=== PATIENT | female | born 1990 | race African-American/Black ===

== ENCOUNTER 2023-06-22 13:40 | Emergency (ER) | payer OTHER, SELFPAY ==
[2023-06-22 13:48] VITALS: BP 158/110; PULSE 110; RESP 16; TEMP 37.1; O2SAT 98; BMI 34.9
--- NOTE | 2023-06-22 14:04 | ED_ITS ---
HPI - General Adult General Chief complaint: Neuro Symptoms/Deficit Stated complaint: NUMBNESS L ARM Time Seen by Provider: 06/22/23 13:46 Source: patient and family Mode of arrival: walk-in Limitations: no limitations History of Present Illness HPI narrative: Patient is a 33-year female who presents to the emergency department with her father for the evaluation of numbness to the left arm for several weeks, wors ening 2 days ago as well as numbness to the left hip that began yesterday. She denies any mechanism of injury or trauma. 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 She has not had any headaches, visual changes, neck pain, back pain. She states she has stopped taking her insulin and metformin in the last month as she was feeling depressed, she believes her symptoms may be due to this. She denies any other focal medical complaints, she is not concerned for . Related Data Allergies Allergy/AdvReac Type Severity Reaction Status Date / Time amoxicillin AdvReac Severe Hives Verified 06/22/23 13:55 cephalexin AdvReac Severe Hives Verified 06/22/23 13:55 doxycycline AdvReac Severe Hives Verified 06/22/23 13:55 Review of Systems ROS Constitutional Denies: fever or chills Eyes Denies: change in vision Ears, nose, mouth, and throat Denies: throat pain Cardiovascular Denies: chest pain Respiratory Denies: shortness of breath Gastrointestinal Denies: nausea, vomiting or diarrhea Genitourinary Denies: painful urination Musculoskeletal Denies: back pain or neck pain Neurological Reports: numbness in extremities; Denies: headache Hematologic/Lymphatic Denies: easy bruising PFSH [facility] Social History Smoking status: Never smoker Exam Narrative Exam Narrative: Gen.: Awake, alert, in no distress Head: Normocephalic, atraumatic ENT: Moist mucous membranes; C-spine nontender Respiratory: No respiratory distress Extremities: Moves extremities equally, no injuries noted; normal dorsiflexion and plantarflexion of the lower extremities with no decrease in sensation to the medial thighs, normal hip flexion bilaterally. 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 Normal sensation to touch in the fingertips Psych: Normal mood and affect Neuro: No focal neuro deficit Skin: Warm, dry, intact Constitutional Vital Signs, click to edit/add: Last Vital Signs Temp 98.7 F 06/22/23 13:48 Pulse 110 H 06/22/23 13:48 Resp 16 06/22/23 13:48 BP 158/110 H 06/22/23 13:48 Pulse Ox 98 06/22/23 13:48 O2 Del Method Room Air 06/22/23 13:48 Course Vital Signs Vital signs: Vital Signs Temperature 98.7 F 06/22/23 13:48 Pulse Rate 110 H 06/22/23 13:48 Respiratory Rate 16 06/22/23 13:48 Blood Pressure 158/110 H 06/22/23 13:48 Pulse Oximetry 98 06/22/23 13:48 Oxygen Delivery Method Room Air 06/22/23 13:48 Temperature 98.7 F 06/22/23 13:48 Pulse Rate 110 H 06/22/23 13:48 Respiratory Rate 16 06/22/23 13:48 Blood Pressure 158/110 H 06/22/23 13:48 Pulse Oximetry 98 06/22/23 13:48 Oxygen Delivery Method Room Air 06/22/23 13:48 Medical Decision Making MDM Narrative Medical decision making narrative: CT of the head, CT of the C-spine with mild disc bulging, no other acute abnormalities. Lab studies show the patient has hyperglycemia, no evidence of DKA. She does have a urinary tract infection and was positive for trichomonas on her urine specimen so she is treated with 2 g of Flagyl orally in the ER with Bactrim for home as she has multiple antibiotic allergies. She is given Robaxin and anti-inflammatories, she was strongly encouraged to get back on her insulin and metformin which she has at home already. Follow closely with PCP and return to the ER if symptoms change or worsen. Discussed with the patient that her symptoms may represent diabetic peripheral neuropathy, but may also be musculoskeletal. Medical Records Medical records reviewed: Yes I reviewed the patient's medical records Lab Data Lab results reviewed: Yes I reviewed the patient's lab results Labs: Lab Results 06/22/23 06/22/23 Range/Units 14:12 14:31 WBC 10.1 (4.0-11.0) 10^3/uL RBC 4.04 L (4.20-5.40) 10^6/uL Hgb 11.0 L (12.0-16.0) g/dL Hct 33.5 L (36.0-48.0) % MCV 82.9 (81.0-99.0) fL MCH 27.2 (26.7-34.0) pg MCHC 32.8 (29.9-35.2) g/dL RDW 13.8 (11.0-15.0) % Plt Count 515 H (150-450) 10^3/uL MPV 9.7 (9.5-13.5) fL Neut % (Auto) 64.4 (43.0-75.0) % Lymph % (Auto) 28.3 (20.5-60.0) % [place] % (Auto) 5.5 (1.7-12.0) % Eos % (Auto) 1.1 (0.9-7.0) % Baso % (Auto) 0.3 (0.2-2.0) % Neut # (Auto) 6.5 (1.4-6.5) 10^3/uL Lymph # (Auto) 2.9 (1.2-3.8) 10^3/uL [place] # (Auto) 0.6 (0.3-0.8) 10^3/uL Eos # (Auto) 0.1 (0.0-0.7) 10^3/uL Baso # (Auto) 0.0 (0.0-0.1) 10^3/uL Abs Immat Gran (auto) 0.04 H (0.00-0.03) 10^3/uL Imm/Tot Granulo (auto) 0.4 (0.0-0.5) % Sodium 133 L (136-145) mmol/L Potassium 4.2 (3.5-5.1) mmol/L Chloride 98 (98-107) mmol/L Carbon Dioxide 27.5 (21.0-32.0) mmol/L Anion Gap 11.7 BUN 18.0 (7.0-18.0) mg/dL Creatinine 0.99 (0.55-1.02) mg/dL Est GFR ( Amer) >60 (>=60) Est GFR (Non-Af Amer) >60 (>=60) BUN/Creatinine Ratio 18.2 Glucose 324 H (74-106) mg/dL Lactate 1.3 (0.4-2.0) mmol/L Calcium 9.5 (8.5-10.1) mg/dL Total Bilirubin 0.4 (0.2-1.0) mg/dL AST 11 L (15-37) U/L ALT 18 (14-59) U/L Alkaline Phosphatase 85 (46-116) U/L Total Protein 7.7 (6.4-8.2) g/dL Albumin 3.1 L (3.4-5.0) g/dL Globulin 4.6 g/dL Albumin/Globulin Ratio 0.7 Serum HCG, Qual Negative (NEGATIVE) Urine Color Yellow (YELLOW) Urine Clarity Clear (CLEAR) Urine pH 6.0 (5.0-9.0) Ur Specific [place] >=1.030 A (1.005-1.025) Urine Protein >=300 A (NEG/TRACE) mg/dL Urine Glucose (UA) >=1000 A (NEGATIVE) mg/dL Urine Ketones 15 A (NEGATIVE) mg/dL Urine Occult Blood Moderate A (NEGATIVE) Urine Nitrite Negative (NEGATIVE) Urine Bilirubin Small A (NEGATIVE) Urine Urobilinogen 1.0 (0.2-1.0) EU/dL Ur Leukocyte Esterase Small A (NEGATIVE) Urine RBC 10-20 A (0-2) #/HPF Urine WBC 20-50 A (NONE SEEN) #/HPF Ur Squamous Epith Cells Few A (NONE/RARE) #/LPF Urine Crystals None seen (None Seen) #/HPF Urine Bacteria Small A (NONE SEEN) #/HPF Urine Casts None seen (NONE SEEN) #/LPF Urine Mucus None seen (NONE SEEN) Urine Trichomonas Seen A (NONE SEEN) Ur Culture Indicated? Yes Acetone, Qual Negative (NEGATIVE) Imaging Data CT scan - head: Attestation: I have reviewed the pertinent imaging results. Radiologist's impression: Procedure: CT head/brain wo con CT head/brain wo con, 06/22/2023 2:17 PM EST INDICATION: Paresthesia Left arm/leg COMPARISON: No prior CT scan of the head available for comparison at the time of this dictation. TECHNIQUE: Axial CT images of the brain from skull base to vertex, including portions of the face and sinuses, were obtained without contrast. Multiplanar reformatted images were generated and reviewed as needed. FINDINGS: No intracranial mass, hydrocephalus, midline shift or acute hemorrhage. No extra-axial collection. Lee-white matter differentiation is preserved. Chronic mucosal thickening within the right frontal sinus and ethmoid air cells. The remaining paranasal sinuses and mastoid air cells are clear. Right orbit within normal limits. Findings likely representing prior silicone oil injection into the left globe. IMPRESSION: 1. No acute intracranial abnormality. 2. Chronic right frontal and ethmoid sinusitis. Electronically authenticated by: CHARLIE VILLATORO Date: 06/22/2023 14:50 Procedure: CT cervical spine wo con EXAM: CT cervical spine wo con HISTORY: Paresthesia left arm/leg COMPARISON: None TECHNIQUE: CT cervical spine study was performed without the use of intravenous contrast. Multiple axial images were obtained. Reformatted coronal and sagittal images were obtained and reviewed. FINDINGS: Vertebral body heights are grossly well-maintained. No significant disc space narrowing. Slight convexity of the thoracolumbar junction to the left. No definite acute fracture or dislocation. At C2-C3 mild disc bulging. At C3-C4 mild disc bulging. At C4-C5 mild disc bulging. At C5-C6 mild disc bulging. At C6-C7 no obvious focal abnormality. At C7-T1 no obvious focal abnormality. Partially visualized T1-T2 no obvious focal abnormality. No obvious spinal stenosis or significant neural foraminal narrowing. No obvious focal soft tissue abnormality within the bony spinal canal. Muscle and fascial planes are grossly intact. Likely a few small lymph nodes within the subcutaneous tissue at the lower occipital level on the left, mild fibrosis and/or edema within the subcutaneous tissue at the lower occipital level centrally and to the right. Other possibility would be less likely. IMPRESSION: CT cervical spine study demonstrates areas of mild disc bulging. No other significant abnormalities are identified. Electronically authenticated by: ANDRE GALVEZ Date: 06/22/2023 15:02 Discharge Plan Discharge Chief Complaint: Neuro Symptoms/Deficit Clinical Impression: UTI (urinary tract infection), Trichomonal infection, Paresthesia, Acute hyperglycemia Patient Disposition: Home, Self-Care Time of Disposition Decision: 15:51 Condition: Good Stand Alone Forms: Portal Instructions Referrals: ALICIA HAWLEY APRN [Primary Care Provider] - 1 week
[2023-06-22 14:22] LABS: Basophils Percent Auto 0.3 % (0.2-2.0); Eosinophils Absolute Auto 0.1 10^3/uL (0.0-0.7); Eosinophils Percent Auto 1.1 % (0.9-7.0); Hematocrit 33.5 % (36.0-48.0); Immature Granulocytes Abs Auto 0.04 10^3/uL (0.00-0.03); Immature Granulocytes Pct Auto 0.4 % (0.0-0.5); Lymphocytes Absolute Auto 2.9 10^3/uL (1.2-3.8); Lymphocytes Percent Auto 28.3 % (20.5-60.0); Mean Corpuscular HGB Conc 32.8 g/dL (29.9-35.2); Mean Corpuscular Hemoglobin 27.2 pg (26.7-34.0); Mean Corpuscular Volume 82.9 fL (81.0-99.0); Mean Platelet Volume 9.7 fL (9.5-13.5); Monocytes Absolute Auto 0.6 10^3/uL (0.3-0.8); Monocytes Percent Auto 5.5 % (1.7-12.0); Neutrophils Absolute Auto 6.5 10^3/uL (1.4-6.5); Neutrophils Percent Auto 64.4 % (43.0-75.0); Platelet Count 515 10^3/uL (150-450); Red Blood Count 4.04 10^6/uL (4.20-5.40); Red Cell Distribution Width 13.8 % (11.0-15.0); White Blood Count 10.1 10^3/uL (4.0-11.0)
--- NOTE | 2023-06-22 14:26 | CT_ITS ---
The [address] [address] Patient Name: RUBÉN STANLEY MRN: [id number] date: 1990 Sex: F Assigned Patient Location: ER Current Patient Location: ER Accession/Order Number: [id number] Exam Date: 06/22/2023 14:17 Report Date: 06/22/2023 15:02 At the request of: SAM SELLERS Procedure: CT cervical spine wo con EXAM: CT cervical spine wo con HISTORY: Paresthesia left arm/leg COMPARISON: None TECHNIQUE: CT cervical spine study was performed without the use of intravenous contrast. Multiple axial images were obtained. Reformatted coronal and sagittal images were obtained and reviewed. FINDINGS: Vertebral body heights are grossly well-maintained. No significant disc space narrowing. Slight convexity of the thoracolumbar junction to the left. No definite acute fracture or dislocation. At C2-C3 mild disc bulging. At C3-C4 mild disc bulging. At C4-C5 mild disc bulging. At C5-C6 mild disc bulging. At C6-C7 no obvious focal abnormality. At C7-T1 no obvious focal abnormality. Partially visualized T1-T2 no obvious focal abnormality. No obvious spinal stenosis or significant neural foraminal narrowing. No obvious focal soft tissue abnormality within the bony spinal canal. Muscle and fascial planes are grossly intact. Likely a few small lymph nodes within the subcutaneous tissue at the lower occipital level on the left, mild fibrosis and/or edema within the subcutaneous tissue at the lower occipital level centrally and to the right. Other possibility would be less likely. CT/CT cervical spine wo con IMPRESSION: CT cervical spine study demonstrates areas of mild disc bulging. No other significant abnormalities are identified. Electronically authenticated by: ANDRE GALVEZ Date: 06/22/2023 15:02
--- NOTE | 2023-06-22 14:26 | CT_ITS ---
The [address] [address] Patient Name: RUBÉN STANLEY MRN: [id number] date: 1990 Sex: F Assigned Patient Location: ER Current Patient Location: ER Accession/Order Number: [id number] Exam Date: 06/22/2023 14:17 Report Date: 06/22/2023 14:50 At the request of: SAM SELLERS Procedure: CT head/brain wo con CT head/brain wo con, 06/22/2023 2:17 PM EST INDICATION: Paresthesia Left arm/leg COMPARISON: No prior CT scan of the head available for comparison at the time of this dictation. TECHNIQUE: Axial CT images of the brain from skull base to vertex, including portions of the face and sinuses, were obtained without contrast. Multiplanar reformatted images were generated and reviewed as needed. FINDINGS: No intracranial mass, hydrocephalus, midline shift or acute hemorrhage. No extra-axial collection. Lee-white matter differentiation is preserved. Chronic mucosal thickening within the right frontal sinus and ethmoid air cells. The remaining paranasal sinuses and mastoid air cells are clear. Right orbit within normal limits. Findings likely representing prior silicone oil injection into the left globe. CT/CT head/brain wo con IMPRESSION: 1. No acute intracranial abnormality. 2. Chronic right frontal and ethmoid sinusitis. Electronically authenticated by: CHARLIE VILLATORO Date: 06/22/2023 14:50
[2023-06-22 14:36] LABS: Alanine Aminotransferase 18 U/L (14-59); Albumin Globulin Ratio 0.7; Albumin Level 3.1 g/dL (3.4-5.0); Alkaline Phosphatase 85 U/L (46-116); Anion Gap 11.7; Aspartate Amino Transferase 11 U/L (15-37); BUN Creatinine Ratio 18.2; Bilirubin Total 0.4 mg/dL (0.2-1.0); Calcium 9.5 mg/dL (8.5-10.1); Carbon Dioxide 27.5 mmol/L (21.0-32.0); Chloride 98 mmol/L (98-107); Estimated GFR (African America >60 (>=60); Estimated GFR (Non-African Ame >60 (>=60); Globulin 4.6 g/dL; Glucose 324 mg/dL (74-106); Potassium 4.2 mmol/L (3.5-5.1); Sodium 133 mmol/L (136-145); Total Protein 7.7 g/dL (6.4-8.2)
[2023-06-22] MEDS: 0.9 % SODIUM CHLORIDE 1,000 ML 999 ML IV (14:36)
[2023-06-22 14:39] LABS: Acetone NEGATIVE (NEGATIVE)
[2023-06-22 14:41] LABS: HCG Qualitative NEGATIVE (NEGATIVE)
[2023-06-22 14:44] LABS: Lactate/Lactic Acid 1.3 mmol/L (0.4-2.0)
[2023-06-22 14:44] LABS: Bilirubin Urine SMALL (NEGATIVE); Blood Urine MODERATE (NEGATIVE); Clarity Urine CLEAR (CLEAR); Color Urine YELLOW (YELLOW); Glucose Urine UA >=1000 mg/dL (NEGATIVE); Ketones Urine 15 mg/dL (NEGATIVE); Leukocyte Esterase Urine SMALL (NEGATIVE); Nitrite Urine NEGATIVE (NEGATIVE); Protein Urine >=300 mg/dL (NEG/TRACE); Specific Gravity Urine >=1.030 (1.005-1.025)
[2023-06-22 14:45] LABS: Urine Microscopic Indicated YES
[2023-06-22 14:57] LABS: Bacteria Urine SMALL #/HPF (NONE SEEN); Mucus Urine NONE SEEN (NONE SEEN)
[2023-06-22 14:58] LABS: Trichomonas Urine SEEN (NONE SEEN)
[2023-06-22 14:59] LABS: WBC Urine 20-50 #/HPF (NONE SEEN)
[2023-06-22 15:00] LABS: Cast Seen? NONE SEEN #/LPF (NONE SEEN); Crystals Seen? None Seen #/HPF (None Seen); Squamous Epithelial Cell Urine FEW #/LPF (NONE/RARE); Urine Culture Indicated YES
[2023-06-22] MEDS: METRONIDAZOLE 250 MG TABLET 2000 MG PO (16:05)
== END 2023-06-22 16:20 | disposition home or self-care (01) ==
PROVIDERS: Physician Assistant; Emergency Provider Emergency Medicine; PCP Nurse Practitioner Primary Care
DX: N39.0 Urinary tract infection, site not specified (principal); M50.30 Other cervical disc degeneration, unspecified cervical region; R73.9 Hyperglycemia, unspecified; A59.9 Trichomoniasis, unspecified; R20.0 Anesthesia of skin; T38.3X6A Underdosing of insulin and oral hypoglycemic [antidiabetic] drugs, initial encounter; Z91.128 Patient's intentional underdosing of medication regimen for other reason
CPT/HCPCS: 36415; 70450; 72125; 80053; 81001; 82009; 83605; 84703; 85025; 87086; 87150; 87186; 99284

== ENCOUNTER 2023-07-16 19:19 | Outpatient (REF) | payer OTHER, SELFPAY ==
--- OUTSIDE RECORDS SUMMARY | 2023-07-16 19:23 | XMS_ITS | CCD ---
Author Name Unknown Address [address] [place] [address] [address] [place] [address] Organization [facility] Care Team Providers [facility] Name Role Phone ROGELIO ORNELAS Attending Unavailable ALICIA HAWLEY Primary Care Unavailable ROGELIO ORNELAS Admitting Unavailable ROGELIO ORNELAS Attending Unavailable ALICIA HAWLEY Primary Care Unavailable ROGELIO ORNELAS Admitting Unavailable Problems Problem Classification Problem Date Documented Date Episodic/Chronic Diabetes mellitus with complications (2 sources) Diabetes mellitus due to underlying condition with proliferative diabetic 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, left eye; Translations: [Diabetes mellitus due to underlying condition with proliferative diabetic 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, left eye] Onset: 01-13-2023 Chronic Other eye disorders (2 sources) Vitreous hemorrhage, left eye; Translations: [Vitreous hemorrhage, left eye] Onset: 01-13-2023 Chronic Retinal detachments; defects; vascular occlusion; and retinopathy (2 sources) Traction detachment of retina, left eye; Translations: [Traction detachment of retina, left eye] Onset: 03-05-2023 Episodic Results Test Name Value Interpretation Reference [facility] OPERATIVE REPORTon OPERATIVE REPORT [address] [address] OPERATIVE REPORT PATIENT NAME: RUBÉN STANLEY : 1990 MED REC NO: [id number] ROOM: ACCOUNT NO: [id number] ADMIT DATE: 03/05/2023 PROVIDER: Rogelio Ornelas DATE OF PROCEDURE: 03/05/2023 PREOPERATIVE DIAGNOSIS: 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 OPERATIONS PERFORMED: Pars plana vitrectomy with membrane peeling, PFO, panretinal endolaser and silicone, left eye. SURGEON: Rogelio Ornelas MD ANESTHESIA: Monitored. REASON FOR OPERATION: The patient is a 32-year-old woman with severe proliferative diabetic retinopathy in both eyes. She has had previous surgery on the left eye that has developed recurrent nasal detachment due to contraction of fibrotic tissue near the equator. She has elected to undergo surgery in hopes of improving vision. She understands the risks include but are not limited to bleeding, infection, and recurrent retinal detachment. She understands it is very likely that she will develop significant cataract within two years. OPERATIVE PROCEDURE: The patient was brought to the operating room in good condition. She was administered local anesthetic and prepped in the usual fashion. 23-gauge vitrectomy trocars were placed superonasally and superotemporally. Light pipe and ocutome were placed in the eye. There was contracted atrophic fibrovascular tissue near the equator and possibly slightly anterior. There were two areas of subretinal membranes in the inferonasal and superonasal quadrants. The detachment affected all of the nasal half of the eye and that was highly elevated. I made a retinotomy over the subretinal strands and removed them. I removed fluid replacing it with silicone. This did not fully reattach the retina. I elected to make a large nasal retinotomy from approximately 7 o'clock to 11. This was done using diathermy and the ocutome. Mild bleeding was encountered and controlled with elevating intraocular pressure with silicone injection or endolaser. The retina wanted to remain elevated nasally. I removed some of the silicone and replaced it with PFO, which flattened the nasal retina. I placed three rows of contiguous endolaser behind the retinotomy and treated the small retinotomy with laser. The macula stayed attached at all times although it has been detached in the past. The PFO was removed and replaced with silicone. The retina remained attached. I removed the trocars and sutured the sites with 6-0 chromic suture. Intraocular pressure remained in normal range. I injected 400 mcg of methotrexate through the superotemporal pars plana and held the needle opening with a cotton swab to be sure there was no reflux. Intraocular pressure was still within normal range. The eye was patched in the usual fashion. The patient was taken to the recovery room in good condition. ROGELIO ORNELAS GUSTAVO/[email or web address] Doc#: [id number] CC: Normal [facility] OPERATIVE REPORTon OPERATIVE REPORT [address] [address] OPERATIVE REPORT PATIENT NAME: RUBÉN STANLEY : 1990 MED REC NO: [id number] ROOM: ACCOUNT NO: [id number] ADMIT DATE: 01/13/2023 PROVIDER: Rogelio Ornelas DATE OF PROCEDURE: 01/13/2023 PREOPERATIVE DIAGNOSES: 1. 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 2. Vitreous hemorrhage, left eye. 3. Type 1 diabetes. POSTOPERATIVE DIAGNOSES: 1. 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 2. Vitreous hemorrhage, left eye. 3. Type 1 diabetes. PROCEDURE: Pars plana vitrectomy with extensive membrane peeling, air-fluid exchange, silicone and panretinal endolaser, all left eye. SURGEON: Rogelio Ornelas MD ANESTHESIA: General endotracheal. ESTIMATED BLOOD LOSS: Minimal. COMPLICATIONS: None. SPECIMENS: None. REASON FOR OPERATION: The patient is a 32-year-old young woman with type 1 diabetes who has severe traction retinal detachments in both eyes. Vision in the right eye has been 20/50, but the left eye has decreased to hand motions due to her traction detachment, which involves the macula and almost all of the nasal periphery. She has large sheets of epiretinal membrane. She has mild vitreous hemorrhage. She has elected to undergo surgery in hopes of recovering partial vision. She understands the risks include bleeding, infection, and recurrent retinal detachment. She understands she may develop a significant cataract within a year. She understands that the visual recovery will take 6-12 months at least and the vision is not likely to return to near normal, but she is likely to lose all vision without surgery. PROCEDURE: The patient was brought to the operating room in good condition. She was administered local anesthetic and prepped and draped in the usual fashion. The 23-gauge vitrectomy trocars were placed through the pars plana in the usual quadrants. The infusion attached to the inferotemporal site. Light pipe and ocutome were placed through the superior sites. There was mild amount of blood near the center. We removed vitreous from anterior to posterior. Most of the temporal vitreous was detached, but there was a very high nasal detachment with a large sheet of contracted fibrovascular tissue over most of the nasal periphery. The macula was difficult to identify because of epiretinal membranes. We removed temporal vitreous and then began to dissect vitreous and epiretinal membrane off the nasal retina. This took an extensive length of time, but eventually we were able to remove membrane out well anterior to the equator. There were scattered areas of bleeding, which sometimes required waiting for to stop. We treated the bleeding with diathermy or the endolaser. The macular area had been detached and by the time we were done, much of the temporal retina was also detached. We left islands of fibrovascular tissue, which were in places where they were strongly adherent. When bleeding was controlled, I made a retinotomy above the posterior pole with intraocular diathermy. An air-fluid exchange attached the retina. Panretinal endolaser was then done in areas that had not previous been treated. There was a relatively small amount of area that had been treated previously. Laser was placed around the retinotomy. Residual fluid was aspirated from over the optic nerve head. The vitreous was filled with 1000 [place] silicone. The trocars were removed and the sites closed with 7-0 chromic suture. The eye was patched in the usual fashion. The patient was awakened and taken to recovery room in good condition. ROGELIO ORNELAS GUSTAVO/Jose [email or web address] Doc#: [id number] [facility] Encounters Encounter Date Encounter Type Care Provider Facility Start: 03-05-2023 End: 03-05-2023 ambulatory ROGELIO Amada [facility] Start: 01-13-2023 End: 01-13-2023 ambulatory ROGELIO Amada [facility] Payers Date Payer Category Payer Private Health Insurance [id number] 1990 Unknown [id number] 1990 Unknown [id number] Summary Purpose Family History No Family History Records Found Advance Directives No Advanced Directives Records Found Additional Source Comments INFORMATION SOURCE (unrecogn ized section and content) DATE CREATED AUTHOR 03/11/2023 [facility] FOR RECORDS PERTAINING TO PATIENTS WHO ARE OR HAVE BEEN ENROLLED IN A CHEMICAL DEPENDENCY/SUBSTANCEABUSE PROGRAM, SOME INFORMATION MAY BE OMITTED. This clinical summary was aggregated from multiple sources. Caution should be exercised in using it in the provision of clinical care. This summary normalizes information from multiple sources, and as a consequence, information in this document may materially change the coding, format and clinical context of patient data. In addition, data may be omitted in some cases. CLINICAL DECISIONS SHOULD BE BASED ON THE PRIMARY CLINICAL RECORDS. [facility] [employer] [facility]. provides no warranty or guarantee of the accuracy or completeness of information in this document.
[2023-07-16 20:41] LABS: Creatinine Urine Random 64.62 mg/dL (20.00-300.00); Microalbum Creatinine Ratio Ur 433.3 mg/g (0.0-29.9)
== END 2023-07-16 19:20 | disposition home or self-care (01) ==
LOC: LAB 19:19
PROVIDERS: PCP Nurse Practitioner Primary Care; Visit Provider Nurse Practitioner Primary Care
DX: R80.9 Proteinuria, unspecified (principal)
CPT/HCPCS: 82043; 82570

== ENCOUNTER 2023-09-05 11:25 | Emergency (ER) | payer OTHER, SELFPAY ==
[2023-09-05 11:30] VITALS: BP 180/110; PULSE 116; RESP 20; TEMP 37.1; O2SAT 100; BMI 34.9
--- OUTSIDE RECORDS SUMMARY | 2023-09-05 11:32 | XMS_ITS | CCD ---
Author Name Unknown Address [address] [place] [address] Organization [facility] Care Team Providers Care Dental Prosthetist Name Role Phone BALTAZAR ORNELAS Attending Unavailable SHAMMOALICIA Primary Care Unavailable BALTAZAR ORNELAS Admitting Unavailable BALTAZAR ORNELAS Attending Unavailable SHAMALICIA SPAIN Primary Care Unavailable BALTAZAR ORNELAS Admitting Unavailable KELLY STACK Attending Unavailable SHAMMOALICIA Referring Unavailable SERVICES, [facility] Primary Care Unava ilable Services, [facility] Primary Care Provider Allergies Allergy Classification Reported Allergen(s) Allergy Type Date of Onset Reaction(s) Facility (3 sources) Cefaclor; Translations: [CEFACLOR] Drug Allergy 9 Hives [facility] (3 sources) Cephalexin; Translations: [CEPHALEXIN] Drug Allergy 1 Rash [facility] (3 sources) Doxycycline; Translations: [DOXYCYCLINE] Drug Allergy 8 [facility] (3 sources) Sulfamethoxazole / Trimethoprim; Translations: [SULFAMETHOXAZOLE-TR IMETHOPRIM] Drug Allergy 9 Rash [facility] Medications Current Medications Medication Drug Class(es) Dates Sig (Normalized) Sig (Original) atorvastatin 40 mg oral tablet (2 sources) HMG-CoA Reductase Inhibitor Start: 07-16-2023 atorvastatin (LIPITOR) 40 mg tablet busPIRone hydrochloride 10 mg oral tablet (2 sources) take 1 tablet by mouth at bedtime busPIRone (BUSPAR) 10 mg tablet Take 1 tablet (10 mg total) by mouth in the morning and at bedtime. 0 Active gabapentin 100 mg oral capsule (2 sources) Anti-epileptic Agent Start: 07-23-2023 take 1 capsule by mouth three times daily gabapentin (NEURONTIN) 100 mg capsule Indications: Cervical spondylosis without myelopathy Take 1 capsule (100 mg total) by mouth 3 (three) times a day. 90 capsule 0 07/23/2023 Active sensor 3 ml insulin glargine 100 unt/ml pen injector (2 sources) Insulin Analog inject 20 [IU] by subcutaneous injection once daily insulin glargine (LANTUS, BASAGLAR) 100 unit/mL (3 mL) insulin pen Inject 20 Units under the skin nightly. 0 Active lisinopril 20 mg oral tablet (2 sources) Angiotensin Converting Enzyme Inhibitor take 1 tablet by mouth in the morning lisinopriL (PRINIVIL,ZESTRIL) 20 mg tablet Take 1 tablet (20 mg total) by mouth in the morning. 0 Active metFORMIN hydrochloride 500 mg oral tablet (2 sources) Biguanide take 2 tablets by mouth in the morning, then take 2 tablets by mouth at bedtime metFORMIN (GLUCOPHAGE) 500 mg tablet Take 2 tablets (1,000 mg total) by mouth in the morning and 2 tablets (1,000 mg total) before bedtime. 0 Active metoprolol tartrate 25 mg oral tablet (2 sources) beta-Adrenergic Jeanie Start: 07-17-2023 metoprolol tartrate (LOPRESSOR) 25 mg tablet prochlorperazine 10 mg oral tablet (2 sources) Phenothiazine Start: 10-29-2022 take 1 tablet by mouth twice daily as needed for nausea prochlorperazine (COMPAZINE) 10 mg tablet Take 1 tablet (10 mg total) by mouth 2 (two) times a day as needed for nausea or vomiting. 10 tablet 0 10/29/2022 Active sertraline 25 mg oral tablet (2 sources) Serotonin Reuptake Inhibitor take 1 tablet by mouth in the morning sertraline (ZOLOFT) 25 mg tablet Take 1 tablet (25 mg total) by mouth in the morning. 0 Active Problems Problem Classification Problem Date Documented Date Episodic/Chronic Diabetes mellitus with complications (4 sources) Diabetes mellitus due to underlying condition with proliferative diabetic 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, left eye; Translations: [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, left eye] Onset: 01-13-2023 Chronic Diabetes mellitus without complication (2 sources) Type 1 diabetes mellitus; Translations: [Type 1 diabetes mellitus without complications] Onset: 01-13-2023 07-28-2023 Chronic Other eye disorders (2 sources) Vitreous hemorrhage, left eye; Translations: [Vitreous hemorrhage, left eye] Onset: 01-13-2023 Chronic Retinal detachments; defects; vascular occlusion; and retinopathy (2 sources) Traction detachment of retina, left eye; Translations: [Traction detachment of retina, left eye] Onset: 03-05-2023 Episodic Spondylosis; intervertebral disc disorders; other back problems (4 sources) Spondylosis without myelopathy or radiculopathy, cervical region; Translations: [Other cervical disc displacement, unspecified cervical region] Onset: 07-23-2023 07-23-2023 Chronic Spondylosis; intervertebral disc disorders; other back problems (1 source) Neck pain Onset: 07-23-2023 Episodic Results Test Name Value Interpretation Reference Range [facility] OPERATIVE REPORTon OPERATIVE REPORT [address] [id number] OPERATIVE REPORT PATIENT NAME: JOLIE STANLEY : 1990 MED REC NO: [id number] ROOM: ACCOUNT NO: [id number] ADMIT DATE: 03/05/2023 PROVIDER: Baltazar Ornelas DATE OF PROCEDURE: 03/05/2023 PREOPERATIVE DIAGNOSIS: 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 OPERATIONS PERFORMED: Pars plana vitrectomy with membrane peeling, PFO, panretinal endolaser and silicone, left eye. SURGEON: Baltazar Ornelas MD ANESTHESIA: Monitored. REASON FOR OPERATION: [...] to the recovery room in good condition. BALTAZAR ORNELAS GUSTAVO/Jose Armando_BERNARD_01 Doc#: [id number] CC: Normal [facility] OPERATIVE REPORTon OPERATIVE REPORT [address] [address] OPERATIVE REPORT PATIENT NAME: JOLIE STANLEY : 1990 MED REC NO: [id number] ROOM: ACCOUNT NO: [id number] ADMIT DATE: 01/13/2023 PROVIDER: Baltazar Ornelas DATE OF PROCEDURE: 01/13/2023 PREOPERATIVE DIAGNOSES: [...] and panretinal endolaser, all left eye. SURGEON: Baltazar Ornelas MD ANESTHESIA: General endotracheal. ESTIMATED BLOOD [...] taken to recovery room in good condition. BALTAZAR ORNELAS GUSTAVO/Jose Armando_ELKE_01 Doc#: [id number] [facility] Vital Signs Date Time Vital Sign Value Performing Clinician Amyi glynny 07-23-2023 14:13-0500 Body height 165.1 cm Kelly WAGNER Work Phone: [facility] 07-23-2023 14:13-0500 Body mass index (BMI) [Ratio] 37.28 kg/m2 Kelly WAGNER Work Phone: [facility] 07-23-2023 14:13-0500 Body weight 101.61 kg Kelly WAGNER Work Phone: [facility] 07-23-2023 14:13-0500 Diastolic blood pressure 105 mm[Hg] Kelly WAGNER Work Phone: [facility] 07-23-2023 14:13-0500 Heart rate 100 /min Kelly WAGNER Work Phone: [facility] 07-23-2023 14:13-0500 Respiratory rate 18 /min Kelly WAGNER Work Phone: [facility] 07-23-2023 14:13-0500 SaO2% (BldA) [Mass fraction] 100 % Kelly WAGNER Work Phone: [facility] 07-23-2023 14:130500 Systolic blood pressure 159 mm[Hg] Kelly WAGNER Work Phone: [facility] Encounters Encounter Date Encounter Type Care Provider Facility Start: 07-28-2023 Telephone encounter Manju Shultz [facility] Start: 07-23-2023 End: 07-23-2023 ambulatory [facility] Start: 07-23-2023 End: 07-23-2023 Office outpatient new 45 minutes Kelly WAGNER Work Phone: [facility] Comment on above: Cervical spondylosis without myelopathy (Primary Dx); Cervical disc displacement Start: 03-05-2023 End: 03-05-2023 ambulatory [facility] Start: 01-13-2023 End: 01-13-2023 ambulatory [facility] Plan of Treatment Date Care Activity Detail Author Start: 04-06-2028 DTaP,Tdap and Td Vaccines (2 - Td or Tdap) DTaP,Tdap and Td Vaccines (2 - Td or Tdap) [facility] Start: 07-23-2024 Adult BMI Screening Adult BMI Screening [facility] Start: 07-23-2024 Tobacco Screening Tobacco Screening [facility] Start: 09-22-2023 End: 09-22-2023 Patient encounter procedure 09/22/2023 12:00 PM EST Office Visit [facility] [address] [place] [id number] Sabine Stack, CARPET OR RUG LAYER HELPER-MECHANICAL REPAIR WORKER [address] [place] [address] [facility] Start: 03-20-2023 Influenza vaccination Influenza Vaccine [facility] Start: 2013 Screening for malignant neoplasm of cervix Pap Smear [facility] Start: 2010 Adult BMI Follow Up Plan Adult BMI Follow Up Plan [facility] Start: 2010 Diabetic foot examination Diabetic Foot Exam [facility] Start: 2004 Depression Screening Depression Screening [facility] Start: 1990 Glaucoma screening Diabetic Ophthalmology Exam [facility] Immunizations Immunization Date Immunization Notes Care Provider Román williamson 04-06-2018 tetanus toxoid, redu reyna diphtheria toxoid, and acellular pertussis vaccine, adsorbed Kelly WAGNER Work Phone: [facility] Payers Date Payer Category Payer Private Health Insurance [id number] 2022 Private Health Insurance [facility] [id number] 2022-Present [phone] [address] [place] [address] [id number] 1990 Unknown [id number] 1990 Unknown [id number] 1990 Unknown 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 Pt called left message stating she wants an appt for pain in her back and legs, this office is currently treating neck and shoulder. Called patient back. Informed pt that her referral was for neck pain and currently being treated for neck pain and will treat one thing at a time; once neck is treated, they can move on to her back pain. This was also discussed with patient on the day of her initial evaluation, she was given the option of what she wanted treated first, she opted for neck and shoulders. Pt was upset and states so my leg is going to be paralyzed for 6-7 weeks until I'm done with PT? She was really concerned about it. I asked pt who she is. States the physical therapist said patient needed to be seen for her back. Advised pt to reach out to her PCP for low back treatment as this is new and acute, so she can be assessed by PCP first. Pt hung up the phone. documented in this encounter [facility] Telephone encounter Note 07-28-2023 Telephone Encounter - Manju Sifuentes RN - 07/28/2023 3:31 PM EST Note Date & Type Note Facility 07-28-2023 Telephone encount er Note Pt called left message stating she wants an appt for pain in her back and legs, this office is currently treating neck and shoulder. Called patient back. Informed pt that her referral was for neck pain and currently being treated for neck pain and will treat one thing at a time; once neck is treated, they can move on to her back pain. This was also discussed with patient on the day of her initial evaluation, she was given the option of what she wanted treated first, she opted for neck and shoulders. Pt was upset and states so my leg is going to be paralyzed for 6-7 weeks until I'm done with PT? She was really concerned about it. I asked pt who she is. States the physical therapist said patient needed to be seen for her back. Advised pt to reach out to her PCP for low back treatment as this is new and acute, so she can be assessed by PCP first. Pt hung up the phone. [facility] History of Present illness Narrative 07-23-2023 Kelly Stack, KRISTY - 07/23/2023 2:00 PM EST Note Date & Type Note Facility 07-23-2023 History of Present illness Narrative [facility] [address] [place] [address] Patient: Jolie Stanley Sex: female : 1990 Age: 33 y.o. PCP: GLORIA Zaman 07/23/2023 Jolie Stanley is here for a(n) initial consultation neck pain. Chief Complaint Patient presents with Neck Pain HPI: Neck Pain This is a new problem. The current episode started more than 1 month ago (05/2023). The problem occurs constantly. The problem has been gradually worsening. The pain is associated with nothing. The pain is present in the midline and right side (LUE (entire) with numbness and pain). The quality of the pain is described as aching. The pain is at a severity of 6/10. The pain is moderate. Exacerbated by: activity. The pain is Worse during the day. Stiffness is present: NA. Associated symptoms include numbness and weakness (LUE, and LLE). Pertinent negatives include no chest pain, fever, headaches or photophobia. Associated symptoms comments: LUE (entire) with numbness and pain. Treatments tried: No PT/HEP, rest, meds: tylenol, and motrin with little relief. ER 06/22/23 toradol, robaxin with moderated relief. The treatment provided mild relief. The effect of pain on patient's ADLS: Mild Impairment. Past Medical History: Diagnosis Date Anxiety Chronic pain disorder Depression Diabetes mellitus ([facility]) DM type 2 (diabetes mellitus, type 2) ([facility]) Neck pain Obesity Tachycardia Past Surgical History: Procedure Laterality Date BREAST SURGERY EYE SURGERY Allergies Allergen Reactions Cefaclor Hives Doxycycline Bactrim [Sulfamethoxazole-Trimethoprim] Rash Keflex [Cephalexin] Rash Family History Problem Relation Age of Onset Diabetes Mother Heart failure Mother Hypertension Mother Hypertension Father Social History Socioeconomic History Marital status: Single Spouse name: Not on file Number of children: Not on file Years of education: Not on file Highest education level: Not on file Occupational History Not on file Tobacco Use Smoking status: Never Smokeless tobacco: Never Substance and Sexual Activity Alcohol use: No Drug use: No Sexual activity: Not on file Other Topics Concern Not on file Social History Narrative Not on file Social Determinants of Health Financial Resource Strain: Not on file Food Insecurity: No Food Insecurity (07/23/2023) Hunger Screening Food Insecurity - Worry: Never True Food Insecurity - Inability: Never True Transportation Needs: Not on file Physical Activity: Not on file Stress: Not on file Social Connections: Not on file Interpersonal Safety: Not on file Review of Systems Constitutional: Negative. Negative for chills, fatigue and fever. HENT: Negative. Eyes: Negative for photophobia. Respiratory: Negative. Negative for cough and shortness of breath. Cardiovascular: Negative. Negative for chest pain. Gastrointestinal: Negative. Genitourinary: Negative. UTI s/s resolving d/t current atb tx Musculoskeletal: Positive for back pain, neck pain and neck stiffness. Skin: Negative. Neurological: Positive for weakness (LUE, and LLE) and numbness. Negative for headaches. Hematological: Negative. Psychiatric/Behavioral: Negative. Vital Signs: BP (!) 159/105 Pulse 100 Resp 18 Ht 165.1 cm (5' 5 ) Wt 101.6 kg (224 lb) SpO2 100% BMI 37.28 kg/m Physical Exam: GENERAL - Healthy patient that appears stated age. HEENT - Normocephalic / Atraumatic, Extraoccular movements intact, trachea midline, thyroid within normal limits. CV - pulse regular, Warm extremities with appropriate color of nailbeds. RESP - No obvious wheezing, No Shortness of Breath, No overexertion response to exam maneuvers. COORDINATION - remains intact. PSYCH - Alert and Oriented x4, Attentive and appropriate, constitutionally normal, displays normal mood and affect per situation, answered questions appropriately during examination, demonstrated appropriate attention during discussion, demonstrated appropriate cognitive reasoning and understanding of the medical condition by asking appropriate questions regarding the diagnosis and risks/benefits/alternatives of treatment modalities. No obvious deficits in memory, reasoning, or intellect. Cervical: SKIN - No rashes or bruising in the area of the patient s pain. LYMPH NODES - demonstrate no obvious enlargement. EXTREMITIES - Upper extremities are warm, with minimal edema and palpable pulses. Tenderness to palpation noted in the cervical spine and paraspinal musculature. Pain is elicited with flexion, extension, and lateral rotation of the cervical spine. Range of motion is diminished with these motions due to pain. Facet palpation is noted to be painful and concordant with the patient s normal pain complaints. STRENGTH - noted to be 5 out of 5 all muscle groups bilateral upper extremities including muscles involving shoulder flexion and abduction, elbow flexion and extension, as well as wrist flexion and extension and intrinsic muscles of the hand. No notable atrophy, fasciculations or spasm. SENSORY - No notable sensory deficits in the bilateral upper extremities to touch or pinprick in all dermatomal distributions with exception to a deficit in the Left C6 dermatomal distributions.. Spurlings sign is negative. Assessment/Treatment Plan: Jolie was seen today for neck pain. Diagnoses and all orders for this visit: Cervical spondylosis without myelopathy - Ambulatory referral to Physical Therapy; Future - gabapentin (NEURONTIN) 100 mg capsule; Take 1 capsule (100 mg total) by mouth 3 (three) times a day. Cervical disc displacement - Ambulatory referral to Physical Therapy; Future Physical/Aquatic Therapy - It is felt that the patient will benefit from a course of physical therapy focusing on the above mentioned diagnosis. We will recommend that the physical therapist fully evaluate and treat at their discretion considering the modalities that are most useful for the condition being treated. This may include modalities of comfort including moist heat, ultrasound, and TENS therapy. It may also utilize manual therapy and myofascial release for the myofascial component of the patient s pain. It will likely advance to modalities aimed at stabilizing and strengthing the target area while improving range of motion as well. We are also requesting that the physical therapist send notes that will keep our clinic updated to the patient s progress. Gabapentin 100 mg TID With Regard to medication management, it is felt that the patient would benefit from the changes mentioned above. This should provide symptomatic pain relief as part of the comprehensive pain management strategy outlined. Risks, Benefits, Side effects, and possible interactions of these medications were reviewed and the medication agreement has been discussed, agreed upon, and signed. The patient understands compliance concerns and the requirement of pill counts and drug screens while taking medications prescribed by this clinic. Follow up 2 months The medications I have prescribed have been reviewed for medication interactions/contraindications and/or for upcoming procedures: continue current medication regimen without any changes. DISCUSSION: Treatment options discussed with patient and all questions answered to patient's satisfaction. Discussed the rules and regulations surrounding prescription of opioids and compliance at length. Failure to follow the rules and regulation will result in tapering and discontinuation of medications if applicable. Prescribed medication that requires intensive monitoring for toxicity Gabapentin. OARRS was reviewed, discussed and appropriate for medications prescribed. Treatment plans discussed but not opted for at this time: Cervical MRI. Patient would like to proceed with the current outlined treatment plan before moving forward with any other options. The spine model was demonstrated, reviewed and used to explain the condition. Chronic conditions not treated during this visit that affected my overall medical decision making: Diabetes, Depression, Anxiety and Obesity OARRS: Reviewed. Scribe Statement: Scribed for and in the presence of KRISTY JOHNSON by Casandra Siddiqi CNA. Provider Statement: I, KRISTY JOHNSON, personally performed the services described in the documentation, as scribed by Casandra Siddiqi CNA in my presence, and it is both accurate and complete. Casandra Siddiqi CNA 07/23/23 1521 KRISTY Johnson 07/28/23 0904 documented in this encounter [facility] Evaluation note Note Date & Type Note Facility Evaluation note Diagnosis Cervical spondylosis without myelopathy- Primary Cervical disc displacement Displacement of cervical intervertebral disc without myelopathy documented in this encounter [facility] Instructions Note Date & Type Note Facility Instructions Not on filedocumented in this en counter [facility] Instructions Note Date & Type Note Facility Instructions Not on filedocumented in this en counter [facility] Summary Purpose Family History No Family History Records FoundNo Family History Records Found Advance Directives No Advanced Directives Records FoundNo Advanced Directives Records Found Reason for Referral Specialty Diagnoses / Procedures Referred By Contac t Referred To Contact Rehabilitation Diagnoses Cervical spondylosis without myelopathy Cervical disc displacement Kelly Stack PA [address] [place] [id number] Referral ID Status Reason Start Date Expiration Date Visits Requested Visits Authorized [id number] Pending Review Specialty Services Required 07/23/2023 07/22/2024 1 1 Additional Source Comments INFORMATION SOURCE (unrecogn ized section and content) DATE CREATED AUTHOR 03/11/2023 [facility] DATE CREATED AUTHOR AUTHOR'S ORGANIZ ATION 07/26/2023 [facility] Reason for Visit (unrecogniz ed section and content) Reason Comments Neck Pain Care Teams (unrecognized sec tion and content) Dental Prosthetist Relationship Specialty Start Date End Date Services, [place] [address] [place] PCP - General Family Medicine 03/30/19 Dental Prosthetist Relationship Specialty Start Date End Date Services, [place] [address] [place] PCP - General Family Medicine 03/30/19 FOR RECORDS PERTAINING TO PATIENTS WHO ARE [...] BE BASED ON THE PRIMARY CLINICAL RECORDS. [facility] [employer] [facility]. provides no warranty or guarantee of the accuracy or completeness of information in this document.
--- NOTE | 2023-09-05 11:41 | XR_ITS ---
[address] [address] Patient Name: RUBÉN STANLEY MRN: [id number] date: 1990 Sex: F Assigned Patient Location: ER Current Patient Location: ED.MAIN Accession/Order Number: [id number] Exam Date: 09/05/2023 11:50 Report Date: 09/05/2023 12:56 At the request of: KY ESCALERA Procedure: XR chest 1V EXAM: XR chest 1V HISTORY: Cough. COMPARISON: None. TECHNIQUE: AP erect portable chest radiograph performed. FINDINGS: The trachea is midline. The cardiomediastinal silhouette and hilar shadows are normal. The lung guzman are clear. There is no pneumothorax or osseous abnormality. XR/XR chest 1V IMPRESSION: Unremarkable AP erect portable chest radiograph. Electronically authenticated by: NILESH VELAZQUEZ Date: 09/05/2023 12:56
--- NOTE | 2023-09-05 11:42 | ED.GENADUL1 ---
HPI - General Adult General Chief complaint: Back Pain/Injury Stated complaint: BACK/NECK PAIN Time Seen by Provider: 09/05/23 11:28 Source: patient Mode of arrival: Wheelchair History of Present Illness HPI narrative: 33-year-old female presents for 2 issues. First she is complaining of neck and back pain. This is an ongoing issue and she was diagnosed with bulging disks and she sees pain management and takes gabapentin. Secondly for 2 weeks she has had a cough and has been coughing up some yellow to white-colored phlegm. No hemoptysis or fever. The pain in her back and neck is moderate. No injury. Related Data Home Medications Medication Instructions Recorded Confirmed atorvastatin 40 mg tablet 40 mg PO DAILY 09/05/23 09/05/23 gabapentin 100 mg capsule 300 mg PO BID 09/05/23 09/05/23 lisinopril 5 mg tablet 5 mg PO DAILY 09/05/23 09/05/23 metformin 1,000 mg tablet 1,000 mg PO BID 09/05/23 09/05/23 metoprolol tartrate 25 mg tablet 25 mg PO DAILY 09/05/23 09/05/23 Previous Rx's Medication Instructions Recorded ketorolac 10 mg tablet 10 mg PO TID PRN pain #10 tabs 06/22/23 methocarbamol 750 mg tablet 750 mg PO TID PRN pain #20 tabs 06/22/23 benzonatate 100 mg capsule 100 mg PO TID PRN cough #20 caps 09/05/23 cyclobenzaprine 10 mg tablet 10 mg PO TID PRN muscle spasm #20 09/05/23 tabs ibuprofen 800 mg tablet 800 mg PO Q8H PRN pain #20 tabs 09/05/23 loratadine 5 mg-pseudoephedrine ER 1 tab PO Q12H PRN nasal congestion 09/05/23 120 mg tablet,extended #20 tabs release,12hr (Claritin-D 12 Hour) Allergies Allergy/AdvReac Type Severity Reaction Status Date / Time amoxicillin Allergy Severe Hives Verified 09/05/23 12:16 cephalexin Allergy Severe Hives Verified 09/05/23 12:16 doxycycline Allergy Severe Hives Verified 09/05/23 12:16 sulfamethoxazole AdvReac Severe Blister Verified 09/05/23 12:12 [From Bactrim] trimethoprim [From Bactrim] AdvReac Severe Blister Verified 09/05/23 12:12 Review of Systems ROS Narrative A ten point review of systems is negative except as noted above. PFSH PFSH Social History Smoking status: Never smoker Exam Narrative Exam Narrative: Nurses note and vital signs reviewed and patient is not hypoxic. General: The patient appears well and in no apparent distress. Patient is resting comfortably on cart. Skin: Warm, dry, no pallor noted. There is no rash noted. Head: Normocephalic, atraumatic Eye: Normal conjunctiva, no drainage Ears, Nose, Mouth, and Throat: oral mucosa is moist. Nares patent. Cardiovascular: Regular Rate and Rhythm Respiratory: Patient is in no distress, no accessory muscle use, lungs are cl, no CVA tenderness bilaterally to percussion. GI: Soft and nontender Musculoskeletal: The patient has no evidence of calf tenderness, no pitting edema, symmetrical pulses noted bilaterally Neurological: A&O, normal speech Psychiatric: Cooperative Constitutional Vital Signs, click to edit/add: Last Vital Signs Temp 98.7 F 09/05/23 11:30 Pulse 116 H 09/05/23 11:30 Resp 20 09/05/23 11:30 BP 160/98 H 09/05/23 12:36 Pulse Ox 100 09/05/23 11:30 Course Vital Signs Vital signs: Vital Signs Temperature 98.7 F 09/05/23 11:30 Pulse Rate 116 H 09/05/23 11:30 Respiratory Rate 20 09/05/23 11:30 Blood Pressure 180/110 H 09/05/23 11:30 Pulse Oximetry 100 09/05/23 11:30 Temperature 98.7 F 09/05/23 11:30 Pulse Rate 116 H 09/05/23 11:30 Respiratory Rate 20 09/05/23 11:30 Blood Pressure 160/98 H 09/05/23 12:36 Pulse Oximetry 100 09/05/23 11:30 Medical Decision Making MDM Narrative Medical decision making narrative: Chest x-ray and swabs are negative. Should be treated symptomatically. No indication for an antibiotic. Treatment diagnosis and follow-up were discussed with the patient. Differential Diagnosis Differential Diagnosis: COVID, influenza, pneumonia, muscle pain Lab Data Lab results reviewed: Yes I reviewed the patient's lab results Labs: Lab Results 09/05/23 Range/Units 11:48 Influenza Type A Ag Negative Influenza Type B Ag Negative SARS-CoV-2 Ag (CV2AG) Negative (NEGATIVE) Imaging Data Chest x-ray: Radiologist's impression: ITS Impressions Chest X-Ray 09/05/23 11:41 IMPRESSION: Unremarkable AP erect portable chest radiograph. Electronically authenticated by: NILESH VELAZQUEZ Date: 09/05/2023 12:56 Discharge Plan Discharge Chief Complaint: Back Pain/Injury Clinical Impression: Back pain, Viral URI Patient Disposition: Home, Self-Care Time of Disposition Decision: 13:16 Condition: Good Mode of Transportation: Private Vehicle Prescriptions / Home Meds: New cyclobenzaprine 10 mg tablet 10 mg PO TID PRN (Reason: muscle spasm) Qty: 20 0RF ibuprofen 800 mg tablet 800 mg PO Q8H PRN (Reason: pain) Qty: 20 0RF benzonatate 100 mg capsule 100 mg PO TID PRN (Reason: cough) Qty: 20 0RF Claritin-D 12 Hour 5-120 mg tablet extended release 12 hr 1 tab PO Q12H PRN (Reason: nasal congestion) Qty: 20 0RF No Action ketorolac 10 mg tablet 10 mg PO TID PRN (Reason: pain) Qty: 10 0RF methocarbamol 750 mg tablet 750 mg PO TID PRN (Reason: pain) Qty: 20 0RF atorvastatin 40 mg tablet 40 mg PO DAILY gabapentin 100 mg capsule 300 mg PO BID lisinopril 5 mg tablet 5 mg PO DAILY metformin 1,000 mg tablet 1,000 mg PO BID metoprolol tartrate 25 mg tablet 25 mg PO DAILY Instructions: Upper Respiratory Infection (ED), Viral Syndrome (ED), Back Pain (ED) Additional Instructions: Do not take methocarbamol while taking cyclobenzaprine Stand Alone Forms: Portal Instructions Referrals: ALICIA HAWLEY APRN [Primary Care Provider] - 1 week
[2023-09-05] MEDS: KETOROLAC TROMETHAMINE 60 MG/2 ML VIAL IM (11:49)
[2023-09-05 12:15] LABS: Influenza Virus A Antigen Negative; Influenza Virus B Antigen Negative; Internal Control Within Normal Limits; SARS-CoV-2 Ag NEGATIVE (NEGATIVE)
[2023-09-05 12:36] VITALS: BP 160/98
[2023-09-05 13:24] VITALS: PULSE 100; RESP 16
== END 2023-09-05 13:27 | disposition home or self-care (01) ==
PROVIDERS: Emergency Provider Emergency Medicine; PCP Nurse Practitioner Primary Care
DX: J06.9 Acute upper respiratory infection, unspecified (principal); M54.9 Dorsalgia, unspecified; R05.9 Cough, unspecified; Z79.899 Other long term (current) drug therapy; Z79.84 Long term (current) use of oral hypoglycemic drugs; M54.2 Cervicalgia
CPT/HCPCS: 71045; 87804; 87811; 96372; 99284; J1885

== ENCOUNTER 2024-02-20 18:25 | Emergency (ER) | payer OTHER, SELFPAY ==
[2024-02-20] VITALS (8 sets, daily range): BP systolic 132–160; BP diastolic 78–100; PULSE 94–103; TEMP 36.8; O2SAT 99–100; BMI 36.7
--- OUTSIDE RECORDS SUMMARY | 2024-02-20 18:33 | XMS_ITS | CCD ---
Author Organization [facility] Care Team Providers Care Supervisor Cook Room Name Role Phone ROGELIO ORNELAS Attending Unavailable SHAMMOALICIA Primary Care Unavailable JAYROGELIO DONALDSON Admitting Unavailable ROGELIO ORNELAS Attending Unavailable SHAMMO, ALICIA GUERRA Primary Care Unavailable ROGELIO ORNELAS Admitting Unavailable Services, [facility] Care Provider SERVICES, [facility] Care Unava ilable TAVIA GRAF Referring Unavailable SERVICES, [facility] Care Unava ilable TAVIA GRAF Referring Unavailable SERVICES, [facility] Care Unava ilable SERVICES, [facility] Care Unava ilable JONATHAN LYNCH Attending Unavailable VON GUNDERSON Admitting Unavailable ASHLEY BECERRA Consulting UnavailSIMI Fofana Consulting Unavailable NORTH HOLM Referring Unavai lable SERVICES, [facility] Care Unava ilable PRESKELLY MARQUEZ Referring Unavailable SERVICES, [facility] Unava ilable PRESZLER KELLY Referring Unavailable SERVICES, [facility] Care Unava ilable PRESZLER KELLY Referring Unavailable SERVICES, [facility] Unava ilable PRESZLER, KELLY Referring Unavailable SERVICES, [facility] Unava ilable DO Ladarius Ekaterina Primary Care Provider MD Brandon Cee Admit Provider MD Brandon Cee Attending Provider MELLISSA Haji Other Provider Unavailable MELLISSA Sawyer Other Provider Unavailable MELLISSA Silva Other Provider Unavailable MELLISSA Boucher Other Provider Unavailable MELLISSA Nieves Other Provider Unavailable MD Neetu Navarro Other Provider DO Neo Mosesobir Other Provider MD Levar Ortiz Other Provider DO Mynor Rodriguez Other Provider MD Jasson Can Other Provider MD Lima Ponce Other Provider MD Edin Hughes Other Provider Unavailable NGOC Garcia Other Provider MD Carmina Burdick Other Provider MD Esteban Montgomery Other Provider MD Alexandra Varner Other Provider MD Rachid De La Rosa Other Provider DO Elian Emerson Other Provider [phone] MD Sarah Romeo Other Provider MD Chico Browne Other Provider Lisseth, [employer] Shea Whipple Other Provider NGOC Lombardi Other Provider Unavailable MD Pan Sparrow Other Provider MD Sung Delgado Other Provider MD Ryne Conner Other Provider MD Deidre Huston Other Provider Unavailable MD Johnathan Brown Other Provider DO Maryanne Zuniga Other Provider DO Magno Beaver Other Provider NGOC Dumont Other Provider DO Dylan Velez Other Provider MD Roland Hernandez Other Provider NGOC Galloway Other Provider NGOC Dillard Other Provider MD Lester Benoit Other Provider MD Ubaldo Esquivel Other Provider DO Dominguez Santana Other Provider [phone] ElanDO Rosaanthony Other Provider MD Chaparro Conner Other Provider MELLISSA Phipps Other Provider Unavailable Deirdre Swartz Other Provider Unavailable DO Layne Ramsey Other Provider MD Kwan Roblero Other Provider DO Ashley Watson Other Provider MILE Barton- Manda Other Provider DO Maged Roman Other Provider NGOC Shepherd Other Provider ROXANNE Colby-Nga Butts Other Provider NGOC Ornelas-[employer]PARER-C Syeda Marie Other Provider [phone] Brandon Cee Attending Unavaila Ekaterina Box Primary Care Unavailable Yuko Haji Consulting Unavailable Brandon Cee Admitting Unavaila barbie Gearkaur, Khloe Consulting Unavailable Densluz, Pippa Consulting Unavailable Rachel Boucher Consulting Unavailable Ashley Nieves Consulting Unavailable Neetu Navarro Consulting Unavailable Pierre Moses Consulting Unavailable Angel, Levar Consulting Unavailable Mili Rodriguezer Consulting Unavailabl frank Juan José, Jasson Consulting Unavailable Semaskiene, Lima Consulting Unavailable Saul, Edin Consulting Unavailable Angelika Garcia Consulting UnavailCarmina Crook Consulting Unavailable Esteban Montgomery Consulting Unavailable Alexandra Varner Consulting Unavailable Rachid De La Rosa Consulting Unavailable Elian Emerson Consulting Unavailable Sarah Romeo Consulting Unavailable Chico Browne Consulting Unavailable Shea Montanez Consulting Unavailable Les Lombardi Consulting Unavailable Pan Sparrow Consulting Unavailab Sung Holden Consulting Unavailable Ryne Conner Consulting Unavailable AlmoselDeidre martines Consulting Unavailable Johnathan Brown Consulting Unavailable Maryanne Zuniga Consulting Unavailable Magno Beaver Consulting Unavailable Maryse Dumont Consulting Unavailable Dylan Velez Consulting Unavailable Roland Hernandez Consulting Unavailable Tere Galloway Consulting Unavailable Adrienne Dillard Consulting Unavailable Lester Benoit Consulting Unavailable Ubaldo Esquivel Consulting Unavailable Dominguez Santana Consulting Unavailable ElanCarla garcia Consulting Unavailable Chaparro Conner Consulting Unavailable Caro Phipps Consulting Unavailable Deirdre Swartz Consulting Unavailable Layne Ramsey Consulting Unavailable Kwan Roblero Consulting Unavailable Ashley Watson Consulting Unavailab Manda Ovalles Consulting Unavailable Maged Roman Consulting Unavailable Radha Shepherd Consulting Unavailable Shruthi Colby Consulting Unavailable Syeda Ornelas Consulting Unavailable JUAN MANUEL KNIGHT Attending Unavailable [facility] [place], Ekaterina Primary Care Provider [facility], Ekaterina Unavailable [phone] DO Ashley Watson Other Provider NGOC Shepherd Other Provider CRISTIAN PRIETO Attending Unavailable [facility] [place] [facility] [place] EKATERINA Primary Care Unavailable CRISTIAN PRIETO Referring [facility]available [facility] Primary Care Unavailable SERVICES, [facility] Primary Care Unava ilable WES MONTANEZ Attending Unavailable LUZMA ADAM Admitting Unavailable SERVICES, [facility] Primary Care Unava ilable BENJY MARTINEZ Attending Unavailable BENJY MARTINEZ Attending Unavailable BENJY MARTINEZ Referring Unavailable SERVICES, [facility] Primary Care Unava ilable JUAN MANUEL NOVAK Attending Unavailable TAVIA GRAF Referring Unavailable SERVICES, [facility] Primary Care Unava ilable JUAN MANUEL NOVAK Referring Unavailable SERVICES, [facility] Primary Care Unava ilable JUAN MANUEL NOVAK Referring Unavailable SERVICES, [facility] Primary Care Unava ilable BRADNON CEE Referring Unavailabl e SERVICES, [facility] Primary Care Unava ilable KELLY STACK Attending Unavailable ALICIA HAWLEY Referring Unavailable SERVICES, [facility] Unava ilable SERVICES, [facility] Unava ilable JACOB MÉNDEZ Attending Unavailable JACOB MÉNDEZ Attending Unavailable JACOB MÉNDEZ Referring Unavailable SERVICES, [facility] Unava ilable BRANDON CEE Referring Unavailabl e SERVICES, [facility] Unava ilable Allergies Allergy Classification Reported Allergen(s) Allergy Type Date of Onset Reaction(s) Facility (16 sources) Cefaclor; Translations: [CEFACLOR] Drug Allergy 9 [facility] (16 sources) Cephalexin; Translations: [CEPHALEXIN] Drug Allergy 1 [facility] (16 sources) Doxycycline; Translations: [DOXYCYCLINE] Drug Allergy 8 [facility] (14 sources) Sulfamethoxazole / Trimethoprim; Translations: [SULFAMETHOXAZOLE-TR IMETHOPRIM] Drug Allergy 9 [facility] (9 sources) Amoxicillin; Translations: [AMOXICILLIN] Drug Allergy 3 [facility] (3 sources) Sulfamethoxazole; Translations: [SULFAMETHOXAZOLE] Drug Allergy 4 [facility] (3 sources) Trimethoprim; Translations: [TRIMETHOPRIM] Drug Allergy 4 [facility] (2 sources) cephafine Allergy to substance 4 [facility] Medications Current Medications Medication Drug Class(es) Dates Sig (Normalized) Sig (Original) acetaminophen 500 mg oral tablet (6 sources) Start: 12-21-2023 take 1000 mg by mouth every six hours Acetaminophen Active 1000 MG PO Q6H 0 December 21, 2023 12:00am take 2 tablets by mo uth every eight hours as needed acetaminophen (TYLENOL) 500 mg tablet Ta ke 1,000 mg by mouth every 8 hours as needed for fever (specify temp.) or pain. 0 Active aspirin 81 mg delayed release oral tablet (6 sources) Platelet Aggregation Inhibitor, Nonsteroidal Anti-inflammatory Drug Start: 12-21-2023 take 1 tablet by mouth once daily aspirin, enteric coated (ASPIRIN, ENTERIC COATED) 81 mg EC tablet Take 81 mg by mouth once daily. 0 12/21/2023 Active atorvastatin 80 mg oral tablet (12 sources) HMG-CoA Reductase Inhibitor Start: 02-01-2024 End: 01-31-2025 take 1 tablet by mouth once daily atorvastatin (LIPITOR) 80 mg tablet Take 1 tablet by mouth once daily. 90 tablet 3 02/01/2024 01/31/2025 Active Start: 07-16-2023 End: 02-01-2024 take 40 mg by mouth once daily in the evening Atorvastatin Active 40 MG PO Every evening December 21, 2023 12:00am busPIRone hydrochloride 10 mg oral tablet (5 sources) take 1 tablet by mouth at bedtime busPIRone (BUSPAR) 10 mg tablet Take 1 tablet (10 mg total) by mouth in the morning and at bedtime. 0 Active carvedilol 25 mg oral tablet (8 sources) alpha-Adrenergic Jeanie, beta-Adrenergic Jeanie Start: 12-21-2023 take 25 mg by mouth twice daily Carvedilol Active 25 MG PO Twice daily December 21, 2023 12:00am Start: 12-09-2023 End: 12-21-2023 take 25 mg by mouth every twelve hours at mealtime Carvedilol Discontinued 25 MG PO Every 12 hours December 09, 2023 12:00am December 21, 2023 4:09pm must administer with a meal/food cholecalciferol 1.25 mg oral capsule (3 sources) Vitamin D Start: 02-10-2024 take 1250 ug by mouth every month Cholecalciferol (Vitamin D3) Active 1250 MCG PO every month February 10, 2024 12:00am Start: 12-09-2023 End: 12-21-2023 take 15644 [IU] by mouth every week Cholecalciferol (Vitamin D3) Discontinued 63685 UNIT PO every week December 09, 2023 12:00am December 21, 2023 4:09pm clopidogrel 75 mg oral tablet (5 sources) [id number] Platelet Inhibitor Start: 02-01-2024 End: 05-01-2024 take 1 tablet by mouth once daily clopidogrel (PLAVIX) 75 mg tablet Take 1 tablet by mouth once daily. 90 tablet 0 02/01/2024 05/01/2024 Active cyclobenzaprine hydrochloride 10 mg oral tablet (5 sources) Muscle Relaxant Start: 02-10-2024 End: 02-10-2024 take 10 mg by mouth three times daily Cyclobenzaprine Active 10 MG PO Three times daily February 10, 2024 10:15am Start: 12-09-2023 End: 12-21-2023 take 10 mg by mouth three times daily Cyclobenzaprine Discontinued 10 MG PO Three times daily December 09, 2023 12:00am December 21, 2023 4:09pm Start: 10-23-2023 take 1 tablet by renee three times daily as needed for muscle spasms cyclobenzaprine (FLEXERIL) 10 mg tablet Indications: Muscle spasm Take 1 tablet (10 mg total) by mouth 3 (three) times a day as needed for muscle spasms. 90 tablet 1 10/23/2023 Active diclofenac sodium 0.01 mg/mg topical gel (6 sources) Nonsteroidal Anti-inflammatory Drug Start: 12-21-2023 apply 2 g topically three times daily Diclofenac Sodium Active 2 GM TOPICAL Three times daily 100 December 21, 2023 12:00am diclofenac sodiu m 1 % kit Apply 1 Application to affected area as needed (3 times daily). 0 Active ergocalciferol 1.25 mg oral capsule (6 sources) Provitamin D2 Compound Start: 12-21-2023 Ergocalciferol (Ying min D2) Active 1250 MCG PO Tu@0900 5 December 21, 2023 12:00am take 1 capsule by mouth every we ek ergocalciferol 50,000 unit capsule (VITAMIN D2, DRISDOL) Take 50,000 Units by mouth one time a week. 0 Active gabapentin 300 mg oral capsule (13 sources) Anti-epileptic Agent Start: 12-21-2023 End: 02-10-2024 take 300 mg by mouth twice daily Gabapentin Active 300 MG PO Twice daily 60 February 10, 2024 10:13am Start: 07-23-2023 take 1 capsule by mo [facility] three times daily gabapentin (NEURONTIN) 100 mg capsule Indications: Neuropathic pain Take 1 capsule (100 mg total) by mouth 3 (three) times a day. 30 capsule 0 10/16/2023 Active ibuprofen 800 mg oral tablet (1 source) Nonsteroidal Anti-inflammatory Drug Start: 09-05-2023 take 1 tablet by mouth every eight hours as needed ibuprofen (MOTRIN) 800 mg tablet Take 1 tablet (800 mg total) by mouth every 8 (eight) hours as needed. 0 09/05/2023 Active 3 ml insulin glargine 100 unt/ml pen injector (12 sources) Insulin Analog Start: 12-21-2023 Insulin Glargi ne (Lantus Solostar U-100 Insulin) 100 unit/mL (3 mL) Insulin Pen Active 40 UNIT SUBCUT Every morning 07 18December 21, 2023 12:00am inject 40 [IU] by nguyen bcutaneous injection once daily insulin glargine (LANTUS) 100 unit/mL so ln Inject 40 Units subcutaneously once daily. 0 Active insulin glargine (LANTUS) 100 unit/mL injection Indications: type 1 diabetes mellitus Inject 0.41 mL (41 Units total) under the skin nightly Indications: type 1 diabetes mellitus. 0 Active inject 20 [IU] by nguyen bcutaneous injection once daily insulin glargine (LANTUS, BASAGLAR) 100 unit/mL (3 mL) insulin pen Inject 20 Units under the skin nightly. 0 Active inject 20 [IU] by nguyen bcutaneous injection once daily insulin glargine (LANTUS, BASAGLAR) 100 unit/mL (3 mL) insulin pen Inject 20 Units under the skin nightly. 0 Active Insulin Glargine (Lantus U-100 Insulin) 100 unit/mL solution (3 sources) Start: 02-10-2024 inject 40 [IU] by subcutaneous injection once daily in the evening Insulin Glargine (Lantus U-100 Insulin) 100 unit/mL solution Active 40 UNIT SUBCUT Every evening February 10, 2024 12:00am Start: 12-09-2023 End: 12-21-2023 inject 40 [IU] by subcutaneous injection once daily in the morning Insulin Glargine (Lantus U-100 Insulin) 100 unit/mL solution Discontinued 40 UNIT SUBCUT Every morning December 09, 2023 12:00am December 21, 2023 4:09pm iv contrast (will be provided with radiology test) (1 source) Start: 02-01-2024 End: 02-02-2024 inject 1 dose intravenously once iv contrast (will be provided with radiology test) CTA Head/Neck W No IV access, insert saline lock prior to the sedation, infusion, injection for imaging exam. Discontinue saline lock post exam. If Pt. has a central line or IVAD, may access for administration according to line specific nursing protocol. Once exam is complete flush line and de-access according to line specific nursing protocol in the CT contrast administration guidelines link. 1 Each 0 02/01/2024 02/02/2024 Active lisinopril 20 mg oral tablet (14 sources) Angiotensin Converting Enzyme Inhibitor Start: 12-09-2023 End: 12-21-2023 take 20 mg by mouth once daily in the morning Lisinopril Active 20 MG PO Every morning December 21, 2023 12:00am take 1 tablet by renee th in the morning lisinopriL (PRINIVIL,ZESTRIL) 5 mg table t Take 1 tablet (5 mg total) by mouth in the morning. 0 Active metFORMIN hydrochloride 500 mg oral tablet (6 sources) Biguanide take 2 tablets by mouth in the morning, then take 2 tablets by mouth at bedtime metFORMIN (GLUCOPHAGE) 500 mg tablet Take 2 tablets (1,000 mg total) by mouth in the morning and 2 tablets (1,000 mg total) before bedtime. 0 Active metoprolol tartrate 25 mg oral tablet (5 sources) beta-Adrenergic Jeanie Start: 2022 metoprolol tartrate (LOPRESSOR) 25 mg tablet prochlorperazine 10 mg oral tablet (5 sources) Phenothiazine Start: 2022 take 1 tablet by mouth twice daily as needed for nausea prochlorperazine (COMPAZINE) 10 mg tablet Take 1 tablet (10 mg total) by mouth 2 (two) times a day as needed for nausea or vomiting. 10 tablet 0 10/29/2022 Active pyridoxine (4 sources) Start: 2023 take 50 mg by mouth once daily in the morning Pyridoxine (Vitamin B6) Active 50 MG PO Every morning December 21, 2023 12:00am Start: 12-09-2023 End: 12-21-2023 take 50 mg by mouth once daily in the morning Pyridoxine (Vitamin B6) Discontinued 50 MG PO Every morning December 09, 2023 12:00am December 21, 2023 4:09pm rOPINIRole 0.5 mg oral tablet (6 sources) Nonergot Dopamine Agonist Start: 12-21-2023 take 0.5 mg by mouth once daily at bedtime Ropinirole Active 0.5 MG PO Daily at bedtime 30 30 December 21, 2023 12:00am take 1 tablet by mouth three carl es daily rOPINIRole (REQUIP) 0.5 mg tablet Take 0.5 mg by mouth three times a day. 0 Active sertraline 25 mg oral tablet (5 sources) Serotonin Reuptake Inhibitor take 1 tablet by mouth in the morning sertraline (ZOLOFT) 25 mg tablet Take 1 tablet (25 mg total) by mouth in the morning. 0 Active vitamin b12 1 mg oral capsule (2 sources) Vitamin B12 Start: take 1000 ug by mouth once daily in the morning Cyanocobalamin (Vitamin B-12) Active 1000 MCG PO Every morning December 09, 2023 12:00am vitamin b6 50 mg oral capsule (4 sources) take 1 capsule by mouth once daily pyridoxine, vitamin B6, 50 mg cap Take 50 mg by mouth once daily. 0 Active Completed/Discontinued Medications Medication Drug Class(es) Dates Sig (Normalized) Sig (Original) lidocaine 0.04 mg/mg medicated patch (6 sources) Antiarrhythmic, Amide Local Anesthetic Start: 12-21-2023 End: 02-10-2024 apply 1 dose topically once daily Lidocaine (Lidocaine Pain Relief) 4 % Adhesive Patch,Medicated Discontinued 1 PATCH TOPICAL Daily 0 December 21, 2023 12:00am February 10, 2024 9:40am lidocaine HCL 4 % ptmd Apply 1 Application to affected area once daily. 0 Active methocarbamol 500 mg oral tablet (6 sources) Muscle Relaxant Start: 12-21-2023 End: 02-10-2024 take 750 mg by mouth three times daily Methocarbamol Discontinued 750 MG PO Three times daily 42 14 December 21, 2023 12:00am February 10, 2024 10:14am methocarbamol (R OBAXIN) 500 mg tablet Take 750 mg by mouth three times a day. 0 Active metroNIDAZOLE 500 mg oral tablet (2 sources) Nitroimidazole Antimicrobial Start: 12-09-2023 End: 12-21-2023 take 500 mg by mouth every twelve hours Metronidazole Discontinued 500 MG PO Every 12 hours December 09, 2023 12:00am December 21, 2023 4:09pm topiramate 25 mg oral tablet (6 sources) Start: 12-21-2023 End: 02-10-2024 take 25 mg by mouth twice daily Topiramate Discontinued 25 MG PO Twice daily 60 December 21, 2023 12:00am February 10, 2024 9:37am Problems Active Problems Problem Classification Problem Date Documented Date Episodic/Chronic Acute cerebrovascular disease (11 sources) 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; Translations: [Cerebral infarction due to unspecified occlusion or stenosis of right carotid arteries] Onset: 12-09-2023 12-16-2023 Chronic Administrative/social admission (4 sources) Other reduced mobility; Translations: [Impaired mobility and activities of daily living] Onset: 12-09-2023 12-10-2023 Episodic Bacterial infection; unspecified site (1 source) Other specified bacterial agents as the cause of diseases classified elsewhere; Translations: [Other specified bacterial agents as the cause of diseases classified elsewhere] Onset: 12-09-2023 Episodic Coronary atherosclerosis and other heart disease (1 source) Ischemic heart disease; Translations: [Chronic ischemic heart disease, unspecified] 02-09-2024 Chronic Deficiency and other anemia (3 sources) Vitamin B12 deficiency anemia due to intrinsic factor deficiency; Translations: [Pernicious anemia] Onset: 12-03-2023 12-22-2023 Episodic Deficiency and other anemia (2 sources) Anemia; Translations: [Anemia, unspecified] 12-10-2023 Episodic Deficiency and other anemia (2 sources) Pernicious anemia; Translations: [Vitamin B12 deficiency anemia due to intrinsic factor deficiency] 12-10-2023 Episodic Deficiency and other anemia (3 sources) Anemia, unspecified; Translations: [Anemia, unspecified] Onset: 12-09-2023 12-22-2023 Episodic Diabetes mellitus with complications (11 sources) Diabetes mellitus due to underlying condition with proliferative diabetic 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, left eye; Translations: [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, left eye] Onset: 01-13-2023 Chronic Diabetes mellitus without complication (11 sources) Type 1 diabetes mellitus; Translations: [Type 1 diabetes mellitus without complications] Onset: 01-13-2023 07-28-2023 Chronic Diseases of white blood cells (5 sources) Leukocytosis; Translations: [Elevated white blood cell count, unspecified] Onset: 12-09-2023 12-10-2023 Chronic Disorders of lipid metabolism (2 sources) Hypercholesterolemia; Translations: [Pure hypercholesterolemia, unspecified] Onset: 02-01-2024 02-01-2024 Chronic Essential hypertension (5 sources) Hypertensive disorder; Translations: [Essential (primary) hypertension] Onset: 12-09-2023 12-10-2023 Chronic Fluid and electrolyte disorders (5 sources) Hyponatremia; Translations: [Hypo-osmolality and hyponatremia] Onset: 12-09-2023 12-10-2023 Episodic Headache; including migraine (1 source) Refractory migraine without aura; Translations: [Chronic migraine without aura, intractable, with status migrainosus] 02-11-2024 Chronic Headache; including migraine (1 source) Headache; Translations: [Nonintractable headache, unspecified chronicity pattern, unspecified headache type] 10-23-2023 Episodic Inflammatory diseases of female pelvic organs (5 sources) Bacterial vaginosis; Translations: [Acute vaginitis] Onset: 12-09-2023 12-10-2023 Episodic Late effects of cerebrovascular disease (1 source) Spasticity as sequela of stroke; Translations: [Other sequelae of cerebral infarction] 02-01-2024 Chronic Malaise and fatigue (7 sources) Left hemiparesis; Translations: [Weakness] Onset: 11-25-2023 10-23-2023 Episodic Multiple sclerosis (5 sources) Multiple sclerosis; Translations: [Multiple sclerosis] Onset: 12-09-2023 12-10-2023 Chronic Nonspecific chest pain (2 sources) Chest pain, unspecified; Translations: [Chest pain] Onset: 01-04-2024 Episodic Nutritional deficiencies (5 sources) Vitamin D deficiency, unspecified; Translations: [Vitamin D deficiency] Onset: 11-28-2023 12-10-2023 Chronic Nutritional deficiencies (5 sources) Pyridoxine deficiency; Translations: [Cobalamin deficiency] Onset: 11-28-2023 12-10-2023 Episodic Occlusion or stenosis of precerebral arteries (2 sources) Carotid artery occlusion; Translations: [Occlusion and stenosis of unspecified carotid artery] Onset: 02-01-2024 02-01-2024 Chronic Other and ill-defined cerebrovascular disease (1 source) Cerebral atherosclerosis; Translations: [Cerebral atherosclerosis] 02-01-2024 Chronic Other and ill-defined cerebrovascular disease (1 source) Cerebellar stroke syndrome; 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] Onset: 01-20-2024 Chronic Other and ill-defined heart disease (1 source) Left ventricular wall hypokinetic; Translations: [Other ill-defined heart diseases] 02-01-2024 Chronic Other connective tissue disease (1 source) Spasm; Translations: [Other muscle spasm] 10-23-2023 Episodic Other connective tissue disease (1 source) Other symptoms and signs involving the musculoskeletal system; Translations: [Other symptoms and signs involving the musculoskeletal system] Onset: 12-03-2023 Episodic Other connective tissue disease (1 source) Muscle weakness; Translations: [Muscle weakness (generalized)] 02-01-2024 Episodic Other connective tissue disease (1 source) Muscle weakness (generalized); Translations: [Muscle weakness (generalized)] Onset: 01-20-2024 Episodic Other eye disorders (2 sources) Vitreous hemorrhage, left eye; Translations: [Vitreous hemorrhage, left eye] Onset: 01-13-2023 Chronic Other nervous system disorders (5 sources) Demyelinating disease of central nervous system, unspecified; Translations: [Demyelinating disease of central nervous system, unspecified] Onset: 12-03-2023 12-22-2023 Chronic Other nervous system disorders (2 sources) Clinically isolated syndrome; Translations: [Demyelinating disease of central nervous system, unspecified] 12-10-2023 Chronic Other nervous system disorders (1 source) Paresthesia; Translations: [Paresthesia of skin] 10-23-2023 Episodic Other nervous system disorders (1 source) Numbness; Translations: [Anesthesia of skin] 02-01-2024 Episodic Other nervous system disorders (1 source) Paresthesia of skin; Translations: [Paresthesia of skin] Onset: 11-25-2023 Episodic Other nervous system disorders (1 source) Unsteadiness on feet; Translations: [Unsteadiness on feet] Onset: 11-25-2023 Episodic Other nutritional; endocrine; and metabolic disorders (2 sources) Obesity; Translations: [Obesity, unspecified] 12-10-2023 Chronic Other nutritional; endocrine; and metabolic disorders (3 sources) Obesity, unspecified; Translations: [Obesity, unspecified] Onset: 12-09-2023 12-22-2023 Chronic Residual codes; unclassified (1 source) Pain, unspecified; Translations: [Pain, unspecified] Onset: 10-15-2023 Episodic Residual codes; unclassified (1 source) Other specified health status; Translations: [Other specified health status] Onset: 12-09-2023 Episodic Retinal detachments; defects; vascular occlusion; and retinopathy (2 sources) Traction detachment of retina, left eye; Translations: [Traction detachment of retina, left eye] Onset: 03-05-2023 Episodic Spondylosis; intervertebral disc disorders; other back problems (4 sources) Cervical spondylosis without myelopathy; Translations: [Spondylosis without myelopathy or radiculopathy, cervical region] Onset: 07-23-2023 07-23-2023 Chronic Unclassified (1 source) Medical Screening Onset: 11-28-2023 Unclassified (1 source) Dx with MS yesterday, PCP sent to ED for medication Onset: 11-28-2023 Unclassified (2 sources) Low back pain, unspecified; Translations: [Low back pain, unspecified] Onset: 10-16-2023 Unclassified (1 source) New Patient Onset: 11-25-2023 Past or Other Problems Problem Classification Problem Date Documented Da te Episodic/Chronic E Codes: Fall (1 source) Unspecified fall, initial encounter; Translations: [Unspecified fall, initial encounter] Onset: 10-27-2023 Episodic Other connective tissue disease (2 sources) Pain in lower limb Onset: 10-15-2023 Episodic Other connective tissue disease (1 source) Neuralgia and neuritis, unspecified; Translations: [Neuralgia and neuritis, unspecified] Onset: 10-15-2023 Episodic Other non-traumatic joint disorders (1 source) Pain in left knee; Translations: [Pain in left knee] Onset: 10-27-2023 Episodic Spondylosis; intervertebral disc disorders; other back problems (6 sources) Neck pain; Translations: [Cervicalgia] Onset: 07-23-2023 10-15-2023 Episodic Unclassified (1 source) Onset: 10-25-2023 10-25-2023 Results Test Name Value Interpretation Reference Range Facility [facility] 02-16-2024 [facility] Telephone (NECVS8) JOLIE STANLEY ([id number]) 1990 F [place] Date Time Provider Department 02/16/24 CRISTIAN PRIETO NECVS8 During your visit today, we recorded the following information about you: Eric Morrisonssica 02/16/2024 10:11 AM Signed Received 13 page faxed Medical Record from [facility] for review. Scanned into patient's chart. Sent to [facility] and fwd to provider. Allergies As of Date: 02/16/2024 Noted Allergy Reaction AMOXICILLIN 01/12/2023 2 - Rash CEFACLOR 07/07/2019 4 - Hives CEPHALEXIN 02/28/2021 2 - Rash DOXYCYCLINE 06/03/2018 2 - Rash SULFAMETHOXAZOLE-TRIM ETHOPRIM 07/07/2019 2 - Rash Date Reviewed: Never Reviewed Reason for Visit: Received Outside Medical Records [[id number]] Prescriptions as of 02/16/2024 - acetaminophen (TYLENOL) 500 mg tablet Take 1,000 mg by mouth every 8 hours as needed for fever (specify temp.) or pain. - carvedilol (COREG) 25 mg tablet Take 25 mg by mouth two times a day with meals. - diclofenac sodium 1 % kit Apply 1 Application to affected area as needed (3 times daily). - ergocalciferol 50,000 unit capsule (VITAMIN D2, DRISDOL) Take 50,000 Units by mouth one time a week. - gabapentin (NEURONTIN) 300 mg capsule Take 300 mg by mouth two times a day. - insulin glargine (LANTUS) 100 unit/mL soln Inject 40 Units subcutaneously once daily. - lidocaine HCL 4 % ptmd Apply 1 Application to affected area once daily. - lisinopril (ZESTRIL) 20 mg tablet Take 20 mg by mouth once daily. - methocarbamol (ROBAXIN) 500 mg tablet Take 750 mg by mouth three times a day. - pyridoxine, vitamin B6, 50 mg cap Take 50 mg by mouth once daily. - rOPINIRole (REQUIP) 0.5 mg tablet Take 0.5 mg by mouth three times a day. - topiramate (TOPAMAX) 25 mg tablet Take 25 mg by mouth two times a day. - clopidogrel (PLAVIX) 75 mg tablet Take 1 tablet by mouth once daily. - atorvastatin (LIPITOR) 80 mg tablet Take 1 tablet by mouth once daily. - aspirin, enteric coated (ASPIRIN, ENTERIC COATED) 81 mg EC tablet Take 81 mg by mouth once daily. Problem List As Of Date: 02/16/2024 (None) Encounter Status:Closed by TANIKA MORRISON on 02/16/24 Normal [facility] ANGIOTENSIN IIon 02-01-2024 ANGIOTENSIN II <12 Normal < OR = 52 [facility] Comment on above: Order Comment: Claire aguilera Type: BLOOD SPECIMEN Ordering Facility: [facility] Address: [address] [place] [address] Result Comment: This test was developed and its analytical performance characteristics have been determined by [facility]. It has not been cleared or approved by FDA. This assay has been validated pursuant to the CLIA regulations and is used for clinical purposes. Performed by: [facility] [address] [address] Bing Shaver MD, PhD, YANDEL, Performed By: #### M ICRO, 86428-5 #### [facility] CLIA [id number] [address] [place] [address] [place] ANTI NEUTRO CYTO ABon 2023 INTERPRETATION (ANCA) Normal [facility] Comment on above: Order Comment: Claire aguilera Type: BLOOD SPECIMEN Ordering Facility: [facility] Address: [address] [place] [address] Result Comment: Nega tive for C-ANCA and P-ANCA by indirect immunofluorescence. A negative result cannot reliably rule out ANCA-associated vaculitides especially when in remission. Clinical correlation is required. Performed By: #### 5 8410-2, [id number], 4537-7 #### [facility] CLIA [id number] [address] [place] [address] [place] Neutrophil cytoplasmic Ab.classic IF Ql (S) Negative Normal Negative [facility] Comment on above: Order Comment: Speci men Type: BLOOD SPECIMEN Ordering Facility: [facility] Address: [address] [place] [address] Performed By: #### 5 8410-2, [id number], 4537-01 #### [facility] CLIA [id number] [address] [place] [address] [place] Neutrophil cytoplasmic Ab.perinuclear IF Ql (S) Negative Normal Negative [facility] Comment on above: Order Comment: Speci men Type: BLOOD SPECIMEN Ordering Facility: [facility] Address: [address] [place] [address] Performed By: #### 5 8410-2, [id number], 4537-01 #### [facility] CLIA [id number] [address] [place] [address] [place] STAFF REVIEW (ANCA) No review performed. Normal [facility] Comment on above: Order Comment: Speci men Type: BLOOD SPECIMEN Ordering Facility: [facility] Address: [address] [place] [address] Performed By: #### 5 8410-2, [id number], 4537-01 #### [facility] CLIA [id number] [address] [place] [address] [place] BETA 2 GLYCOPROTEIN, IGGon 0 02-01-2024 Beta 2 glycoprotein 1 IgG IA Qn <9 Normal <20 [facility] Comment on above: Order Comment: Speci men Type: BLOOD SPECIMEN Ordering Facility: [facility] Address: [address] [place] [address] Result Comment: <20 SGU Negative 20-80 SGU Low Positive >80 SGU High Positive These results were obtained with the [employer] QUANTA Lite B2 GPI IgG ALICIA. B2 GPI IgG values obtained with different manufacturers' assay methods may not be used interchangeably. The magnitude of the reported IgG levels cannot be correlated to an endpoint titer. Performed By: #### 5 8410-2, [id number], 4537-01 #### [facility] CLIA [id number] [address] [place] [address] [place] BETA 2 GLYCOPROTEIN, IGMon 0 02-01-2024 Beta 2 glycoprotein 1 IgM IA Qn <9 Normal <20 [facility] Comment on above: Order Comment: Claire aguilera Type: BLOOD SPECIMEN Ordering Facility: [facility] Address: [address] [place] [address] Result Comment: <20 SMU Negative 20-80 SMU Low Positive >80 SMU High positive These results were obtained with the [employer] QUANTA Lite B2 GPI IgM ALICIA. B2 GPI IgM values obtained with different manufacturers' assay methods may not be used interchangeably. The magnitude of the reported IgM levels cannot be correlated to an endpoint titer. Performed By: #### 5 8410-2, [id number], 7 #### [facility] CLIA [id number] [address] [place] [address] [place] C-REACTIVE PROTEINon 024 CRP [Mass/Vol] 0.9 mg/dL High NINF - 0.9 mg/dL [facility] CARDIOLIPIN IGG ABSon 2023 Cardiolipin IgG IA Qn (S) <9.0 Normal <15.0 [facility] Comment on above: Order Comment: Claire aguilera Type: BLOOD SPECIMEN Ordering Facility: [facility] Address: [address] [place] [address] Result Comment: <15 GPL Negative 15-20 GPL Indeterminate >20 GPL Positive The following results were obtained with the [employer] QUANTA Lite DIAMOND IgG III ALICIA. Cardiolipin IgG values obtained with the different manufacturers' assay methods may not be used interchangeably. The magnitude of the reported IgG levels cannot be correlated to an endpoint titer. Performed By: #### 5 8410-2, [id number], 7 #### [facility] CLIA [id number] [address] [place] [address] [place] CARDIOLIPIN IGM ABSon 2023 Cardiolipin IgM IA Qn (S) <9.0 Normal <12.5 [facility] Comment on above: Order Comment: Speci men Type: BLOOD SPECIMEN Ordering Facility: [facility] Address: [address] [place] [address] Result Comment: <12. 5 MPL Negative 12.5-20 MPL Indeterminate >20 MPL Positive The following results were obtained with the Xochitl (So-Shee) Gold minesA Lite DIAMOND IgM III ALICIA. Cardiolipin IgM values obtained with the different manufacturers' assay methods may not be used interchangeably. The magnitude of the reported IgM levels cannot be correlated to an endpoint titer. ??? Performed By: #### 5 8410-2, [id number], 7 #### [facility] CLIA [id number] [address] [place] [address] [place] CBC Pnl Bld Autoon 4 Erythrocyte distribution width (RBC) [Ratio] 13.0 % Normal 11.5-15.0 [facility] Comment on above: Order Comment: Yomairai willy Type: BLOOD SPECIMEN Ordering Facility: [facility] Address: [address] [place] [address] Performed By: #### 5 8410-2, [id number], 7 #### [facility] CLIA [id number] [address] [place] [address] [place] Hematocrit (Bld) [Volume fraction] 35.4 % Low 36.0-46.0 [facility] Comment on above: Order Comment: Yomairai willy Type: BLOOD SPECIMEN Ordering Facility: [facility] Address: [address] [place] [address] Performed By: #### 5 8410-2, [id number], 7 #### [facility] CLIA [id number] [address] [place] [address] [place] Hemoglobin (Bld) [Mass/Vol] 11.6 g/dL Normal 11.5-15. 5 [facility] Comment on above: Order Comment: Speci men Type: BLOOD SPECIMEN Ordering Facility: [facility] Address: [address] [place] [address] Performed By: #### 5 8410-2, [id number], 4537-01 #### [facility] CLIA [id number] [address] [place] [address] [place] MCH (RBC) [Entitic mass] 27.2 pg Normal 26.0-34.0 [facility] Comment on above: Order Comment: Speci men Type: BLOOD SPECIMEN Ordering Facility: [facility] Address: [address] [place] [address] Performed By: #### 5 8410-2, [id number], 4537-01 #### [facility] CLIA [id number] [address] [place] [address] [place] MCHC (RBC) [Mass/Vol] 32.8 g/dL Normal 30.5-36.0 [facility] Comment on above: Order Comment: Speci men Type: BLOOD SPECIMEN Ordering Facility: [facility] Address: [address] [place] [address] Performed By: #### 5 8410-2, [id number], 4537-01 #### [facility] CLIA [id number] [address] [place] [address] [place] MCV (RBC) [Entitic vol] 82.9 fL Normal 80.0-100.0 C [facility] Comment on above: Order Comment: Speci men Type: BLOOD SPECIMEN Ordering Facility: [facility] Address: [address] [place] [address] Performed By: #### 5 8410-2, [id number], 4537-01 #### [facility] CLIA [id number] [address] [place] [address] [place] RBC (Bld) [#/Vol] 4.27 10*6/uL Normal 3.90-5.20 [facility] Comment on above: Order Comment: Speci men Type: BLOOD SPECIMEN Ordering Facility: [facility] Address: [address] [place] [address] Performed By: #### 5 8410-2, [id number], 4536-7 #### [facility] CLIA [id number] [address] [place] [address] [place] CBC panel Auto (Bld)on 01-31 Erythrocyte distribution width (RBC) [Ratio] 13.0 % 11.5 - 15.0 % [facility] Hematocrit (Bld) [Volume fraction] 35.4 % Low 36.0 - 46.0 % [facility] Hemoglobin (Bld) [Mass/Vol] 11.6 g/dL 11.5 - 15.5 g/dL [facility] Interpretation and review of laboratory results Abnormal [facility] MCH (RBC) [Entitic mass] 27.2 pg 26. 0 - 34.[address] [facility] MCHC (RBC) [Mass/Vol] 32.8 g/dL 30.5 - 36.0 g/dL [facility] MCV (RBC) [Entitic vol] 82.9 fL 80.0 - 100.[address] [facility] Nucleated RBC (Bld) [#/Vol] NINF [facility] Platelet mean volume (Bld) [Entitic vol] 10.5 fL 9.0 - 12.[address] [facility] Platelets (Bld) [#/Vol] 440 10*3/uL High [facility] RBC (Bld) [#/Vol] 4.27 10*6/uL 3.90 - 5.2 0 m/uL [facility] WBC (Bld) [#/Vol] 7.98 10*3/uL [facility] Nucleated RBC (Bld) [#/Vol] 10*3/uL Normal <0.01 [facility] Comment on above: Order Comment: Speci men Type: BLOOD SPECIMEN Ordering Facility: [facility] Address: [address] [place] [address] Performed By: #### 5 8410-2, [id number], 1187 #### [facility] CLIA [id number] [address] [place] [address] [place] Platelet mean volume (Bld) [Entitic vol] 10.5 fL Normal 9.0-12.7 [facility] Comment on above: Order Comment: Speci men Type: BLOOD SPECIMEN Ordering Facility: [facility] Address: [address] [place] [address] Performed By: #### 5 8410-2, [id number], 4537-7 #### [facility] CLIA [id number] [address] [place] [address] [place] Platelets (Bld) [#/Vol] 440 10*3/uL High 150-400 [facility] Comment on above: Order Comment: Speci men Type: BLOOD SPECIMEN Ordering Facility: [facility] Address: [address] [place] [address] Performed By: #### 5 8410-2, [id number], 4537 #### [facility] CLIA [id number] [address] [place] [address] [place] WBC (Bld) [#/Vol] 7.98 10*3/uL Normal 3.70-11.00 [facility] Comment on above: Order Comment: Speci men Type: BLOOD SPECIMEN Ordering Facility: [facility] Address: [address] [place] [address] Performed By: #### 5 8410-2, [id number], 7 #### [facility] CLIA [id number] [address] [place] [address] [place] CNOVon 02-01-2024 CNOV Office Visit (NECVS8 ) JOLIE STANLEY ([id number]) 1990 F [place] Date Time Provider Department 02/01/24 10:00 AM CRISTIAN PRIETO NECVS8 During your visit today, we recorded the following information about you: Pulse Blood pressure 95/minute 147/87 Cristian Prieto MD 02/01/2024 1:02 PM Signed [facility] Initial Visit Consultation is requested by: No referring provider defined for this encounter. PCP: Ekaterina Durand DO [address] [place] [address] [facility] Reason for Visit: - stroke Date of Last Event: 07/03/2023 (estimated date) History of Event: Jolie Stanley is a 33-year-old woman, with type I DM (+ LENA antibodies) and obesity, who presents for evaluation of R hemispheric stroke. History goes back to Jun when she started having intermittent episodes of L-sided numbness and weakness. She was initially told this was from her neck, then told this is clinically isolated syndrome until she got a brain MRI in November showing remote and subacute R hemispheric infarcts, especially in watershed areas. 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 No neck vessel imaging available. She was started on aspirin 81mg and lipitor 40mg and referred to us. She suffers from L-sided weakness and spasticity in the L leg. Is commuting on a wheelchair and uses a cane to ambulate. No family history of early-onset stroke. Non-smoker, no alcohol use, no illicit drug use. Event History as charted by MELLISSA Buchanan: Hunter was seen at [facility] and [facility], was told by [facility] in [place] 11/28/2023 clinically isolated syndrome, until MRI end of November and was told she had a mini-stroke at [facility] in [place]. 11/25/2023: MRI brain with without contrast Interval: Here today with father Manav for evaluation and to discuss diagnosis and prognosis. New stroke S/S or events: denies Medications: compliant Diet: regular Activity: PT/OT exercises Sleep: trouble staying asleep, spasms to L UE/LE Psychological: denies Work: unemployed Antiplatelets/Anticoa gulants: Aspirin Statins: Atorvastatin - 40 mg Residual Deficits: Motor weakness - L-sided weakness and numbness Current PT/OT/ST: Oupatient with physical therapy Current Living Situation: Home with other (see comment) - father Current use of a mobility aid for walking/getting around: Wheelchair/Scooter Do you have any planned upcoming surgeries or dental procedures? 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, associated with type 1 diabetes mellitus (HCC) Pernicious anemia Tachycardia chronic PAST SURGICAL HISTORY Procedure Laterality Date BREAST LUMPECTOMY HX Bilateral 2010 REPAIR DETACH RETINA,W VITRECTOMY Left 2022 Agent Viscoelastic 8.5ml Clr Polydimethylsiloxane Retin FAMILY HISTORY Problem Relation Age of Onset Hypertension Father Diabetes Mother Hypertension Mother Heart Failure Mother Colon Cancer Maternal Grandfather Cancer Maternal Grandmother stomach Stroke Other aunt Social History Tobacco Use Smoking status: Never Smokeless tobacco: Never Substance Use Topics Alcohol use: Not Currently Drug use: Never MEDICATIONS Current Outpatient Medications Medication Sig acetaminophen (TYLENOL) 500 mg tablet Take 1,000 mg by mouth every 8 hours as needed for fever (specify temp.) or pain. carvedilol (COREG) 25 mg tablet Take 25 mg by mouth two times a day with meals. diclofenac sodium 1 % kit Apply 1 Application to affected area as needed (3 times daily). ergocalciferol 50,000 unit capsule (VITAMIN D2, DRISDOL) Take 50,000 Units by mouth one time a week. gabapentin (NEURONTIN) 300 mg capsule Take 300 mg by mouth two times a day. insulin glargine (LANTUS) 100 unit/mL soln Inject 40 Units subcutaneously once daily. lidocaine HCL 4 % ptmd Apply 1 Application to affected area once daily. lisinopril (ZESTRIL) 20 mg tablet Take 20 mg by mouth once daily. methocarbamol (ROBAXIN) 500 mg tablet Take 750 mg by mouth three times a day. pyridoxine, vitamin B6, 50 mg cap Take 50 mg by mouth once daily. rOPINIRole (REQUIP) 0.5 mg tablet Take 0.5 mg by mouth three times a day. topiramate (TOPAMAX) 25 mg tablet Take 25 mg by mouth two times a day. aspirin, enteric coated (ASPIRIN, ENTERIC COATED) 81 mg EC tablet Take 81 mg by mouth once daily. atorvastatin (LIPITOR) 40 mg tablet Take 40 mg by mouth once daily. iv contrast (will be provided with radiology test) CTA Head/Neck W No IV access, insert saline lock prior to the sedation, infusion, injection for (more content not included)... Normal [facility] CREATININE BLDon 02-01-2024 Creatinine [Mass/Vol] 0.94 mg/dL 0.58 - 0.96 mg/dL [facility] GFR/1.73 sq M.predicted among non-blacks MDRD (S/P/Bld) [Vol rate/Area] 83 mL/min/{1.73_m2} - PINF [facility] Comment on above: Estimated Glomerular Filtration Rate (eGFR) is calculated using the 2020 CKD-EPI creatinine equation. This equation utilizes serum creatinine, sex, and age as parameters. The creatinine assay has traceable calibration to isotope dilution-mass spectrometry. Refer to KDIGO guidelines for clinical interpretation. In patients with unstable renal function, e.g. those with acute kidney injury, the eGFR may not accurately reflect actual GFR. Creatinine [Mass/Vol] 0.94 mg/dL Normal 0.58-0.96 [facility] Comment on above: Order Comment: Claire aguilera Type: BLOOD SPECIMEN Ordering Facility: [facility] Address: [address] [place] [address] Performed By: #### 5 8410-2, [id number], 4537-01 #### [facility] CLIA [id number] [address] [place] [address] [place] Creatinine and Glomerular filtration rate.predicted panel (S/P/Bld) 83 mL/min/1.73m??? Normal >=60 [facility] Comment on above: Order Comment: Claire aguilera Type: BLOOD SPECIMEN Ordering Facility: [facility] Address: [address] [place] [address] Result Comment: Ruthy mated Glomerular Filtration Rate (eGFR) is calculated using the 2020 CKD-EPI creatinine equation. This equation utilizes serum creatinine, sex, and age as parameters. The creatinine assay has traceable calibration to isotope dilution-mass spectrometry. Refer to KDIGO guidelines for clinical interpretation. In patients with unstable renal function, e.g. those with acute kidney injury, the eGFR may not accurately reflect actual GFR. Performed By: #### 5 8410-2, [id number], 7 #### [facility] CLIA [id number] [address] [place] [address] [place] CRP SerPl-mCncon 02-01-2024 CRP [Mass/Vol] 0.9 mg/dL High <0.9 [facility] Comment on above: Order Comment: Claire aguilera Type: BLOOD SPECIMEN Ordering Facility: [facility] Address: [address] [place] [address] Performed By: #### 1 988-5, LIPNF, 3024-7, 3016-3 #### [facility] CLIA [id number] [address] [place] [address] [place] Cardiolipin IgA Ser IA-aCnco n 02-01-2024 Cardiolipin IgA IA Qn (S) <9.0 Normal <12.0 [facility] Comment on above: Order Comment: Claire aguilera Type: BLOOD SPECIMEN Ordering Facility: [facility] Address: [address] [place] [address] Result Comment: <12 APL Negative 12-20 APL Indeterminate >20 APL Positive The following results were obtained with the [employer] QUANTA Lite DIAMOND IgA III ALICIA. Cardiolipin IgA values obtained with the different manufacturers' assay methods may not be used interchangeably. The magnitude of the reported IgA levels cannot be correlated to an endpoint titer. Performed By: #### 5 8410-2, [id number], 4537-7 #### [facility] CLIA [id number] [address] [place] [address] [place] Centromere Ab IF Ql (S)on Centromere Ab Qn (S) <0.2 Normal <1.[address] [facility] Comment on above: Order Comment: Claire aguilera Type: BLOOD SPECIMEN Ordering Facility: [facility] Address: [address] [place] [address] Result Comment: Anti -centromere antibody is used as in aid in diagnosis of systemic sclerosis. Clinical correlation is required. Test Methodology: Multiplex flow immunoassay. Performed By: #### M ICRO, 28178-8 #### [facility] CLIA [id number] [address] [place] [address] [place] CENTROMERE AB QUAL Negative Normal Negative [facility] Comment on above: Order Comment: Speci men Type: BLOOD SPECIMEN Ordering Facility: [facility] Address: [address] [place] [address] Performed By: #### M ICRO, 58790-9 #### [facility] CLIA [id number] [address] [place] [address] [place] Chromatin Ab Qnon 02-01-2024 CHROMATIN AB QUAL Negative Normal Negative [facility] Comment on above: Order Comment: Speci men Type: BLOOD SPECIMEN Ordering Facility: [facility] Address: [address] [place] [address] Performed By: #### 5 8410-2, [id number], 4537-7 #### [facility] CLIA [id number] [address] [place] [address] [place] Chromatin Ab SerPl-aCncon Chromatin Ab Qn <0.2 Normal <1.0 [facility] Comment on above: Order Comment: Speci men Type: BLOOD SPECIMEN Ordering Facility: [facility] Address: [address] [place] [address] Result Comment: Test Methodology: Multiplex flow immunoassay. Performed By: #### 5 8410-2, [id number], 4537-7 #### [facility] CLIA [id number] [address] [place] [address] [place] DNA double strand Ab IA Qn ( S)on 02-01-2024 DNA ANTIBODY 11 IU/mL Normal <=200 [facility] Comment on above: Order Comment: Speci men Type: BLOOD SPECIMEN Ordering Facility: [facility] Address: [address] [place] [address] Result Comment: Nega tive: <200 IU/mL Equivocal: 201-300 IU/mL Moderate Positive: 301-800 IU/mL Strong Positive: >801 IU/mL Performed By: #### 5 8410-2, [id number], 7 #### [facility] CLIA [id number] [address] [place] [address] [place] DNA ANTIBODY QUALITATIVE INTERPRETATION Negative Normal Negative [facility] Comment on above: Order Comment: Speci men Type: BLOOD SPECIMEN Ordering Facility: [facility] Address: [address] [place] [address] Performed By: #### 5 8410-2, [id number], 7 #### [facility] CLIA [id number] [address] [place] [address] [place] ISAIAS Jo1 Ab Ser-aCncon 2023 Abiola-1 extractable nuclear Ab Qn (S) <0.2 Normal <1.0 [facility] Comment on above: Order Comment: Speci men Type: BLOOD SPECIMEN Ordering Facility: [facility] Address: [address] [place] [address] Performed By: #### M ICR, 88349-3 #### [facility] CLIA [id number] [address] [place] [address] [place] ISAIAS EVENT DECORATOR Ab Ser-aCncon 2023 Ribonucleoprotein extractable nuclear Ab Qn (S) <0.2 Normal <1.0 [facility] Comment on above: Order Comment: Speci men Type: BLOOD SPECIMEN Ordering Facility: [facility] Address: [address] [place] [address] Performed By: #### 5 8410-2, [id number], 7 #### [facility] CLIA [id number] [address] [place] [address] [place] ISAI[place] SM IgG Ser-aCncon 2023 [place] extractable nuclear IgG Qn (S) <0.2 Normal <1.0 [facility] Comment on above: Order Comment: Speci men Type: BLOOD SPECIMEN Ordering Facility: [facility] Address: [address] [place] [address] Performed By: #### M AMOSO, 66457-0 #### [facility] CLIA [id number] [address] [place] [address] [place] SS-A Ab Ser-aCncon 01-31 Sjogrens syndrome-A extractable nuclear Ab Qn (S) <0.2 Normal <1.0 [facility] Comment on above: Order Comment: Speci men Type: BLOOD SPECIMEN Ordering Facility: [facility] Address: [address] [place] [address] Result Comment: Test Methodology: Multiplex flow immunoassay. Performed By: #### 5 8410-2, [id number], 4537-7 #### [facility] CLIA [id number] [address] [place] [address] [place] SS-B Ab Ser-aCncon 01-31 Sjogrens syndrome-B extractable nuclear Ab Qn (S) <0.2 Normal <1.0 [facility] Comment on above: Order Comment: Speci men Type: BLOOD SPECIMEN Ordering Facility: [facility] Address: [address] [place] [address] Result Comment: Anti -SSB (anti-La) antibody is used as an aid in diagnosis of a variety of systemic autoimmune diseases, especially for Sjogren's syndrome and systemic lupus erythematosus. Clinical correlation is required. Test Methodology: Multiplex flow immunoassay. Performed By: #### M AMOSO, 38418-6 #### [facility] CLIA [id number] [address] [place] [address] [place] ESR Westergren method (Bld) [Velocity]on 02-01-2024 ESR (Bld) [Velocity] 49 mm/h High [facility] Interpretation and review of laboratory results Abnormal [facility] ESR (Bld) [Velocity] 49 mm/h High 0-20 [facility] Comment on above: Order Comment: Speci men Type: BLOOD SPECIMEN Ordering Facility: [facility] Address: [address] [place], [place] [address] Performed By: #### 5 8410-2, [id number], 4537-7 #### [facility] CLIA [id number] [address] [place] [address] [place] HGB ELECTROPHORESIS FOR EVAL (LAB ORDER)on 02-01-2024 Hemoglobin A (Bld) [Mass fraction] 97.8 % Normal 96.2-98.0 [facility] Comment on above: Order Comment: Speci men Type: BLOOD SPECIMEN Ordering Facility: [facility] Address: [address] [place] [address] Performed By: #### M AMOSO, 91723-8 #### [facility] CLIA [id number] [address] [place] [address] [place] Hemoglobin A2 (Bld) [Mass fraction] 2.2 % Normal 2.0-3.1 [facility] Comment on above: Order Comment: Speci men Type: BLOOD SPECIMEN Ordering Facility: [facility] Address: [address] [place] [address] Performed By: #### M AMOSO, 70315-8 #### [facility] CLIA [id number] [address] [place] [address] [place] Hemoglobin Unsp Elph (Bld) [Mass fraction] No abnormal hemoglobin identified. Normal No abnormal hemoglobin identified. [facility] Comment on above: Order Comment: Speci men Type: BLOOD SPECIMEN Ordering Facility: [facility] Address: [address] [place] [address] Performed By: #### M ICRO, 87469-0 #### [facility] CLIA [id number] [address] [place] [address] [place] HIV 1+2 Ab IA Qlon 4 HIV 1 and 2 Ab IA.rapid Nom (S/P/Bld) [facility] Comment on above: Test not indicated. HIV 1+2 Ab+HIV1 p24 Ag IA Ql Non-Reactive Nonreactive [facility] HIV immunoassay testing algorithm interpretation (S/P/Bld) [Interp] [facility] Comment on above: No evidence of HIV-1 or HIV-2 infection. Should recent infection be suspected, repeat testing may be considered 2-3 weeks after this draw. [place] Rev. Code 3701.243(E): This information has been disclosed to you from confidential records protected from disclosure by state law. You shall make no further disclosure of this information without the specific, written, and informed release of the individual to whom it pertains or as otherwise permitted by state law. A general authorization for the release of medical or other information is not sufficient for the purpose of the release of HIV test results or diagnoses. [facility] HIV 1 and 2 Ab IA.rapid Nom (S/P/Bld) Normal [facility] Comment on above: Order Comment: Speci men Type: BLOOD SPECIMEN Ordering Facility: [facility] Address: [address] [place] [address] Result Comment: Test not indicated. Performed By: #### M AMOSO, 62811-9 #### [facility] CLIA [id number] [address] [place] [address] [place] [facility] HIV 1+2 Ab+HIV1 p24 Ag IA Ql Non-Reactive Normal Nonreactive [facility] Comment on above: Order Comment: Speci men Type: BLOOD SPECIMEN Ordering Facility: [facility] Address: [address] [place] [address] Performed By: #### M AMOSO, 20066-3 #### [facility] CLIA [id number] [address] [place] [address] [place] HIV immunoassay testing algorithm interpretation (S/P/Bld) [Interp] Normal [facility] Comment on above: Order Comment: Speci men Type: BLOOD SPECIMEN Ordering Facility: [facility] Address: [address] [place] [address] Result Comment: No e vidence of HIV-1 or HIV-2 infection. Should recent infection be suspected, repeat testing may be considered 2-3 weeks after this draw. [place] Rev. Code 3701.243(E): This information has been disclosed to you from confidential records protected from disclosure by state law. ???You shall make no further disclosure of this information without the specific, written, and informed release of the individual to whom it pertains or as otherwise permitted by state law. A general authorization for the release of medical or other information is not sufficient for the purpose of the release of HIV test results or diagnoses. Performed By: #### M ICRO, 36478-0 #### [facility] CLIA [id number] [address] [place] [address] [place] HbA1c (Bld)on 02-01-2024 Average glucose Estimated from glycated hemoglobin (Bld) [Mass/Vol] 180 mg/dL [facility] Comment on above: eAG: (Estimated aver age glucose) is a calculated value from HgbA1c and is customer development representative of the average blood glucose level in the last 2-3 month period. HbA1c (Bld) [Mass fraction] 7.9 % High 4.3 - 5. 6 % [facility] Comment on above: [place] Diabetes As sociation guidelines indicate that patients with HgbA1c in the range 5.7-6.4% are at increased risk for development of diabetes, and intervention by lifestyle modification may be beneficial. HgbA1c greater or equal to 6.5% is considered diagnostic of diabetes. Interpretation and review of laboratory results Abnormal [facility] Average glucose Estimated from glycated hemoglobin (Bld) [Mass/Vol] 180 mg/dL Normal [facility] Comment on above: Order Comment: Speci men Type: BLOOD SPECIMEN Ordering Facility: [facility] Address: [address] [place] [address] Result Comment: eAG: (Estimated average glucose) is a calculated value from HgbA1c and is customer development representative of the average blood glucose level in the last 2-3 month period. Performed By: #### 5 5454-3 #### [facility] CLIA [id number] [address] [place] [address] [place] HbA1c (Bld) [Mass fraction] 7.9 % High 4.3-5.6 [facility] Comment on above: Order Comment: Speci men Type: BLOOD SPECIMEN Ordering Facility: [facility] Address: [address] [place] [address] Result Comment: Amer [place] Diabetes Association guidelines indicate that patients with HgbA1c in the range 5.7-6.4% are at increased risk for development of diabetes, and intervention by lifestyle modification may be beneficial. HgbA1c greater or equal to 6.5% is considered diagnostic of diabetes. Performed By: #### 5 5454-3 #### [facility] CLIA [id number] [address] [place] [address] [place] JAK2 V617F MUTATION BLOODon 02-01-2024 JAK2 V617F MUTATION RESULT/INTERPRETATION Normal [facility] Comment on above: Order Comment: Speci men Type: BLOOD SPECIMEN Ordering Facility: [facility] Address: [address] [place] [address] Result Comment: JAK2 V617F Mutation Analysis Laboratory Accession Number: [id number] Sample Type: Peripheral Blood Result: No variant detected. Interpretation: The JAK2 V617F (c.1849G>T, p.Vfd346Sog) variant is not detected. V617F has been reported in a high percentage of cases of polycythemia vera, approximately half of the cases of essential thrombocythemia and chronic idiopathic myelofibrosis, and in a smaller proportion of other myeloid disorders. If clinical suspicion for a myeloproliferative neoplasm remains high, consider ordering the myeloproliferative neoplasm panel (MPNP for peripheral blood, MPNM for bone marrow), which detects variants in JAK2 exons 12-16, CALR exon 9, and MPL exon 10. Methodology: DNA extracted from blood or bone marrow is interrogated for the presence or absence of the V617F (c.1849G>T, p.Ecl432Fcr; [id number]; [id number]) variant (mutation) in JAK2 ([id number]) using droplet digital polymerase chain reaction (PCR). Droplet digital PCR includes partitioning of DNA into droplets, droplet independent PCR, interrogation using allele specific hydrolysis probes, and analysis of droplets using Poisson distribution to calculate the copy number of JAK2 V617F and wild-type JAK2. The reference genome used is GRCh38/hg38. Limitations: This test is designed to detect the V617F variant in the JAK2 gene. Uncommon variants or single nucleotide polymorphisms may affect binding of probes or primers and may rarely result in false negative, false positive, or indeterminate results. Other variants in JAK2 will not be identified by this test. The lower limit of detection of this assay is approximately 0.1% variant allele fraction (vaf) for the JAK2 V617F variant. Although vaf is provided for reference, this value should be interpreted with caution as this test is intended for qualitative purposes and is not validated as a quantitative test. The JAK2 V617F result cannot be used on a standalone basis for diagnosis of myeloid neoplasm. Very low level JAK2 results (eg. less than 1%) in particular may be of unclear significance and should be considered in the context of clinical and morphologic presentation. Disclaimer: This test was developed and its performance characteristics determined by [facility] [place] ([facility]). It has not been cleared or approved by the FDA. [facility] is regulated under CLIA as certified to perform high- complexity testing. This test is used for clinical purposes. It should not be regarded as investigational or for research. Testing and interpretation performed at [facility], [address] [place] [address]. CLIA Number: [id number] References: 1) Jaclyner DA, Danyi A, Suasn R, et al. The 2016 revision to the World Health Organization (WHO) classification of myeloid neoplasms and acute leukemia. Blood 2016. 127(20): 2391-405. 2) Jenn Jeronimo, Nancy R, Gay JW. Myeloproliferative neoplasms: contemporary diagnosis using histology and genetics. [place] Rev Clin Oncol 2009. 6:627-37. As reviewed by Celestina Maddox, PhD, HCLD Performed By: #### M [facility], 55592-0 #### [facility] CLIA [id number] [address] [place] [address] [place] [address] [place] Abiola-1 extractable nuclear Ab Qn (S)on 02-01-2024 ABIOLA 1 ANTIBODY QUAL Negative Normal Negative [facility] Comment on above: Order Comment: Speci men Type: BLOOD SPECIMEN Ordering Facility: [facility] Address: [address] [place] [address] Result Comment: Anti -ABIOLA-1 antibody is used as an aid in diagnosis of polymyositis and dermatomyositis especially with pulmonary involvement. A negative result cannot rule out polymyositis or dermatomyositis. Clinical correlation is required. Test Methodology: Multiplex flow immunoassay. Performed By: #### M ICRO, 54045-2 #### [facility] CLIA [id number] [address] [place] [address] [place] LIPID PANEL, NONFASTINGon Cholesterol [Mass/Vol] 152 mg/dL NINF - 200 mg/dL [facility] Comment on above: <200 mg/dL, Desirabl e 200-239 mg/dL, Borderline high >239 mg/dL, High HDL Cholesterol, Nonfasting 30 mg/dL Low 39 - PINF mg/dL [facility] Comment on above: 40-59 mg/dL, Accepta ble >59 mg/dL, High: Negative risk factor for coronary heart disease <40 mg/dL, Low: Positive risk factor for coronary heart disease LDL Cholesterol, Nonfasting 102 mg/dL High NINF - 100 mg/dL [facility] Comment on above: <100 mg/dL, Optimal 100-129 mg/dL, Near optimal/above optimal 130-159 mg/dL, Borderline high 160-189 mg/dL, High >189 mg/dL, Very high Secondary prevention optimal LDL Cholesterol levels are recommended to be < 70 mg/dL LDL/HDL Ratio, Nonfasting 3.40 mg/dL High NI NF - 2.54 mg/dL [facility] Comment on above: Reference: 1. National Cholesterol Education Program ATP III Guideline At-A-Glance Quick Desk Reference: National Heart, Lung, and Blood [place]. National Institutes of Health. 2001: NIH Publication No. 01-3305. 2. An International Atherosclerosis Society position paper: global recommendations for the management of dyslipidemia: executive summary, Atherosclerosis. 2014: 232(2):410-413. Non HDL Cholesterol, Nonfasting 122 mg/dL NINF - 130 mg/dL [facility] Comment on above: <130 mg/dL, Optimal 130-159 mg/dL, Near optimal/above optimal 160-189 mg/dL, Borderline high 190-219 mg/dL, High >219 mg/dL, Very high Secondary prevention optimal non HDL Cholesterol levels are recommended to be <100 mg/dL Total Chol/HDL Ratio, Nonfasting 5.07 mg/dL NINF - 5.10 mg/dL [facility] Triglycerides, Nonfasting 98 mg/dL NI NF - 150 mg/dL [facility] Comment on above: <150 mg/dL, Normal 150-199 mg/dL, Borderline high 200-499 mg/dL, High >499 mg/dL, Very high VLDL Cholesterol, Nonfasting 20 mg/dL NINF - 30 mg/dL [facility] Cholesterol [Mass/Vol] 152 mg/dL Normal <200 [facility] Comment on above: Order Comment: Claire men Type: BLOOD SPECIMEN Ordering Facility: [facility] Address: [address] [place] [address] Result Comment: <200 mg/dL, Desirable 200-239 mg/dL, Borderline high >239 mg/dL, High Performed By: #### 1 988-5, LIPNF, 3024-7, 3016-3 #### [facility] CLIA [id number] [address] [place] [address] [place] HDL CHOLESTEROL, NF 30 mg/dL Low >39 [facility] Comment on above: Order Comment: Claire aguilera Type: BLOOD SPECIMEN Ordering Facility: [facility] Address: [address] [place] [address] Result Comment: 40-5 9 mg/dL, Acceptable >59 mg/dL, High: Negative risk factor for coronary heart disease <40 mg/dL, Low: Positive risk factor for coronary heart disease Performed By: #### 1 988-5, LIPNF, 3024-7, 3016-3 #### [facility] CLIA [id number] [address] [place] [address] [place] LDL CHOLESTEROL, NF 102 mg/dL High <100 [facility] Comment on above: Order Comment: Claire men Type: BLOOD SPECIMEN Ordering Facility: [facility] Address: [address] [place] [address] Result Comment: <100 mg/dL, Optimal 100-129 mg/dL, Near optimal/above optimal 130-159 mg/dL, Borderline high 160-189 mg/dL, High >189 mg/dL, Very high Secondary prevention optimal LDL Cholesterol levels are recommended to be < 70 mg/dL Performed By: #### 1 988-5, LIPNF, 3023-7, 6-3 #### [facility] CLIA [id number] [address] [facility] [place] [address] [place] LDL/HDL RATIO, NF 3.40 mg/dL High <2.54 [facility] Comment on above: Order Comment: Claire aguilera Type: BLOOD SPECIMEN Ordering Facility: [facility] Address: [address] [place] [address] Result Comment: Refe rence: 1. National Cholesterol Education Program ATP III Guideline At-A-Glance Quick Desk Reference: National Heart, Lung, and Blood [place]. National Institutes of Health. 2001: NIH Publication No. 01-3305. 2. An International Atherosclerosis Society position paper: global recommendations for the management of dyslipidemia: executive summary, Atherosclerosis. 2014: 232(2):410-413. Performed By: #### 1 988-5, LIPHUGH, 3024-01, 3015-3 #### [facility] CLIA [id number] [address] [place] [address] [place] NON HDL CHOL, NF 122 mg/dL Normal <130 [facility] Comment on above: Order Comment: Claire aguilera Type: BLOOD SPECIMEN Ordering Facility: [facility] Address: [address] [place] [address] Result Comment: <130 mg/dL, Optimal 130-159 mg/dL, Near optimal/above optimal 160-189 mg/dL, Borderline high 190-219 mg/dL, High >219 mg/dL, Very high Secondary prevention optimal non HDL Cholesterol levels are recommended to be <100 mg/dL Performed By: #### 1 988-5, LIPNF, 3023-7, 6-3 #### [facility] CLIA [id number] [address] [facility] [facility] [address] [place] T CHOL/HDL RATIO NF 5.07 mg/dL Normal <5.10 [facility] Comment on above: Order Comment: Speci men Type: BLOOD SPECIMEN Ordering Facility: [facility] Address: [address] [place] [address] Performed By: #### 1 988-5, LIPNF, 3024-7, 3016-3 #### [facility] CLIA [id number] [address] [place] [address] [place] TRIGLYCERIDES, NF 98 mg/dL Normal <150 [facility] Comment on above: Order Comment: Speci men Type: BLOOD SPECIMEN Ordering Facility: [facility] Address: [address] [place] [address] Result Comment: <150 mg/dL, Normal 150-199 mg/dL, Borderline high 200-499 mg/dL, High >499 mg/dL, Very high Performed By: #### 1 988-5, LIPNF, 3024-7, 3016-3 #### [facility] CLIA [id number] [address] [place] [address] [place] VLDL CHOLESTEROL, NF 20 mg/dL Normal <[address] [facility] Comment on above: Order Comment: Speci men Type: BLOOD SPECIMEN Ordering Facility: [facility] Address: [address] [place] [address] Performed By: #### 1 988-5, LIPNF, 3024-7, 3016-3 #### [facility] CLIA [id number] [address] [place] [address] [place] LIPOPROTEIN (A)on 02-01-2024 Lipoprotein a [Mass/Vol] 219 mg/dL High DANILO F - 30 mg/dL [facility] LPa SerPl-mCncon 02-01-2024 Lipoprotein a [Mass/Vol] 219 mg/dL High <30 [facility] Comment on above: Order Comment: Speci men Type: BLOOD SPECIMEN Ordering Facility: [facility] Address: [address] [place] [address] Performed By: #### 5 8410-2, [id number], 4537-7 #### [facility] CLIA [id number] [address] [place] [address] [place] LUPUS PANELon 02-01-2024 aPTT Coag (Bld) [Time] 46.9 s High 30.2-43.0 [facility] Comment on above: Order Comment: Speci men Type: BLOOD SPECIMEN Ordering Facility: [facility] Address: [address] [place] [address] Performed By: #### 5 8410-2, [id number], 4537-01 #### [facility] CLIA [id number] [address] [place] [address] [place] aPTT Coag (Bld) [Time] 39.7 s High 31.5-38.3 [facility] Comment on above: Order Comment: Speci men Type: BLOOD SPECIMEN Ordering Facility: [facility] Address: [address] [place] [address] Performed By: #### 5 8410-2, [id number], 4537-01 #### [facility] CLIA [id number] [address] [place] [address] [place] aPTT Coag (Bld) [Time] 39.5 s High 24.0-35.1 [facility] Comment on above: Order Comment: Speci men Type: BLOOD SPECIMEN Ordering Facility: [facility] Address: [address] [place] [address] Performed By: #### 5 8410-2, [id number], 4537-01 #### [facility] CLIA [id number] [address] [place] [address] [place] aPTT W excess hexagonal phase phospholipid Coag (PPP) [Time] 55.5 seconds High 34.0-51.8 [facility] Comment on above: Order Comment: Speci men Type: BLOOD SPECIMEN Ordering Facility: [facility] Address: [address] [place] [address] Performed By: #### 5 8410-2, [id number], 4537-01 #### [facility] CLIA [id number] [address] [place] [address] [place] Coagulation factor X activated act Coag Qn (PPP) <0.10 Normal <0.[address] [facility] Comment on above: Order Comment: Speci men Type: BLOOD SPECIMEN Ordering Facility: [facility] Address: [address] [place] [address] Result Comment: This test was developed and its performance characteristics determined by [facility]'s [facility] Pathology and Laboratory Medicine [place] ([facility] It has not been cleared or approved by the FDA. [facility] is regulated under CLIA as qualified to perform high-complexity testing. This test is used for clinical purposes. It should not be regarded as investigational or for research. Performed By: #### 5 8410-2, [id number], 4537-01 #### [facility] CLIA [id number] [address] [place] [address] [place] Delta dRVVT Coag (PPP) [Time diff] 4.8 delta seconds Normal <7.1 [facility] Comment on above: Order Comment: Speci men Type: BLOOD SPECIMEN Ordering Facility: [facility] Address: [address] [place] [address] Performed By: #### 5 8410-2, [id number], 4537-01 #### [facility] CLIA [id number] [address] [place] [address] [place] dRVVT Coag (PPP) [Time] 36.6 s Normal 32.0-45.7 C [facility] Comment on above: Order Comment: Speci men Type: BLOOD SPECIMEN Ordering Facility: [facility] Address: [address] [place] [address] Performed By: #### 5 8410-2, [id number], 4537-01 #### [facility] CLIA [id number] [address] [place] [address] [place] dRVVT factor substitution immediately after 1:2 addition of normal plasma Coag (PPP) [Time] 34.7 seconds Normal 32.0-45.7 [facility] Comment on above: Order Comment: Speci men Type: BLOOD SPECIMEN Ordering Facility: [facility] Address: [address] [place] [address] Performed By: #### 5 8410-2, [id number], 4537-01 #### [facility] CLIA [id number] [address] [place] [address] [place] dRVVT W excess hexagonal phase phospholipid actual/normal Coag (PPP) [Relative time] 50.7 seconds High 34.2-47.9 [facility] Comment on above: Order Comment: Speci men Type: BLOOD SPECIMEN Ordering Facility: [facility] Address: [address] [place] [address] Performed By: #### 5 8410-2, [id number], 4537-01 #### [facility] CLIA [id number] [address] [place] [address] [place] dRVVT/dRVVT.excess phospholipid Coag (PPP) [Ratio] 0.99 Normal <1.32 [facility] Comment on above: Order Comment: Speci men Type: BLOOD SPECIMEN Ordering Facility: [facility] Address: [address] [place] [address] Performed By: #### 5 8410-2, [id number], 4537-01 #### [facility] CLIA [id number] [address] [place] [address] [place] PLATELET NEUT 0.0 Seconds Normal <1.9 [facility] Comment on above: Order Comment: Speci men Type: BLOOD SPECIMEN Ordering Facility: [facility] Address: [address] [place] [address] Performed By: #### 5 8410-2, [id number], 4537-01 #### [facility] CLIA [id number] [address] [place] [address] [place] Thrombin time Coag (PPP) [Time] 17.2 seconds Normal <18.6 [facility] Comment on above: Order Comment: Claire aguilera Type: BLOOD SPECIMEN Ordering Facility: [facility] Address: [address] [place] [address] Performed By: #### 5 8410-2, [id number], 4537-7 #### [facility] CLIA [id number] [address] [place] [address] [place] Lipoprotein a [Mass/Vol]on 0 02-01-2024 Interpretation and review of laboratory results Abnormal [facility] No Panel Informationon 01-31 Interpretation and review of laboratory results Normal [facility] Interpretation and review of laboratory results Normal [facility] Interpretation and review of laboratory results Abnormal [facility] Nuclear Ab IA Ql (S)on 01-31 EDY SCR QUAL Negative Normal Negative [facility] Comment on above: Order Comment: Claire aguilera Type: BLOOD SPECIMEN Ordering Facility: [facility] Address: [address] [place] [address] Result Comment: The qualitative antinuclear antibody screen test performed using the following antigens: dsDNA, Chromatin, Ribosomal P, SS-A 60, SS-A 52, SS-B, Sm, SmRNP, EVENT DECORATOR A, EVENT DECORATOR 68, Scl-70, Abiola-1, and Centromere B. Methodology: Multiplex flow immunoassay. Performed By: #### M ICRO, 34000-2 #### [facility] CLIA [id number] [address] [place] [address] [place] PT panel Coag (PPP)on 2023 INR Coag (PPP) [Relative time] 1.1 {INR} Normal 0.9-1.3 [facility] Comment on above: Order Comment: Claire aguilera Type: BLOOD SPECIMEN Ordering Facility: [facility] Address: [address] [place] [address] Result Comment: Ying min K Antagonist (VKA) Therapeutic Range: INR 2 to 3 (Target INR of 2.5) Note: For patients treated with VKA drugs, such as warfarin, the [employer] 2012 Guideline recommends a therapeutic INR range of 2 to 3 (target INR of 2.5). This recommendation includes high-risk patients with antiphospholipid syndrome with previous arterial or venous thromboembolism, current-generation mechanical or bioprosthetic aortic heart valve replacement. Note: Patients with mechanical aortic valve replacement and additional risk factors for thromboembolic events (atrial fibrillation, previous thromboembolism, LV dysfunction, hypercoagulable conditions) or an older generation mechanical AVR (i.e., ball in-Cage) or any mechanical MVR should have a INR therapeutic range of 2.5 to 3.5 (target INR of 3). Hillary GH, et al. Chest 2012, 141:7S-47S Misha RA, et al. [facility] 2017, 70: 252-289 Performed By: #### 5 8410-2, [id number], 4537-01 #### [facility] CLIA [id number] [address] [place] [address] [place] PT Coag (PPP) [Time] 11.7 s Normal 9.7-13.[address] [facility] Comment on above: Order Comment: Speci men Type: BLOOD SPECIMEN Ordering Facility: [facility] Address: [address] [place] [address] Performed By: #### 5 8410-2, [id number], 4537-01 #### [facility] CLIA [id number] [address] [place] [address] [place] RHEUMATOID FACTORon 02-01-20 24 Rheumatoid factor Qn NINF [facility] Rheumatoid fact SerPl-aCncon 02-01-2024 Rheumatoid factor Qn [IU]/mL Normal <[address] [facility] Comment on above: Order Comment: Claire aguilera Type: BLOOD SPECIMEN Ordering Facility: [facility] Address: [address] [place] [address] Performed By: #### 5 8410-2, [id number], 4537-01 #### [facility] CLIA [id number] [address] [place] [address] [place] Ribonucleoprotein extractabl e nuclear Ab Qn (S)on 02-01-2024 ANTI-EVENT DECORATOR QUAL Negative Normal Negative [facility] Comment on above: Order Comment: Claire aguilera Type: BLOOD SPECIMEN Ordering Facility: [facility] Address: [address] [place] [address] Performed By: #### 5 8410-2, [id number], 4537-7 #### [facility] CLIA [id number] [address] [place] [address] [place] 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 Cross-reactivity with Anti-galloway antibody is not uncommon. Clinical correlation is required. Test Methodology: Multiplex flow immunoassay. Performed By: #### 5 8410-2, [id number], 77 #### [facility] CLIA [id number] [address] [place] [address] [place] SCL-70 extractable nuclear I gG IA Qn (S)on 02-01-2024 SCLERODERMA AB QUAL Negative Normal Negative [facility] Comment on above: Order Comment: Claire aguilera Type: BLOOD SPECIMEN Ordering Facility: [facility] Address: [address] [place] [address] Performed By: #### M ICRO, 20680-0 #### [facility] CLIA [id number] [address] [place] [address] [place] SCLERODERMA IGG AB <0.2 Normal <1.0 [facility] Comment on above: Order Comment: Claire aguilera Type: BLOOD SPECIMEN Ordering Facility: [facility] Address: [address] [place] [address] Result Comment: Scl- 70/Scleroderma antibody test is used as an aid in diagnosis of systemic sclerosis especially the diffuse cutaneous form. A negative result cannot rule out systemic sclerosis. The final interpretation should consider clinical picture and other test results such as anti-centromere antibody. Test Methodology: Multiplex flow immunoassay. Performed By: #### Malia HOBBS, 78064-7 #### [facility] CLIA [id number] [address] [place] [address] [place] Sjogrens syndrome-A extracta ble nuclear Ab Qn (S)on 02-01-2024 SSA ANTIBODY QUAL Negative Normal Negative [facility] Comment on above: Order Comment: Speci men Type: BLOOD SPECIMEN Ordering Facility: [facility] Address: [address] [place] [address] Performed By: #### 5 8410-2, [id number], 4537-7 #### [facility] CLIA [id number] [address] [place] [address] [place] Sjogrens syndrome-B extracta ble nuclear Ab Qn (S)on 02-01-2024 SSB ANTIBODY QUAL Negative Normal Negative [facility] Comment on above: Order Comment: Speci men Type: BLOOD SPECIMEN Ordering Facility: [facility] Address: [address] [place] [address] Performed By: #### Malia HOBBS, 56479-5 #### [facility] CLIA [id number] [address] [place] [address] [place] Galloway extractable nuclear Ig G Qn (S)on 02-01-2024 SM ANTIBODY QUAL Negative Normal Negative [facility] Comment on above: Order Comment: Speci men Type: BLOOD SPECIMEN Ordering Facility: [facility] Address: [address] [place] [address] Result Comment: Anti -Sm (Galloway) antibody is used as an aid in diagnosis of systemic lupus erythematosus and its presence is associated with renal disease. A negative result cannot rule out systemic lupus erythematosus. Clinical correlation is required. Test Methodology: Multiplex flow immunoassay. Performed By: #### Malia HOBBS, 74935-7 #### [facility] CLIA [id number] [address] [place] [address] [place] T4 FREE/FREE THYROXINEon Free T4 [Mass/Vol] 1.3 ng/dL 0.9 - 1.7 ng/dL [facility] T4 Free SerPl-mCncon 024 Free T4 [Mass/Vol] 1.3 ng/dL Normal 0.9-1.7 [facility] Comment on above: Order Comment: Claire aguilera Type: BLOOD SPECIMEN Ordering Facility: [facility] Address: [address] [place] [address] Performed By: #### 1 988-5, LIPNF, 3024-7, 3016-3 #### [facility] CLIA [id number] [address] [place] [address] [place] THYROID PEROXIDASE ANTIBODYo n 02-01-2024 Interpretation and review of laboratory results Normal [facility] TPO Ab Qn NINF [facility] Comment on above: Thyroid Peroxidase A ntibody test is used as an aid in diagnosis of autoimmune thyroid disease. Clinical correlation is required. [facility] TPO Ab Qn [IU]/mL Normal <5.6 [facility] Comment on above: Order Comment: Claire aguilera Type: BLOOD SPECIMEN Ordering Facility: [facility] Address: [address] [place] [address] Result Comment: Thyr oid Peroxidase Antibody test is used as an aid in diagnosis of autoimmune thyroid disease. Clinical correlation is required. Performed By: #### M [facility], 25541-4 #### [facility] CLIA [id number] [address] [place] [address] [place] THYROID STIMULATING HORMONEo n 02-01-2024 TSH Qn 1.390 m[IU]/L [facility] Comment on above: If the patient is pr egnant, TSH reference range varies by gestational period: First Trimester (weeks 9-12): 0.180-2.990 mIU/L Second Trimester: 0.110-3.980 mIU/L Third Trimester: 0.480-4.710 mIU/L Momo Lawrence et al. A Practical Approach for the Verifications and Determination of Site- and Trimester-Specific Reference Intervals for Thyroid Function tests in . Thyroid, 2019:29:3:412-420. Amarjit Marie, et al. 2017 Guidelines of the [place] [employer] for the Diagnosis and Management of Thyroid Disease during and the . Thyroid, 2017:27:3:315-389. THYROID STIMULATING IMMUNOGL OBULIN BLOODon 02-01-2024 Thyroid stimulating immunoglobulins actual/normal (S) [Relative mass conc] % Normal <0.55 [facility] Comment on above: Order Comment: Claire aguilera Type: BLOOD SPECIMEN Ordering Facility: [facility] Address: [address] [place] [address] Result Comment: Thyr oid Stimulating Immunoglobulin test is used as an aid in diagnosis of autoimmune hyperthyroidism especially in patients with Grave's orbitopathy and dermopathy. Low positive TSH receptor stimulating antibody levels may occasionally be found in patients with autoimmune hypothyroidism. Clinical correlation is required. Performed By: #### T SIGIM #### [facility] CLIA [id number] [address] [place] [address] [place] TSI QUALITATIVE Negative Normal Negative [facility] Comment on above: Order Comment: Claire aguilera Type: BLOOD SPECIMEN Ordering Facility: [facility] Address: [address] [place] [address] Performed By: #### T SIGIM #### [facility] CLIA [id number] [address] [place] [address] [place] TSH SerPl-aCncon 02-01-2024 TSH Qn 1.390 m[IU]/L Normal 0.270-4.200 [facility] Comment on above: Order Comment: Claire aguilera Type: BLOOD SPECIMEN Ordering Facility: [facility] Address: [address] [place] [address] Result Comment: If t he patient is , TSH reference range varies by gestational period: First Trimester (weeks 9-12): 0.180-2.990 mIU/L Second Trimester: 0.110-3.980 mIU/L Third Trimester: 0.480-4.710 mIU/L Momo Lawrence et al. A Practical Approach for the Verifications and Determination of Site- and Trimester-Specific Reference Intervals for Thyroid Function tests in . Thyroid, 2019:29:3:412-420. Amarjit Marie, et al. 2017 Guidelines of the [place] Thyroid [employer] for the Diagnosis and Management of Thyroid Disease during and the . Thyroid, 2017:27:3:315-389. Performed By: #### M ICRO, 08743-0 #### [facility] CLIA [id number] [address] [place] [address] [place] aPTT PPPon 02-01-2024 aPTT Coag (PPP) [Time] 30.1 s Normal 23.0-32.4 [facility] Comment on above: Order Comment: Speci men Type: BLOOD SPECIMEN Ordering Facility: [facility] Address: [address] [place] [address] Performed By: #### 5 8410-2, [id number], 4537-7 #### [facility] CLIA [id number] [address] [place] [address] [place] CBC AND AUTO DIFFon 01-05-20 24 ABSOLUTE BASOPHIL 0.0 X10E9/L Normal 0.0-0.2 [facility] Comment on above: Performed By: #### N UM #### [facility] ([id number]) [address] [place] [address]056 ABSOLUTE NEUTROPHIL 5.4 X10E9/L Normal 1.5-6.6 [facility] Comment on above: Performed By: #### N UM #### [facility] ([id number]) [address] [place] [address] 00738 Basophils/100 WBC (Bld) 0.2 % Normal P [facility] Comment on above: Performed By: #### N UM #### [facility] ([id number]) [address] [place] [address] 26473 Eosinophils (Bld) [#/Vol] 0.1 10*3/uL Normal 0.0-0.4 [facility] Comment on above: Performed By: #### N UM #### [facility] ([id number]) [address] [place] [address] 56549 Eosinophils/100 WBC (Bld) 1.3 % Normal [facility] Comment on above: Performed By: #### N UM #### [facility] ([id number]) [address] [place] [address] 76023 Erythrocyte distribution width (RBC) [Ratio] 14.7 % Normal 11.5-15.0 [facility] Comment on above: Performed By: #### N UM #### [facility] ([id number]) [address] [place] [address] 43170 Hematocrit (Bld) [Volume fraction] 30.7 % Low 35-47 [facility] Comment on above: Performed By: #### N UM #### [facility] ([id number]) [address] [place] [address] 48695 Hemoglobin (Bld) [Mass/Vol] 10.4 g/dL Low 11.7-15. 5 [facility] Comment on above: Performed By: #### N UM #### [facility] ([id number]) [address] [place] [address] 00794 Lymphocytes (Bld) [#/Vol] 2.9 10*3/uL Normal 1.0-3.5 [facility] Comment on above: Performed By: #### N UM #### [facility] ([id number]) [address] [place] [address] 92243 Lymphocytes/100 WBC (Bld) 32.5 % Normal [facility] Comment on above: Performed By: #### N UM #### [facility] ([id number]) [address] [place] [address] 73877 MCH (RBC) [Entitic mass] 28.3 pg Normal 27-34 [facility] Comment on above: Performed By: #### N UM #### [facility] ([id number]) [address] [place] [address] 24747 MCHC (RBC) [Mass/Vol] 33.7 g/dL Normal 32-36 [facility] Comment on above: Performed By: #### N UM #### [facility] ([id number]) [address] [place] [address] 80454 MCV (RBC) [Entitic vol] 84 fL Normal 80-100 P [facility] Comment on above: Performed By: #### N UM #### [facility] ([id number]) [address] [place] [address] 35360 Monocytes (Bld) [#/Vol] 0.5 10*3/uL Normal 0-0.9 [facility] Comment on above: Performed By: #### N UM #### [facility] ([id number]) [address] [place] [address] 35832 Monocytes/100 WBC (Bld) 5.3 % Normal [facility] Comment on above: Performed By: #### N UM #### [facility] ([id number]) [address] [place] [address] 03092 Neutrophils/100 WBC (Bld) 60.7 % Normal [facility] Comment on above: Performed By: #### N UM #### [facility] ([id number]) [address] [place] [address] 27587 Platelet mean volume (Bld) [Entitic vol] 7.6 fL Normal 7-12 [facility] Comment on above: Performed By: #### N UM #### [facility] ([id number]) [address] [place] [address] 15940 Platelets (Bld) [#/Vol] 525 10*3/uL High 150-450 [facility] Comment on above: Performed By: #### N UM #### [facility] ([id number]) [address] [place] [address] 40221 RBC COUNT 3.66 X10E12/L Low 3.80-5.20 [facility] Comment on above: Performed By: #### N UM #### [facility] ([id number]) [address] [place] [address] 83745 WBC (Bld) [#/Vol] 8.9 10*3/uL Normal 4.0-11.0 [facility] Comment on above: Performed By: #### N UM #### [facility] ([id number]) [address] [place] [address] 45649 COMPREHENSIVE METABOLIC PANE Zackery 01-05-2024 Albumin [Mass/Vol] 3.3 g/dL Normal 3.2-5.3 [facility] Comment on above: Performed By: #### N UM #### [facility] ([id number]) [address] [place] [address] 04883 ALP [Catalytic activity/Vol] 57 U/L Normal 39-130 [facility] Comment on above: Performed By: #### N UM #### [facility] ([id number]) [address] [place] [address] 86399 ALT [Catalytic activity/Vol] 15 U/L Normal 0-31 [facility] Comment on above: Performed By: #### N UM #### [facility] ([id number]) [address] [place] [address] 57443 Anion gap [Moles/Vol] 8 mmol/L Normal 5-15 [facility] Comment on above: Performed By: #### N UM #### [facility] ([id number]) [address] [place] [address] 42461 AST [Catalytic activity/Vol] 14 U/L Normal 0-41 [facility] Comment on above: Performed By: #### N UM #### [facility] ([id number]) [address] [place] [address] 87630 Bilirubin [Mass/Vol] 0.6 mg/dL Normal 0.3-1.2 [facility] Comment on above: Performed By: #### N UM #### [facility] ([id number]) [address] [place] [address] 14049 Calcium [Mass/Vol] 8.8 mg/dL Normal 8.5-10.5 [facility] Comment on above: Performed By: #### N UM #### [facility] ([id number]) [address] [place] [address] 68642 Chloride [Moles/Vol] 109 mmol/L Normal 98-109 [facility] Comment on above: Performed By: #### N UM #### [facility] ([id number]) [address] [place] [address] 03146 CO2 [Moles/Vol] 19 mmol/L Low 22-32 [facility] Comment on above: Performed By: #### N UM #### [facility] ([id number]) [address] [place] [address] 49560 Creatinine [Mass/Vol] 0.92 mg/dL Normal 0.40-1.00 [facility] Comment on above: Result Comment: METH OD TRACEABLE TO IDMS STANDARD Performed By: #### N UM #### [facility] ([id number]) [address] [place] [address] 13477 GFR/1.73 sq M.predicted among non-blacks MDRD (S/P/Bld) [Vol rate/Area] 85 mL/min/{1.73_m2} Normal >59 Pr [facility] Comment on above: Result Comment: Reported eGFR is based on the CKD-EPI 2021 equation that does not use a race coefficient. Performed By: #### N UM #### [facility] ([id number]) [address] [place] [address] 81026 Glucose [Mass/Vol] 154 mg/dL High 65-99 [facility] Comment on above: Performed By: #### N UM #### [facility] ([id number]) [address] [place] [address] 43282 Potassium [Moles/Vol] 3.5 mmol/L Normal 3.5-5.0 [facility] Comment on above: Performed By: #### N UM #### [facility] ([id number]) [address] [place] [address] 06483 Protein [Mass/Vol] 7.0 g/dL Normal 6.0-8.0 [facility] Comment on above: Performed By: #### N UM #### [facility] ([id number]) [address] [place] [address] 66933 Sodium [Moles/Vol] 136 mmol/L Normal 134-146 [facility] Comment on above: Performed By: #### N UM #### [facility] ([id number]) [address] [place] [address] 79862 Urea nitrogen [Mass/Vol] 18 mg/dL Normal 5-23 [facility] Comment on above: Performed By: #### N UM #### [facility] ([id number]) [address] [place] [address] 74417 Glucose Glucometer (BldC) [M ass/Vol]on 01-05-2024 Glucose [Mass/Vol] 134 mg/dL High 65-99 [facility] Glucose [Mass/Vol] 105 mg/dL High 65-99 [facility] MAGNESIUMon 01-05-2024 Magnesium [Mass/Vol] 1.8 mg/dL Normal 1.8-2.6 [facility] Comment on above: Performed By: #### N UM #### [facility] ([id number]) [address] [place] [address] 80415 CBC AND AUTO DIFFon 01-04-20 24 ABSOLUTE BASOPHIL 0.0 X10E9/L Normal 0.0-0.2 [facility] Comment on above: Performed By: #### C BCA, CMP #### [facility] ([id number]) [address] [place] [address] 65791 ABSOLUTE NEUTROPHIL 4.8 X10E9/L Normal 1.5-6.6 [facility] Comment on above: Performed By: #### C DELFINO, CMP #### [facility] ([id number]) [address] [place] [address] 56320 Basophils/100 WBC (Bld) 0.4 % Normal [facility] Comment on above: Performed By: #### C BCA, CMP #### [facility] ([id number]) [address] [place] [address] 82828 Eosinophils (Bld) [#/Vol] 0.1 10*3/uL Normal 0.0-0.4 [facility] Comment on above: Performed By: #### C BCA, CMP #### [facility] ([id number]) [address] [place] [address] 55929 Eosinophils/100 WBC (Bld) 1.3 % Normal [facility] Comment on above: Performed By: #### C BCA, CMP #### [facility] ([id number]) [address] [place] [address] 69708 Erythrocyte distribution width (RBC) [Ratio] 14.7 % Normal 11.5-15.0 [facility] Comment on above: Performed By: #### C BCA, CMP #### [facility] ([id number]) [address] [place] [address] 08679 Hematocrit (Bld) [Volume fraction] 30.0 % Low 35-47 [facility] Comment on above: Performed By: #### C BCA, CMP #### [facility] ([id number]) [address] [place] [address] 25876 Hemoglobin (Bld) [Mass/Vol] 10.4 g/dL Low 11.7-15. 5 [facility] Comment on above: Performed By: #### C BCA, CMP #### [facility] ([id number]) [address] [place] [address] 68851 Lymphocytes (Bld) [#/Vol] 3.0 10*3/uL Normal 1.0-3.5 [facility] Comment on above: Performed By: #### C DELFINO, CMP #### [facility] ([id number]) [address] [place] [address] 68533 Lymphocytes/100 WBC (Bld) 34.6 % Normal [facility] Comment on above: Performed By: #### C DELFINO, CMP #### [facility] ([id number]) [address] [place] [address] 96918 MCH (RBC) [Entitic mass] 28.3 pg Normal 27-34 [facility] Comment on above: Performed By: #### C BCA, CMP #### [facility] ([id number]) [address] [place] [address] 85217 MCHC (RBC) [Mass/Vol] 34.8 g/dL Normal 32-36 [facility] Comment on above: Performed By: #### C BCA, CMP #### [facility] ([id number]) [address] [place] [address] 05568 MCV (RBC) [Entitic vol] 82 fL Normal 80-100 P [facility] Comment on above: Performed By: #### C BCA, CMP #### [facility] ([id number]) [address] [place] [address] 58743 Monocytes (Bld) [#/Vol] 0.7 10*3/uL Normal 0-0.9 [facility] Comment on above: Performed By: #### C BCA, CMP #### [facility] ([id number]) [address] [place] [address] 79011 Monocytes/100 WBC (Bld) 7.6 % Normal [facility] Comment on above: Performed By: #### C BCA, CMP #### [facility] ([id number]) [address] [place] [address] 20872 Neutrophils/100 WBC (Bld) 56.1 % Normal [facility] Comment on above: Performed By: #### C BCA, CMP #### [facility] ([id number]) [address] [place] [address] 80561 Platelet mean volume (Bld) [Entitic vol] 7.7 fL Normal 7-12 [facility] Comment on above: Performed By: #### C DELFINO, CMP #### [facility] ([id number]) [address] [place] [address] 68975 Platelets (Bld) [#/Vol] 489 10*3/uL High 150-450 [facility] Comment on above: Performed By: #### C BCA, CMP #### [facility] ([id number]) [address] [place] [address] [place] [address] RBC COUNT 3.68 X10E12/L Low 3.80-5.20 [facility] Comment on above: Performed By: #### C BCA, CMP #### [facility] ([id number]) [address] [place] [address] 83130 WBC (Bld) [#/Vol] 8.5 10*3/uL Normal 4.0-11.0 [facility] Comment on above: Performed By: #### C BCA, CMP #### [facility] ([id number]) [address] [place] [address] 87258 COMPREHENSIVE METABOLIC PANE Zackery 01-04-2024 Albumin [Mass/Vol] 3.4 g/dL Normal 3.2-5.3 [facility] Comment on above: Performed By: #### C BCA, CMP #### [facility] ([id number]) [address] [place] [address] [place] [address] ALP [Catalytic activity/Vol] 57 U/L Normal 39-130 [facility] Comment on above: Performed By: #### C BCA, CMP #### [facility] ([id number]) [address] [place] [address] 70970 ALT [Catalytic activity/Vol] 16 U/L Normal 0-31 [facility] Comment on above: Performed By: #### C BCA, CMP #### [facility] ([id number]) [address] [place] [address] 22347 Anion gap [Moles/Vol] 5 mmol/L Normal 5-15 [facility] Comment on above: Performed By: #### C BCA, CMP #### [facility] ([id number]) [address] [place] [address] 52497 AST [Catalytic activity/Vol] 17 U/L Normal 0-41 [facility] Comment on above: Performed By: #### C BCA, CMP #### [facility] ([id number]) [address] [place] [address] 50772 Bilirubin [Mass/Vol] 0.7 mg/dL Normal 0.3-1.2 [facility] Comment on above: Performed By: #### C BCA, CMP #### [facility] ([id number]) [address] [place] [address] 46848 Calcium [Mass/Vol] 8.7 mg/dL Normal 8.5-10.5 [facility] Comment on above: Performed By: #### C BCA, CMP #### [facility] ([id number]) [address] [place] [address] 64388 Chloride [Moles/Vol] 114 mmol/L High 98-109 [facility] Comment on above: Performed By: #### C BCA, CMP #### [facility] ([id number]) [address] [place] [address] 87625 CO2 [Moles/Vol] 16 mmol/L Low 22-32 [facility] Comment on above: Performed By: #### C BCA, CMP #### [facility] ([id number]) [address] [place] [address] 60470 Creatinine [Mass/Vol] 1.00 mg/dL Normal 0.40-1.00 [facility] Comment on above: Result Comment: METH OD TRACEABLE TO IDMS STANDARD Performed By: #### C BCA, CMP #### [facility] ([id number]) [address] [place] [address] 77285 GFR/1.73 sq M.predicted among non-blacks MDRD (S/P/Bld) [Vol rate/Area] 77 mL/min/{1.73_m2} Normal >59 [facility] Comment on above: Result Comment: Reported eGFR is based on the CKD-EPI 2020 equation that does not use a race coefficient. Performed By: #### C BCA, CMP #### [facility] ([id number]) [address] [place] [address] 05509 Glucose [Mass/Vol] 101 mg/dL High 65-99 [facility] Comment on above: Performed By: #### C BCA, CMP #### [facility] ([id number]) [address] [place] [address] 04035 Potassium [Moles/Vol] 3.5 mmol/L Normal 3.5-5.0 [facility] Comment on above: Performed By: #### C BCA, CMP #### [facility] ([id number]) [address] [place] [address] 79667 Protein [Mass/Vol] 6.7 g/dL Normal 6.0-8.0 [facility] Comment on above: Performed By: #### C BCA, CMP #### [facility] ([id number]) [address] [place] [address] 10439 Sodium [Moles/Vol] 135 mmol/L Normal 134-146 [facility] Comment on above: Performed By: #### C BCA, CMP #### [facility] ([id number]) [address] [place] [address] 16832 Urea nitrogen [Mass/Vol] 19 mg/dL Normal 5-23 [facility] Comment on above: Performed By: #### C BCA, CMP #### [facility] ([id number]) [address] [place] [address] 19866 Fibrin D-dimer DDU (PPP) [Ma ss/Vol]on 01-04-2024 D DIMER 196 ng/mL DDU Normal <255 [facility] Comment on above: Result Comment: Results <255 ng/mL DDU: The presence of a VTE can safely be excluded with a negative D-Dimer result and Wells score. A negative result doesn't exclude the possibility of DIC. The test be repeated along with other diagnostic tests if the patient's symptoms persist or worsen. [email or web address] Performed By: #### C BCA, CMP #### [facility] ([id number]) [address] [place] [address] 63457 Troponin I.cardiac High sens itivity method [Mass/Vol]on 01-04-2024 1 HOUR TROP I, HIGH SENSITIVITY <2 Normal <16 [facility] Comment on above: Performed By: #### C DELFINO, CMP #### [facility] ([id number]) [address] [facility], [place] [address] TROPONIN I, HIGH SENSITIVITY <2 Normal <16 [facility] Comment on above: Performed By: #### C DELFINO, CMP #### [facility] ([id number]) [address] [facility], [place] [address] XR CHEST 1 VWon 01-04-2024 XR CHEST 1 VW XR CHEST 1 VW History: chest pain Exam/Technique: Single AP view of the chest was obtained Comparison: None is available Findings: Cardiomediastinal silhouette is within normal range. Lungs are clear. There is no focal areas of airspace disease, pleural effusion or pneumothorax. IMPRESSION: Unremarkable chest x-ray Finalized by Summer Orantes MD on 01/04/2024 8:43 PM Normal [facility] Capillary blood glucose edis urement by glucometer (mass/volume)Ordered By: Brandon Cee on 12-22-2023 Glucose [Mass/Vol] 155 mg/dL [facility] Comment on above: Random Glucose Refer ence Range is dependent on time and content of last meal. Glucose of more than 200 mg/dL in a nonstressed, ambulatory subject supports the diagnosis of Diabetes Mellitus. Result Comment: [place] om Glucose Reference Range is dependent on time and content of last meal. Glucose of more than 200 mg/dL in a nonstressed, ambulatory subject supports the diagnosis of Diabetes Mellitus. PERFORMED BY: [facility] [address] [place] [address] PATHOLOGIST ORTHOPEDICALLY IMPAIRED TEACHER STELLA SCHMIDT M.D. Performed By: #### G LULS #### Point of Care testing , Glucose Poct Glucometerson 0 12-21-2023 Commemt1 Normal [facility] Comment on above: Result Comment: Glu2 : WILL NOTIFY DR/RN Performed By: #### G LULS #### Point of Care testing , Commemt2 Cleaned Meter Normal [facility] Comment on above: Result Comment: PERF ORMED BY: [address] [place] [address] PATHOLOGIST ORTHOPEDICALLY IMPAIRED TEACHER STELLA SCHMIDT M.D. Performed By: #### G LULS #### Point of Care testing , Glucose [Mass/Vol] 249 mg/dL Normal [facility] Comment on above: Result Comment: [place] om Glucose Reference Range is dependent on time and content of last meal. Glucose of more than 200 mg/dL in a nonstressed, ambulatory subject supports the diagnosis of Diabetes Mellitus. Performed By: #### G LULS #### Point of Care testing , Commemt1 Glu2: Cleaned Meter Normal [facility] Comment on above: Result Comment: PERF ORMED BY: [address] [place] [address] PATHOLOGIST ORTHOPEDICALLY IMPAIRED TEACHER STELLA SCHMIDT M.D. Performed By: #### G LULS #### Point of Care testing , Glucose [Mass/Vol] 140 mg/dL Normal [facility] Comment on above: Result Comment: [place] om Glucose Reference Range is dependent on time and content of last meal. Glucose of more than 200 mg/dL in a nonstressed, ambulatory subject supports the diagnosis of Diabetes Mellitus. Performed By: #### G LULS #### Point of Care testing , Commemt1 Glu2: Cleaned Meter Normal [facility] Comment on above: Result Comment: PERF ORMED BY: [address] [place] [phone] PATHOLOGIST ORTHOPEDICALLY IMPAIRED TEACHER STELLA SCHMIDT M.D. Performed By: #### G LULS #### Point of Care testing , Glucose [Mass/Vol] 167 mg/dL Normal [facility] Comment on above: Result Comment: [place] om Glucose Reference Range is dependent on time and content of last meal. Glucose of more than 200 mg/dL in a nonstressed, ambulatory subject supports the diagnosis of Diabetes Mellitus. Performed By: #### G LULS #### Point of Care testing , Commemt1 Glu2: Cleaned Meter Normal [facility] Comment on above: Result Comment: PERF ORMED BY: [address] [place] [phone] PATHOLOGIST ORTHOPEDICALLY IMPAIRED TEACHER STELLA SCHMIDT M.D. Performed By: #### G LULS #### Point of Care testing , Glucose [Mass/Vol] 119 mg/dL Normal [facility] Comment on above: Result Comment: [place] Glucose Reference Range is dependent on time and content of last meal. Glucose of more than 200 mg/dL in a nonstressed, ambulatory subject supports the diagnosis of Diabetes Mellitus. Performed By: #### G LULS #### Point of Care testing , No Panel InformationOrdered By: Brandon Cee on 12-21-2023 Bedside Glucose #2 Comment Cleaned meter [facility] Bedside Glucose Comment See comment [facility] Comment on above: Glu2: WILL NOTIFY /MELLISSA EDY Antinuclear Antibodieson 12-20-2023 Antinuclear Abs, IFA Positive Critically abnormal . [facility] Comment on above: Result Comment: Nega tive <1:80 Borderline 1:80 Positive >1:80 Performed By: #### G LULS #### Point of Care testing , Homogeneous Pattern 1:160 High . [facility] Comment on above: Result Comment: ICAP nomenclature: [id number] Performed By: #### G LULS #### Point of Care testing , Note 1 Normal . [facility] Comment on above: Result Comment: [place] latham Potential Disease Association Homogeneous Systemic Lupus Erythematosus, Drug Induced Systemic Lupus Erythematosus, Chronic Autoimmune hepatitis, Juvenile Idiopathic Arthritis Speckled Sjogren Syndrome, Systemic Lupus Erythematosus, Subacute Cutaneous Lupus, Lupus, Congenital Heart Block, Mixed Connective Tissue Disease, Scleroderma-diffuse, Scleroderma-Autoimmune Myositis Overlap Syndrome, Systemic Lupus Ijnfbzozdvtno-Pcnzvalgrjg-Xpchygjumu Myositis Overlap Syndrome, Systemic Autoimmune Rheumatic Disease, Undifferentiated Connective Tissue Disease Nucleolar Systemic Sclerosis, Scleroderma-Autoimmune Myositis Overlap Syndrome, Sjogren Syndrome, Raynaud phenomenon, Pulmonary Arterial Hypertension, Systemic Autoimmune Rheumatic Disease, Cancer Centromere Scleroderma-CREST, Limited Cutaneous SSc, Raynaud's Phenomenon, Primary Biliary Cholangitis Nuclear Dot Primary Biliary Cholangitis Nuclear Primary Biliary Cholangitis, Autoimmune Membrane Hepatitis/Liver disease, Systemic Autoimmune Rheumatic Disease, Autoimmune Cytopenias, Linear Scleroderma, Antiphospholipid Syndrome Performed at: [facility] [id number] Chain Testing Machine Operator: Rafa Mendoza PhD, Phone: [phone] Performed By: #### G LULS #### Point of Care testing , ANCA Profile (ANCA+MPO+PR3)o n 12-20-2023 Antimyeloperoxidase (MPO) Abs <0.2 Normal 0.0-0.9 [facility] Comment on above: Performed By: #### G LULS #### Point of Care testing , Atypical pANCA <1:20 Normal Neg:<1:20 [facility] Comment on above: Result Comment: The atypical pANCA pattern has been observed in a significant percentage of patients with ulcerative colitis, primary sclerosing cholangitis and autoimmune hepatitis. Performed at: - [facility] [address] [id number] Chain Testing Machine Operator: Luis M Horvath MD, Phone: [phone] Performed at: - [facility] [id number] Chain Testing Machine Operator: Rafa Mendoza PhD, Phone: [phone] Performed By: #### G LULS #### Point of Care testing , Cytoplasmic (C-ANCA) <1:20 Normal Neg:<1:20 [facility] Comment on above: Performed By: #### G LULS #### Point of Care testing , Perinuclear (P-ANCA) <1:20 Normal Neg:<1:20 [facility] Comment on above: Result Comment: The presence of positive fluorescence exhibiting P-ANCA or C-ANCA patterns alone is not specific for the diagnosis of Alaina's Granulomatosis (WG) or microscopic polyangiitis. Decisions about treatment should not be based solely on ANCA IFA results. The International ANCA Group Consensus recommends follow up testing of positive sera with both NE- 3 and MPO-ANCA enzyme immunoassays. As many as 5% serum samples are positive only by EIA. Ref. AM J Clin Pathol 1999;111:507-513. Performed By: #### G LULS #### Point of Care testing , Proteinase 3 (PR3) Antibodies <0.2 Normal 0.0-0.9 [facility] Comment on above: Result Comment: PERF ORMED BY: [facility] [address] [place] [address] PATHOLOGIST ORTHOPEDICALLY IMPAIRED TEACHER STELLA SCHMIDT M.D. Performed By: #### G LULS #### Point of Care testing , Angiotensin Converting Enzym eOrdered By: Maged Roman on 12-20-2023 Angiotensin converting enzyme [Catalytic activity/Vol] 18 U/L [facility] Comment on above: Result Comment: Perf ormed at: CB - [facility] [place] [address] [place], [place] [id number] Chain Testing Machine Operator: Rafa Mendoza PhD, Phone: [phone] Performed By: #### G LULS #### Point of Care testing , Performed at: CB - [facility] [address] [place], [place] [id number] Director: Rafa Mendoza PhD, Phone: [phone] C reactive protein [Mass/vol ume] in Serum or PlasmaOrdered By: Maged Roman on 12-20-2023 CRP [Mass/Vol] 3.3 mg/dL High 0.0-0.5 [facility] C-Reactive Proteinon 024 C-Reactive Protein 3.3 mg/dL High 0.0-0.5 [facility] Comment on above: Result Comment: PERF ORMED BY: [address] [place] [address] PATHOLOGIST ORTHOPEDICALLY IMPAIRED TEACHER STELLA SCHMIDT M.D. Performed By: #### G LULS #### Point of Care testing , Erythrocyte Sedimentation Ra dae 12-20-2023 ESR (Bld) [Velocity] 51 mm/h High 0-19 [facility] Comment on above: Order Comment: UNABL E TO ADD ON, SPECIMEN TOO OLD Result Comment: PERF ORMED BY: [address] [place] [address] PATHOLOGIST ORTHOPEDICALLY IMPAIRED TEACHER STELLA SCHMIDT M.D. Performed By: #### G LULS #### Point of Care testing , Erythrocyte sedimentation ra te by Photometric methodOrdered By: Maged Roman on 12-20-2023 ESR Photometric method (Bld) [Velocity] 51 mm/hr High 0-19 [facility] Glucose Poct Glucometerson 0 12-20-2023 Commemt1 Glu2: Cleaned Meter Normal [facility] Comment on above: Result Comment: PERF ORMED BY: [address] [place] [id number] PATHOLOGIST ORTHOPEDICALLY IMPAIRED TEACHER STELLA SCHMIDT M.D. Performed By: #### G LULS #### Point of Care testing , Glucose [Mass/Vol] 192 mg/dL Normal [facility] Comment on above: Result Comment: [place] om Glucose Reference Range is dependent on time and content of last meal. Glucose of more than 200 mg/dL in a nonstressed, ambulatory subject supports the diagnosis of Diabetes Mellitus. Performed By: #### G LULS #### Point of Care testing , Glucose [Mass/Vol] 192 mg/dL Normal [facility] Comment on above: Result Comment: [place] om Glucose Reference Range is dependent on time and content of last meal. Glucose of more than 200 mg/dL in a nonstressed, ambulatory subject supports the diagnosis of Diabetes Mellitus. PERFORMED BY: [address] [address] PATHOLOGIST ORTHOPEDICALLY IMPAIRED TEACHER STELLA SCHMIDT M.D. Performed By: #### G LULS #### Point of Care testing , Glucose [Mass/Vol] 205 mg/dL Normal [facility] Comment on above: Result Comment: [place] Glucose Reference Range is dependent on time and content of last meal. Glucose of more than 200 mg/dL in a nonstressed, ambulatory subject supports the diagnosis of Diabetes Mellitus. PERFORMED BY: [address] [address] PATHOLOGIST ORTHOPEDICALLY IMPAIRED TEACHER STELLA SCHMIDT M.D. Performed By: #### G LULS #### Point of Care testing , Glucose [Mass/Vol] 203 mg/dL Normal [facility] Comment on above: Result Comment: [place] Glucose Reference Range is dependent on time and content of last meal. Glucose of more than 200 mg/dL in a nonstressed, ambulatory subject supports the diagnosis of Diabetes Mellitus. PERFORMED BY: [address] [address] PATHOLOGIST ORTHOPEDICALLY IMPAIRED TEACHER STELLA SCHMIDT M.D. Performed By: #### G LULS #### Point of Care testing , Myeloperoxidase Ab [Units/vo lume] in Serum by ImmunoassayOrdered By: Maged Roman on 12-20-2023 Myeloperoxidase Ab IA Qn (S) <0.2 units 0.0-0.9 [facility] No Panel InformationOrdered By: Maged Roman on 12-20-2023 Anti-Nuclear Antibody Comment 2 See comment . [facility] Comment on above: Pattern Potential Di sease Association Homogeneous Systemic Lupus Erythematosus, Drug Induced Systemic Lupus Erythematosus, Chronic Autoimmune hepatitis, Juvenile Idiopathic Arthritis Speckled Sjogren Syndrome, Systemic Lupus Erythematosus, Subacute Cutaneous Lupus, Lupus, Congenital Heart Block, Mixed Connective Tissue Disease, Scleroderma-diffuse, Scleroderma-Autoimmune Myositis Overlap Syndrome, Systemic Lupus Yalpktviqaobh-Cotjduttigy-Zibkkfcnzv Myositis Overlap Syndrome, Systemic Autoimmune Rheumatic Disease, Undifferentiated Connective Tissue Disease Nucleolar Systemic Sclerosis, Scleroderma-Autoimmune Myositis Overlap Syndrome, Sjogren Syndrome, Raynaud phenomenon, Pulmonary Arterial Hypertension, Systemic Autoimmune Rheumatic Disease, Cancer Centromere Scleroderma-CREST, Limited Cutaneous SSc, Raynaud's Phenomenon, Primary Biliary Cholangitis Nuclear Dot Primary Biliary Cholangitis Nuclear Primary Biliary Cholangitis, AutoimmuneMembrane Hepatitis/Liver disease, Systemic Autoimmune Rheumatic Disease, Autoimmune Cytopenias, Linear Scleroderma, Antiphospholipid Syndrome Performed at: [facility] [id number] Director: Rafa Mendoza PhD, Phone: [phone] Atypical p-ANCA <1:20 titer Neg:<1:20 [facility] Comment on above: The atypical pANCA p attern has been observed in asignificant percentage of patients with ulcerative colitis,primary sclerosing cholangitis and autoimmune hepatitis.Performed at: [facility] [address] [id number] Director: Luis M Horvath MD, Phone: [phone] at: [facility] [id number] Director: Rafa Mendoza PhD, Phone: [phone] Perinuclear ANCA (p-ANCA) Antibody <1:20 titer Neg:<1:20 [facility] Comment on above: The presence of posi tive fluorescence exhibiting P-ANCA orC-ANCA patterns alone is not specific for the diagnosis ofWegener's Granulomatosis (WG) or microscopic polyangiitis.Decisions about treatment should not be based solely onANCA IFA results. The International ANCA Group Consensusrecommends follow up testing of positive sera with both NE-3 and MPO-ANCA enzyme immunoassays. As many as 5% serumsamples are positive only by EIA. Ref. AM J Clin [id number];111:[id number]. Proteinase 3 Ab [Units/volum e] in Serum by ImmunoassayOrdered By: Maged Roman on 12-20-2023 Proteinase 3 Ab IA Qn (S) <0.2 units 0.0-0.9 [facility] Serum classic neutrophil cyt oplasmic antibody titer by immunofluorescenceOrdered By: Maged Roman on 12-20-2023 Neutrophil cytoplasmic Ab.classic IF (S) [Titer] <1:20 titer Neg:<1:20 [facility] Serum homogeneous pattern an tinuclear antibody (EDY) titerOrdered By: Maged Roman on 12-20-2023 Homogenous nuclear Ab pattern (S) [Titer] 1:160 High . [facility] Comment on above: ICAP nomenclature: A C-1 Serum nuclear antibody titer Ordered By: Maged Roman on 12-20-2023 Nuclear Ab (S) [Titer] Positive Abnormal . [facility] Comment on above: Negative <1:80 Borde rline 1:80 Positive >1:80 Glucose Poct Glucometerson 0 12-19-2023 Glucose [Mass/Vol] 175 mg/dL Normal [facility] Comment on above: Result Comment: [facility] Glucose Reference Range is dependent on time and content of last meal. Glucose of more than 200 mg/dL in a nonstressed, ambulatory subject supports the diagnosis of Diabetes Mellitus. PERFORMED BY: [place] [address] PATHOLOGIST ORTHOPEDICALLY IMPAIRED TEACHER STELLA SCHMIDT M.D. Performed By: #### G LULS #### Point of Care testing , Commemt1 Glu2: Cleaned Meter Normal [facility] Comment on above: Result Comment: PERF ORMED BY: [place] [address] PATHOLOGIST ORTHOPEDICALLY IMPAIRED TEACHER STELLA SCHMIDT M.D. Performed By: #### G LULS #### Point of Care testing , Glucose [Mass/Vol] 165 mg/dL Normal [facility] Comment on above: Result Comment: [facility] Glucose Reference Range is dependent on time and content of last meal. Glucose of more than 200 mg/dL in a nonstressed, ambulatory subject supports the diagnosis of Diabetes Mellitus. Performed By: #### G LULS #### Point of Care testing , Commemt1 Glu2: Cleaned Meter Normal [facility] Comment on above: Result Comment: PERF ORMED BY: [address] [place] [address] PATHOLOGIST ORTHOPEDICALLY IMPAIRED TEACHER STELLA SCHMIDT M.D. Performed By: #### G LULS #### Point of Care testing , Glucose [Mass/Vol] 183 mg/dL Normal [facility] Comment on above: Result Comment: [place] [facility] Glucose Reference Range is dependent on time and content of last meal. Glucose of more than 200 mg/dL in a nonstressed, ambulatory subject supports the diagnosis of Diabetes Mellitus. Performed By: #### G LULS #### Point of Care testing , Glucose [Mass/Vol] 138 mg/dL Normal [facility] Comment on above: Result Comment: [place] [facility] Glucose Reference Range is dependent on time and content of last meal. Glucose of more than 200 mg/dL in a nonstressed, ambulatory subject supports the diagnosis of Diabetes Mellitus. PERFORMED BY: [address] [place] [place] [address] PATHOLOGIST ORTHOPEDICALLY IMPAIRED TEACHER STELLA SCHMIDT M.D. Performed By: #### G LULS #### Point of Care testing , Glucose Poct Glucometerson 0 12-18-2023 Commemt1 Glu2: Cleaned Meter Normal [facility] Comment on above: Result Comment: PERF ORMED BY: [address] [place] [address] PATHOLOGIST ORTHOPEDICALLY IMPAIRED TEACHER STELLA SCHMIDT M.D. Performed By: #### G LULS #### Point of Care testing , Glucose [Mass/Vol] 219 mg/dL Normal [facility] Comment on above: Result Comment: [place] [facility] Glucose Reference Range is dependent on time and content of last meal. Glucose of more than 200 mg/dL in a nonstressed, ambulatory subject supports the diagnosis of Diabetes Mellitus. Performed By: #### G LULS #### Point of Care testing , Glucose [Mass/Vol] 217 mg/dL Normal [facility] Comment on above: Result Comment: [place] [facility] Glucose Reference Range is dependent on time and content of last meal. Glucose of more than 200 mg/dL in a nonstressed, ambulatory subject supports the diagnosis of Diabetes Mellitus. PERFORMED BY: [place] [address] PATHOLOGIST ORTHOPEDICALLY IMPAIRED TEACHER STELLA SCHMIDT M.D. Performed By: #### G LULS #### Point of Care testing , Glucose [Mass/Vol] 166 mg/dL Normal [facility] Comment on above: Result Comment: [place] [facility] Glucose Reference Range is dependent on time and content of last meal. Glucose of more than 200 mg/dL in a nonstressed, ambulatory subject supports the diagnosis of Diabetes Mellitus. PERFORMED BY: [place] [address] PATHOLOGIST ORTHOPEDICALLY IMPAIRED TEACHER STELLA SCHMIDT M.D. Performed By: #### G LULS #### Point of Care testing , Commemt1 Glu2: Cleaned Meter Normal [facility] Comment on above: Result Comment: PERF ORMED BY: [place] [address] PATHOLOGIST ORTHOPEDICALLY IMPAIRED TEACHER STELLA SCHMIDT M.D. Performed By: #### G LULS #### Point of Care testing , Glucose [Mass/Vol] 226 mg/dL Normal [facility] Comment on above: Result Comment: [place] [facility] Glucose Reference Range is dependent on time and content of last meal. Glucose of more than 200 mg/dL in a nonstressed, ambulatory subject supports the diagnosis of Diabetes Mellitus. Performed By: #### G LULS #### Point of Care testing , Glucose Poct Glucometerson 0 12-17-2023 Commemt1 Glu2: Cleaned Meter Normal [facility] Comment on above: Result Comment: PERF ORMED BY: [place] [id number] PATHOLOGIST ORTHOPEDICALLY IMPAIRED TEACHER STELLA SCHMIDT M.D. Performed By: #### G LULS #### Point of Care testing , Glucose [Mass/Vol] 199 mg/dL Normal [facility] Comment on above: Result Comment: [place] [facility] Glucose Reference Range is dependent on time and content of last meal. Glucose of more than 200 mg/dL in a nonstressed, ambulatory subject supports the diagnosis of Diabetes Mellitus. Performed By: #### G LULS #### Point of Care testing , Glucose [Mass/Vol] 192 mg/dL Normal [facility] Comment on above: Result Comment: [place] [facility] Glucose Reference Range is dependent on time and content of last meal. Glucose of more than 200 mg/dL in a nonstressed, ambulatory subject supports the diagnosis of Diabetes Mellitus. PERFORMED BY: [place] [address] PATHOLOGIST ORTHOPEDICALLY IMPAIRED TEACHER STELLA SCHMIDT M.D. Performed By: #### G LULS #### Point of Care testing , Commemt1 Normal [facility] Comment on above: Result Comment: Glu2 : WILL NOTIFY DR/RN Performed By: #### G LULS #### Point of Care testing , Commemt2 Cleaned Meter Normal [facility] Comment on above: Result Comment: PERF ORMED BY: [place] [address] PATHOLOGIST ORTHOPEDICALLY IMPAIRED TEACHER STELLA SCHMIDT M.D. Performed By: #### G LULS #### Point of Care testing , Glucose [Mass/Vol] 189 mg/dL Normal [facility] Comment on above: Result Comment: [place] [facility] Glucose Reference Range is dependent on time and content of last meal. Glucose of more than 200 mg/dL in a nonstressed, ambulatory subject supports the diagnosis of Diabetes Mellitus. Performed By: #### G LULS #### Point of Care testing , Commemt1 Glu2: Cleaned Meter Normal [facility] Comment on above: Result Comment: PERF ORMED BY: [place] [address] PATHOLOGIST ORTHOPEDICALLY IMPAIRED TEACHER STELLA SCHMIDT M.D. Performed By: #### G LULS #### Point of Care testing , Glucose [Mass/Vol] 137 mg/dL Normal [facility] Comment on above: Result Comment: [place] [facility] Glucose Reference Range is dependent on time and content of last meal. Glucose of more than 200 mg/dL in a nonstressed, ambulatory subject supports the diagnosis of Diabetes Mellitus. Performed By: #### G LULS #### Point of Care testing , Cholesterol [Mass/volume] in Serum or PlasmaOrdered By: Maged Roman on 12-16-2023 Cholesterol [Mass/Vol] 275 mg/dL High 140-200 [facility] Comment on above: Chol less than 200 m g/dl low riskChol 201-239 mg/dl borderline riskChol 240 mg/dl and greater high risk Order Comment: FASTI NG N Result Comment: Chol less than 200 mg/dl low risk Chol 201-239 mg/dl borderline risk Chol 240 mg/dl and greater high risk Performed By: #### G LULS #### Point of Care testing , Cholesterol in LDL Calc [Mas s/Vol]Ordered By: Maged Roman on 12-16-2023 Cholesterol in LDL [Mass/Vol] 171 mg/dL High 0-100 [facility] Comment on above: LDL ATP III CLASSIFI CATIONLDL less than 100 mg/dL OptimalLDL 100-129 mg/dL Near or above optimalLDL 130-159 mg/dL Borderline highLDL 160-189 mg/dL HighLDL greater than 189 mg/dL Very high Cholesterol in VLDL Calc [Ma ss/Vol]Ordered By: Maged Roman on 12-16-2023 Cholesterol in VLDL [Mass/Vol] 54 mg/dL [facility] Glucose Poct Glucometerson 0 12-16-2023 Commemt1 Glu2: Cleaned Meter Normal [facility] Comment on above: Result Comment: PERF ORMED BY: [facility] [address] [place] [address] PATHOLOGIST ORTHOPEDICALLY IMPAIRED TEACHER STELLA SCHMIDT M.D. Performed By: #### G LULS #### Point of Care testing , Glucose [Mass/Vol] 211 mg/dL Normal [facility] Comment on above: Result Comment: [place] [facility] Glucose Reference Range is dependent on time and content of last meal. Glucose of more than 200 mg/dL in a nonstressed, ambulatory subject supports the diagnosis of Diabetes Mellitus. Performed By: #### G LULS #### Point of Care testing , Glucose [Mass/Vol] 214 mg/dL Normal [facility] Comment on above: Result Comment: [place] [facility] Glucose Reference Range is dependent on time and content of last meal. Glucose of more than 200 mg/dL in a nonstressed, ambulatory subject supports the diagnosis of Diabetes Mellitus. PERFORMED BY: [address] [place] [address] PATHOLOGIST ORTHOPEDICALLY IMPAIRED TEACHER STELLA SCHMIDT M.D. Performed By: #### G LULS #### Point of Care testing , Glucose [Mass/Vol] 135 mg/dL Normal [facility] Comment on above: Result Comment: [place] Glucose Reference Range is dependent on time and content of last meal. Glucose of more than 200 mg/dL in a nonstressed, ambulatory subject supports the diagnosis of Diabetes Mellitus. PERFORMED BY: [address] [place] [address] PATHOLOGIST ORTHOPEDICALLY IMPAIRED TEACHER STELLA SCHMIDT M.D. Performed By: #### G LULS #### Point of Care testing , Glucose [Mass/Vol] 112 mg/dL Normal [facility] Comment on above: Result Comment: [place] Glucose Reference Range is dependent on time and content of last meal. Glucose of more than 200 mg/dL in a nonstressed, ambulatory subject supports the diagnosis of Diabetes Mellitus. PERFORMED BY: [facility] [address] [facility] [place] [address] PATHOLOGIST ORTHOPEDICALLY IMPAIRED TEACHER STELLA SCHMIDT M.D. Performed By: #### G LULS #### Point of Care testing , Lipid Panelon 12-16-2023 LDL Cholesterol,Calculated 171 mg/dL High 0-100 [facility] Comment on above: Order Comment: FASTI NG N Result Comment: LDL ATP III CLASSIFICATION LDL less than 100 mg/dL Optimal LDL 100-129 mg/dL Near or above optimal LDL 130-159 mg/dL Borderline high LDL 160-189 mg/dL High LDL greater than 189 mg/dL Very high Performed By: #### G LULS #### Point of Care testing , Triglyceride w/Reflex 270 mg/dL High 0-149 [facility] Comment on above: Order Comment: FASTI NG N Result Comment: TRIG ATP III CLASSIFICATION TRIG less than 150 mg/dL Normal TRIG 150-199 mg/dL Borderline high TRIG 200-500 mg/dL High TRIG greater than 500 mg/dL Very high Standard traceable to the Center for Disease Conrtrol and Prevention (CDC) test method. Performed By: #### G LULS #### Point of Care testing , VLDL CHOLESTEROL 54 mg/dL Normal [facility] Comment on above: Order Comment: MARJORIE Dhillon Performed By: #### G LULS #### Point of Care testing , Serum or plasma high density lipoprotein (HDL) cholesterol measurementOrdered By: Maged Roman on 12-16-2023 Cholesterol in HDL [Mass/Vol] 50 mg/dL 23- [facility] Comment on above: HDL CHOL ATP-III CLA SSIFICATION Cardiovascular RiskHDL > or equal to 60 mg/dL LOWHDL < 40 mg/dL HIGH Order Comment: FASTI NG N Result Comment: HDL CHOL ATP-III CLASSIFICATION Cardiovascular Risk HDL > or equal to 60 mg/dL LOW HDL < 40 mg/dL HIGH Performed By: #### G LULS #### Point of Care testing , Serum or plasma total choles terol/high density lipoprotein (HDL) cholesterol mass ratOrdered By: Maged Roman on 12-16-2023 Cholesterol.total/Cholester ol in HDL [Mass ratio] 5.5 {ratio} <5.0 [facility] Comment on above: Order Comment: MARJORIE CANTOR N Result Comment: PERF ORMED BY: [facility] [address] [place] [address] PATHOLOGIST ORTHOPEDICALLY IMPAIRED TEACHER STELLA SCHMIDT M.D. Performed By: #### G LULS #### Point of Care testing , Triglyceride [Mass/volume] i n Serum or PlasmaOrdered By: Maged Roman on 12-16-2023 Triglyceride [Mass/Vol] 270 mg/dL High 0-149 [facility] Comment on above: TRIG ATP III CLASSIF ICATIONTRIG less than 150 mg/dL NormalTRIG 150-199 mg/dL Borderline highTRIG 200-500 mg/dL High TRIG greater than 500 mg/dL Very highStandard traceable to the Center for Disease Conrtrol and Prevention (CDC) test method. Automated basophil %Ordered By: Sana Lakhani on 12-15-2023 Basophils/100 WBC (Bld) 0.4 % . [facility] Comment on above: Performed By: #### G LULS #### Point of Care testing , Automated basophil countOrde red By: Sana Lakhani on 12-15-2023 Basophils (Bld) [#/Vol] 0.1 10*3/uL 0.0-0.2 [facility] Comment on above: Result Comment: PERF ORMED BY: [facility] [address] [place] [address] PATHOLOGIST ORTHOPEDICALLY IMPAIRED TEACHER STELLA SCHMIDT M.D. Performed By: #### G LULS #### Point of Care testing , Automated blood monocyte cou ntOrdered By: Sana Lakhani on 12-15-2023 Monocytes (Bld) [#/Vol] 0.6 10*3/uL 0.0-0.8 [facility] Comment on above: Performed By: #### G LULS #### Point of Care testing , Automated eosinophil %Ordere d By: Sana Lakhani on 12-15-2023 Eosinophils/100 WBC (Bld) 0.6 % . [facility] Comment on above: Performed By: #### G LULS #### Point of Care testing , Automated eosinophil countOr dered By: Sana Lakhani on 12-15-2023 Eosinophils (Bld) [#/Vol] 0.1 10*3/uL 0.0-0.45 [facility] Comment on above: Performed By: #### G LULS #### Point of Care testing , Automated monocyte %Ordered By: Sana Lakhani on 12-15-2023 Monocytes/100 WBC (Bld) 3.4 % . [facility] Comment on above: Performed By: #### G LULS #### Point of Care testing , Automated neutrophil %Ordere d By: Sana Lakhani on 12-15-2023 Neutrophils/100 WBC (Bld) 62.5 % . [facility] Comment on above: Performed By: #### G LULS #### Point of Care testing , Basic Metabolic Panelon 11-18 Creatinine Clr Calc Pharmacy 119.63 Normal [facility] Comment on above: Result Comment: PERF ORMED BY: [facility] [address] [place] [address] PATHOLOGIST ORTHOPEDICALLY IMPAIRED TEACHER STELLA SCHMIDT M.D. Performed By: #### G LULS #### Point of Care testing , GFR/1.73 sq M.predicted MDRD (S/P/Bld) [Vol rate/Area] mL/min/{1.73_m2} Normal [facility] Comment on above: Performed By: #### G LULS #### Point of Care testing , Calcium [Mass/volume] in Ser um or PlasmaOrdered By: Sana Lakhani on 12-15-2023 Calcium [Mass/Vol] 8.9 mg/dL 8.6-10.3 [facility] Comment on above: Performed By: #### G LULS #### Point of Care testing , Carbon dioxide, total [Moles /volume] in Serum or PlasmaOrdered By: Sana Lakhani on 12-15-2023 CO2 [Moles/Vol] 25.5 mmol/L 21.0-31.0 [facility] Comment on above: Performed By: #### G LULS #### Point of Care testing , Chloride [Moles/volume] in S lashaun or PlasmaOrdered By: Sana Lakhani on 12-15-2023 Chloride [Moles/Vol] 105 mmol/L 98-107 [facility] Comment on above: Performed By: #### G LULS #### Point of Care testing , Complete Blood Count Auto Di ffon 12-15-2023 Mean Corpuscular HGB Conc 33.1 g/dL Normal 32.0-35.0 [facility] Comment on above: Performed By: #### G LULS #### Point of Care testing , NRBC% 0.1 /100{WBC} Normal 0-0.5 [facility] Comment on above: Performed By: #### G LULS #### Point of Care testing , Creatinine [Mass/volume] in Serum or PlasmaOrdered By: Sana Lakhani on 12-15-2023 Creatinine [Mass/Vol] 0.83 mg/dL 0.60-1.20 [facility] Comment on above: Performed By: #### G LULS #### Point of Care testing , Erythrocyte distribution wid th [Ratio] by Automated countOrdered By: Sana Lakhani on 12-15-2023 Erythrocyte distribution width (RBC) [Ratio] 15.6 % High 11.9-15.3 [facility] Comment on above: Performed By: #### G LULS #### Point of Care testing , Erythrocytes [#/volume] in B lood by Automated countOrdered By: Sana Lakhani on 12-15-2023 RBC (Bld) [#/Vol] 3.24 10*6/uL Low 3.60-5.00 [facility] Comment on above: Performed By: #### G LULS #### Point of Care testing , Glucose Poct Glucometerson 0 12-15-2023 Glucose [Mass/Vol] 232 mg/dL Normal [facility] Comment on above: Result Comment: [facility] Glucose Reference Range is dependent on time and content of last meal. Glucose of more than 200 mg/dL in a nonstressed, ambulatory subject supports the diagnosis of Diabetes Mellitus. PERFORMED BY: [address] [address] PATHOLOGIST ORTHOPEDICALLY IMPAIRED TEACHER STELLA SCHMIDT M.D. Performed By: #### G LULS #### Point of Care testing , Glucose [Mass/Vol] 182 mg/dL Normal [facility] Comment on above: Result Comment: [facility] Glucose Reference Range is dependent on time and content of last meal. Glucose of more than 200 mg/dL in a nonstressed, ambulatory subject supports the diagnosis of Diabetes Mellitus. PERFORMED BY: [facility] [address] [place] [address] PATHOLOGIST ORTHOPEDICALLY IMPAIRED TEACHER STELLA SCHMIDT M.D. Performed By: #### G LULS #### Point of Care testing , Glucose [Mass/Vol] 251 mg/dL Normal [facility] Comment on above: Result Comment: [facility] Glucose Reference Range is dependent on time and content of last meal. Glucose of more than 200 mg/dL in a nonstressed, ambulatory subject supports the diagnosis of Diabetes Mellitus. PERFORMED BY: [facility] [address] [place] [address] PATHOLOGIST ORTHOPEDICALLY IMPAIRED TEACHER STELLA SCHMIDT M.D. Performed By: #### G LULS #### Point of Care testing , Glucose [Mass/Vol] 153 mg/dL Normal [facility] Comment on above: Result Comment: [place] Glucose Reference Range is dependent on time and content of last meal. Glucose of more than 200 mg/dL in a nonstressed, ambulatory subject supports the diagnosis of Diabetes Mellitus. PERFORMED BY: [facility] [place] [address] PATHOLOGIST ORTHOPEDICALLY IMPAIRED TEACHER STELLA SCHMIDT M.D. Performed By: #### G LULS #### Point of Care testing , Glucose [Mass/volume] in Ser um or PlasmaOrdered By: Sana Lakhani on 12-15-2023 Glucose [Mass/Vol] 110 mg/dL High 70-100 [facility] Comment on above: ADA recommended refe rence rangeRandom Glucose Reference Range is dependent on time and content of last meal. Glucose of more than 200 mg/dL in a nonstressed, ambulatory subject supports the diagnosis of Diabetes Mellitus. Result Comment: [place] [facility] Glucose Reference Range is dependent on time and content of last meal. Glucose of more than 200 mg/dL in a nonstressed, ambulatory subject supports the diagnosis of Diabetes Mellitus. ADA recommended reference range Performed By: #### G LULS #### Point of Care testing , Hematocrit [Volume Fraction] of Blood by Automated countOrdered By: Sana Lakhani on 12-15-2023 Hematocrit (Bld) [Volume fraction] 28.0 % Low 34.0-46.4 [facility] Comment on above: Performed By: #### G LULS #### Point of Care testing , Hemoglobin [Mass/volume] in BloodOrdered By: Sana Lakhani on 12-15-2023 Hemoglobin (Bld) [Mass/Vol] 9.3 g/dL Low 11.8-15. 4 [facility] Comment on above: Performed By: #### G LULS #### Point of Care testing , Leukocytes [#/volume] correc leighton for nucleated erythrocytes in Blood by Automated counOrdered By: Sana Lakhani on 12-15-2023 WBC corrected for nucl RBC Auto (Bld) [#/Vol] 17.9 10*3/uL High 3.8-11.6 [facility] Leukocytes [#/volume] in Blo od by Automated countOrdered By: Sana Lakhani on 12-15-2023 WBC (Bld) [#/Vol] 17.9 10*3/uL High 3.8-11.6 [facility] Comment on above: Performed By: #### G LULS #### Point of Care testing , Lymphocytes [#/volume] in Bl ood by Automated countOrdered By: Sana Lakhani on 12-15-2023 Lymphocytes (Bld) [#/Vol] 5.9 10*3/uL High 1.00-4.8 [facility] Comment on above: Performed By: #### G LULS #### Point of Care testing , Lymphocytes/100 leukocytes i n Blood by Automated countOrdered By: Sana Lakhani on 12-15-2023 Lymphocytes/100 WBC (Bld) 33.1 % . [facility] Comment on above: Performed By: #### G LULS #### Point of Care testing , MCH [Entitic mass] by Automa leighton countOrdered By: Sana Lakhani on 12-15-2023 MCH (RBC) [Entitic mass] 28.6 pg 24.7-34.3 [facility] Comment on above: Performed By: #### G LULS #### Point of Care testing , MCHC Auto (RBC) [Mass/Vol]Or dered By: Sana Lakhani on 12-15-2023 MCHC (RBC) [Mass/Vol] 33.1 g/dL 32.0-35.0 [facility] MCV [Entitic volume] by Auto mated countOrdered By: Sana Lakhani on 12-15-2023 MCV (RBC) [Entitic vol] 86.5 fL 80-100 F [facility] Comment on above: Performed By: #### G LULS #### Point of Care testing , MR head/brain wo conon 12-14 MR head/brain wo con [facility] [place] [address] [place] [address] MRI Report Signed Patient: Jolie Stanley MR#: [id number] 5 : 1990 Acct:[id number] Age/Sex: 33 / F ADM Date: 12/09/23 Loc: 5T Room: [address] [place] [address] Type: ADM IN Attending Dr: Brandon Cee MD Copies to: Brandon Cee MD Ordering Provider: Brandon Cee MD Date of Service: 12/15/23 MR/MR head/brain wo con: Abnormal CT findings MR head/brain wo con 12/15/2023 8:13 AM SIGN AND SYMPTOMS: Left-sided weakness for 4 days with headache, dizziness, and vision loss PROTOCOL: Multiplanar multisequence MR images of the brain were obtained without IV contrast. COMPARISON: 11/25/2023 an 12/03/2023 FINDINGS: Extra axial spaces: Age appropriate. Hemorrhage: None. Ventricular system: Within normal limits. Basal cisterns: Within normal limits and not effaced. Cerebral parenchyma: Gliosis and encephalomalacia is noted in the right frontal and parietal lobes consistent with continued interval evolution of previously identified right MCA territory infarct. There is residual or new diffusion restriction in the right frontal cortex near the midline of the nasopharynx. This may represent a more acute to subacute area of ischemia. T2 and FLAIR hyperintense foci are noted in the right DIAMOND/MCA watershed territory suspicious for predominantly watershed distribution of ischemia. This is similar to the prior exam. Midline shift: None.. Cerebellum: Within normal limits. Brainstem: Within normal limits. OTHER: Calvarium: Normal marrow signal. Vascular system: There is a relatively diminutive flow void within the intracranial segment of the right internal carotid artery consistent with stenosis seen on the previous study. Visualized Paranasal sinuses: Within normal limits. Visualized Orbits: Within normal limits. Visualized upper cervical spine: Within normal limits. Sella and skull base: Within normal limits. MR/MR head/brain wo con IMPRESSION: Gliosis and encephalomalacia is noted in the right frontal and parietal lobes consistent with continued interval evolution of previously identified right MCA territory infarct. There is residual or new diffusion restriction in the right frontal cortex near the midline of the nasopharynx. This may represent a more acute to subacute area of ischemia. There is a relatively diminutive flow void within the intracranial segment of the right internal carotid artery consistent with stenosis seen on the previous study. Impression dictated by: Lázaro Smallwood M.D.12/15/2023 2:00 PM Dictation Location: [place] [address] Transcribed By: [facility] 12/15/23 1400 Dictated By: Lázaro Smallwood II, MD 12/15/23 1349 Signed By: 12/15/23 1400 Normal [facility] Neutrophils [#/volume] in Bl ood by Automated countOrdered By: Sana Lakhani on 12-15-2023 Neutrophils (Bld) [#/Vol] 11.2 10*3/uL High 1.8-7.7 [facility] Comment on above: Performed By: #### G LULS #### Point of Care testing , No Panel InformationOrdered By: Sana Lakhani on 12-15-2023 Estimated GFR (CKD-EPI) > 60.0 mL/Min [facility] Creatinine Clearance (Chem 119.63 [facility] Nucleated erythrocytes [Pres ence] in Blood by Automated countOrdered By: Sana Lakhani on 12-15-2023 Nucleated RBC Auto Ql (Bld) 0.1 /100{WBC} 0-0.5 [facility] Platelet mean volume [Entiti c volume] in Blood by Automated countOrdered By: Sana Lakhani on 12-15-2023 Platelet mean volume (Bld) [Entitic vol] 7.9 fL 6.3-10.7 [facility] Comment on above: Performed By: #### G LULS #### Point of Care testing , Platelets [#/volume] in Bloo d by Automated countOrdered By: Sana Lakhani on 12-15-2023 Platelets (Bld) [#/Vol] 469 10*3/uL High 150-450 [facility] Comment on above: Performed By: #### G LULS #### Point of Care testing , Potassium [Moles/volume] in Serum or PlasmaOrdered By: Sana Lakhani on 12-15-2023 Potassium [Moles/Vol] 4.2 mmol/L 3.5-5.1 [facility] Comment on above: Performed By: #### G LULS #### Point of Care testing , Serum or plasma anion gap de terminationOrdered By: Sana Lakhani on 12-15-2023 Anion gap [Moles/Vol] 10.7 mmol/L 6.0-15.0 [facility] Comment on above: Performed By: #### G LULS #### Point of Care testing , Sodium [Moles/volume] in Ser um or PlasmaOrdered By: Sana Lakhani on 12-15-2023 Sodium [Moles/Vol] 137 mmol/L 136-145 [facility] Comment on above: Performed By: #### G LULS #### Point of Care testing , Urea nitrogen [Mass/volume] in Serum or PlasmaOrdered By: Sana Lakhani on 12-15-2023 Urea nitrogen [Mass/Vol] 23 mg/dL 7- [facility] Comment on above: Performed By: #### G LULS #### Point of Care testing , Glucose Poct Glucometerson 0 12-14-2023 Glucose [Mass/Vol] 316 mg/dL Normal [facility] Comment on above: Result Comment: [place] [facility] Glucose Reference Range is dependent on time and content of last meal. Glucose of more than 200 mg/dL in a nonstressed, ambulatory subject supports the diagnosis of Diabetes Mellitus. PERFORMED BY: [address] [place] [address] PATHOLOGIST ORTHOPEDICALLY IMPAIRED TEACHER STELLA SCHMIDT M.D. Performed By: #### G LULS #### Point of Care testing , Commemt1 Glu2: Cleaned Meter Normal [facility] Comment on above: Result Comment: PERF ORMED BY: [facility] [address] [place] [address] PATHOLOGIST ORTHOPEDICALLY IMPAIRED TEACHER STELLA SCHMIDT M.D. Performed By: #### G LULS #### Point of Care testing , Glucose [Mass/Vol] 340 mg/dL Normal [facility] Comment on above: Result Comment: [place] [facility] Glucose Reference Range is dependent on time and content of last meal. Glucose of more than 200 mg/dL in a nonstressed, ambulatory subject supports the diagnosis of Diabetes Mellitus. Performed By: #### G LULS #### Point of Care testing , Commemt1 Glu2: Cleaned Meter Normal [facility] Comment on above: Result Comment: PERF ORMED BY: [place] [address] PATHOLOGIST ORTHOPEDICALLY IMPAIRED TEACHER STELLA SCHMIDT M.D. Performed By: #### G LULS #### Point of Care testing , Glucose [Mass/Vol] 181 mg/dL Normal [facility] Comment on above: Result Comment: [place] [facility] Glucose Reference Range is dependent on time and content of last meal. Glucose of more than 200 mg/dL in a nonstressed, ambulatory subject supports the diagnosis of Diabetes Mellitus. Performed By: #### G LULS #### Point of Care testing , Commemt1 Glu2: Cleaned Meter Normal [facility] Comment on above: Result Comment: PERF ORMED BY: [address] [place] [address] PATHOLOGIST ORTHOPEDICALLY IMPAIRED TEACHER STELLA SCHMIDT M.D. Performed By: #### G LULS #### Point of Care testing , Glucose [Mass/Vol] 119 mg/dL Normal [facility] Comment on above: Result Comment: [place] [facility] Glucose Reference Range is dependent on time and content of last meal. Glucose of more than 200 mg/dL in a nonstressed, ambulatory subject supports the diagnosis of Diabetes Mellitus. Performed By: #### G LULS #### Point of Care testing , Anisocytosis [Presence] in B lood by Light microscopyOrdered By: Sana Lakhani on 12-13-2023 Anisocytosis Ql (Bld) Slight [facility] Comment on above: Performed By: #### G LULS #### Point of Care testing , Basic Metabolic Panelon 11-18 Anion gap [Moles/Vol] 8.8 mmol/L Normal 6.0-15.0 [facility] Comment on above: Performed By: #### G LULS #### Point of Care testing , Calcium [Mass/Vol] 8.8 mg/dL Normal 8.6-10.3 [facility] Comment on above: Performed By: #### G LULS #### Point of Care testing , Chloride [Moles/Vol] 103 mmol/L Normal 98-107 [facility] Comment on above: Performed By: #### G LULS #### Point of Care testing , CO2 [Moles/Vol] 27.1 mmol/L Normal 21.0-31.0 [facility] Comment on above: Performed By: #### G LULS #### Point of Care testing , Creatinine [Mass/Vol] 0.91 mg/dL Normal 0.60-1.20 [facility] Comment on above: Performed By: #### G LULS #### Point of Care testing , Creatinine Clr Calc Pharmacy 109.11 Normal [facility] Comment on above: Result Comment: PERF ORMED BY: [facility] [address] [place] [address] PATHOLOGIST ORTHOP[employer] IMPAIRED TEACHER STELLA SCHMIDT M.D. Performed By: #### G LULS #### Point of Care testing , GFR/1.73 sq M.predicted MDRD (S/P/Bld) [Vol rate/Area] mL/min/{1.73_m2} Normal [facility] Comment on above: Performed By: #### G LULS #### Point of Care testing , Glucose [Mass/Vol] 130 mg/dL High 70-100 [facility] Comment on above: Result Comment: [facility] Glucose Reference Range is dependent on time and content of last meal. Glucose of more than 200 mg/dL in a nonstressed, ambulatory subject supports the diagnosis of Diabetes Mellitus. ADA recommended reference range Performed By: #### G LULS #### Point of Care testing , Potassium [Moles/Vol] 3.9 mmol/L Normal 3.5-5.1 [facility] Comment on above: Performed By: #### G LULS #### Point of Care testing , Sodium [Moles/Vol] 135 mmol/L Low 136-145 [facility] Comment on above: Performed By: #### G LULS #### Point of Care testing , Urea nitrogen [Mass/Vol] 20 mg/dL Normal 7-25 [facility] Comment on above: Performed By: #### G LULS #### Point of Care testing , CT head/brain wo conon 12-12 CT head/brain wo con [facility] [place] [address] [place] [address] CT Scan Report Signed Patient: Jolie Stanley MR#: [id number] 5 : 1990 Acct:[id number] Age/Sex: 33 / F ADM Date: 12/09/23 Loc: Room: [address] [place] [address] Type: ADM IN Attending Dr: Brandon Cee MD Copies to: MD Sana Parish APRN Ordering Provider: Sana Lakhani APRN Date of Service: 12/13/23 CT/CT head/brain wo con: pool, vision changes CT BRAIN WITHOUT CONTRAST: CLINICAL HISTORY: Left-sided weakness, headaches, dizziness and visual disturbance. Diabetes. COMPARISON: None TECHNIQUE: Contiguous axial unenhanced images were obtained through the brain. This CT exam was performed using one or more following dose reduction techniques: Automated exposure control, adjustment of the mA and/or kV according to patient size, or use of iterative reconstruction technique. FINDINGS: The ventricles are normal in size and position. There is minor white matter hypodensity that may be chronic microvascular disease. There is also hypodensity in the right parasagittal parietal lobe that could be from a small infarct though more likely subacute to chronic. There are no additional areas of abnormal attenuation. There is no hemorrhage, mass effect or extra-axial collections. The imaged paranasal sinuses and mastoid air cells are clear. There is carotid siphon plaque. The left orbital globe contents are hyperdense and there is no obvious lens. Clinical correlation is recommended since no history is provided to explain these findings. CT/CT head/brain wo con IMPRESSION: PROBABLE CHRONIC ISCHEMIC CHANGES. FOLLOW-UP NONEMERGENT MRI COULD BE PERFORMED FOR FURTHER DATING, WARRANTED. LEFT ORBITAL GLOBE FINDINGS FOR WHICH CLINICAL CORRELATION IS SUGGESTED. NO OTHER ACUTE INTRACRANIAL ABNORMALITY. Impression dictated by: Saskia Haynes M.D.12/13/2023 11:21 AM Dictation Location: [place] [address] Transcribed By: [facility] 12/13/23 1121 Dictated By: Saskia Haynes MD 12/13/23 1114 Signed By: 12/13/23 1121 Normal [facility] Diff and CBCon 12-13-2023 Erythrocyte distribution width (RBC) [Ratio] 15.5 % High 11.9-15.3 [facility] Comment on above: Performed By: #### G LULS #### Point of Care testing , Hematocrit (Bld) [Volume fraction] 27.9 % Low 34.0-46.4 [facility] Comment on above: Performed By: #### G LULS #### Point of Care testing , Hemoglobin (Bld) [Mass/Vol] 9.3 g/dL Low 11.8-15. 4 [facility] Comment on above: Performed By: #### G LULS #### Point of Care testing , MCH (RBC) [Entitic mass] 28.1 pg Normal 24.7-34.3 [facility] Comment on above: Performed By: #### G LULS #### Point of Care testing , MCV (RBC) [Entitic vol] 84.9 fL Normal 80-100 [facility] Comment on above: Performed By: #### G LULS #### Point of Care testing , Mean Corpuscular HGB Conc 33.1 g/dL Normal 32.0-35.0 [facility] Comment on above: Performed By: #### G LULS #### Point of Care testing , Ovalocytes Slight Normal [facility] Comment on above: Performed By: #### G LULS #### Point of Care testing , Platelet Estimate Increased Normal Normal [facility] Comment on above: Performed By: #### G LULS #### Point of Care testing , Platelet mean volume (Bld) [Entitic vol] 7.8 fL Normal 6.3-10.7 [facility] Comment on above: Performed By: #### G LULS #### Point of Care testing , Platelet Morphology Normal Normal Normal [facility] Comment on above: Result Comment: PERF ORMED BY: [facility] [place] [address] PATHOLOGIST ORTHOPEDICALLY IMPAIRED TEACHER STELLA SCHMIDT M.D. Performed By: #### G LULS #### Point of Care testing , Platelets (Bld) [#/Vol] 486 10*3/uL High 150-450 [facility] Comment on above: Performed By: #### G LULS #### Point of Care testing , Poikilocytosis Slight Normal [facility] Comment on above: Performed By: #### G LULS #### Point of Care testing , Polychromasia Slight Normal [facility] Comment on above: Performed By: #### G LULS #### Point of Care testing , RBC (Bld) [#/Vol] 3.29 10*6/uL Low 3.60-5.00 [facility] Comment on above: Performed By: #### G LULS #### Point of Care testing , WBC (Bld) [#/Vol] 23.1 10*3/uL High 3.8-11.6 [facility] Comment on above: Performed By: #### G LULS #### Point of Care testing , Glucose Poct Glucometerson 0 12-13-2023 Glucose [Mass/Vol] 293 mg/dL Normal [facility] Comment on above: Result Comment: [facility] Glucose Reference Range is dependent on time and content of last meal. Glucose of more than 200 mg/dL in a nonstressed, ambulatory subject supports the diagnosis of Diabetes Mellitus. PERFORMED BY: [facility] [address] [place] [address] PATHOLOGIST ORTHOPEDICALLY IMPAIRED TEACHER STELLA SCHMIDT M.D. Performed By: #### G LULS #### Point of Care testing , Glucose [Mass/Vol] 302 mg/dL Normal [facility] Comment on above: Result Comment: [facility] Glucose Reference Range is dependent on time and content of last meal. Glucose of more than 200 mg/dL in a nonstressed, ambulatory subject supports the diagnosis of Diabetes Mellitus. PERFORMED BY: [facility] [address] [facility] [place] [address] PATHOLOGIST ORTHOPEDICALLY IMPAIRED TEACHER STELLA SCHMIDT M.D. Performed By: #### G LULS #### Point of Care testing , Glucose [Mass/Vol] 267 mg/dL Normal [facility] Comment on above: Result Comment: [place] Glucose Reference Range is dependent on time and content of last meal. Glucose of more than 200 mg/dL in a nonstressed, ambulatory subject supports the diagnosis of Diabetes Mellitus. PERFORMED BY: [address] [place] [address] PATHOLOGIST ORTHOPEDICALLY IMPAIRED TEACHER STELLA SCHMIDT M.D. Performed By: #### G LULS #### Point of Care testing , Glucose [Mass/Vol] 192 mg/dL Normal [facility] Comment on above: Result Comment: [facility] Glucose Reference Range is dependent on time and content of last meal. Glucose of more than 200 mg/dL in a nonstressed, ambulatory subject supports the diagnosis of Diabetes Mellitus. PERFORMED BY: [facility] [address] [place] [address] PATHOLOGIST ORTHOPEDICALLY IMPAIRED TEACHER STELLA SCHMIDT M.D. Performed By: #### G LULS #### Point of Care testing , Lymphocytes/100 leukocytes i n Blood by Manual countOrdered By: Sana Lakhani on 12-13-2023 Lymphocytes/100 WBC (Bld) 40 % 18-42 [facility] Comment on above: Performed By: #### G LULS #### Point of Care testing , Manual blood segmented neutr ophils/100 leukocytesOrdered By: Sana Lakhani on 12-13-2023 Segmented neutrophils/100 WBC (Bld) 57 % 50-70 [facility] Comment on above: Performed By: #### G LULS #### Point of Care testing , Monocytes/100 leukocytes in Blood by Manual countOrdered By: Sana Lakhani on 12-13-2023 Monocytes/100 WBC (Bld) 2 % 2-11 [facility] Comment on above: Performed By: #### G LULS #### Point of Care testing , Ovalocyte detectionOrdered B y: Sana Lesvia on 12-13-2023 Ovalocytes LM Ql (Bld) Slight [facility] Peripheral white blood cell differential % bands, microscopic examOrdered By: Sana Lakhani on 12-13-2023 Band form neutrophils/100 WBC (Bld) 1 % 0-5 [facility] Comment on above: Performed By: #### G LULS #### Point of Care testing , Platelet adequacy [Presence] in Blood by Light microscopyOrdered By: Sana Lakhani on 12-13-2023 Platelets LM Ql (Bld) Increased Normal [facility] Platelet morphology finding [Identifier] in BloodOrdered By: Sana Lakhani on 12-13-2023 Platelet morphology finding Nom (Bld) Normal Normal [facility] Poikilocytosis [Presence] in Blood by Light microscopyOrdered By: Sana Lakhani on 12-13-2023 Poikilocytosis LM Ql (Bld) Slight [facility] Polychromasia [Presence] in Blood by Light microscopyOrdered By: Sana Lakhani on 12-13-2023 Polychromasia LM Ql (Bld) Slight [facility] RBC morphologyOrdered By: Laron Lakhani on 12-13-2023 RBC morphology finding Nom (Bld) N/A [facility] Glucose Poct Glucometerson 0 12-12-2023 Commemt1 Glu2: Cleaned Meter Normal [facility] Comment on above: Result Comment: PERF ORMED BY: [facility] [address] [place] [address] PATHOLOGIST ORTHOPEDICALLY IMPAIRED TEACHER STELLA SCHMIDT M.D. Performed By: #### G LULS #### Point of Care testing , Glucose [Mass/Vol] 299 mg/dL Normal [facility] Comment on above: Result Comment: [facility] Glucose Reference Range is dependent on time and content of last meal. Glucose of more than 200 mg/dL in a nonstressed, ambulatory subject supports the diagnosis of Diabetes Mellitus. Performed By: #### G LULS #### Point of Care testing , Glucose [Mass/Vol] 325 mg/dL Normal [facility] Comment on above: Result Comment: [place] [facility] Glucose Reference Range is dependent on time and content of last meal. Glucose of more than 200 mg/dL in a nonstressed, ambulatory subject supports the diagnosis of Diabetes Mellitus. PERFORMED BY: [address] [place] [address] PATHOLOGIST ORTHOPEDICALLY IMPAIRED TEACHER STELLA SCHMIDT M.D. Performed By: #### G LULS #### Point of Care testing , Glucose [Mass/Vol] 280 mg/dL Normal [facility] Comment on above: Result Comment: [place] [facility] Glucose Reference Range is dependent on time and content of last meal. Glucose of more than 200 mg/dL in a nonstressed, ambulatory subject supports the diagnosis of Diabetes Mellitus. PERFORMED BY: [place] [address] PATHOLOGIST ORTHOPEDICALLY IMPAIRED TEACHER STELLA SCHMIDT M.D. Performed By: #### G LULS #### Point of Care testing , Commemt1 Glu2: Cleaned Meter Normal [facility] Comment on above: Result Comment: PERF ORMED BY: [place] [id number] PATHOLOGIST ORTHOPEDICALLY IMPAIRED TEACHER STELLA SCHMIDT M.D. Performed By: #### G LULS #### Point of Care testing , Glucose [Mass/Vol] 182 mg/dL Normal [facility] Comment on above: Result Comment: [place] [facility] Glucose Reference Range is dependent on time and content of last meal. Glucose of more than 200 mg/dL in a nonstressed, ambulatory subject supports the diagnosis of Diabetes Mellitus. Performed By: #### G LULS #### Point of Care testing , Glucose Poct Glucometerson 0 12-11-2023 Glucose [Mass/Vol] 280 mg/dL Normal [facility] Comment on above: Result Comment: [place] [facility] Glucose Reference Range is dependent on time and content of last meal. Glucose of more than 200 mg/dL in a nonstressed, ambulatory subject supports the diagnosis of Diabetes Mellitus. PERFORMED BY: [place] [id number] PATHOLOGIST ORTHOPEDICALLY IMPAIRED TEACHER STELLA SCHMIDT M.D. Performed By: #### G LULS #### Point of Care testing , Glucose [Mass/Vol] 336 mg/dL Normal [facility] Comment on above: Result Comment: [place] [facility] Glucose Reference Range is dependent on time and content of last meal. Glucose of more than 200 mg/dL in a nonstressed, ambulatory subject supports the diagnosis of Diabetes Mellitus. PERFORMED BY: [place] [id number] PATHOLOGIST ORTHOPEDICALLY IMPAIRED TEACHER STELLA SCHMIDT M.D. Performed By: #### G LULS #### Point of Care testing , Glucose [Mass/Vol] 246 mg/dL Normal [facility] Comment on above: Result Comment: [place] [facility] Glucose Reference Range is dependent on time and content of last meal. Glucose of more than 200 mg/dL in a nonstressed, ambulatory subject supports the diagnosis of Diabetes Mellitus. PERFORMED BY: [place] [id number] PATHOLOGIST ORTHOPEDICALLY IMPAIRED TEACHER STELLA SCHMIDT M.D. Performed By: #### G LULS #### Point of Care testing , Glucose [Mass/Vol] 208 mg/dL Normal [facility] Comment on above: Result Comment: [place] [facility] Glucose Reference Range is dependent on time and content of last meal. Glucose of more than 200 mg/dL in a nonstressed, ambulatory subject supports the diagnosis of Diabetes Mellitus. PERFORMED BY: [place] [id number] PATHOLOGIST ORTHOPEDICALLY IMPAIRED TEACHER STELLA SCHMIDT M.D. Performed By: #### G LULS #### Point of Care testing , Glucose [Mass/Vol] 232 mg/dL Normal [facility] Comment on above: Result Comment: [place] [facility] Glucose Reference Range is dependent on time and content of last meal. Glucose of more than 200 mg/dL in a nonstressed, ambulatory subject supports the diagnosis of Diabetes Mellitus. PERFORMED BY: [place] [id number] PATHOLOGIST ORTHOPEDICALLY IMPAIRED TEACHER STELLA SCHMIDT M.D. Performed By: #### G LULS #### Point of Care testing , Alanine aminotransferase [En zymatic activity/volume] in Serum or PlasmaOrdered By: Brandon Cee on 12-10-2023 ALT [Catalytic activity/Vol] 44 U/L 7-52 [facility] Comment on above: Performed By: #### G LULS #### Point of Care testing , Albumin [Mass/volume] in Ser um or Plasma by Bromocresol green (BCG) dye binding methoOrdered By: Brandon Cee on 12-10-2023 Albumin BCG dye [Mass/Vol] 3.2 g/dL Low 3.5-5.7 [facility] Alkaline phosphatase [Enzyma tic activity/volume] in Serum or PlasmaOrdered By: Brandon Cee on 12-10-2023 ALP [Catalytic activity/Vol] 60 U/L 34-104 [facility] Comment on above: Performed By: #### G LULS #### Point of Care testing , Aspartate aminotransferase [ Enzymatic activity/volume] in Serum or PlasmaOrdered By: Brandon Cee on 12-10-2023 AST [Catalytic activity/Vol] 20 U/L 13-39 [facility] Comment on above: Performed By: #### G LULS #### Point of Care testing , Bilirubin.total [Mass/volume ] in Serum or PlasmaOrdered By: Brandon Cee on 12-10-2023 Bilirubin [Mass/Vol] 0.3 mg/dL 0.3-1.0 [facility] Comment on above: Performed By: #### G LULS #### Point of Care testing , Comprehensive Metabolic Pane zackeyr 12-10-2023 Albumin [Mass/Vol] 3.2 g/dL Low 3.5-5.7 [facility] Comment on above: Performed By: #### G LULS #### Point of Care testing , Anion gap [Moles/Vol] 14.6 mmol/L Normal 6.0-15.0 [facility] Comment on above: Performed By: #### G LULS #### Point of Care testing , Calcium [Mass/Vol] 8.9 mg/dL Normal 8.6-10.3 [facility] Comment on above: Performed By: #### G LULS #### Point of Care testing , Chloride [Moles/Vol] 100 mmol/L Normal 98-107 [facility] Comment on above: Performed By: #### G LULS #### Point of Care testing , CO2 [Moles/Vol] 20.9 mmol/L Low 21.0-31.0 [facility] Comment on above: Performed By: #### G LULS #### Point of Care testing , Creatinine [Mass/Vol] 0.78 mg/dL Normal 0.60-1.20 [facility] Comment on above: Performed By: #### G LULS #### Point of Care testing , Creatinine Clr Calc Pharmacy 126.70 Normal [facility] Comment on above: Performed By: #### G LULS #### Point of Care testing , GFR/1.73 sq M.predicted MDRD (S/P/Bld) [Vol rate/Area] mL/min/{1.73_m2} Normal [facility] Comment on above: Performed By: #### G LULS #### Point of Care testing , Glucose [Mass/Vol] 218 mg/dL High 70-100 [facility] Comment on above: Result Comment: [facility] Glucose Reference Range is dependent on time and content of last meal. Glucose of more than 200 mg/dL in a nonstressed, ambulatory subject supports the diagnosis of Diabetes Mellitus. ADA recommended reference range Performed By: #### G LULS #### Point of Care testing , Potassium [Moles/Vol] 3.5 mmol/L Normal 3.5-5.1 [facility] Comment on above: Performed By: #### G LULS #### Point of Care testing , Sodium [Moles/Vol] 132 mmol/L Low 136-145 [facility] Comment on above: Performed By: #### G LULS #### Point of Care testing , Urea nitrogen [Mass/Vol] 19 mg/dL Normal 7-25 [facility] Comment on above: Performed By: #### G LULS #### Point of Care testing , Glucose Poct Glucometerson 0 12-10-2023 Glucose [Mass/Vol] 381 mg/dL Normal [facility] Comment on above: Result Comment: [place] [facility] Glucose Reference Range is dependent on time and content of last meal. Glucose of more than 200 mg/dL in a nonstressed, ambulatory subject supports the diagnosis of Diabetes Mellitus. PERFORMED BY: [address] [place] [address] PATHOLOGIST ORTHOPEDICALLY IMPAIRED TEACHER STELLA SCHMIDT M.D. Performed By: #### G LULS #### Point of Care testing , Glucose [Mass/Vol] 301 mg/dL Normal [facility] Comment on above: Result Comment: [place] [facility] Glucose Reference Range is dependent on time and content of last meal. Glucose of more than 200 mg/dL in a nonstressed, ambulatory subject supports the diagnosis of Diabetes Mellitus. PERFORMED BY: [address] [place] [address] PATHOLOGIST ORTHOPEDICALLY IMPAIRED TEACHER STELLA SCHMIDT M.D. Performed By: #### G LULS #### Point of Care testing , Commemt1 Glu2: Cleaned Meter Normal [facility] Comment on above: Result Comment: PERF ORMED BY: [address] [place] [address] PATHOLOGIST ORTHOPEDICALLY IMPAIRED TEACHER STELLA SCHMIDT M.D. Performed By: #### G LULS #### Point of Care testing , Glucose [Mass/Vol] 141 mg/dL Normal [facility] Comment on above: Result Comment: [place] [facility] Glucose Reference Range is dependent on time and content of last meal. Glucose of more than 200 mg/dL in a nonstressed, ambulatory subject supports the diagnosis of Diabetes Mellitus. Performed By: #### G LULS #### Point of Care testing , Glucose [Mass/Vol] 201 mg/dL Normal [facility] Comment on above: Result Comment: [place] [facility] Glucose Reference Range is dependent on time and content of last meal. Glucose of more than 200 mg/dL in a nonstressed, ambulatory subject supports the diagnosis of Diabetes Mellitus. PERFORMED BY: [address] [place] [address] PATHOLOGIST ORTHOPEDICALLY IMPAIRED TEACHER STELLA SCHMIDT M.D. Performed By: #### G LULS #### Point of Care testing , Iron [Mass/volume] in Serum or PlasmaOrdered By: Brandon Cee on 12-10-2023 Iron [Mass/Vol] 80 ug/dL 50-212 [facility] Comment on above: Order Comment: Comme nt ok to use previously drawn labs Comment ok to use previously drawn labs Performed By: #### G LULS #### Point of Care testing , Iron and TIBC Profileon 11-18 % Iron Saturation 27.9 % Normal 20-50 [facility] Comment on above: Order Comment: Comme nt ok to use previously drawn labs Comment ok to use previously drawn labs Performed By: #### G LULS #### Point of Care testing , Total Iron Binding Capacity 287 ug/dL Normal 255-450 [facility] Comment on above: Order Comment: Comme nt ok to use previously drawn labs Comment ok to use previously drawn labs Performed By: #### G LULS #### Point of Care testing , Iron binding capacity [Mass/ volume] in Serum or PlasmaOrdered By: Brandon Cee on 12-10-2023 Iron binding capacity [Mass/Vol] 287 ug/dL 255-450 [facility] Iron saturation [Mass Fracti on] in Serum or PlasmaOrdered By: Brandon Cee on 12-10-2023 Iron saturation [Mass fraction] 27.9 % 20-50 [facility] Zackery 12-10-2023 L Specimen: Received: 12/10/23 Status: SOUJudith Marin Num: [id number] Spec Type: Impression Subm Dr: Brandon Cee MD Tissues: PATHPER Procedures: PATHREVIEW Age/ Patient Sex Location Account Attending Physician Jolie Stanley 33/F 5T [id number] Brandon Cee MD SPEC NUM: [id number] RECD: 12/10/23 STATUS: SOUT REQ NUM: [id number] YOLANDA: 12/10/[address]: Brandon Cee MD ENTERED: 12/10/[address]: Ekaterina Durand DO SPEC TYPE: Impression DEPT: NE ENTERED BY: [id number] RECV BY: [id number] ORDERED: PATHREVIEW ORDERED: PATHREVIEW Pathologist Review Abnormal CBC for peripheral blood smear review: -Mild leukocytosis with mild neutrophilia, mild monocytosis, and mild lymphocytosis, including at least rare precursor granulocytes -Mild anemia of normocytic type, including occasional microcytes, and at least rare ovalocytes, and at least 2 polychromatophils -Mild thrombocytosis with at least 1 giant platelet Comment: -The cause of neutrophilia is usually due to tissue injury, systemic inflammation, or infection, requiring clinical correlations. The cause of mild anemia in the reproductive age female patient is usually due to iron deficiency type anemia from menorrhagia or childbearing demand, also requiring clinical and laboratory correlations such as serum iron profile study. Mild reactive thrombocytosis also can occur with iron deficiency type anemia. Continuous clinical correlations are suggested CPT: 72263 CBC Date Time Test Result Flag (u) Normal Range 12/10/23 0517 WBC 26.3 H 3.8-11.6 X10E3/uL RBC 3.56 L 3.60-5.00 X10E6/uL HGB 9.9 L 11.8-15.4 g/dL HCT 30.2 L 34.0-46.4 % -------- Specimen: [id number] Received: 12/10/23 Status: RICHARD [place] Num: [id number] Spec Type: Impression Subm Dr: Brandon Cee MD Tissues: PATHPER Procedures: PATHREVIEW -------- Patient: Jolie Stanley [id number] (Continued) -------- Specimen: [id number] Received: 12/10/23 (Continued) VY (Continued) Signed (signature on file) Senia Mccoy MD 12/10/23 0931 -------- Specimen: [id number] Received: 12/10/23 Status: REECEJudith Marin Num: [id number] Spec Type: Impression Subm Dr: Brandon Cee MD Tissues: PATHPER Procedures: PATHREVIEW -------- Patient: Jolie Stanley [id number] (Continued) -------- Specimen: [id number] Received: 12/10/23 (Continued) CBC (Continued) MCV 84.7 80-100 fl MCH 27.7 24.7-34.3 pg MCHC 32.7 32.0-35.0 g/dL RDW 15.3 11.9-15.3 % Plt 537 H 150-450 x10E3/uL MPV 7.4 6.3-10.7 fl Neut % (Auto) 66.3 . % Lymp % (Auto) 27.3 . % Brantley % (Auto) 5.8 . % Eos % (Auto) 0.1 . % Baso % (Auto) 0.5 . % NRBC% 0.1 0-0.5 /100 WBC Neut # (Auto) 17.4 H 1.8-7.7 x10E3/uL Lymph # (Auto) 7.2 H 1.00-4.8 x10E3/uL Brantley # (Auto) 1.5 H 0.0-0.8 x10E3/uL Eos # (Auto) 0.0 0.0-0.45 x10E3/uL Baso# (Auto) 0.1 0.0-0.2 x10E3/uL [place] Slight Micro Slight Oval Slight Plt Est Increased Normal Plt Morphology Normal Normal -------- -------- Specimen: Received: 12/10/23 Status: RICHARD [place] Num: [id number] Spec Type: Impression Subm Dr: Brandon Cee MD Tissues: PATHPER Procedures: PATHREVIEW -------- Patient: StanleyJolie butts Jr [id number] (Continued) -------- Signed (signature on file) Senia Mccoy MD 12/10/2331 Normal [facility] Magnesium [Mass/volume] in S lashaun or PlasmaOrdered By: Brandon Cee on 12-10-2023 Magnesium [Mass/Vol] 2.0 mg/dL 1.9-2.7 [facility] Comment on above: Order Comment: Comme nt ok to use previously drawn labs Comment ok to use previously drawn labs Performed By: #### G LULS #### Point of Care testing , Microcytes LM Ql (Bld)Ordere d By: Brandon Cee on 12-10-2023 Microcytes Ql (Bld) Slight [facility] Prealbumin [Mass/volume] in Serum or PlasmaOrdered By: Brandon Cee on 12-10-2023 Prealbumin [Mass/Vol] 26.0 mg/dL 17.0-34.0 [facility] Comment on above: Result Comment: PERF ORMED BY: [facility] [place] [address] PATHOLOGIST ORTHOPEDICALLY IMPAIRED TEACHER STLELA SCHMIDT M.D. Performed By: #### G LULS #### Point of Care testing , Protein [Mass/volume] in Ser um or PlasmaOrdered By: Brandon Cee on 12-10-2023 Protein [Mass/Vol] 6.1 g/dL Low 6.4-8.9 [facility] Comment on above: Performed By: #### G LULS #### Point of Care testing , Scan and CBCon 12-10-2023 Anisocytosis Ql (Bld) Slight Normal [facility] Comment on above: Performed By: #### G LULS #### Point of Care testing , Basophils (Bld) [#/Vol] 0.1 10*3/uL Normal 0.0-0.2 [facility] Comment on above: Performed By: #### G LULS #### Point of Care testing , Basophils/100 WBC (Bld) 0.5 % Normal . T [facility] Comment on above: Performed By: #### G LULS #### Point of Care testing , Eosinophils (Bld) [#/Vol] 0.0 10*3/uL Normal 0.0-0.45 [facility] Comment on above: Performed By: #### G LULS #### Point of Care testing , Eosinophils/100 WBC (Bld) 0.1 % Normal . [facility] Comment on above: Performed By: #### G LULS #### Point of Care testing , Erythrocyte distribution width (RBC) [Ratio] 15.3 % Normal 11.9-15.3 [facility] Comment on above: Performed By: #### G LULS #### Point of Care testing , Hematocrit (Bld) [Volume fraction] 30.2 % Low 34.0-46.4 [facility] Comment on above: Performed By: #### G LULS #### Point of Care testing , Hemoglobin (Bld) [Mass/Vol] 9.9 g/dL Low 11.8-15. 4 [facility] Comment on above: Performed By: #### G LULS #### Point of Care testing , Lymphocytes (Bld) [#/Vol] 7.2 10*3/uL High 1.00-4.8 [facility] Comment on above: Performed By: #### G LULS #### Point of Care testing , Lymphocytes/100 WBC (Bld) 27.3 % Normal . [facility] Comment on above: Performed By: #### G LULS #### Point of Care testing , MCH (RBC) [Entitic mass] 27.7 pg Normal 24.7-34.3 [facility] Comment on above: Performed By: #### G LULS #### Point of Care testing , MCV (RBC) [Entitic vol] 84.7 fL Normal 80-100 [facility] Comment on above: Performed By: #### G LULS #### Point of Care testing , Mean Corpuscular HGB Conc 32.7 g/dL Normal 32.0-35.0 [facility] Comment on above: Performed By: #### G LULS #### Point of Care testing , Microcytosis Slight Normal [facility] Comment on above: Performed By: #### G LULS #### Point of Care testing , Monocytes (Bld) [#/Vol] 1.5 10*3/uL High 0.0-0.8 [facility] Comment on above: Performed By: #### G LULS #### Point of Care testing , Monocytes/100 WBC (Bld) 5.8 % Normal . [facility] Comment on above: Performed By: #### G LULS #### Point of Care testing , Neutrophils (Bld) [#/Vol] 17.4 10*3/uL High 1.8-7.7 [facility] Comment on above: Performed By: #### G LULS #### Point of Care testing , Neutrophils/100 WBC (Bld) 66.3 % Normal . [facility] Comment on above: Performed By: #### G LULS #### Point of Care testing , NRBC% 0.1 /100{WBC} Normal 0-0.5 [facility] Comment on above: Performed By: #### G LULS #### Point of Care testing , Ovalocytes Slight Normal [facility] Comment on above: Performed By: #### G LULS #### Point of Care testing , Platelet Estimate Increased Normal Normal [facility] Comment on above: Performed By: #### G LULS #### Point of Care testing , Platelet mean volume (Bld) [Entitic vol] 7.4 fL Normal 6.3-10.7 [facility] Comment on above: Performed By: #### G LULS #### Point of Care testing , Platelet Morphology Normal Normal Normal [facility] Comment on above: Result Comment: PERF ORMED BY: [facility] [place] [address] PATHOLOGIST ORTHOPEDICALLY IMPAIRED TEACHER STELLA SCHMIDT M.D. Performed By: #### G LULS #### Point of Care testing , Platelets (Bld) [#/Vol] 537 10*3/uL High 150-450 [facility] Comment on above: Performed By: #### G LULS #### Point of Care testing , RBC (Bld) [#/Vol] 3.56 10*6/uL Low 3.60-5.00 [facility] Comment on above: Performed By: #### G LULS #### Point of Care testing , WBC (Bld) [#/Vol] 26.3 10*3/uL High 3.8-11.6 [facility] Comment on above: Performed By: #### G LULS #### Point of Care testing , Serum globulin measurement b y calculation (mass/volume)Ordered By: Brandon Cee on 12-10-2023 Globulin (S) [Mass/Vol] 2.9 g/dL [facility] Comment on above: Performed By: #### G LULS #### Point of Care testing , Serum or plasma albumin/glob ulin mass ratioOrdered By: Brandon Cee on 12-10-2023 Albumin/Globulin [Mass ratio] 1.1 {ratio} [facility] Comment on above: Performed By: #### G LULS #### Point of Care testing , Transferrin [Mass/volume] in Serum or PlasmaOrdered By: Brandon Cee on 12-10-2023 Transferrin [Mass/Vol] 205 mg/dL 203-362 [facility] Comment on above: Order Comment: Comme nt ok to use previously drawn labs Comment ok to use previously drawn labs Result Comment: PERF ORMED BY: [facility] [address] [place] [address] PATHOLOGIST ORTHOPEDICALLY IMPAIRED TEACHER STELLA SCHMIDT M.D. Performed By: #### G LULS #### Point of Care testing , Glucose Glucometer (BldC) [M ass/Vol]on 12-09-2023 Glucose [Mass/Vol] 297 mg/dL High 65-99 [facility] Glucose [Mass/Vol] 209 mg/dL High 65-99 [facility] Glucose [Mass/Vol] 115 mg/dL High 65-99 [facility] Glucose [Mass/Vol] 319 mg/dL High 65-99 [facility] Glucose Poct Glucometerson 0 12-09-2023 Glucose [Mass/Vol] 277 mg/dL Normal [facility] Comment on above: Result Comment: [facility] Glucose Reference Range is dependent on time and content of last meal. Glucose of more than 200 mg/dL in a nonstressed, ambulatory subject supports the diagnosis of Diabetes Mellitus. PERFORMED BY: [facility] [address] [place] [address] PATHOLOGIST ORTHOPEDICALLY IMPAIRED TEACHER STELLA SCHMIDT M.D. Performed By: #### G LULS #### Point of Care testing , CBC AND AUTO DIFFon 12-08-19 24 ANJALI 1+ Abnormal NONE [facility] Comment on above: Performed By: #### C BCA, CMP, TSHR, 3024-7 ####[facility] ([id number])[address] [facility], [place] [address] Erythrocyte distribution width (RBC) [Ratio] 14.7 % Normal 11.5-15.0 [facility] Comment on above: Performed By: #### C BCA, CMP, TSHR, 4-7 ####[facility] ([id number])[address] [place] [address] Hematocrit (Bld) [Volume fraction] 31.7 % Low 35-47 [facility] Comment on above: Performed By: #### C BCA, CMP, TSHR, 7 ####[facility] ([id number])[address] [address], [place] [address] Hemoglobin (Bld) [Mass/Vol] 10.5 g/dL Low 11.7-15. 5 [facility] Comment on above: Performed By: #### C BCA, CMP, TSHR, 7 ####[facility] ([id number])[address] [address], [place] [address] Lymphocytes (Bld) [#/Vol] 1.8 10*3/uL Normal 1.0-3.5 [facility] Comment on above: Performed By: #### C BCA, CMP, TSHR, 7 ####[facility] ([id number])[address] [address], [place] [address] Lymphocytes/100 WBC (Bld) 7.6 % Normal [facility] Comment on above: Performed By: #### C BCA, CMP, TSHR, 3023-7 ####[facility] ([id number])[address] [address], [place] [address] MCH (RBC) [Entitic mass] 28.2 pg Normal 27-34 [facility] Comment on above: Performed By: #### C BCA, CMP, TSHR, 7 ####[facility] ([id number])[address] [place] [address] MCHC (RBC) [Mass/Vol] 33.2 g/dL Normal 32-36 [facility] Comment on above: Performed By: #### C BCA, CMP, TSHR, 3024-7 ####[facility] ([id number])[address], [place] [address] MCV (RBC) [Entitic vol] 85 fL Normal 80-100 [facility] Comment on above: Performed By: #### C BCA, CMP, TSHR, 3023-7 ####[facility] ([id number])[address], [place] [address] Neutrophils (Bld) [#/Vol] 22.1 10*3/uL High 1.5-6.6 [facility] Comment on above: Performed By: #### C BCA, CMP, TSHR, 3023-7 ####[facility] ([id number])[address], [place] [address] Platelet mean volume (Bld) [Entitic vol] 8.2 fL Normal 7-12 [facility] Comment on above: Performed By: #### C BCA, CMP, TSHR, 3024-7 ####[facility] ([id number])[address], [place] [address] Platelets (Bld) [#/Vol] 510 10*3/uL High 150-450 [facility] Comment on above: Performed By: #### C BCA, CMP, TSHR, 302-7 ####[facility] ([id number])[address], [place] [address] RBC COUNT 3.74 X10E12/L Low 3.80-5.20 [facility] Comment on above: Performed By: #### C BCA, CMP, TSHR, 3023-7 ####[facility] ([id number])[address], [place] [address] SEG NEUTROPHIL 92.4 % Normal [facility] Comment on above: Performed By: #### C BCA, CMP, TSHR, 3024-7 ####[facility] ([id number])[address], [place] [address] WBC (Bld) [#/Vol] 23.9 10*3/uL High 4.0-11.0 [facility] Comment on above: Performed By: #### C BCA, CMP, TSHR, 3024-7 ####[facility] ([id number])[address], [place] [address] COMPREHENSIVE METABOLIC PANE Zackery 12-08-2023 Albumin [Mass/Vol] 3.4 g/dL Normal 3.2-5.3 [facility] Comment on above: Performed By: #### C BCA, CMP, TSHR, 3024-7 ####[facility] ([id number])[address] [address], [place] [address] ALP [Catalytic activity/Vol] 81 U/L Normal 39-130 [facility] Comment on above: Performed By: #### C BCA, CMP, TSHR, 3024-7 ####[facility] ([id number])[address] [address], [place] [address] ALT [Catalytic activity/Vol] 63 U/L High 0-31 [facility] Comment on above: Performed By: #### C BCA, CMP, TSHR, 3024-7 ####[facility] ([id number])[address], [place] [address] Anion gap [Moles/Vol] 10 mmol/L Normal 5-15 [facility] Comment on above: Performed By: #### C BCA, CMP, TSHR, 3024-7 ####[facility] ([id number])[address], [place] [address] AST [Catalytic activity/Vol] 48 U/L High 0-41 [facility] Comment on above: Performed By: #### C BCA, CMP, TSHR, 4-7 ####[facility] ([id number])[address] [address] [place] [address] Bilirubin [Mass/Vol] 0.4 mg/dL Normal 0.3-1.2 [facility] Comment on above: Performed By: #### C BCA, CMP, TSHR, 3023-7 ####[facility] ([id number])[address] [address] [place] [address] Calcium [Mass/Vol] 8.8 mg/dL Normal 8.5-10.5 [facility] Comment on above: Performed By: #### C BCA, CMP, TSHR, 3023-7 ####[facility] ([id number])[address] [address], [place] [address] Chloride [Moles/Vol] 101 mmol/L Normal 98-109 [facility] Comment on above: Performed By: #### C BCA, CMP, TSHR, 4-7 ####[facility] ([id number])[address] [address] [place] [address] CO2 [Moles/Vol] 21 mmol/L Low 22-32 [facility] Comment on above: Performed By: #### C BCA, CMP, TSHR, 3023-7 ####[facility] ([id number])[address] [address] [place] [address] Creatinine [Mass/Vol] 0.94 mg/dL Normal 0.40-1.00 [facility] Comment on above: Result Comment: METH OD TRACEABLE TO IDMS STANDARD Performed By: #### C BCA, CMP, TSHR, 3023-7 ####[facility] ([id number])[address] [address] [place] [address] GFR/1.73 sq M.predicted among non-blacks MDRD (S/P/Bld) [Vol rate/Area] 83 mL/min/{1.73_m2} Normal >59 Pr [facility] Comment on above: Result Comment: Reported eGFR is based on the CKD-EPI 2020 equation that does not use a race coefficient. Performed By: #### C BCA, CMP, TSHR, 3024-7 ####[facility] ([id number])[address] [place] [address] Glucose [Mass/Vol] 423 mg/dL Critically high 65-99 P [facility] Comment on above: Performed By: #### C BCA, CMP, TSHR, 3024-7 ####[facility] ([id number])[address], [address] [place] [address] Potassium [Moles/Vol] 4.8 mmol/L Normal 3.5-5.0 [facility] Comment on above: Performed By: #### C BCA, CMP, TSHR, 3024-7 ####[facility] ([id number])[address], [address] [place] [address] Protein [Mass/Vol] 6.6 g/dL Normal 6.0-8.0 [facility] Comment on above: Performed By: #### C BCA, CMP, TSHR, 3024-7 ####[facility] ([id number])[address], [address] [place] [address] Sodium [Moles/Vol] 132 mmol/L Low 134-146 [facility] Comment on above: Performed By: #### C BCA, CMP, TSHR, 3024-7 ####[facility] ([id number])[address], [address] [place] [address] Urea nitrogen [Mass/Vol] 23 mg/dL Normal 5-23 [facility] Comment on above: Performed By: #### C BCA, CMP, TSHR, 3024-7 ####[facility] ([id number])[address], [address] [place] [address] FREE T4on 12-08-2023 Free T4 [Mass/Vol] 1.11 ng/dL Normal 0.61-1.60 [facility] Comment on above: Performed By: #### C DELFINO, LINN, TSHR, 3024-7 ####[facility] ([id number])[address], [address] [place] [address] Glucose Glucometer (BldC) [M ass/Vol]on 12-08-2023 Glucose [Mass/Vol] 354 mg/dL High 65-99 [facility] Glucose [Mass/Vol] 407 mg/dL Critically high 65-99 [facility] Glucose [Mass/Vol] 205 mg/dL High 65-99 [facility] Glucose [Mass/Vol] 232 mg/dL High 65-99 [facility] Glucose [Mass/Vol] 363 mg/dL High 65-99 [facility] TSH WITH REFLEXon 12-08-2023 TSH 0.38 uIU/mL Low 0.49-4.67 [facility] Comment on above: Performed By: #### C DELFINO, CMP, TSHR, 3024-7 ####[facility] ([id number])[address], [address] [place] [address] Glucose Glucometer (BldC) [M ass/Vol]on 12-07-2023 Glucose [Mass/Vol] 377 mg/dL High 65-99 [facility] Glucose [Mass/Vol] 227 mg/dL High 65-99 [facility] Glucose [Mass/Vol] 234 mg/dL High 65-99 [facility] Glucose [Mass/Vol] 124 mg/dL High 65-99 [facility] CBC AND AUTO DIFFon 12-06-19 24 ABSOLUTE BASOPHIL 0.1 X10E9/L Normal 0.0-0.2 [facility] Comment on above: Performed By: #### P INR, 23634-8, CBCA, 1987-11, 2283-8, 2132-03, HA1C, 35497-0 #### [facility] ([id number]) [address], [address] [place] [address] ABSOLUTE NEUTROPHIL 9.2 X10E9/L High 1.5-6.6 [facility] Comment on above: Performed By: #### P INR, 91248-8, CBCA, 1987-11, 2284-02, 2132-03, HA1C, 32353-1 #### [facility] ([id number]) [address], [address] [place] [address] Basophils/100 WBC (Bld) 0.8 % Normal [facility] Comment on above: Performed By: #### P INR, 02073-3, CBCA, 1987-11, 2284-02, 2132-03, HA1C, 74555-6 #### [facility] ([id number]) [address], [address] [place] [address] Eosinophils (Bld) [#/Vol] 0.0 10*3/uL Normal 0.0-0.4 [facility] Comment on above: Performed By: #### P INR, 70306-9, CBCA, 1987-11, 2284-02, 2132-03, HA1C, 59130-1 #### [facility] ([id number]) [address], [address] [place] [address] Eosinophils/100 WBC (Bld) 0.1 % Normal [facility] Comment on above: Performed By: #### P INR, 51343-6, CBCA, 1987-11, 2284-02, 2132-03, HA1C, 95511-9 #### [facility] ([id number]) [address], [address] [place] [address] Erythrocyte distribution width (RBC) [Ratio] 14.9 % Normal 11.5-15.0 [facility] Comment on above: Performed By: #### P INR, 85117-7, CBCA, 1987-11, 2284-02, 2132-03, HA1C, 82216-7 #### [facility] ([id number]) [address], [address] [place] [address] Hematocrit (Bld) [Volume fraction] 30.7 % Low 35-47 [facility] Comment on above: Performed By: #### P INR, 28527-5, CBCA, 1987-11, 2284-02, 2132-03, HA1C, 40240-6 #### [facility] ([id number]) [address], [address] [place] [address] Hemoglobin (Bld) [Mass/Vol] 10.4 g/dL Low 11.7-15. 5 [facility] Comment on above: Performed By: #### P INR, 13748-8, CBCA, 1987-11, 2284-02, 2132-03, HA1C, 38996-8 #### [facility] ([id number]) [address], [address] [place] [address] Lymphocytes (Bld) [#/Vol] 6.4 10*3/uL High 1.0-3.5 [facility] Comment on above: Performed By: #### P INR, 66868-2, CBCA, 1987-11, 2284-02, 2132-03, HA1C, 55029-2 #### [facility] ([id number]) [address], [address] [place] [address] Lymphocytes/100 WBC (Bld) 38.6 % Normal [facility] Comment on above: Performed By: #### P INR, 59706-6, CBCA, 1987-11, 2284-02, 2132-03, HA1C, 29469-0 #### [facility] ([id number]) [address], [address] [place] [address] MCH (RBC) [Entitic mass] 28.4 pg Normal 27-34 [facility] Comment on above: Performed By: #### P INR, 05462-0, CBCA, 1987-11, 2284-02, 2132-03, HA1C, 23738-4 #### [facility] ([id number]) [address], [address] [place] [address] MCHC (RBC) [Mass/Vol] 34.0 g/dL Normal 32-36 [facility] Comment on above: Performed By: #### P INR, 16472-6, CBCA, 1987-11, 2284-02, 2132-03, HA1C, 30436-3 #### [facility] ([id number]) [address], [address] [place] [address] MCV (RBC) [Entitic vol] 83 fL Normal 80-100 [facility] Comment on above: Performed By: #### P INR, 49209-6, CBCA, 1987-11, 2284-02, 2132-03, HA1C, 71587-3 #### [facility] ([id number]) [address], [address] [place] [address] Monocytes (Bld) [#/Vol] 0.8 10*3/uL Normal 0-0.9 [facility] Comment on above: Performed By: #### P INR, 00324-8, CBCA, 1987-11, 2284-02, 2132-03, HA1C, 93149-0 #### [facility] ([id number]) [address], [address] [place] [address] Monocytes/100 WBC (Bld) 4.8 % Normal P [facility] Comment on above: Performed By: #### P INR, 81605-9, CBCA, 1987-11, 2284-02, 2132-03, HA1C, 98271-0 #### [facility] ([id number]) [address], [address] [place] [address] Neutrophils/100 WBC (Bld) 55.7 % Normal [facility] Comment on above: Performed By: #### P INR, 13949-1, CBCA, 1987-11, 2284-02, 2132-03, HA1C, 90019-0 #### [facility] ([id number]) [address], [address] [place] [address] Platelet mean volume (Bld) [Entitic vol] 7.9 fL Normal 7-12 [facility] Comment on above: Performed By: #### P INR, 99702-4, CBCA, 1987-11, 2284-02, 2132-03, HA1C, 51196-5 #### [facility] ([id number]) [address], [address] [place] [address] Platelets (Bld) [#/Vol] 508 10*3/uL High 150-450 [facility] Comment on above: Performed By: #### P INR, 11124-5, CBCA, 1987-11, 2284-02, 2132-03, HA1C, 45104-6 #### [facility] ([id number]) [address], [address] [place] [address] RBC COUNT 3.68 X10E12/L Low 3.80-5.20 [facility] Comment on above: Performed By: #### P INR, 50916-5, CBCA, 1987-11, 2284-02, 2132-03, HA1C, 90801-8 #### [facility] ([id number]) [address], [address] [place] [address] WBC (Bld) [#/Vol] 16.5 10*3/uL High 4.0-11.0 [facility] Comment on above: Performed By: #### P INR, 80472-9, CBCA, 1987-11, 2284-02, 2132-03, HA1C, 73336-0 #### [facility] ([id number]) [address] [place] [address] COMPREHENSIVE METABOLIC PANE [facility] 12-06-2023 Albumin [Mass/Vol] 3.2 g/dL Normal 3.2-5.3 [facility] Comment on above: Performed By: #### P INR, 13405-6, CBCA, 1987-11, 2284-02, 2132-03, HA1C, 01505-1 #### [facility] ([id number]) [address] [place] [address] ALP [Catalytic activity/Vol] 68 U/L Normal 39-130 [facility] Comment on above: Performed By: #### P INR, 49162-2, CBCA, 1987-11, 2284-02, 2132-03, HA1C, 09215-5 #### [facility] ([id number]) [address] [place] [address] ALT [Catalytic activity/Vol] 10 U/L Normal 0-31 [facility] Comment on above: Performed By: #### P INR, 48963-9, CBCA, 1987-11, 2284-02, 2132-03, HA1C, 38155-6 #### [facility] ([id number]) [address], [address] [place] [address] Anion gap [Moles/Vol] 9 mmol/L Normal 5-15 [facility] Comment on above: Performed By: #### P INR, 14496-0, CBCA, 1987-11, 2284-02, 2132-03, HA1C, 14784-9 #### [facility] ([id number]) [address], [address] [place] [address] AST [Catalytic activity/Vol] 16 U/L Normal 0-41 [facility] Comment on above: Performed By: #### P INR, 73454-7, CBCA, 1987-11, 2284-02, 2132-03, HA1C, 54807-7 #### [facility] ([id number]) [address] [place] [address] Bilirubin [Mass/Vol] 0.4 mg/dL Normal 0.3-1.2 [facility] Comment on above: Performed By: #### P INR, 35098-3, CBCA, 1987-11, 2284-02, 2132-03, HA1C, 70752-8 #### [facility] ([id number]) [address], [address] [place] [address] Calcium [Mass/Vol] 8.7 mg/dL Normal 8.5-10.5 [facility] Comment on above: Performed By: #### P INR, 59157-3, CBCA, 1987-11, 2284-02, 2132-03, HA1C, 09459-5 #### [facility] ([id number]) [address], [address] [place] [address] Chloride [Moles/Vol] 106 mmol/L Normal 98-109 [facility] Comment on above: Performed By: #### P INR, 99102-1, CBCA, 1987-11, 2284-02, 2132-03, HA1C, 77506-0 #### [facility] ([id number]) [address], [address] [place] [address] CO2 [Moles/Vol] 24 mmol/L Normal 22-32 [facility] Comment on above: Performed By: #### P INR, 15679-5, CBCA, 1987-11, 2284-02, 2132-03, HA1C, 97679-7 #### [facility] ([id number]) [address], [address] [place] [address] Creatinine [Mass/Vol] 0.92 mg/dL Normal 0.40-1.00 [facility] Comment on above: Result Comment: METH OD TRACEABLE TO IDMS STANDARD Performed By: #### P INR, 52230-4, CBCA, 1987-11, 2284-02, 2132-03, HA1C, 08308-4 #### [facility] ([id number]) [address], [facility] [address] [place] [address] GFR/1.73 sq M.predicted among non-blacks MDRD (S/P/Bld) [Vol rate/Area] 85 mL/min/{1.73_m2} Normal >59 Pr [facility] Comment on above: Result Comment: Reported eGFR is based on the CKD-EPI 2020 equation that does not use a race coefficient. Performed By: #### P INR, 89404-2, CBCA, 1987-11, 2284-02, 2132-03, HA1C, 95674-7 #### [facility] ([id number]) [address], [facility] [address] [place] [address] Glucose [Mass/Vol] 214 mg/dL High 65-99 [facility] Comment on above: Performed By: #### P INR, 63046-5, CBCA, 1987-11, 2284-02, 2132-03, HA1C, 83681-4 #### [facility] ([id number]) [address] [address] [place] [address] Potassium [Moles/Vol] 3.7 mmol/L Normal 3.5-5.0 [facility] Comment on above: Performed By: #### P INR, 88721-6, CBCA, 1987-11, 2284-02, 2132-03, HA1C, 29264-3 #### [facility] ([id number]) [address] [address] [place] [address] Protein [Mass/Vol] 6.3 g/dL Normal 6.0-8.0 [facility] Comment on above: Performed By: #### P INR, 67319-3, CBCA, 1987-11, 2284-02, 2132-03, HA1C, 70868-5 #### [facility] ([id number]) [address] [place] [address] Sodium [Moles/Vol] 139 mmol/L Normal 134-146 [facility] Comment on above: Performed By: #### P INR, 13592-3, CBCA, 1987-11, 2284-02, 2132-03, HA1C, 79394-3 #### [facility] ([id number]) [address] [place] [address] Urea nitrogen [Mass/Vol] 26 mg/dL High 5-23 [facility] Comment on above: Performed By: #### P INR, 50854-0, CBCA, 1987-11, 2284-02, 2132-03, HA1C, 04332-1 #### [facility] ([id number]) [address] [place] [address] FERRITINon 12-06-2023 Ferritin [Mass/Vol] 253 ng/mL Normal 11-307 [facility] Comment on above: Performed By: #### P INR, 46505-8, CBCA, 1987-11, 2284-02, 2132-03, HA1C, 67190-7 #### [facility] ([id number]) [address] [place] [address] Glucose Glucometer (BldC) [M ass/Vol]on 12-06-2023 Glucose [Mass/Vol] 217 mg/dL High 65-99 [facility] Glucose [Mass/Vol] 247 mg/dL High 65-99 [facility] Glucose [Mass/Vol] 205 mg/dL High 65-99 [facility] Glucose [Mass/Vol] 198 mg/dL High 65-99 [facility] IRON PROFILEon 12-06-2023 Iron [Mass/Vol] 55 ug/dL Normal 50-170 [facility] Comment on above: Performed By: #### P INR, 26751-0, CBCA, 1987-11, 2284-02, 2132-03, HA1C, 77211-5 #### [facility] ([id number]) [address] [place] [address] IRON BINDING 309 ug/dL Normal 250-425 [facility] Comment on above: Performed By: #### P INR, 48443-7, CBCA, 1987-11, 2284-02, 9, HA1C, 67935-3 #### [facility] ([id number]) [address] [place] [address] IRON SATURATION 18 % SATURATION Normal 15-50 [facility] Comment on above: Performed By: #### P INR, 13571-3, CBCA, 1987-11, 2284-02, 2132-03, HA1C, 99324-3 #### [facility] ([id number]) [address] [place] [address] MR THORACIC SPINE W WO CONTo n 12-06-2023 MR THORACIC SPINE W WO CONT MR THORACIC SPINE W WO CONT MR THORACIC SPINE W WO CONT HISTORY: Demyelinating disease. Neck pain TECHNIQUE: Multiplanar multisequence MR of the thoracic spine was performed prior to and following the uncomplicated administration of ProHance intravenous contrast. COMPARISON: None. FINDINGS: Preserved thoracic vertebral body heights and alignment. No substantial listhesis. No suspicious bone marrow replacing process. No robust bone marrow edema. No substantial listhesis. Cord visualized from the lower cervical spine through the lumbar region. No thoracic cord compression or cord signal abnormality. No pathologic intrathecal enhancement. Moderate uniform narrowing of the mid thoracic spine [from T3-T9], related to epidural lipomatosis. Superimposed multifocal degenerative changes with posterior disc osteophyte complex disease at T6-T7, T7-T8, T8-T9; at some of these levels there is subtle flattening the ventral cord [for example as seen on series 21 image #11]. No gross cord compression or cord signal abnormality. Paraspinal soft tissues within normal limits. IMPRESSION: Thoracic epidural lipomatosis, moderate uniform narrowing of the mid thoracic thecal sac with superimposed multilevel degenerative changes, subtle flattening the ventral cord throughout these levels without gross cord compression or cord signal change. No convincing evidence of prior demyelination. Finalized by Gene Andres MD on 12/05/2023 10:52 PM Normal [facility] Glucose Glucometer (BldC) [M ass/Vol]on 12-05-2023 Glucose [Mass/Vol] 185 mg/dL High 65-99 [facility] Glucose [Mass/Vol] 189 mg/dL High 65-99 [facility] Glucose [Mass/Vol] 181 mg/dL High 65-99 [facility] Glucose [Mass/Vol] 220 mg/dL High 65-99 [facility] Glucose [Mass/Vol] 207 mg/dL High 65-99 [facility] CBC AND AUTO DIFFon 12-04-19 24 Band form neutrophils/100 WBC (Bld) 2.0 % Normal [facility] Comment on above: Performed By: #### P INR, 75018-6, CBCA, 1987-11, 2284-02, 2132-03, HA1C, 58244-0 #### [facility] ([id number]) [address] [place] [address] Erythrocyte distribution width (RBC) [Ratio] 14.6 % Normal 11.5-15.0 [facility] Comment on above: Performed By: #### P INR, 85737-5, CBCA, 1987-11, 2284-02, 2132-03, HA1C, 66797-2 #### [facility] ([id number]) [address] [place] [address] Hematocrit (Bld) [Volume fraction] 30.4 % Low 35-47 [facility] Comment on above: Performed By: #### P INR, 29259-8, CBCA, 1987-11, 2284-02, 2132-03, HA1C, 45714-6 #### [facility] ([id number]) [address] [place] [address] Hemoglobin (Bld) [Mass/Vol] 10.3 g/dL Low 11.7-15. 5 [facility] Comment on above: Performed By: #### P INR, 40854-1, CBCA, 1987-11, 2284-02, 2132-03, HA1C, 06025-3 #### [facility] ([id number]) [address] [place] [address] Lymphocytes (Bld) [#/Vol] 2.0 10*3/uL Normal 1.0-3.5 [facility] Comment on above: Performed By: #### P INR, 19087-4, CBCA, 1987-11, 2284-02, 2132-03, HA1C, 37586-9 #### [facility] ([id number]) [address] [place] [address] Lymphocytes/100 WBC (Bld) 8.0 % Normal [facility] Comment on above: Performed By: #### P INR, 71679-0, CBCA, 1987-11, 2284-02, 2132-03, HA1C, 53184-0 #### [facility] ([id number]) [address] [place] [address] MCH (RBC) [Entitic mass] 28.0 pg Normal 27-34 [facility] Comment on above: Performed By: #### P INR, 48358-9, CBCA, 1987-11, 2284-02, 2132-03, HA1C, 23720-0 #### [facility] ([id number]) [address] [place] [address] MCHC (RBC) [Mass/Vol] 33.8 g/dL Normal 32-36 [facility] Comment on above: Performed By: #### P INR, 19721-2, CBCA, 1987-11, 2284-02, 2132-03, HA1C, 94135-1 #### [facility] ([id number]) [address] [place] [address] MCV (RBC) [Entitic vol] 83 fL Normal 80-100 [facility] Comment on above: Performed By: #### P INR, 99745-4, CBCA, 1987-11, 2284-02, 2132-03, HA1C, 66947-6 #### [facility] ([id number]) [address] [place] [address] Monocytes (Bld) [#/Vol] 1.0 10*3/uL High 0-0.9 [facility] Comment on above: Performed By: #### P INR, 41930-1, CBCA, 1987-11, 2284-02, 2132-03, HA1C, 30046-2 #### [facility] ([id number]) [address] [facility] [address] [place] [address] Monocytes/100 WBC (Bld) 4.0 % Normal P [facility] Comment on above: Performed By: #### P INR, 72086-4, CBCA, 1987-11, 2284-02, 2132-03, HA1C, 19102-9 #### [facility] ([id number]) [address] [place] [address] Neutrophils (Bld) [#/Vol] 21.5 10*3/uL High 1.5-6.6 [facility] Comment on above: Performed By: #### P INR, 10873-7, CBCA, 1987-11, 2284-02, 2132-03, HA1C, 10505-0 #### [facility] ([id number]) [address] [place] [address] Platelet mean volume (Bld) [Entitic vol] 8.4 fL Normal 7-12 [facility] Comment on above: Performed By: #### P INR, 57322-3, CBCA, 1987-11, 2284-02, 2132-03, HA1C, 60150-8 #### [facility] ([id number]) [address] [place] [address] Platelets (Bld) [#/Vol] 505 10*3/uL High 150-450 [facility] Comment on above: Performed By: #### P INR, 17962-9, CBCA, 1987-11, 2284-02, 2132-03, HA1C, 80084-6 #### [facility] ([id number]) [address] [place] [address] RBC COUNT 3.67 X10E12/L Low 3.80-5.20 [facility] Comment on above: Performed By: #### P INR, 58273-9, CBCA, 1987-11, 2284-02, 2132-03, HA1C, 70381-6 #### [facility] ([id number]) [address] [place] [address] RBC morphology finding Nom (Bld) NORMAL Normal [facility] Comment on above: Performed By: #### P INR, 28333-8, CBCA, 1987-11, 2284-02, 2132-03, HA1C, 08573-5 #### [facility] ([id number]) [address] [place] [address] SEG NEUTROPHIL 86.0 % Normal [facility] Comment on above: Performed By: #### P INR, 25193-5, CBCA, 1987-11, 2284-02, 2132-03, HA1C, 24187-3 #### [facility] ([id number]) [address] [place] [address] WBC (Bld) [#/Vol] 24.5 10*3/uL High 4.0-11.0 [facility] Comment on above: Performed By: #### P INR, 26061-1, CBCA, 1987-11, 2284-02, 2132-03, HA1C, 99435-4 #### [facility] ([id number]) [address] [place] [address] COMPREHENSIVE METABOLIC PANE Zackery 12-04-2023 Albumin [Mass/Vol] 3.5 g/dL Normal 3.2-5.3 [facility] Comment on above: Performed By: #### P INR, 02167-0, CBCA, 1987-11, 2284-02, 2132-03, HA1C, 58012-7 #### [facility] ([id number]) [address] [place] [address] ALP [Catalytic activity/Vol] 70 U/L Normal 39-130 [facility] Comment on above: Performed By: #### P INR, 49221-3, CBCA, 1987-11, 2284-02, 2132-03, HA1C, 99426-3 #### [facility] ([id number]) [address] [place] [address] ALT [Catalytic activity/Vol] 8 U/L Normal 0-31 [facility] Comment on above: Performed By: #### P INR, 78229-8, CBCA, 1987-11, 2284-02, 2132-03, HA1C, 27545-7 #### [facility] ([id number]) [address] [place] [address] Anion gap [Moles/Vol] 12 mmol/L Normal 5-15 [facility] Comment on above: Performed By: #### P INR, 64387-6, CBCA, 1987-11, 2284-02, 2132-03, HA1C, 75444-8 #### [facility] ([id number]) [address] [place] [address] AST [Catalytic activity/Vol] 17 U/L Normal 0-41 [facility] Comment on above: Performed By: #### P INR, 02349-4, CBCA, 1987-11, 2284-02, 2132-03, HA1C, 80473-2 #### [facility] ([id number]) [address] [place] [address] Bilirubin [Mass/Vol] 0.4 mg/dL Normal 0.3-1.2 [facility] Comment on above: Performed By: #### P INR, 66097-2, CBCA, 1987-11, 2284-02, 2132-03, HA1C, 34538-2 #### [facility] ([id number]) [address] [place] [address] Calcium [Mass/Vol] 9.3 mg/dL Normal 8.5-10.5 [facility] Comment on above: Performed By: #### P INR, 78247-3, CBCA, 1987-11, 2284-02, 2132-03, HA1C, 50159-4 #### [facility] ([id number]) [address] [place] [address] Chloride [Moles/Vol] 105 mmol/L Normal 98-109 [facility] Comment on above: Performed By: #### P INR, 43075-9, CBCA, 1987-11, 2284-02, 2132-03, HA1C, 80213-2 #### [facility] ([id number]) [address] [place], [place] [address] CO2 [Moles/Vol] 20 mmol/L Low 22-32 [facility] Comment on above: Performed By: #### P INR, 13211-4, CBCA, 1987-11, 2284-02, 2132-03, HA1C, 92654-7 #### [facility] ([id number]) [address] [place] [address] Creatinine [Mass/Vol] 0.96 mg/dL Normal 0.40-1.00 [facility] Comment on above: Result Comment: METH OD TRACEABLE TO IDMS STANDARD Performed By: #### P INR, 98204-5, CBCA, 1987-11, 2284-02, 2132-03, HA1C, 63152-9 #### [facility] ([id number]) [address] [place] [address] GFR/1.73 sq M.predicted among non-blacks MDRD (S/P/Bld) [Vol rate/Area] 81 mL/min/{1.73_m2} Normal >59 Pr [facility] Comment on above: Result Comment: Reported eGFR is based on the CKD-EPI 2020 equation that does not use a race coefficient. Performed By: #### P INR, 17093-9, CBCA, 1987-11, 2284-02, 2132-03, HA1C, 00276-2 #### [facility] ([id number]) [address] [place] [address] Glucose [Mass/Vol] 195 mg/dL High 65-99 [facility] Comment on above: Performed By: #### P INR, 96699-5, CBCA, 1987-11, 2284-02, 2132-03, HA1C, 64521-3 #### [facility] ([id number]) [address] [place] [address] Potassium [Moles/Vol] 4.0 mmol/L Normal 3.5-5.0 [facility] Comment on above: Performed By: #### P INR, 74438-0, CBCA, 1987-11, 2284-02, 2132-03, HA1C, 98362-4 #### [facility] ([id number]) [address] [place] [address] Protein [Mass/Vol] 6.9 g/dL Normal 6.0-8.0 [facility] Comment on above: Performed By: #### P INR, 03011-5, CBCA, 1987-11, 2284-02, 2132-03, HA1C, 78671-6 #### [facility] ([id number]) [address] [place] [address] Sodium [Moles/Vol] 137 mmol/L Normal 134-146 [facility] Comment on above: Performed By: #### P INR, 90783-4, CBCA, 1987-11, 2284-02, 2132-03, HA1C, 69212-8 #### [facility] ([id number]) [address] [place] [address] Urea nitrogen [Mass/Vol] 28 mg/dL High 5-23 [facility] Comment on above: Performed By: #### P INR, 32034-8, CBCA, 1987-11, 2284-02, 2132-03, HA1C, 31873-5 #### [facility] ([id number]) [address] [place] [address] Glucose Glucometer (BldC) [M ass/Vol]on 12-04-2023 Glucose [Mass/Vol] 392 mg/dL High 65-99 [facility] Glucose [Mass/Vol] 317 mg/dL High 65-99 [facility] Glucose [Mass/Vol] 266 mg/dL High 65-99 [facility] Glucose [Mass/Vol] 184 mg/dL High 65-99 [facility] Glucose [Mass/Vol] 219 mg/dL High 65-99 [facility] Glucose [Mass/Vol] 252 mg/dL High 65-99 [facility] Glucose [Mass/Vol] 348 mg/dL High 65-99 [facility] Glucose [Mass/Vol] 482 mg/dL Critically high 65-99 [facility] URINALYSISon 12-04-2023 Bilirubin Ql (U) Negative Normal NEG [facility] Comment on above: Performed By: #### U A ####[facility] ([id number])[address] [place] [address] BLOOD/HGB Small Abnormal NEG [facility] Comment on above: Performed By: #### U A ####[facility] ([id number])[address] [place] [address] Color (U) YELLOW Normal YELLOW [facility] Comment on above: Performed By: #### U A ####[facility] ([id number])[address], [place] [address] Glucose Ql (U) >1000 Abnormal NEG [facility] Comment on above: Performed By: #### U A ####[facility] ([id number])[address] [place] [address] Ketones Ql (U) Negative Normal NEG [facility] Comment on above: Performed By: #### U A ####[facility] ([id number])[address] [place] [address] Leukocyte esterase Test strip Ql (U) Negative Normal NEG [facility] Comment on above: Result Comment: HIGH CONCENTRATIONS OF GLUCOSE MAY DECREASE THE REACTIVITY OF THE DIPSTICK LEUKOCYTE TEST PAD. Performed By: #### U A ####[facility] ([id number])[address] [place] [address] MUCOUS PRESENT Abnormal NONE [facility] Comment on above: Performed By: #### U A ####[facility] ([id number])[address] [place] [address] Nitrite Ql (U) Negative Normal NEG [facility] Comment on above: Performed By: #### U A ####[facility] ([id number])[address], [address] [place] [address] pH (U) 6.0 [pH] Normal 5.0-8.5 [facility] Comment on above: Performed By: #### U A ####[facility] ([id number])[address] [place] [address] Protein Ql (U) 200 mg/dL Abnormal NEG [facility] Comment on above: Performed By: #### U A ####[facility] ([id number])[address] [address] R.B.CELLS 0 /hpf Normal 0-5 [facility] Comment on above: Performed By: #### U A ####[facility] ([id number])[address] [address] Specific gravity (U) [Rel density] 1.025 Normal 1.003-1.035 [facility] Comment on above: Performed By: #### U A ####[facility] ([id number])[address] [address] SQUAMOUS EPITHELIUM 2 /hpf Normal 0-5 [facility] Comment on above: Performed By: #### U A ####[facility] ([id number]) [address] [address] TURBIDITY CLEAR Normal CLEAR [facility] Comment on above: Performed By: #### U A ####[facility] ([id number])[address] [address] Urobilinogen (U) [Mass/Vol] mg/dL Normal <1.1 [facility] Comment on above: Performed By: #### U A ####[facility] ([id number])[address] [address] W.B.CELLS 1 /hpf Normal 0-5 [facility] Comment on above: Performed By: #### U A ####[facility] ([id number])[address] [address] VAGINITIS PANEL PCRon 2023 VAGINITIS PANEL PCR BACT. VAGINOSIS DNA Detected (qualifier value) Qualitative results are reported based on detection and quantitation of targeted organism markers which include: Lactobacillus spp. (L. crispatus and L. jensenii), Gardnerella vaginalis, Atopobium vaginae, Bacterial Vaginosis Associated Bacteria-2 (BVAB-2) and Megasphaera-1 BELLA SPECIES DNA Not detected (qualifier value) Bella species not detected include: C. albicans, C. tropicalis, C. parapsilosis or C. dubliniensis BELLA KRUSEI DNA Not detected (qualifier value) No Bella krusei detected BELLA GLABRATA DNA Not detected (qualifier value) No Bella glabrata detected TRICHOMONAS VAG DNA Not detected (qualifier value) No Trichomonas vaginalis detected NOTE BD MAX Vaginal Panel has not been evaluated for patients under 18 years old. Results for these patients should be reviewed and assessed in accordance with clinical presentation to determine patient diagnosis. Normal [facility] Comment on above: Performed By: #### P INR, 68858-1, CBCA, 1987-, 2284-8, 2132-9, HA1C, 92641-4 #### [facility] ([id number]) [address] [place] [address] Glucose Glucometer (BldC) [M ass/Vol]on 12-03-2023 Glucose [Mass/Vol] 346 mg/dL High 65-99 [facility] Glucose [Mass/Vol] 264 mg/dL High 65-99 [facility] Glucose [Mass/Vol] 271 mg/dL High 65-99 [facility] Glucose [Mass/Vol] 292 mg/dL High 65-99 [facility] MR MRA HEAD WO CONTon 2023 MR MRA HEAD WO CONT MR MRA HEAD WO CONT MR MRA HEAD WO CONT CLINICAL INDICATION:Stroke, follow up COMPARISON: XX TECHNIQUE: Routine noncontrast, [id number], [place] MRA was performed. Maximum intensity projection volumetric reformatted images were generated. FINDINGS: Moderate to severe uniform narrowing right cervical internal carotid with similar degree of narrowing throughout the petrous segment, more focal areas of irregular narrowing right cavernous and paraclinoid internal carotid. Asymmetrically smaller caliber right MCA when compared to the left. There is multifocal luminal narrowing left cavernous and paraclinoid internal carotid artery; significantly less pronounced than on the right. Patent bilateral MCAs, proximal ACAs, pick up man, visualized vertebral and basilar arteries. Distal right callosal marginal artery has less pronounced enhancement when compared to the left without high-grade focal narrowing. IMPRESSION: Moderate to severe narrowing right cervical, cavernous, petrous and paraclinoid internal carotid as well as left cavernous and paraclinoid internal carotid. Asymmetrically small caliber right MCA when compared to left. Preceding right cerebral hemisphere finding almost certainly relates to a combination of ischemic change [watershed territory, enhancing component subacute chronicity]. Finalized by Gene Andres MD on 12/03/2023 9:11 AM Normal [facility] MR SPECTROSCOPY NEUROon 05- MR SPECTROSCOPY NEURO MR SPECTROSCOPY NE URO MR SPECTROSCOPY NEURO CLINICAL INFORMATION: Enhancing brain lesion, concern for underlying malignancy. COMPARISON: None. PROCEDURE: MR spectroscopy performed. Intermediate TE planar Spectroscopy with interrogated voxels in the right paramedian perirolandic region, long TE single voxel spectroscopy placed in the right and left centrum semiovale as well. IMPRESSION: Proliferative pattern of metabolites within the right centrum semiovale region of interest [elevated choline with respect other metabolites], while metabolic signature is somewhat worrisome, overall findings [when combined with anatomic appearance and vascular findings] are felt to be unlikely related to neoplasm. Consider repeat MR with and without contrast, in 3 months. Finalized by Gene Andres MD on 12/03/2023 9:15 AM Normal [facility] BASIC METABOLIC PANLon 12-01 Anion gap [Moles/Vol] 7 mmol/L Normal - [facility] Comment on above: Performed By: #### B MP ####[facility] ([id number])[address] [place] [address] Calcium [Mass/Vol] 8.9 mg/dL Normal 8.5-10.5 [facility] Comment on above: Performed By: #### B MP ####[facility] ([id number])[address], [address] [place] [address] Chloride [Moles/Vol] 105 mmol/L Normal 98-109 [facility] Comment on above: Performed By: #### B MP ####[facility] ([id number])[address] [address] [place] [address] CO2 [Moles/Vol] 25 mmol/L Normal 22-32 [facility] Comment on above: Performed By: #### B MP ####[facility] ([id number])[address] [address] [place] [address] Creatinine [Mass/Vol] 0.80 mg/dL Normal 0.40-1.00 [facility] Comment on above: Result Comment: METH OD TRACEABLE TO IDMS STANDARD Performed By: #### B MP ####[facility] ([id number])[address] [address], [place] [address] eGFR (CKD-EPI) NON-RACE DEPENDENT >90 Normal >59 [facility] Comment on above: Result Comment: Reported eGFR is based on the CKD-EPI 2020 equation that does not use a race coefficient. Performed By: #### B MP ####[facility] ([id number])[address] [address], [place] [address] Glucose [Mass/Vol] 142 mg/dL High 65-99 [facility] Comment on above: Performed By: #### B MP ####[facility] ([id number])[address] [address] [place] [address] Potassium [Moles/Vol] 3.9 mmol/L Normal 3.5-5.0 [facility] Comment on above: Performed By: #### B MP ####[facility] ([id number])[address] [address] [place] [address] Sodium [Moles/Vol] 137 mmol/L Normal 134-146 [facility] Comment on above: Performed By: #### B MP ####[facility] ([id number])[address] [address], [place] [address] Urea nitrogen [Mass/Vol] 20 mg/dL Normal 5-23 [facility] Comment on above: Performed By: #### B MP ####[facility] ([id number])[address], [place] [address] CBC AND AUTO DIFFon 05-15-20 24 ABSOLUTE BASOPHIL 0.1 X10E9/L Normal 0.0-0.2 [facility] Comment on above: Performed By: #### C BCA, CMP ####[facility] ([id number])[address], [place] [address] ABSOLUTE NEUTROPHIL 4.9 X10E9/L Normal 1.5-6.6 [facility] Comment on above: Performed By: #### C BCA, CMP ####[facility] ([id number])[address] [address], [place] [address] Basophils/100 WBC (Bld) 0.6 % Normal [facility] Comment on above: Performed By: #### C BCA, CMP ####[facility] ([id number])[address] [address] Eosinophils (Bld) [#/Vol] 0.1 10*3/uL Normal 0.0-0.4 [facility] Comment on above: Performed By: #### C BCA, CMP ####[facility] ([id number])[address] [address] Eosinophils/100 WBC (Bld) 1.3 % Normal [facility] Comment on above: Performed By: #### C BCA, CMP ####[facility] ([id number])[address] [address] [place] [address] Erythrocyte distribution width (RBC) [Ratio] 14.4 % Normal 11.5-15.0 [facility] Comment on above: Performed By: #### C BCA, CMP ####[facility] ([id number])[address], [place] [address] Hematocrit (Bld) [Volume fraction] 31.5 % Low 35-47 [facility] Comment on above: Performed By: #### C BCA, CMP ####[facility] ([id number])[address], [place] [address] Hemoglobin (Bld) [Mass/Vol] 10.7 g/dL Low 11.7-15. 5 [facility] Comment on above: Performed By: #### C DELFINO, CMP ####[facility] ([id number])[address] [place] [address] Lymphocytes (Bld) [#/Vol] 4.6 10*3/uL High 1.0-3.5 [facility] Comment on above: Performed By: #### C DELFINO, CMP ####[facility] ([id number])[address] [address] [place] [address] Lymphocytes/100 WBC (Bld) 44.8 % Normal [facility] Comment on above: Performed By: #### C BCA, CMP ####[facility] ([id number])[address], [place] [address] MCH (RBC) [Entitic mass] 28.4 pg Normal 27-34 [facility] Comment on above: Performed By: #### C BCA, CMP ####[facility] ([id number])[address], [place] [address] MCHC (RBC) [Mass/Vol] 34.1 g/dL Normal 32-36 [facility] Comment on above: Performed By: #### C BCA, CMP ####[facility] ([id number])[address], [place] [address] MCV (RBC) [Entitic vol] 83 fL Normal 80-100 [facility] Comment on above: Performed By: #### C BCA, CMP ####[facility] ([id number])[address], [place] [address] Monocytes (Bld) [#/Vol] 0.6 10*3/uL Normal 0-0.9 [facility] Comment on above: Performed By: #### C BCA, CMP ####[facility] ([id number])[address], [place] [address] Monocytes/100 WBC (Bld) 5.5 % Normal [facility] Comment on above: Performed By: #### C BCA, CMP ####[facility] ([id number])[address], [place] [address] Neutrophils/100 WBC (Bld) 47.8 % Normal [facility] Comment on above: Performed By: #### C BCA, CMP ####[facility] ([id number])[address], [place] [address] Platelet mean volume (Bld) [Entitic vol] 7.6 fL Normal 7-12 [facility] Comment on above: Performed By: #### C BCA, CMP ####[facility] ([id number])[address], [place] [address] Platelets (Bld) [#/Vol] 530 10*3/uL High 150-450 [facility] Comment on above: Performed By: #### C BCA, CMP ####[facility] ([id number])[address], [place] [address] RBC COUNT 3.78 X10E12/L Low 3.80-5.20 [facility] Comment on above: Performed By: #### C BCA, CMP ####[facility] ([id number])[address], [place] [address] WBC (Bld) [#/Vol] 10.3 10*3/uL Normal 4.0-11.0 [facility] Comment on above: Performed By: #### C BCA, CMP ####[facility] ([id number])[address], [place] [address] COMPREHENSIVE METABOLIC PANE Zackery 12-02-2023 Albumin [Mass/Vol] 3.6 g/dL Normal 3.2-5.3 [facility] Comment on above: Performed By: #### C BCA, CMP ####[facility] ([id number])[address], [place] [address] ALP [Catalytic activity/Vol] 66 U/L Normal 39-130 [facility] Comment on above: Performed By: #### C BCA, CMP ####[facility] ([id number])[address], [place] [address] ALT [Catalytic activity/Vol] 9 U/L Normal 0-31 [facility] Comment on above: Performed By: #### C BCA, CMP ####[facility] ([id number])[address], [place] [address] Anion gap [Moles/Vol] 9 mmol/L Normal 5-15 [facility] Comment on above: Performed By: #### C BCA, CMP ####[facility] ([id number])[address], [place] [address] AST [Catalytic activity/Vol] 15 U/L Normal 0-41 [facility] Comment on above: Performed By: #### C BCA, CMP ####[facility] ([id number])[address], [place] [address] Bilirubin [Mass/Vol] 0.4 mg/dL Normal 0.3-1.2 [facility] Comment on above: Performed By: #### C BCA, CMP ####[facility] ([id number])[address] [address] [place] [address] Calcium [Mass/Vol] 9.3 mg/dL Normal 8.5-10.5 [facility] Comment on above: Performed By: #### C BCA, CMP ####[facility] ([id number])[address], [place] [address] Chloride [Moles/Vol] 103 mmol/L Normal 98-109 [facility] Comment on above: Performed By: #### C BCA, CMP ####[facility] ([id number])[address], [place] [address] CO2 [Moles/Vol] 24 mmol/L Normal 22-32 [facility] Comment on above: Performed By: #### C BCA, CMP ####[facility] ([id number])[address] [address], [place] [address] Creatinine [Mass/Vol] 0.89 mg/dL Normal 0.40-1.00 [facility] Comment on above: Result Comment: METH OD TRACEABLE TO IDMS STANDARD Performed By: #### C BCA, CMP ####[facility] ([id number])[address] [address], [place] [address] GFR/1.73 sq M.predicted among non-blacks MDRD (S/P/Bld) [Vol rate/Area] 89 mL/min/{1.73_m2} Normal >59 Pr [facility] Comment on above: Result Comment: Reported eGFR is based on the CKD-EPI 2020 equation that does not use a race coefficient. Performed By: #### C BCA, CMP ####[facility] ([id number])[address] [address], [place] [address] Glucose [Mass/Vol] 190 mg/dL High 65-99 [facility] Comment on above: Performed By: #### C BCA, CMP ####[facility] ([id number])[address], [place] [address] Potassium [Moles/Vol] 4.6 mmol/L Normal 3.5-5.0 [facility] Comment on above: Performed By: #### C BCA, CMP ####[facility] ([id number])[address], [place] [address] Protein [Mass/Vol] 7.0 g/dL Normal 6.0-8.0 [facility] Comment on above: Performed By: #### C BCA, CMP ####[facility] ([id number])[address] [place] [address] Sodium [Moles/Vol] 136 mmol/L Normal 134-146 [facility] Comment on above: Performed By: #### C BCA, CMP ####[facility] ([id number])[address] [place] [address] Urea nitrogen [Mass/Vol] 19 mg/dL Normal 5-23 [facility] Comment on above: Performed By: #### C BCA, CMP ####[facility] ([id number])[address] [place] [address] Glucose Glucometer (BldC) [M ass/Vol]on 12-02-2023 Glucose [Mass/Vol] 356 mg/dL High 65-99 [facility] Glucose [Mass/Vol] 244 mg/dL High 65-99 [facility] Glucose [Mass/Vol] 321 mg/dL High 65-99 [facility] Glucose [Mass/Vol] 141 mg/dL High 65-99 [facility] CSF CULTUREon 12-01-2023 Bacteria identified Cx Nom (CSF) GRAM STAIN WHITE BLOOD CELLS PRESENT NO ORGANISMS SEEN ON CONCENTRATED SMEAR CULTURE RESULTS NO GROWTH 5 DAYS Normal [facility] Comment on above: Performed By: #### 6 06-4 ####[facility] ([id number])[address] [place] [address], [address] [place] [address] Cytologyon 12-01-2023 Cytology Normal [facility] Comment on above: Result Comment: [facility] [address] [place] [address] Cytology Consultation Patient Name:JOLIE STANLEY:1990 (Age: 33)Gender:FTaken:4Reported:12/02/2023 12:41Physician(s):Kelly Millan MD ([phone])Copy To:[place], [facility] Centeression #:[id number]. Rec. #:[id number]: #[id number] Final Cytologic Diagnosis Cerebrospinal fluid: No malignant cells identified. k/12/02/2023 Interpretation performed at [facility], [address] [place] [address], License number: [id number].Electronically Signed Out By Jennifer Butler MD Clinical History Left arm weakness R29.898, Multiple months of intermittent sensory and motor symptoms, MRI showing lesion in right frontoparietal region. Gross Description Received was 2mL of clear colorless fluid unfixed labeled as Stanley, CSF . Also received is one cytospin slide from Hematology. Source of Specimen Cerebrospinal fluid Non [employer] ThinPrep, Cytospin Slide Fee Code(s): 1; 90320 Encephalopathy autoimmune Ab panel (CSF)on 12-01-2023 ENCEPHALOPATHY-AUTOIMMUNE EVAL - CSF SEE COMMENTS 12/08/2023 09:08 AM Normal [facility] Comment on above: Result Comment: NOTE Test Result Flag Unit RefValue -------- Enceph, Autoimm/Paraneo, CSF Encephalopathy, Interpretation, See Note CSF No informative autoantibodies were detected in this evaluation. However, a negative result does not exclude autoimmune encephalopathy, idiopathic or paraneoplastic. Sensitivity and specificity of antibody testing are enhanced by testing both serum and CSF. IFA Notes None. AMPA-R Ab CBA, CSF Negative Negative ADDITIONAL INFORMATION This test was developed and its performance characteristics determined by [facility] in a manner consistent with CLIA requirements. This test has not been cleared or approved by the U.S. Food and Drug Administration. Amphiphysin Ab, CSF Negative Negative ADDITIONAL INFORMATION This test was developed and its performance characteristics determined by [facility] in a manner consistent with CLIA requirements. This test has not been cleared or approved by the U.S. Food and Drug Administration. AGNA-1, CSF Negative Negative ADDITIONAL INFORMATION This test was developed and its performance characteristics determined by [facility] in a manner consistent with CLIA requirements. This test has not been cleared or approved by the U.S. Food and Drug Administration. AMANDO-1, CSF Negative Negative ADDITIONAL INFORMATION This test was developed and its performance characteristics determined by [facility] in a manner consistent with CLIA requirements. This test has not been cleared or approved by the U.S. Food and Drug Administration. AMANDO-2, CSF Negative Negative ADDITIONAL INFORMATION This test was developed and its performance characteristics determined by [facility] in a manner consistent with CLIA requirements. This test has not been cleared or approved by the U.S. Food and Drug Administration. AMANDO-3, CSF Negative Negative ADDITIONAL INFORMATION This test was developed and its performance characteristics determined by [facility] in a manner consistent with CLIA requirements. This test has not been cleared or approved by the U.S. Food and Drug Administration. CASPR2-IgG CBA, CSF Negative Negative ADDITIONAL INFORMATION This test was developed and its performance characteristics determined by [facility] in a manner consistent with CLIA requirements. This test has not been cleared or approved by the U.S. Food and Drug Administration. CRMP-5-IgG, CSF Negative Negative ADDITIONAL INFORMATION This test was developed and its performance characteristics determined by [facility] in a manner consistent with CLIA requirements. This test has not been cleared or approved by the U.S. Food and Drug Administration. DPPX Ab IFA, CSF Negative Negative ADDITIONAL INFORMATION This test was developed and its performance characteristics determined by [facility] in a manner consistent with CLIA requirements. This test has not been cleared or approved by the U.S. Food and Drug Administration. AMARA-B-R Ab CBA, CSF Negative Negative ADDITIONAL INFORMATION This test was developed and its performance characteristics determined by [facility] in a manner consistent with CLIA requirements. This test has not been cleared or approved by the U.S. Food and Drug Administration. GAD65 Ab Assay, CSF 0.00 nmol/L <= 0.02 ADDITIONAL INFORMATION This test was developed and its performance characteristics determined by [facility] in a manner consistent with CLIA requirements. This test has not been cleared or approved by the U.S. Food and Drug Administration. GFAP IFA, CSF Negative Negative ADDITIONAL INFORMATION This test was developed and its performance characteristics determined by [facility] in a manner consistent with CLIA requirements. This test has not been cleared or approved by the U.S. Food and Drug Administration. IgLON5 IFA, CSF Negative Negative ADDITIONAL INFORMATION This test was developed and its performance characteristics determined by [facility] in a manner consistent with CLIA requirements. This test has not been cleared or approved by the U.S. Food and Drug Administration. LGI1-IgG CBA, CSF Negative Negative ADDITIONAL INFORMATION This test was developed and its performance characteristics determined by [facility] in a manner consistent with CLIA requirements. This test has not been cleared or approved (more content not included)... Performed By: #### 9 4708-5 ####[facility] ([id number])2130 [facility], [address] [address] FERRITINon 12-01-2023 Ferritin [Mass/Vol] 10 ng/mL Low 11-307 [facility] Comment on above: Performed By: #### 4 679-7, FEPR, 6-4, 2283-8, 2132-03 ####[facility] ([id number])2130 [facility], [address] [place] [address] Folate [Mass/Vol]on 12-01-19 24 FOLIC ACID 12.0 ng/mL Normal >5.8 [facility] Comment on above: Result Comment: NEW REFERENCE RANGE Performed By: #### 4 679-7, FEPR, 2276-4, 2284-8, 2132-03 ####[facility] ([id number])[address], [address], [place] [address] Glucose (CSF) [Mass/Vol]on 0 12-01-2023 CSF GLUCOSE 130 mg/dL High 40-70 [facility] Comment on above: Performed By: #### C MP #### [facility] ([id number]) [address], [address] [place] [address] Glucose Glucometer (BldC) [M ass/Vol]on 12-01-2023 Glucose [Mass/Vol] 377 mg/dL High 65-99 [facility] Glucose [Mass/Vol] 193 mg/dL High 65-99 [facility] Glucose [Mass/Vol] 170 mg/dL High 65-99 [facility] Glucose [Mass/Vol] 209 mg/dL High 65-99 [facility] IRON PROFILEon 12-01-2023 Iron [Mass/Vol] 46 ug/dL Low 50-170 [facility] Comment on above: Performed By: #### 4 679-7, FEPR, 6-4, 2284-02, 2132-03 ####[facility] ([id number])[address], [address] [place] [address] IRON BINDING 371 ug/dL Normal 250-425 [facility] Comment on above: Performed By: #### 4 679-7, FEPR, 6-4, 2284-02, 2132-03 ####[facility] ([id number])[address], [address] [place] [address] IRON SATURATION 12 % SATURATION Low 15-50 [facility] Comment on above: Performed By: #### 4 679-7, FEPR, 2276-4, 2283-, 2132-03 ####[facility] ([id number])[address], [address], [place] [address] Laboratory comment Philip (Repo rt)on 12-01-2023 UNLISTED LAB TEST Sent to reference lab Normal [facility] MENINGITIS PANELon Meningitis+Encephalitis pathogens DNA and RNA panel NGOC+non-probe (CSF) SPECIMEN SOURCE CEREBROSPINAL FLUID E COLI K1 Not detected (qualifier value) H INFLUENZAE Not detected (qualifier value) L MONOCYTOGENES Not detected (qualifier value) N MENINGITIDIS Not detected (qualifier value) S AGALACTIAE Not detected (qualifier value) S PNEUMONIAE Not detected (qualifier value) CMV Not detected (qualifier value) ENTEROVIRUS Not detected (qualifier value) HERPES SIMPLEX 1 Not detected (qualifier value) HERPES SIMPLEX 2 Not detected (qualifier value) HERPES VIRUS 6 Not detected (qualifier value) PARECHOVIRUS Not detected (qualifier value) VARICELLA ZOSTER Not detected (qualifier value) C NEOFORMANS Not detected (qualifier value) Normal NDET [facility] Comment on above: Performed By: #### C MP #### [facility] ([id number]) [address] [place] [address], [facility] [address] [place] [address] Myelin basic protein (CSF) [ Mass/Vol]on 12-01-2023 MYELIN BASIC PROTCSF 8.41 ng/mL High 0.00-5.50 [facility] Comment on above: Result Comment: NOTE INTERPRETIVE INFORMATION: Myelin Basic Protein This test was developed and its performance characteristics determined by [facility]. It has not been cleared or approved by the US Food and Drug Administration. This test was performed in a CLIA certified laboratory and is intended for clinical purposes. Performed By: [facility] [address] [place] [address] Activities Aide: Kyler Mitchell MD, PhD CLIA Number: [id number] Performed By: #### C MP #### [facility] ([id number]) [address] [place] [address], [address] [place] [address] OLIGOCLONAL BANDINGon 2023 CSF BANDS OLIG 0 bands Normal [facility] Comment on above: Performed By: #### C MP #### [facility] ([id number]) [address] [place] [address], [address] [place] [address] CSF OLIG BANDS INTERP 0 bands Normal <2 [facility] Comment on above: Result Comment: NOTE The oligoclonal band assay detected no unique IgG bands in the CSF. This is a negative result. Test Performed by: [facility] [address] [place] [address] Chain Testing Machine Operator: Zain Mahan M.D. Ph.D.; CLIA# [id number] Performed By: #### C MP #### [facility] ([id number]) [address] [facility], [address] [place] [address] SERUM BANDS OLIG 0 bands Normal [facility] Comment on above: Performed By: #### C MP #### [facility] ([id number]) [address] [place] [address], [address] [place] [address] Protein (CSF) [Mass/Vol]on 0 12-01-2023 CSF TOTAL PROTEIN 86 mg/dL High 15-45 [facility] Comment on above: Performed By: #### C MP #### [facility] ([id number]) [address] [facility], [facility] [address] [place] [address] Reference Lab Test IDon 05-1 IGG SYNTHESIS See Below Normal [facility] Comment on above: Result Comment: NOTE TEST RESULT FLAG UNIT REF.RANGE Immunoglobulin G, CSF 4.9 H mg/dL 1.0-3.0 Albumin, CSF 25.1 mg/dL 10.0-30.0 IgG/Albumin Ratio 0.20 H 0.06-0.17 [employer] IGG Synthesis 3.6 H mg/day 0.0-3.0 IGG Index 0.64 H 0.00-0.61 Serum IgG 1043 mg/dL 700-1600 Albumin, Serum 3400 L mg/dL 8135-1525 Test Performed By: [facility] [employer] [address] [place] [address] Activities Aide: Hemal Prince IIIIA #[id number] Performed By: #### C MP #### [facility] ([id number]) [address] [facility], [address] [place] [address] Reticulocytes/100 RBC (Bld)o n 12-01-2023 RETICULOCYTE COUNT 2.0 % Normal 0.4-2.2 [facility] Comment on above: Performed By: #### 4 679-7, FEPR, 2276-4, 2284-8, 2132-9 ####[facility] ([id number])[address] [facility], [address], [place] [address] SPINAL FLUID CELL CTon 11-30 CSF CLARITY CLEAR Normal [facility] Comment on above: Performed By: #### C MP #### [facility] ([id number]) [address] [facility], [address] [place] [address] CSF COLOR COLORLESS Normal [facility] Comment on above: Performed By: #### C MP #### [facility] ([id number]) [address] [facility], [address] [place] [address] CSF COMMENT TUBE 3 Normal [facility] Comment on above: Performed By: #### C MP #### [facility] ([id number]) [address], [address] [place] [address] CSF NUCLEATED CELLS 0 /uL Normal 0-5 [employer] [facility] Comment on above: Performed By: #### C MP #### [facility] ([id number]) [address], [address] [place] [address] CSF RBC 4 /uL High 0-1 [facility] Comment on above: Performed By: #### C MP #### [facility] ([id number]) [address] [facility], [address] [place] [address] CSF SUPERNATANT COLORLESS Normal [facility] Comment on above: Performed By: #### C MP #### [facility] ([id number]) [address] [address] [place] DIFF NUCLEATED CELLS <5/uL; DIFF NOT TESTED Normal [facility] Comment on above: Performed By: #### C MP #### [facility] ([id number]) [address] [facility], [address] [address] VDRL,CSFon 12-01-2023 VDRL ON CSF Non-Reactive Normal Nonreactive [facility] Comment on above: Result Comment: NOTE CSF VDRL test is used an aid in diagnosis of neurosyphilis. CSF VDRL detects non-treponemal antibodies and has lower sensitivity than CSF treponemal tests such as FTA, therefore a negative result cannot reliably rule out neurosyphilis. Clinical correlation is required. Test Performed By: [place] [address] Activities Aide: Chung Ruelas III, M.D. [place] #[id number] Performed By: #### C MP #### [facility] ([id number]) [address] [address] VITAMIN B12on 12-01-2023 Cobalamin (Vitamin B12) [Mass/Vol] pg/mL High 180-914 [facility] Comment on above: Performed By: #### 4 679-7, FEPR, 2276-4, 2284-8, 2131-9 ####[facility] ([id number])[address] [address] aPTT Coag (PPP) [Time]on aPTT Coag (Bld) [Time] 40 s High 26-37 Pr [facility] Comment on above: Performed By: #### 1 4979-9 ####[facility] ([id number])[address] [address] tTG IgA IA Qn (S)on 12-01-19 TTG AB IGA <1.2 Normal <4.0 (Negative) [facility] Comment on above: Result Comment: NOTE Test Performed by: [facility] [address] [place] [address] Chain Testing Machine Operator: Zain Mahan M.D. Ph.D.; CLIA# [id number] CBC AND AUTO DIFFon 11-30-19 ABSOLUTE BASOPHIL 0.1 X10E9/L Normal 0.0-0.2 [facility] Comment on above: Performed By: #### C BCA #### [facility] ([id number]) [address] [facility], [address] [place] [address] ABSOLUTE NEUTROPHIL 5.1 X10E9/L Normal 1.5-6.6 [facility] Comment on above: Performed By: #### C BCA #### [facility] ([id number]) [address], [address] [place] [address] Basophils/100 WBC (Bld) 0.7 % Normal P [facility] Comment on above: Performed By: #### C BCA #### [facility] ([id number]) [address], [address] [place] [address] Eosinophils (Bld) [#/Vol] 0.1 10*3/uL Normal 0.0-0.4 [facility] Comment on above: Performed By: #### C BCA #### [facility] ([id number]) [address], [address] [place] [address] Eosinophils/100 WBC (Bld) 1.1 % Normal [facility] Comment on above: Performed By: #### C BCA #### [facility] ([id number]) [address], [address] [place] [address] Erythrocyte distribution width (RBC) [Ratio] 14.8 % Normal 11.5-15.0 [facility] Comment on above: Performed By: #### C BCA #### [facility] ([id number]) [address], [address] [place] [address] Hematocrit (Bld) [Volume fraction] 31.8 % Low 35-47 [facility] Comment on above: Performed By: #### C BCA #### [facility] ([id number]) [address], [address] [place] [address] Hemoglobin (Bld) [Mass/Vol] 11.0 g/dL Low 11.7-15. 5 [facility] Comment on above: Performed By: #### C BCA #### [facility] ([id number]) [address], [address] [place] [address] Lymphocytes (Bld) [#/Vol] 3.5 10*3/uL Normal 1.0-3.5 [facility] Comment on above: Performed By: #### C BCA #### [facility] ([id number]) [address], [address] [place] [address] Lymphocytes/100 WBC (Bld) 38.1 % Normal [facility] Comment on above: Performed By: #### C BCA #### [facility] ([id number]) [address], [address] [place] [address] MCH (RBC) [Entitic mass] 28.7 pg Normal 27-34 [facility] Comment on above: Performed By: #### C BCA #### [facility] ([id number]) [address], [address] [place] [address] MCHC (RBC) [Mass/Vol] 34.5 g/dL Normal 32-36 [facility] Comment on above: Performed By: #### C BCA #### [facility] ([id number]) [address], [address] [place] [address] MCV (RBC) [Entitic vol] 83 fL Normal 80-100 P [facility] Comment on above: Performed By: #### C BCA #### [facility] ([id number]) [address], [address] [place] [address] Monocytes (Bld) [#/Vol] 0.4 10*3/uL Normal 0-0.9 [facility] Comment on above: Performed By: #### C BCA #### [facility] ([id number]) [address], [address] [place] [address] Monocytes/100 WBC (Bld) 4.2 % Normal P [facility] Comment on above: Performed By: #### C BCA #### [facility] ([id number]) [address], [address] [place] [address] Neutrophils/100 WBC (Bld) 55.9 % Normal [facility] Comment on above: Performed By: #### C BCA #### [facility] ([id number]) [address], [address] [place] [address] Platelet mean volume (Bld) [Entitic vol] 7.6 fL Normal 7-12 [facility] Comment on above: Performed By: #### C BCA #### [facility] ([id number]) [address], [address] [place] [address] Platelets (Bld) [#/Vol] 570 10*3/uL High 150-450 [facility] Comment on above: Performed By: #### C BCA #### [facility] ([id number]) [address], [address] [place] [address] RBC COUNT 3.81 X10E12/L Normal 3.80-5.20 [facility] Comment on above: Performed By: #### C BCA #### [facility] ([id number]) [address], [address] [place] [address] WBC (Bld) [#/Vol] 9.1 10*3/uL Normal 4.0-11.0 [facility] Comment on above: Performed By: #### C BCA #### [facility] ([id number]) [address], [address] [place] [address] COMPREHENSIVE METABOLIC PANE Zackery 11-30-2023 Albumin [Mass/Vol] 3.4 g/dL Normal 3.2-5.3 [facility] Comment on above: Performed By: #### C BCA #### [facility] ([id number]) [address], [address] [place] [address] ALP [Catalytic activity/Vol] 71 U/L Normal 39-130 [facility] Comment on above: Performed By: #### C BCA #### [facility] ([id number]) [address], [address] [place] [address] ALT [Catalytic activity/Vol] 11 U/L Normal 0-31 [facility] Comment on above: Performed By: #### C BCA #### [facility] ([id number]) [address], [address] [place] [address] Anion gap [Moles/Vol] 10 mmol/L Normal 5-15 [facility] Comment on above: Performed By: #### C BCA #### [facility] ([id number]) [address], [address] [place] [address] AST [Catalytic activity/Vol] 14 U/L Normal 0-41 [facility] Comment on above: Performed By: #### C BCA #### [facility] ([id number]) [address], [address] [place] [address] Bilirubin [Mass/Vol] 0.4 mg/dL Normal 0.3-1.2 [facility] Comment on above: Performed By: #### C BCA #### [facility] ([id number]) [address], [address] [place] [address] Calcium [Mass/Vol] 9.2 mg/dL Normal 8.5-10.5 [facility] Comment on above: Performed By: #### C BCA #### [facility] ([id number]) [address], [address] [place] [address] Chloride [Moles/Vol] 100 mmol/L Normal 98-109 [facility] Comment on above: Performed By: #### C BCA #### [facility] ([id number]) [address] [facility], [address] [place] [address] CO2 [Moles/Vol] 24 mmol/L Normal 22-32 [facility] Comment on above: Performed By: #### C BCA #### [facility] ([id number]) [address] [facility], [address] [place] [address] Creatinine [Mass/Vol] 0.88 mg/dL Normal 0.40-1.00 [facility] Comment on above: Result Comment: METH OD TRACEABLE TO IDMS STANDARD Performed By: #### C BCA #### [facility] ([id number]) [address] [facility], [address] [place] [address] eGFR (CKD-EPI) NON-RACE DEPENDENT >90 Normal >59 [facility] Comment on above: Result Comment: Reported eGFR is based on the CKD-EPI 2020 equation that does not use a race coefficient. Performed By: #### C BCA #### [facility] ([id number]) [address], [address] [place] [address] Glucose [Mass/Vol] 247 mg/dL High 65-99 [facility] Comment on above: Performed By: #### C BCA #### [facility] ([id number]) [address], [address] [place] [address] Potassium [Moles/Vol] 4.2 mmol/L Normal 3.5-5.0 [facility] Comment on above: Performed By: #### C BCA #### [facility] ([id number]) [address], [address] [place] [address] Protein [Mass/Vol] 6.8 g/dL Normal 6.0-8.0 [facility] Comment on above: Performed By: #### C BCA #### [facility] ([id number]) [address], [facility] [address] [place] [address] Sodium [Moles/Vol] 134 mmol/L Normal 134-146 [facility] Comment on above: Performed By: #### C BCA #### [facility] ([id number]) [address], [facility] [address] [place] [address] Urea nitrogen [Mass/Vol] 16 mg/dL Normal 5-23 [facility] Comment on above: Performed By: #### C BCA #### [facility] ([id number]) [address] [address] Encephalopathy autoimmune Ab panel (CSF)on 11-30-2023 ENCEPHALOPATHY-AUTOIMMUNE EVAL - SERUM SEE COMMENTS 12/07/2023 03:59 PM Abnormal [facility] Comment on above: Result Comment: NOTE Test Result Flag Unit RefValue -------- Encephalopathy, Autoimm/Paraneo, S Encephalopathy, Interpretation, See Note S The following antibody was identified: Glutamic Acid Decarboxylase. * This profile is consistent with predisposition to thyrogastric disorders, including thyroiditis, pernicious anemia, and type 1 diabetes, but has low specificity for autoimmune encephalopathy. GAD65 antibody values less than 2.00 nM have a lower positive predictive value for neurological autoimmunity than values of 20.0 nM and higher. * IFA Notes None. AMPA-R Ab CBA, S Negative Negative ADDITIONAL INFORMATION This test was developed and its performance characteristics determined by [facility] in a manner consistent with CLIA requirements. This test has not been cleared or approved by the U.S. Food and Drug Administration. Amphiphysin Ab, S Negative Negative ADDITIONAL INFORMATION This test was developed and its performance characteristics determined by [facility] in a manner consistent with CLIA requirements. This test has not been cleared or approved by the U.S. Food and Drug Administration. AGNA-1, S Negative Negative ADDITIONAL INFORMATION This test was developed and its performance characteristics determined by [facility] in a manner consistent with CLIA requirements. This test has not been cleared or approved by the U.S. Food and Drug Administration. AMANDO-1, S Negative Negative ADDITIONAL INFORMATION This test was developed and its performance characteristics determined by [facility] in a manner consistent with CLIA requirements. This test has not been cleared or approved by the U.S. Food and Drug Administration. AMANDO-2, S Negative Negative ADDITIONAL INFORMATION This test was developed and its performance characteristics determined by [facility] in a manner consistent with CLIA requirements. This test has not been cleared or approved by the U.S. Food and Drug Administration. AMANDO-3, S Negative Negative ADDITIONAL INFORMATION This test was developed and its performance characteristics determined by [facility] in a manner consistent with CLIA requirements. This test has not been cleared or approved by the U.S. Food and Drug Administration. CASPR2-IgG CBA, S Negative Negative ADDITIONAL INFORMATION This test was developed and its performance characteristics determined by [facility] in a manner consistent with CLIA requirements. This test has not been cleared or approved by the U.S. Food and Drug Administration. CRMP-5-IgG, S Negative Negative ADDITIONAL INFORMATION This test was developed and its performance characteristics determined by [facility] in a manner consistent with CLIA requirements. This test has not been cleared or approved by the U.S. Food and Drug Administration. DPPX Ab IFA, S Negative Negative ADDITIONAL INFORMATION This test was developed and its performance characteristics determined by [facility] in a manner consistent with CLIA requirements. This test has not been cleared or approved by the U.S. Food and Drug Administration. AMARA-B-R Ab CBA, S Negative Negative ADDITIONAL INFORMATION This test was developed and its performance characteristics determined by [facility] in a manner consistent with CLIA requirements. This test has not been cleared or approved by the U.S. Food and Drug Administration. GAD65 Ab Assay, S 1.34 H nmol/L <= 0.02 ADDITIONAL INFORMATION This test was developed and its performance characteristics determined by [facility] in a manner consistent with CLIA requirements. This test has not been cleared or approved by the U.S. Food and Drug Administration. GFAP IFA, S Negative Negative ADDITIONAL INFORMATION This test was developed and its performance characteristics determined by [facility] in a manner consistent with CLIA requirements. This test has not been cleared or approved by the U.S. Food and Drug Administration. IgLON5 IFA, S Negative Negative ADDITIONAL INFORMATION This test was developed and its performance characteristics determined by [facility] in a manner consistent with CLIA requirements. This test has not been cleared or approved by the U.S. Food and Drug Administration. LGI1-IgG CBA, S Negative Negative ADDITIONAL INFORMATION This test was developed and its performance (more content not included)... Performed By: #### 5 6888-1, 83286-5, FEPR, 2276-4, 2132-9 ####[facility] ([id number])[facility], [address] [place] [address] FERRITINon 11-30-2023 Ferritin [Mass/Vol] 15 ng/mL Normal 11-307 [facility] Comment on above: Performed By: #### C BCA #### [facility] ([id number]) [address] [place] [address], [address] [place] [address] Glucose Glucometer (BldC) [M ass/Vol]on 11-30-2023 Glucose [Mass/Vol] 272 mg/dL High 65-99 [facility] Glucose [Mass/Vol] 258 mg/dL High 65-99 [facility] Glucose [Mass/Vol] 226 mg/dL High 65-99 [facility] Glucose [Mass/Vol] 208 mg/dL High 65-99 [facility] HIV 1+2 Ab+HIV1 p24 Ag IA Ql on 11-30-2023 HIV 1 and 2 Ab/Ag Screen Non-Reactive Normal NRCT [facility] Comment on above: Result Comment: This information has been disclosed to you from confidential records protected from disclosure by state law. You shall make no further disclosure of this information without the specific, written and informed release of the individual to whom it pertains, or as otherwise permitted by state law. A general authorization for the release of medical or other information is not sufficient for the purpose of the release of HIV test results or diagnoses. Performed By: #### C BCA #### [facility] ([id number]) [address] [address] IGAon 11-30-2023 IgA [Mass/Vol] 248 mg/dL Normal 68-378 [facility] Comment on above: Performed By: #### 2 458-8 ####[facility] ([id number])[address] [address] IRON PROFILEon 11-30-2023 Iron [Mass/Vol] 54 ug/dL Normal 50-170 [facility] Comment on above: Performed By: #### C BCA #### [facility] ([id number]) [address] [address] IRON BINDING 353 ug/dL Normal 250-425 [facility] Comment on above: Performed By: #### C BCA #### [facility] ([id number]) [address] [address] IRON SATURATION 15 % SATURATION Normal 15-50 [facility] Comment on above: Performed By: #### C BCA #### [facility] ([id number]) [address] [address] Intrinsic factor blocking Ab Ql (S)on 11-30-2023 IF BLOCKING AB See Below Normal [facility] Comment on above: Result Comment: NOTE TEST RESULT FLAG UNIT REF.RANGE Intrinsic Factor Ab Positive A Negative Performed By: [facility] [address] [place] [address] Activities Aide: Kyler Mitchell MD, PhD CLIA Number: [id number] Performed By: #### 5 6888-1, 39797-8, FEPR, 2276-4, 2132-9 ####[facility] ([id number])[address] [place] [address], [address] [place] [address] Methylmalonate [Moles/Vol]on 11-30-2023 MMA QN 2.82 umol/L High <=0.40 [facility] Comment on above: Result Comment: NOTE This test was developed and its performance characteristics determined by [facility] [place] ([facility]). It has not been cleared or approved by the FDA. [facility] is regulated under CLIA as qualified to perform high-complexity testing. This test is used for clinical purposes. It should not be regarded as investigational or for research. Test Performed By: [place] [address] Activities Aide: Chung Ruelas III, M.D. [place] #[id number] Performed By: #### 2 458-8 ####[facility] ([id number])[address] [place] [address], [address] [address] Pyridoxine [Mass/Vol]on 11-17 VITAMIN B6 22.8 nmol/L Normal 20.0-125.0 [facility] Comment on above: Result Comment: NOTE INTERPRETIVE INFORMATION: Vitamin B6 (Pyridoxal 5-Phosphate) Pyridoxal 5'-phosphate measured in a specimen collected following an 8-hour or overnight fast accurately indicates vitamin B6 nutritional status. Non-fasting specimen concentration reflects recent vitamin intake. This test was developed and its performance characteristics determined by [facility]. It has not been cleared or approved by the US Food and Drug Administration. This test was performed in a CLIA certified laboratory and is intended for clinical purposes. Performed By: [facility] [address] [place] [address] Activities Aide: Kyler Mitchell MD, PhD CLIA Number: [id number] Performed By: #### 5 6888-1, 49055-5, FEPR, 2276-4, 2132-9 ####[facility] ([id number])[address] [facility], [address], [place] [address] Reticulocytes/100 RBC (Bld)o n 11-30-2023 RETICULOCYTE COUNT 2.1 % Normal 0.4-2.2 [facility] Comment on above: Performed By: #### C BCA #### [facility] ([id number]) [address] [facility], [address] [place] [address] Thiamine (Bld) [Mass/Vol]on 11-30-2023 THIAMIN VITAMIN B1 See Below Normal [facility] Comment on above: Result Comment: NOTE TEST RESULT FLAG UNIT REF.RANGE Vitamin B1 (TDP), Whole Blood 126.0 nmol/L 84.3-213.3 This assay measures the concentration of thiamine diphosphate (TDP), the primary active form of vitamin B1. Approximately 90 percent of vitamin B1 present in whole blood is TDP. Thiamine and thiamine monophosphate, which comprise the remaining 10 percent, are not measured. This test was developed and its performance characteristics determined by [facility]'s [facility] [place] ([facility]). It has not been cleared or approved by the FDA. -[facility] is regulated under CLIA as qualified to perform high-complexity testing. This test is used for clinical purposes. It should not be regarded as investigational or for research. Test Performed By: [place] [address] Activities Aide: Chung Ruelas III, M.D. CLIA #[id number] Performed By: #### 5 6888-1, 91110-2, FEPR, 2275-10, 2132-03 ####[facility] ([id number])[address] [place] [address], [address] [place] [address] VITAMIN B12on 11-30-2023 Cobalamin (Vitamin B12) [Mass/Vol] pg/mL High 180-914 [facility] Comment on above: Performed By: #### 5 6888-1, 81399-1, FEPR, 2275-10, 2132-03 ####[facility] ([id number])[address] [place] [address] Vitamin D+Metabolites [Mass/ Vol]on 11-30-2023 VITAMIN D 25 HYD TOT <7.0 Low 30-100 [facility] Comment on above: Result Comment: Vitamin D status 25 [place] Vitamin D Deficiency <20 ng/mL Insufficiency 20-29 ng/mL Sufficiency 30-100 ng/mL Toxicity >100 ng/mL NOTE: A pediatric reference range has not been established by the ssas developer of this kit. The [place] [employer] recommends a Vitamin D level of = or >20ng/mL in infants and children. Performed By: #### C BCA #### [facility] ([id number]) [address] [place] [address], [address] [address] CBC AND AUTO DIFFon 11-29-19 24 ABSOLUTE BASOPHIL 0.0 X10E9/L Normal 0.0-0.2 [facility] Comment on above: Performed By: #### P INR, 31345-7, CBCA, 1987-, 4-8, 2132-03, HA1C, 10782-1 ####[facility] ([id number])[address] [place] [address], [address] [address] ABSOLUTE NEUTROPHIL 4.0 X10E9/L Normal 1.5-6.6 [facility] Comment on above: Performed By: #### P INR, 75590-8, CBCA, 1987-11, 2284-02, 2132-03, HA1C, 68331-9 ####[facility] ([id number])[address], [address], [place] [address] Basophils/100 WBC (Bld) 0.4 % Normal [facility] Comment on above: Performed By: #### P INR, 96234-5, CBCA, 1987-11, 2284-02, 2132-03, HA1C, 75780-3 ####[facility] ([id number])[address], [address] [place] [address] Eosinophils (Bld) [#/Vol] 0.1 10*3/uL Normal 0.0-0.4 [facility] Comment on above: Performed By: #### P INR, 32371-5, CBCA, 1987-11, 2284-02, 2132-03, HA1C, 79380-0 ####[facility] ([id number])[address] [address] [place] [address] Eosinophils/100 WBC (Bld) 1.0 % Normal [facility] Comment on above: Performed By: #### P INR, 08232-6, CBCA, 1987-11, 2284-02, 2132-03, HA1C, 73028-0 ####[facility] ([id number])[address], [address] [place] [address] Erythrocyte distribution width (RBC) [Ratio] 14.5 % Normal 11.5-15.0 [facility] Comment on above: Performed By: #### P INR, 69318-0, CBCA, 1987-11, 2284-02, 2132-03, HA1C, 88509-1 ####[facility] ([id number])[address], [address] [place] [address] Hematocrit (Bld) [Volume fraction] 31.2 % Low 35-47 [facility] Comment on above: Performed By: #### P INR, 27913-8, CBCA, 1987-11, 2284-02, 2132-03, HA1C, 66445-7 ####[facility] ([id number])[address], [address] [place] [address] Hemoglobin (Bld) [Mass/Vol] 10.6 g/dL Low 11.7-15. 5 [facility] Comment on above: Performed By: #### P INR, 38129-8, CBCA, 1987-11, 2284-02, 2132-03, HA1C, 33148-4 ####[facility] ([id number])[address] [address] [place] [address] Lymphocytes (Bld) [#/Vol] 3.8 10*3/uL High 1.0-3.5 [facility] Comment on above: Performed By: #### P INR, 86341-1, CBCA, 1987-11, 2284-02, 2132-03, HA1C, 64150-9 ####[facility] ([id number])[address] [address] Lymphocytes/100 WBC (Bld) 45.8 % Normal [facility] Comment on above: Performed By: #### P INR, 66043-2, CBCA, 1987-11, 2284-02, 2132-03, HA1C, 30626-1 ####[facility] ([id number])[address] [address] [place] [address] MCH (RBC) [Entitic mass] 28.4 pg Normal 27-34 [facility] Comment on above: Performed By: #### P INR, 78412-9, CBCA, 1987-11, 2284-02, 2132-03, HA1C, 31056-8 ####[facility] ([id number])[address], [address] [place] [address] MCHC (RBC) [Mass/Vol] 33.9 g/dL Normal 32-36 [facility] Comment on above: Performed By: #### P INR, 04990-8, CBCA, 1987-11, 2284-02, 2132-03, HA1C, 15935-5 ####[facility] ([id number])[address], [address] [place] [address] MCV (RBC) [Entitic vol] 84 fL Normal 80-100 P [facility] Comment on above: Performed By: #### P INR, 51381-0, CBCA, 1987-11, 2284-02, 2132-03, HA1C, 43896-9 ####[facility] ([id number])[address], [address] [place] [address] Monocytes (Bld) [#/Vol] 0.3 10*3/uL Normal 0-0.9 [facility] Comment on above: Performed By: #### P INR, 54091-8, CBCA, 1987-11, 2284-02, 2132-03, HA1C, 98115-8 ####[facility] ([id number])[address], [address] [place] [address] Monocytes/100 WBC (Bld) 4.1 % Normal P [facility] Comment on above: Performed By: #### P INR, 51566-5, CBCA, 1987-11, 2284-02, 2132-03, HA1C, 74795-6 ####[facility] ([id number])[address], [address] [place] [address] Neutrophils/100 WBC (Bld) 48.7 % Normal [facility] Comment on above: Performed By: #### P INR, 09055-8, CBCA, 1987-11, 2284-02, 2132-03, HA1C, 66889-1 ####[facility] ([id number])[address], [address], [place] [address] Platelet mean volume (Bld) [Entitic vol] 7.6 fL Normal 7-12 [facility] Comment on above: Performed By: #### P INR, 85568-8, CBCA, 1987-11, 2284-02, 2132-03, HA1C, 40901-2 ####[facility] ([id number])[address], [address] [place] [address] Platelets (Bld) [#/Vol] 555 10*3/uL High 150-450 [facility] Comment on above: Performed By: #### P INR, 60461-9, CBCA, 1987-11, 2284-02, 2132-03, HA1C, 59288-1 ####[facility] ([id number])[address] [address] [place] [address] RBC COUNT 3.72 X10E12/L Low 3.80-5.20 [facility] Comment on above: Performed By: #### P INR, 40656-7, CBCA, 1987-11, 2284-02, 2132-03, HA1C, 28884-2 ####[facility] ([id number])[address] [address] [place] [address] WBC (Bld) [#/Vol] 8.2 10*3/uL Normal 4.0-11.0 [facility] Comment on above: Performed By: #### P INR, 04278-8, CBCA, 1987-11, 2284-02, 2132-03, HA1C, 13598-3 ####[facility] ([id number])[address], [address] [place] [address] CRP [Mass/Vol]on 11-29-2023 C REACTIVE PROTEIN 0.7 mg/dL Normal 0.000-0.744 [facility] Comment on above: Performed By: #### P INR, 98763-3, CBCA, 1987-5, 2284-8, 2131-9, HA1C, 06451-0 ####[facility] ([id number])[address], [address], [place] [address] ISAIAS PANELon 11-29-2023 ANTI-GALLOWAY AB IGG <0.2 Normal <1.0 [facility] Comment on above: Performed By: #### C BCA #### [facility] ([id number]) [address], [address] [place] [address] JO1 ANTIBODY <0.2 Normal <1.0 [facility] Comment on above: Performed By: #### C BCA #### [facility] ([id number]) [address], [address] [place] [address] EVENT DECORATOR ANTIBODY IGG <0.2 Normal <1.0 [facility] Comment on above: Performed By: #### C BCA #### [facility] ([id number]) [address], [address] [place] [address] SCL 70 ANTIBODY <0.2 Normal <1.0 [facility] Comment on above: Performed By: #### C BCA #### [facility] ([id number]) [address], [address] [place] [address] SSA ANTIBODY <0.2 Normal <1.0 [facility] Comment on above: Performed By: #### C BCA #### [facility] ([id number]) [address], [address] [place] [address] SSB ANTIBODY <0.2 Normal <1.0 [facility] Comment on above: Performed By: #### C BCA #### [facility] ([id number]) [address], [address] [place] [address] Folate [Mass/Vol]on 11-29-19 24 FOLIC ACID 18.7 ng/mL Normal >5.8 [facility] Comment on above: Result Comment: NEW REFERENCE RANGE Performed By: #### P INR, 69736-7, CBCA, 1987-11, 2284-02, 2132-03, HA1C, 83741-1 ####[facility] ([id number])[address], [address] [place] [address] Glucose Glucometer (BldC) [M ass/Vol]on 11-29-2023 Glucose [Mass/Vol] 286 mg/dL High 65-99 [facility] Glucose [Mass/Vol] 171 mg/dL High 65-99 [facility] Glucose [Mass/Vol] 241 mg/dL High 65-99 [facility] Glucose [Mass/Vol] 223 mg/dL High 65-99 [facility] HGB A1C (GLYCO-HGB)on 2023 Glucose [Mass/Vol] 243 mg/dL Normal [facility] Comment on above: Performed By: #### P INR, 63191-0, CBCA, 1987-11, 2284-02, 2132-03, HA1C, 48518-3 ####[facility] ([id number])[address], [address] [place] [address] HbA1c (Bld) [Mass fraction] 10.1 % High 4.4-5.6 [facility] Comment on above: Result Comment: NOTE ADA Guidelines Result HgbA1c Normal : less than 5.7 % Prediabetes : 5.7 % to 6.4 % Diabetes : > 6.4 % Use with caution in patients with abnormal hemoglobin variants as the half-life of red blood cells and in vivo glycation rates are affected. 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 COMPARISON: Brain MRI 11/24/2013 TECHNIQUE: Routine noncontrast, ains-cv-fhrxze, [place] MRA was performed. Maximum intensity projection volumetric reformatted images were generated. Postcontrast 3-D T1 weighted MPRAGE FINDINGS: Unremarkable flow related signal within the superior sagittal sinus, straight sinus. Flat and transverse sinuses and transverse sinus/sigmoid sinus junctions. Patent sigmoid sinuses [left dominant], cavernous sinuses. Symmetric cortical venous flow related signal. Flat pituitary. Dystrophic calcifications along the falx. Left globe silicone injection. Punctate foci of the enhancement about right cerebral hemisphere including right caudate head. IMPRESSION: No acute dural venous sinus thrombosis. Features suggestive of intracranial hypertension, please correlate clinically. Areas of enhancement about the right perirolandic region and scattered throughout right cerebral hemisphere, suspect sequelae of ischemia. Finalized by Gene Andres MD on 11/29/2023 2:04 AM Normal [facility] Nuclear Ab IA Ql (S)on 11-28 EDY Screen w/reflex Negative Normal NEG [facility] Comment on above: Result Comment: Testing performed using multiplex flow immunoassay. Eleven different antigens associated with systemic autoimmune diseases (dsDNA,Sm,Sm/EVENT DECORATOR,EVENT DECORATOR,Chromatin, SSA,SSB,Abiola-1,Scl70,Ribo P,Centromere B) are included in this screening test. Performed By: #### P INR, 97803-5, CBCA, 1987-11, 2284-02, 2132-03, HA1C, 48707-2 ####[facility] ([id number])[address] [place] [address] PROTIME AND INRon 11-29-2023 INR Coag (PPP) [Relative time] 1.0 {INR} Normal 0.8-1.1 [facility] Comment on above: Performed By: #### P INR, 45542-1, CBCA, 1987-11, 2284-02, 2132-03, HA1C, 27789-8 #### [facility] ([id number]) [address], [address] [place] [address] PT Coag (PPP) [Time] 12.1 s Normal 9.8-13.2 [facility] Comment on above: Performed By: #### P INR, 52441-8, CBCA, 1987-11, 2284-02, 2132-03, HA1C, 40914-1 #### [facility] ([id number]) [address], [address] [place] [address] VITAMIN B12on 11-29-2023 Cobalamin (Vitamin B12) [Mass/Vol] pg/mL Low 180-914 [facility] Comment on above: Performed By: #### P INR, 55014-5, CBCA, 1987-11, 2284-02, 2132-03, HA1C, 88529-8 ####[facility] ([id number])[address], [place] [address] aPTT Coag (PPP) [Time]on aPTT Coag (Bld) [Time] 41 s High 26-37 Pr [facility] Comment on above: Performed By: #### P INR, 99108-4, CBCA, 1987-11, 2284-02, 2132-03, HA1C, 15464-6 #### [facility] ([id number]) [address], [address] [place] [address] CBC AND AUTO DIFFon 11-28-19 24 ABSOLUTE BASOPHIL 0.1 X10E9/L Normal 0.0-0.2 [facility] Comment on above: Performed By: #### C BCA #### [facility] ([id number]) [address], [address] [place] [address] ABSOLUTE NEUTROPHIL 4.7 X10E9/L Normal 1.5-6.6 [facility] Comment on above: Performed By: #### C BCA #### [facility] ([id number]) [address], [address] [place] [address] Basophils/100 WBC (Bld) 0.9 % Normal [facility] Comment on above: Performed By: #### C BCA #### [facility] ([id number]) [address], [address] [place] [address] Eosinophils (Bld) [#/Vol] 0.1 10*3/uL Normal 0.0-0.4 [facility] Comment on above: Performed By: #### C BCA #### [facility] ([id number]) [address], [address] [place] [address] Eosinophils/100 WBC (Bld) 1.1 % Normal [facility] Comment on above: Performed By: #### C BCA #### [facility] ([id number]) [address], [address] [place] [address] Erythrocyte distribution width (RBC) [Ratio] 15.1 % High 11.5-15.0 [facility] Comment on above: Performed By: #### C BCA #### [facility] ([id number]) [address], [address] [place] [address] Hematocrit (Bld) [Volume fraction] 32.6 % Low 35-47 [facility] Comment on above: Performed By: #### C BCA #### [facility] ([id number]) [address], [address] [place] [address] Hemoglobin (Bld) [Mass/Vol] 11.0 g/dL Low 11.7-15. 5 [facility] Comment on above: Performed By: #### C BCA #### [facility] ([id number]) [address], [address] [place] [address] Lymphocytes (Bld) [#/Vol] 3.5 10*3/uL Normal 1.0-3.5 [facility] Comment on above: Performed By: #### C BCA #### [facility] ([id number]) [address], [address] [place] [address] Lymphocytes/100 WBC (Bld) 40.2 % Normal [facility] Comment on above: Performed By: #### C BCA #### [facility] ([id number]) [address], [address] [place] [address] MCH (RBC) [Entitic mass] 27.9 pg Normal 27-34 [facility] Comment on above: Performed By: #### C BCA #### [facility] ([id number]) [address], [address] [place] [address] MCHC (RBC) [Mass/Vol] 33.8 g/dL Normal 32-36 [facility] Comment on above: Performed By: #### C BCA #### [facility] ([id number]) [address], [address] [place] [address] MCV (RBC) [Entitic vol] 83 fL Normal 80-100 P [facility] Comment on above: Performed By: #### C BCA #### [facility] ([id number]) [address], [address] [place] [address] Monocytes (Bld) [#/Vol] 0.4 10*3/uL Normal 0-0.9 [facility] Comment on above: Performed By: #### C BCA #### [facility] ([id number]) [address], [address] [place] [address] Monocytes/100 WBC (Bld) 4.6 % Normal [facility] Comment on above: Performed By: #### C BCA #### [facility] ([id number]) [address] [place] [address] Neutrophils/100 WBC (Bld) 53.2 % Normal [facility] Comment on above: Performed By: #### C BCA #### [facility] ([id number]) [address] [place] [address] Platelet mean volume (Bld) [Entitic vol] 8.3 fL Normal 7-12 [facility] Comment on above: Performed By: #### C BCA #### [facility] ([id number]) [address] [place] [address] Platelets (Bld) [#/Vol] 530 10*3/uL High 150-450 [facility] Comment on above: Performed By: #### C BCA #### [facility] ([id number]) [address] [place] [address] RBC COUNT 3.94 X10E12/L Normal 3.80-5.20 [facility] Comment on above: Performed By: #### C BCA #### [facility] ([id number]) [address] [place] [address] WBC (Bld) [#/Vol] 8.8 10*3/uL Normal 4.0-11.0 [facility] Comment on above: Performed By: #### C BCA #### [facility] ([id number]) [address] [place] [address] COMPREHENSIVE METABOLIC PANE Zackery 11-28-2023 Albumin [Mass/Vol] 3.6 g/dL Normal 3.2-5.3 [facility] Comment on above: Performed By: #### C MP #### [facility] ([id number]) [address] [place] [address] ALP [Catalytic activity/Vol] 80 U/L Normal 39-130 [facility] Comment on above: Performed By: #### C MP #### [facility] ([id number]) [address] [place] [address] ALT [Catalytic activity/Vol] 8 U/L Normal 0-31 [facility] Comment on above: Performed By: #### C MP #### [facility] ([id number]) [address] [place] [address] Anion gap [Moles/Vol] 11 mmol/L Normal 5-15 [facility] Comment on above: Performed By: #### C MP #### [facility] ([id number]) [address] [place] [address] AST [Catalytic activity/Vol] 14 U/L Normal 0-41 [facility] Comment on above: Performed By: #### C MP #### [facility] ([id number]) [address] [place] [address] Bilirubin [Mass/Vol] 0.3 mg/dL Normal 0.3-1.2 [facility] Comment on above: Performed By: #### C MP #### [facility] ([id number]) [address] [place] [address] Calcium [Mass/Vol] 9.5 mg/dL Normal 8.5-10.5 [facility] Comment on above: Performed By: #### C MP #### [facility] ([id number]) [address] [place] [address] Chloride [Moles/Vol] 103 mmol/L Normal 98-109 [facility] Comment on above: Performed By: #### C MP #### [facility] ([id number]) [address] [place] [address] CO2 [Moles/Vol] 21 mmol/L Low 22-32 [facility] Comment on above: Performed By: #### C MP #### [facility] ([id number]) [address] [place] [address] Creatinine [Mass/Vol] 0.79 mg/dL Normal 0.40-1.00 [facility] Comment on above: Result Comment: METH OD TRACEABLE TO IDMS STANDARD Performed By: #### C MP #### [facility] ([id number]) [address] [place] [address] eGFR (CKD-EPI) NON-RACE DEPENDENT >90 Normal >59 [facility] Comment on above: Result Comment: Reported eGFR is based on the CKD-EPI 2020 equation that does not use a race coefficient. Performed By: #### C MP #### [facility] ([id number]) [address] [place] [address] Glucose [Mass/Vol] 282 mg/dL High 65-99 [facility] Comment on above: Performed By: #### C MP #### [facility] ([id number]) [address] [place] [address] Potassium [Moles/Vol] 4.3 mmol/L Normal 3.5-5.0 [facility] Comment on above: Performed By: #### C MP #### [facility] ([id number]) [address] [place] [address] Protein [Mass/Vol] 7.0 g/dL Normal 6.0-8.0 [facility] Comment on above: Performed By: #### C MP #### [facility] ([id number]) [address] [place] [address] Sodium [Moles/Vol] 135 mmol/L Normal 134-146 [facility] Comment on above: Performed By: #### C MP #### [facility] ([id number]) [address] [place] [address] Urea nitrogen [Mass/Vol] 15 mg/dL Normal 5-23 [facility] Comment on above: Performed By: #### C MP #### [facility] ([id number]) [address] [facility] [place] [address] Glucose Glucometer (BldC) [M ass/Vol]on 11-28-2023 Glucose [Mass/Vol] 329 mg/dL High 65-99 [facility] Glucose [Mass/Vol] 296 mg/dL High 65-99 [facility] MR BRAIN W WO CONTon 024 MR BRAIN W WO CONT MR BRAIN W WO CONT STUDY: MRI brain with without contrast . CLINICAL HISTORY: Weakness of left side of body; Paresthesia of left arm and leg; Gait instability symptoms beginning in June. COMPARISON: CT brain June 22, 2023. Procedure: Multiplanar, multisequence imaging performed through the brain, including pre and post contrast T1 weighted images using IV contrast. Findings: Restricted diffusion right parietal convexity and the deep white matter of the centrum semiovale within the adjacent right frontal parietal lobes. Process shows pathologic enhancement at its perimeter. The distribution is suggestive of venous infarcts. I cannot appreciate any dural vein thrombosis. An infectious process could also present in this fashion with cerebritis with areas of infarction. No mass effect. Findings will be best assessed in combination with other clinical data and a short-term follow-up contrast MRI may be useful. There are no intracranial masses, mass-effect, extra-axial fluid collection, or hydrocephalus. Sensitivity for acute hemorrhage limited on MRI, but grossly no acute hemorrhage identified. Midline sagittal structures are unremarkable including pituitary fossa, infundibulum, optic chiasm, corpus callosum, brainstem, fourth ventricle, cerebellum, and cranio-cervical junction. Flow voids documented in [place] and dural venous sinuses. . IMPRESSION: Restricted diffusion right parietal convexity and the deep white matter of the centrum semiovale within the adjacent right frontal parietal lobes. Process shows pathologic enhancement at its perimeter. The distribution is suggestive of venous infarcts. I cannot appreciate any dural vein thrombosis. An infectious process could also present in this fashion with cerebritis with areas of infarction. No mass effect. Findings will be best assessed in combination with other clinical data and a short-term follow-up contrast MRI may be useful. THIS REPORT CONTAINS A SIGNIFICANT RESULT AND/OR RECOMMENDATION, WHICH REQUIRES THE ATTENTION OF THE LICENSED CAREGIVER RESPONSIBLE FOR THIS PATIENT. THEREFORE, I SPECIFICALLY DESIGNATED THIS REPORT TO BE TELEPHONED BY THE RADIOLOGY DEPARTMENT. Finalized by Uli Pineda MD on 11/25/2023 3:02 PM Normal [facility] MR CERVICAL SPINE W WO CONTo n 11-25-2023 MR CERVICAL SPINE W WO CONT MR CERVICAL SPINE W WO CONT MR CERVICAL SPINE W WO CONT HISTORY: Weakness of left side of body; Paresthesia of left arm and leg; Gait instability. TECHNIQUE: Multiplanar multisequence MR of the cervical spine was performed prior to and following the uncomplicated administration of ProHance intravenous contrast. COMPARISON: None. FINDINGS: Preserved cervical vertebral body heights. Straightening typical cervical lordosis. No substantial listhesis. No suspicious bone marrow replacing process. No robust bone marrow edema. Cord visualized from the brainstem through the upper thoracic spine. No gross cord compression, morphologic distortion or cord signal abnormality. No pathologic intrathecal enhancement. No high-grade thecal sac or neural foraminal narrowing. High engagement of the right vertebral artery, entering the transverse foramen at C5. Confluent soft tissue scarring right suboccipital region. IMPRESSION: 1. No acute cervical spinal pathology. No clear etiology to account for unilateral weakness. 2. Confluent soft tissue scarring right suboccipital region. Correlate with patient history and physical exam [possibly sequelae of carbuncle] Finalized by Gene Andres MD on 11/25/2023 3:06 PM Normal [facility] XR KNEE LT 3 VWSon XR KNEE LT 3 VWS XR KNEE LT 3 VWS HISTORY: Pain, fall COMPARISON: None FINDINGS: Multiple views left knee were obtained. Osseous structures are intact with normal alignment. No joint effusion or significant soft tissue swelling. No degenerative change or bony destructive process. IMPRESSION: * No acute abnormality. Finalized by Alek Haywood MD on 10/27/2023 2:23 AM Normal [facility] XR TIBIA FIBULA LT MIN 2 VWS on 10-27-2023 XR TIBIA FIBULA LT MIN 2 VWS XR TIBIA FIBULA LT MIN 2 VWS HISTORY: Pain, fall COMPARISON: None FINDINGS: Multiple views left lower leg were obtained. Osseous structures are intact with normal alignment. Mild soft tissue edema. No significant degenerative change or bony destructive process. IMPRESSION: * No acute abnormality. Finalized by Alek Haywood MD on 10/27/2023 2:23 AM Normal [facility] XR SPINE CERVICAL FLEXION/EX TENSION ONLYon 10-26-2023 XR SPINE CERVICAL FLEXION/EXTENSION ONLY XR SPINE CERVICAL FLEXION/EXTENSION ONLY XR SPINE CERVICAL FLEXION/EXTENSION ONLY Neck pain Findings: There is no fracture or destructive lesion. Impression: * No acute findings. * Findings are similar to October 15. Stable flexion-extension views * Consider MRI if you suspect occult process. * Finalized by Uli Pineda MD on 10/26/2023 8:15 AM Normal [facility] XR SPINE LUMBAR 2 OR 3 VWSon 10-25-2023 XR SPINE LUMBAR 2 OR 3 VWS XR SPINE LUMB AR 2 OR 3 VWS CLINICAL INFORMATION: Lumbar pain TECHNIQUE: XR SPINE LUMBAR 2 OR 3 VWS 2 views lumbar spine were obtained. Images acquired in flexion and extension. There is no subluxation. Disc spaces are preserved. The endplates appear intact. IMPRESSION: Negative exam. Finalized by Rafa Oliver MD on 10/25/2023 2:40 PM Normal [facility] CBC AND AUTO DIFFon 10-16-19 ABSOLUTE BASOPHIL 0.1 X10E9/L Normal 0.0-0.2 [facility] Comment on above: Performed By: #### C BCA, CMP #### [facility] ([id number]) [address] [place] [address] ABSOLUTE NEUTROPHIL 7.8 X10E9/L High 1.5-6.6 [facility] Comment on above: Performed By: #### C BCA, CMP #### [facility] ([id number]) [address] [place] [address]36 Basophils/100 WBC (Bld) 0.6 % Normal [facility] Comment on above: Performed By: #### C BCA, CMP #### [facility] ([id number]) [address] [place] [address]26 Eosinophils (Bld) [#/Vol] 0.1 10*3/uL Normal 0.0-0.4 [facility] Comment on above: Performed By: #### C DELFINO, CMP #### [facility] ([id number]) [address] [place] [address] 12259 Eosinophils/100 WBC (Bld) 1.1 % Normal [facility] Comment on above: Performed By: #### C DELFINO, CMP #### [facility] ([id number]) [address] [place] [address]305 Erythrocyte distribution width (RBC) [Ratio] 15.9 % High 11.5-15.0 [facility] Comment on above: Performed By: #### C DELFINO, CMP #### [facility] ([id number]) [address] [place] [address]78 Hematocrit (Bld) [Volume fraction] 26.3 % Low 35-47 [facility] Comment on above: Performed By: #### C DELFINO, CMP #### [facility] ([id number]) [address] [place] [address] 76702 Hemoglobin (Bld) [Mass/Vol] 9.2 g/dL Low 11.7-15. 5 [facility] Comment on above: Performed By: #### C DELFINO, CMP #### [facility] ([id number]) [address] [place] [address] 20228 Lymphocytes (Bld) [#/Vol] 2.8 10*3/uL Normal 1.0-3.5 [facility] Comment on above: Performed By: #### C DELFINO, CMP #### [facility] ([id number]) [address] [place] [address] 18150 Lymphocytes/100 WBC (Bld) 25.0 % Normal [facility] Comment on above: Performed By: #### C DELFINO, CMP #### [facility] ([id number]) [address] [place] [address] 26346 MCH (RBC) [Entitic mass] 29.3 pg Normal 27-34 [facility] Comment on above: Performed By: #### C DELFINO, CMP #### [facility] ([id number]) [address] [place] [address] 07433 MCHC (RBC) [Mass/Vol] 34.8 g/dL Normal 32-36 [facility] Comment on above: Performed By: #### C DELFINO, CMP #### [facility] ([id number]) [address] [place] [address] 65836 MCV (RBC) [Entitic vol] 84 fL Normal 80-100 [facility] Comment on above: Performed By: #### C DELFINO, CMP #### [facility] ([id number]) [address] [place] [address] 84706 Monocytes (Bld) [#/Vol] 0.6 10*3/uL Normal 0-0.9 [facility] Comment on above: Performed By: #### C DELFINO, CMP #### [facility] ([id number]) [address] [place] [address] 45511 Monocytes/100 WBC (Bld) 5.0 % Normal [facility] Comment on above: Performed By: #### C DELFINO, CMP #### [facility] ([id number]) [address] [place] [address] 64260 Neutrophils/100 WBC (Bld) 68.3 % Normal [facility] Comment on above: Performed By: #### C DELFINO, CMP #### [facility] ([id number]) [address] [place] [address] 89719 Platelet mean volume (Bld) [Entitic vol] 7.4 fL Normal 7-12 [facility] Comment on above: Performed By: #### C BCA, CMP #### [facility] ([id number]) [address] [place] [address] 31469 Platelets (Bld) [#/Vol] 537 10*3/uL High 150-450 [facility] Comment on above: Performed By: #### C BCA, CMP #### [facility] ([id number]) [address] [place] [address] 36717 RBC COUNT 3.12 X10E12/L Low 3.80-5.20 [facility] Comment on above: Performed By: #### C BCA, CMP #### [facility] ([id number]) [address] [place] [address] 03300 WBC (Bld) [#/Vol] 11.4 10*3/uL High 4.0-11.0 [facility] Comment on above: Performed By: #### C DELFINO, CMP #### [facility] ([id number]) [address] [place] [address] 90453 COMPREHENSIVE METABOLIC PANE Zackery 10-16-2023 Albumin [Mass/Vol] 2.9 g/dL Low 3.2-5.3 [facility] Comment on above: Performed By: #### C BCA, CMP #### [facility] ([id number]) [address] [place] [address] 68608 ALP [Catalytic activity/Vol] 79 U/L Normal 39-130 [facility] Comment on above: Performed By: #### C BCA, CMP #### [facility] ([id number]) [address] [place] [address] 21076 ALT [Catalytic activity/Vol] 13 U/L Normal 0-31 [facility] Comment on above: Performed By: #### C BCA, CMP #### [facility] ([id number]) [address] [place] [address] 82237 Anion gap [Moles/Vol] 4 mmol/L Low 5-15 [facility] Comment on above: Performed By: #### C BCA, CMP #### [facility] ([id number]) [address] [place] [address] 42280 AST [Catalytic activity/Vol] 20 U/L Normal 0-41 [facility] Comment on above: Performed By: #### C BCA, CMP #### [facility] ([id number]) [address] [place] [address] 88847 Bilirubin [Mass/Vol] 0.6 mg/dL Normal 0.3-1.2 [facility] Comment on above: Performed By: #### C BCA, CMP #### [facility] ([id number]) [address] [place] [address] 86787 Calcium [Mass/Vol] 8.4 mg/dL Low 8.5-10.5 [facility] Comment on above: Performed By: #### C BCA, CMP #### [facility] ([id number]) [address] [place] [address] 28668 Chloride [Moles/Vol] 103 mmol/L Normal 98-109 [facility] Comment on above: Performed By: #### C BCA, CMP #### [facility] ([id number]) [address] [place] [address] 77521 CO2 [Moles/Vol] 24 mmol/L Normal 22-32 [facility] Comment on above: Performed By: #### C BCA, CMP #### [facility] ([id number]) [address] [place] [address] 11498 Creatinine [Mass/Vol] 0.91 mg/dL Normal 0.40-1.00 [facility] Comment on above: Result Comment: METH OD TRACEABLE TO IDMS STANDARD Performed By: #### C BCA, CMP #### [facility] ([id number]) [address] [place] [address] GFR/1.73 sq M.predicted among non-blacks MDRD (S/P/Bld) [Vol rate/Area] 86 mL/min/{1.73_m2} Normal >59 Pr [facility] Comment on above: Result Comment: Reported eGFR is based on the CKD-EPI 2020 equation that does not use a race coefficient. Performed By: #### C BCA, CMP #### [facility] ([id number]) [address] [place] [address], [place] [address] Glucose [Mass/Vol] 381 mg/dL High 65-99 [facility] Comment on above: Performed By: #### C BCA, CMP #### [facility] ([id number]) [address] [place] [address] 36192 Potassium [Moles/Vol] 4.0 mmol/L Normal 3.5-5.0 [facility] Comment on above: Performed By: #### C BCA, CMP #### [facility] ([id number]) [address] [place] [address] 85812 Protein [Mass/Vol] 7.0 g/dL Normal 6.0-8.0 [facility] Comment on above: Performed By: #### C BCA, CMP #### [facility] ([id number]) [address] [place] [address] 48920 Sodium [Moles/Vol] 131 mmol/L Low 134-146 [facility] Comment on above: Performed By: #### C BCA, CMP #### [facility] ([id number]) [address] [place] [address] 53929 Urea nitrogen [Mass/Vol] 16 mg/dL Normal 5-23 [facility] Comment on above: Performed By: #### C BCA, CMP #### [facility] ([id number]) [address] [place] [address] [place] [address] Glucose Glucometer (BldC) [M ass/Vol]on 10-16-2023 Glucose [Mass/Vol] 359 mg/dL High 65-[address] [facility] Glucose [Mass/Vol] 379 mg/dL High 65-[address] [facility] Glucose [Mass/Vol] 449 mg/dL Critically high 65-99 P [facility] HCG ( test) Ql (U)o n 10-16-2023 Beta HCG ( test) Ql (U) Negative Normal NEG [facility] Comment on above: Performed By: #### 2 106-3 #### [facility] ([id number]) [address] [place] [address] 45177 MR LUMBAR SPINE WO CONTon MR LUMBAR SPINE WO CONT MR LUMBAR SPINE WO CONT History: Low back pain, cauda equina syndrome suspected Exam/Technique: Multiplanar multisequence images of the lumbar spine obtained without IV dye. Comparison: Lumber spine x-ray 10/16/[address] abdomen pelvis 10/29/2022 Findings: Vertebral body heights and gross alignment are well preserved. Conus medullaris is of adequate configuration with the tip at L1 level. Intervertebral discs T12-L1 through L5-S1 are well-preserved with adequate signal intensity and height. There is no significant disc bulge or spinal canal stenosis. Neuroforamina are widely patent. Paravertebral soft tissue is unremarkable. IMPRESSION: Unremarkable exam Finalized by Summer Orantes MD on 10/16/2023 9:25 AM Normal [facility] URN MACROSCOPIC NURon 2023 BILIRUBIN MAGGY Negative Normal NEG [facility] Comment on above: Performed By: #### N UM #### [facility] ([id number]) [address] [place] [address] 61673 BLOOD/HGB MAGGY MODERATE Abnormal NEG [facility] Comment on above: Performed By: #### N UM #### [facility] ([id number]) [address] [place] [address] 09672 GLUCOSE MAGGY >=1000 Abnormal NEG [facility] Comment on above: Performed By: #### N UM #### [facility] ([id number]) [address] [place] [address] 14934 KETONES MAGGY 15 mg/dL Abnormal NEG [facility] Comment on above: Performed By: #### N UM #### [facility] ([id number]) [address] [place] [address] 75281 LEUKOCYTE ESTERASE MAGGY Negative Normal NEG [facility] Comment on above: Performed By: #### N UM #### [facility] ([id number]) [address] [place] [address] 48881 NITRITE MAGGY Negative Normal NEG [facility] Comment on above: Performed By: #### N UM #### [facility] ([id number]) [address] [place] [address] 39189 PH MAGGY 5.5 Normal 5.0-8.5 [facility] Comment on above: Performed By: #### N UM #### [facility] ([id number]) [address] [place] [address] 65162 PROTEIN MAGGY >=300 Abnormal NEG [facility] Comment on above: Performed By: #### N UM #### [facility] ([id number]) [address] [place] [address] 47204 SPECIFIC GRAVITY MAGGY >=1.030 Normal 1.003-1.035 [facility] Comment on above: Performed By: #### N UM #### [facility] ([id number]) [address] [place] [address] 13204 UROBILINOGEN MAGGY 1.0 eu/dL Normal <1.1 [facility] Comment on above: Performed By: #### N UM #### [facility] ([id number]) [address] [place] [address] 89873 XR SPINE CERVICAL 3 VWS OR L ESSon 10-16-2023 XR SPINE CERVICAL 3 VWS OR LESS XR SPINE CERVICAL 3 VWS OR LESS HISTORY: Pain. TECHNIQUE: Frontal lateral and odontoid views of the cervical spine were obtained. . COMPARISON: None. FINDINGS: The vertebral body heights and disc spaces are well-maintained. The prevertebral soft tissues are within normal limits. The odontoid is intact. There is no evidence for an acute osseous abnormality. . IMPRESSION: Normal cervical spine. Finalized by Wes Olmedo MD on 10/16/2023 2:39 AM Normal [facility] XR SPINE LUMBAR 2 OR 3 VWSon 10-16-2023 XR SPINE LUMBAR 2 OR 3 VWS XR SPINE LUMB AR 2 OR 3 VWS HISTORY: Pain. TECHNIQUE: Frontal lateral and spot views of the lumbar spine were obtained. . COMPARISON: None. FINDINGS: The vertebral body heights and disc spaces are well-maintained. There is no evidence for an acute osseous abnormality. No significant degenerative change identified. . IMPRESSION: Normal lumbar spine. Finalized by Wes Olmedo MD on 10/16/2023 2:39 AM Normal [facility] OPERATIVE REPORTon OPERATIVE REPORT [address] [address] OPERATIVE REPORT PATIENT NAME: JOLIE STANLEY : 1990 MED REC NO: [id number] ROOM: ACCOUNT NO: [id number] ADMIT DATE: 03/05/2023 PROVIDER: Rogelio Ornelas DATE [...] room in good condition. ROGELIO ORNELAS GUSTAVO/Jose [email or web address] Doc#: [id number] CC: Normal [facility] OPERATIVE REPORTon 3 OPERATIVE REPORT [address] [address] OPERATIVE REPORT PATIENT NAME: JOLIE STANLEY : 1990 MED REC NO: [id number] ROOM: ACCOUNT NO: [id number] ADMIT DATE: 01/13/2023 PROVIDER: Rogelio Ornelas DATE [...] good condition. ROGELIO ORNELAS GUSTAVO/Jose [email or web address] Doc#: [id number] Normal [facility] Vital Signs Date Time Vital Sign Value Performing Clinician Kike da silva 02-10-2024 09:43-0400 Diastolic blood pressure 90 mm[Hg] DO Ekaterina Rumschlag Work Phone: [facility] 02-10-2024 09:43-0400 Heart rate 96 /min DO Ekaterina Rumschlag Work Phone: [facility] 02-10-2024 09:43-0400 SaO2% (BldA) [Mass fraction] 99 % DO Ekaterina Rumschlag Work Phone: [facility] 02-10-2024 09:43-0400 Systolic blood pressure 142 mm[Hg] DO Ekaterina Rumschlag Work Phone: [facility] 02-01-2024 10:40-0400 Diastolic blood pressure 87 mm[Hg] Cristian Prieto MD Work Phone: [facility] 02-01-2024 10:40-0400 Heart rate 95 /min Cristian Prieto MD Work Phone: [facility] 02-01-2024 10:40-0400 SaO2% (BldA) [Mass fraction] 96 % Cristian Prieto MD Work Phone: [facility] 02-01-2024 10:40-0400 Systolic blood pressure 147 mm[Hg] Cristian Prieto MD Work Phone: [facility] 12-22-2023 05:00-0400 Body temperature 98.5 [degF] DO Ekaterina Rumschlag Work Phone: [facility] 12-22-2023 05:00-0400 Diastolic blood pressure 80 mm[Hg] DO Ekaterina Rumschlag Work Phone: [facility] 12-22-2023 05:00-0400 Heart rate 92 /min DO Ekaterina Rumschlag Work Phone: [facility] 12-22-2023 05:00-0400 Respiratory rate 18 /min DO Ekaterina Rumschlag Work Phone: [facility] 12-22-2023 05:00-0400 SaO2% (BldA) [Mass fraction] 97 % DO Ekaterina Rumschlag Work Phone: [facility] 12-22-2023 05:00-0400 Systolic blood pressure 135 mm[Hg] DO Ekaterina Rumschlag Work Phone: [facility] 12-20-2023 03:47-0400 Body weight 105.5 kg DO Ekaterina Rumschlag Work Phone: [facility] 12-17-2023 07:05-0400 Body height 165.1 cm DO Ekaterina Rumschlag Work Phone: [facility] 10-23-2023 13:50-0400 Body height 165.1 cm Tavia BOWMAN Work Phone: [facility] 10-23-2023 13:50-0400 Body mass index (BMI) [Ratio] 37.44 kg/m2 Tavia Graf APRN-ADOPTION SPECIALIST Work Phone: [facility] 10-23-2023 13:50-0400 Body weight 102.06 kg Tavia Graf APRN-ADOPTION SPECIALIST Work Phone: [facility] 10-23-2023 13:50-0400 Diastolic blood pressure 86 mm[Hg] Tavia Graf SALES SOLUTIONS ASSOCIATE-ADOPTION SPECIALIST Work Phone: [facility] 10-23-2023 13:50-0400 Heart rate 116 /min Tavia Graf SALES SOLUTIONS ASSOCIATE-ADOPTION SPECIALIST Work Phone: [facility] 10-23-2023 13:50-0400 Systolic blood pressure 140 mm[Hg] Tavia Graf APRN-ADOPTION SPECIALIST Work Phone: [facility] 07-23-2023 14:13-0500 Body height 165.1 cm Kelly Nienberg PA Work Phone: [facility] 07-23-2023 14:13-0500 Body mass index (BMI) [Ratio] 37.28 kg/m2 Kelly Diazenberg PA Work Phone: [facility] 07-23-2023 14:13-0500 Body weight 101.61 kg Kelly Diazenberg PA Work Phone: [facility] 07-23-2023 14:13-0500 Diastolic blood pressure 105 mm[Hg] Kelly Nienberg PA Work Phone: [facility] 07-23-2023 14:13-0500 Heart rate 100 /min Kelly Nienberg PA Work Phone: [facility] 07-23-2023 14:13-0500 Respiratory rate 18 /min Kelly Diazenberg PA Work Phone: [facility] 07-23-2023 14:13-0500 SaO2% (BldA) [Mass fraction] 100 % [facility]NER [facility] 07-23-2023 14:13-0500 Systolic blood pressure 159 mm[Hg] Kelly WAGNER Work Phone: [facility] Encounters Encounter Date Encounter Type Care Provider Facility Start: 02-16-2024 Telephone encounter Cristian thompson MD Work Phone: [facility] Comment on above: Received Outside Med ical Records Start: 02-10-2024 End: 02-10-2024 ambulatory DO Ekaterina Rumschlag Work Phone: [facility] Work Phone: Start: 02-10-2024 End: 02-10-2024 Patient encounter procedure DO Ekaterina Rumschlag Work Phone: [facility] Work Phone: Start: 02-09-2024 Orders Only Dawit parks MD Work Phone: Cardiology Comment on above: Ischemic heart disea se (Primary Dx) Start: 02-03-2024 ambulatory Cristian Acosta i, MD Work Phone: [facility] Comment on above: Medication concerns Start: 02-01-2024 End: 02-01-2024 ambulatory CRISTIAN PRIETO Facility:[facility] Start: 02-01-2024 End: 02-01-2024 Patient encounter procedure Cristian Prieto MD Work Phone: [facility] Comment on above: Occlusion and stenos is of unspecified carotid artery (Primary Dx); Type 1 diabetes mellitus with other specified complication (HCC); Hypokinesia of left ventricle; Intracranial atherosclerosis; Arterial ischemic stroke, MCA (middle cerebral artery), right, acute (HCC); Left-sided muscle weakness; Spasticity as late effect of cerebrovascular accident (CVA); Left sided numbness; Hypercholesterolemia Start: 01-20-2024 End: 02-18-2024 ambulatory [facility] Start: 01-19-2024 End: 01-19-2024 ambulatory JUAN MANUEL KNIGHT Not Available Start: 01-04-2024 End: 01-06-2024 Emergency department patient visit JACOB MÉNDEZ [facility] Start: 01-04-2024 End: 01-05-2024 ambulatory [facility] Start: 12-22-2023 End: 01-18-2024 [facility] Start: 12-17-2023 End: 12-22-2023 Non-patient / Non-visit DO Ekaterina Rumschlag Work Phone: [facility] Work Phone: Start: 12-10-2023 End: 12-22-2023 Non-patient / Non-visit DO Ekaterina Rumschlag Work Phone: [facility] Work Phone: Start: 12-09-2023 End: 12-22-2023 Evaluation and management of inpatient DO Ekaterina Rumschlag Work Phone: [facility] Work Phone: Start: 12-05-2023 End: 12-09-2023 Evaluation and management of inpatient [facility] Start: 12-03-2023 End: 12-09-2023 Evaluation and management of inpatient [facility] Start: 12-01-2023 End: 12-09-2023 Evaluation and management of inpatient [facility] Start: 11-29-2023 End: 12-09-2023 ambulatory [facility] Start: 11-28-2023 End: 12-09-2023 Evaluation and management of inpatient [facility] Start: 11-25-2023 End: 11-25-2023 ambulatory JUAN MANUEL NOVAK [facility] Start: 11-25-2023 End: 11-25-2023 ambulatory JUAN MANUEL Nga NOVAK [facility] Start: 10-27-2023 End: 10-28-2023 Emergency department patient visit BENJY MARTINEZ [facility] Start: 10-23-2023 End: 10-24-2023 ambulatory TAVIA FALCONSRAVANTHI [facility] Start: 10-23-2023 End: 10-23-2023 Office outpatient new 30 minutes Tavia Graf SALES SOLUTIONS ASSOCIATE-ADOPTION SPECIALIST Work Phone: [facility] Comment on above: Weakness of left vineet e of body (Primary Dx); Nonintractable headache, unspecified chronicity pattern, unspecified headache type; Paresthesia of left arm and leg; Muscle spasm Start: 10-15-2023 End: 10-16-2023 Orders Only Tavia Lynnley SALES SOLUTIONS ASSOCIATE-ADOPTION SPECIALIST Work Phone: [facility] Comment on above: Neck pain (Primary D x); Lumbar pain Start: 10-14-2023 Telephone encounter [facility] Work Phone: [facility] Start: 09-01-2023 Telephone encounter [facility] Comment on above: NEUROLOGY REFERRAL Start: 07-28-2023 Telephone encounter Manju Shultz [facility] Start: 07-23-2023 End: 07-23-2023 Office outpatient new 45 minutes Kelly WAGNER Work Phone: [facility] Comment on above: Cervical spondylosis without myelopathy (Primary Dx); Cervical disc displacement Start: 07-23-2023 End: 07-23-2023 ambulatory KELLY STACK [facility] Start: 03-05-2023 End: 03-05-20[facility] Start: 01-13-2023 End: 01-13-2023 ambulatory [facility] Procedures Date Procedure Procedure Detail Performing Clinician Start: 12-15-2023 MRI of head DO Ekaterina arnold Work Phone: Start: 12-13-2023 CT of head without contrast DO Ekaterina Durand Work Phone: Plan of Treatment Date Care Activity Detail Author Start: 04-06-2028 DTaP,Tdap and Td Vaccines (2 - Td or Tdap) DTaP,Tdap and Td Vaccines (2 - Td or Tdap) [facility] Start: 04-06-2028 Urine microalbumin profile DTaP,Tdap,Td Vaccine (2 - Td or Tdap) [facility] Start: 10-22-2024 Adult BMI Screening Adult BMI Screening [facility] Start: 10-22-2024 Tobacco Screening Tobacco Screening [facility] Start: 07-23-2024 Adult BMI Screening Adult BMI Screening [facility] Start: 07-23-2024 Tobacco Screening Tobacco Screening [facility] Start: 06-17-2024 End: 06-17-2024 Patient encounter procedure 06/17/2024 9:45 AM EST Office Visit [facility] [address] [place] [address] Dawit Bernard MD [address] [place] [address] Hypokinesia of left ventricle [I51.89] [facility] Comment on above: Hypokinesia of left ventricle [I51.89] Start: 06-17-2024 End: 06-17-2024 ambulatory 06/17/2024 9:15 AM EST Results Only Cardiology [address] [id number] Hypokinesia of left ventricle [I51.89] Cardiology Comment on above: Hypokinesia of left ventricle [I51.89] Start: 03-20-2024 Influenza vaccination [facility] Start: 03-10-2024 End: 03-10-2024 Patient encounter procedure 03/10/2024 9:30 AM EDT Office Visit [facility] [address] [place] [address] Cristian Prieto MD [address] [id number] [phone] (work) follow up / end february [facility] Comment on above: follow up / end february Start: 03-10-2024 End: 03-10-2024 Patient encounter procedure Radiology Comment on above: Dx: Occlusion and stenosis of unspecifie d carotid artery [I65.29] Type 1 diabetes natan itus with other specified complication (HCC) [E10.69] Start: 02-01-2024 End: 05-02-2024 Angiotensin II [Mass/volume] in Plasma [facility] Comment on above: Expected: 02/01/2024, Expires: Start: 02-01-2024 End: 05-02-2024 ANTI NEUTRO CYTO AB [facility] Comment on above: Expected: 02/01/2024, Expires: Start: 02-01-2024 End: 05-02-2024 DNA double strand Ab [Units/volume] in Serum by Immunoassay [facility] Comment on above: Expected: 02/01/2024, Expires: Start: 02-01-2024 End: 05-02-2024 Extractable nuclear Ab panel - Serum [facility] Comment on above: Expected: 02/01/2024, Expires: Start: 02-01-2024 End: 05-02-2024 HEMOGLOBIN EVALUATION CASCADE [facility] Comment on above: Expected: 02/01/2024, Expires: Start: 02-01-2024 End: 05-02-2024 JAK2 gene targeted mutation analysis in Blood or Tissue by Molecular genetics method [facility] Comment on above: Expected: 02/01/2024, Expires: Start: 02-01-2024 End: 05-02-[address] [facility] Comment on above: Expected: 02/01/2024, Expires: Start: 02-01-2024 End: 05-02-2024 Nuclear Ab [Presence] in Serum by Immunoassay [facility] Comment on above: Expected: 02/01/2024, Expires: Start: 02-01-2024 End: 10-14-2024 THYROID STIMULATING IMMUNOGLOBULIN BLOOD [facility] Comment on above: Expected: 02/01/2024, Expires: Start: 12-22-2023 [facility] Start: 12-21-2023 Arrangement of care procedure [facility] Start: 12-20-2023 [facility] Start: 12-17-2023 Arrangement of care procedure [facility] Start: 12-16-2023 Referral to neurologist [facility] Start: 12-11-2023 [facility] Start: 12-09-2023 Hospital admission [facility] Start: 12-09-2023 Referral to clinical psychiatric social worker [facility] Start: 10-23-2023 End: 10-22-2024 MR Brain WO and W contrast IV MR brain with and without contrast Imaging Routine Weakness of left side of body Nonintractable headache, unspecified chronicity pattern, unspecified headache type Paresthesia of left arm and leg Expected: 10/23/2023, Expires: 10/22/2024 [employer] Comment on above: Expected: 10/23/2023, Expires: Start: 10-23-2023 End: 10-22-2024 MR Cervical spine WO and W contrast IV MR cervical spine with and without contrast Imaging Routine Weakness of left side of body Nonintractable headache, unspecified chronicity pattern, unspecified headache type Paresthesia of left arm and leg Expected: 10/23/2023, Expires: 10/22/2024 [facility] Work Phone: Comment on above: Expected: 10/23/2023, Expires: Start: 10-23-2023 End: 10-23-2023 Patient encounter procedure 10/23/2023 1:30 PM EDT Office Visit [facility] [address] [place] [address] Tavia Graf, SALES SOLUTIONS ASSOCIATE-ADOPTION SPECIALIST [address] [place] [address] [facility] Start: 10-15-2023 End: 10-14-2024 XR Cervical spine 4 or 5 Views X-ray spine cervical 4 or 5 views Imaging Routine Neck pain Expected: 10/15/2023, Expires: 10/14/2024 [facility] Comment on above: Expected: 10/15/2023, Expires: Start: 10-15-2023 End: 10-14-2024 XR Lumbar spine Views W flexion and W extension X-ray spine lumbar ap, lateral, flexion and extension only Imaging Routine Lumbar pain Expected: 10/15/2023, Expires: 10/14/2024 [facility] Work Phone: Comment on above: Expected: 10/15/2023, Expires: Start: 09-22-2023 End: 09-22-2023 Patient encounter procedure 09/22/2023 12:00 PM EST Office Visit [facility] [address] [place] [id number] Sabine Stack, SALES SOLUTIONS ASSOCIATE-ADOPTION SPECIALIST [address] [place] [address] [facility] Start: 07-20-2023 Behavioral Health Screening Behavioral Health Screening [facility] Start: 03-20-2023 Covid-19 Vaccine ( season) Covid-19 Vaccine ( season) [facility] Start: 03-20-2023 Influenza vaccination Influenza Vaccine [facility] Start: 2013 Screening for malignant neoplasm of cervix [facility] Start: 2011 Hepatitis B Vaccine (1 of 3 - 19+ 3-dose series) Hepatitis B Vaccine (1 of 3 - 19+ 3-dose series) [facility] Start: 2010 Adult BMI Follow Up Plan Adult BMI Follow Up Plan [facility] Start: 2010 Anxiety Screening Anxiety Screening [facility] Start: 2010 Depression Screening Depression Screening [facility] Start: 2010 Diabetic foot examination Diabetic Foot Exam [facility] Start: 2010 Hepatitis C screening Hepatitis C Screening [facility] Start: 2004 Depression Screening Depression Screening [facility] Start: 1992 Glaucoma screening Diabetic Ophthalmology Exam [facility] Angiotensin converti ng enzyme [Enzymatic activity/volume] in Serum or Plasma [facility] Antibody measurement [facility] End: 03-02-2025 CT Neck W contrast IV CTA NECK W IVCON Radiology Routine Occlusion and stenosis of unspecified carotid artery 1 Occurrences starting 02/01/2024 until 03/02/[address] [facility] Comment on above: 1 Occurrences starting 02/01/2024 until 03/02/2025 End: 03-02-2025 CTA Head Arteries W contrast IV CTA HEAD W IVCON Radiology Routine Occlusion and stenosis of unspecified carotid artery 1 Occurrences starting 02/01/2024 until 03/02/2025 [facility] Work Phone: Comment on above: 1 Occurrences starting 02/01/2024 until 03/02/2025 End: 02-08-2025 ECG COMPLETE ECG COMPLETE ECG Routine Ischemic heart disease 1 Occurrences starting 02/09/2024 until 02/08/2025 [facility] Work Phone: Comment on above: 1 Occurrences starting 02/09/2024 until 02/08/2025 Myeloperoxidase Ab [Units/volume] in Serum by Immunoassay [facility] Neutrophil cytoplasm ic Ab.classic [Titer] in Serum by Immunofluorescence [facility] Nuclear Ab [Titer] i n Serum [facility] P-ANCA measurement [facility] Patient Education Stroke (DC) Kn ow your Meds [facility] Work Phone: Patient referral [facility] Work Phone: Proteinase 3 Ab [Units/volume] in Serum by Immunoassay [facility] Immunizations Immunization Date Immunization Notes Care Provider Román williamson 04-06-2018 tetanus toxoid, redu reyna diphtheria toxoid, and acellular pertussis vaccine, adsorbed Kelly WAGNER Work Phone: [facility] Payers Date Payer Category Payer Self-pay [id number] 2022 Medicaid [facility] MEDICAID [facility] COMMUNITY PLAN MEDICAID [facility] [id number] 2022-Present [phone] [address] [place] [address] Medicaid [id number] 2022 Private Health Insurance [facility] PLAN [id number] 2022-Present [phone] [address] [place] [address] [id number] 2019 Private Health Insurance [id number] 2019 Private Health Insurance [id number] 2017 Medicaid [id number] 1992 Unknown [id number] 2.16.840.1.972057.3.579. 2.175 1992 Unknown [id number] 2.16.840.1.230239.3.579. 2.175 1992 Unknown [id number] 2.16.840.1.762587.3.579. 2.1285 1992 Unknown [id number] 2.16.840.1.848259.3.579. 2.1286 1992 Unknown [id number] 2.16.840.1.340633.3.579. 2.1285 1992 Unknown [id number] 2.16.840.1.807322.3.579. 2.128 1992 Unknown [id number] 2.16.840.1.063001.3.579. 2.1285 1992 Unknown [id number] 2.16.840.1.558175.3.579. 2.128 1992 Unknown [id number] 2.16.840.1.763035.3.579. 2.128 1992 Unknown [id number] 2.16.840.1.800125.3.579. 2.1285 1992 Unknown [id number] 2.16.840.1.479742.3.579. 2.1285 1992 Unknown [id number] 2.16.840.1.096606.3.579. 2.1285 1992 Unknown [id number] 2.16.840.1.751346.3.579. 2.1258 1992 Unknown [id number] 2.16.840.1.297917.3.579. 2.1285 1992 Unknown [id number] 2.840.1.340274.3.579. 2.1285 1992 Unknown [id number] 2.16840.1.717011.3.579. 2.1285 1992 Unknown [id number] 2.840.1.376497.3.579. 2.1285 1992 Unknown [id number] 2.840.1.284912.3.579. 2.1285 1992 Unknown [id number] 2.840.1.651647.3.579. 2.1285 1992 Unknown [id number] 2.840.1.628748.3.579. 2.1285 1992 Unknown [id number] 2.16840.1.405287.3.579. 2.1285 1992 Unknown [id number] 2.16840.1.000879.3.579. 2.1285 1992 Unknown [id number] 2.16840.1.241363.3.579. 2.1285 1992 Unknown [id number] 2.16.840.1.636894.3.579. 2.1285 1992 Unknown [id number] 2.16840.1.012079.3.579. 2.1285 Unknown [id number] 2.16840.1.231610.3.579. 2.531 Social History Date Type Detail Facility Start: 05-11-2017 End: 02-01-2024 Tobacco smoking status NHIS Never smoked tobacco [facility] Start: 05-11-2017 End: 02-01-2024 Tobacco use and exposure Smokeless tobacco non-user [facility] Start: 07-23-2023 End: 10-25-2023 Alcohol intake Current non-drinker of alcohol (finding) [facility] Start: 04-06-2018 End: 02-01-2024 History of Social function [facility] Start: 04-06-2018 End: 02-01-2024 Alcohol Use Disorder Identification Test - Consumption [AUDIT-C] [facility] Frequency of Alcohol Consumption Never [facility] Start: 1992 Sex Assigned At Not on file P [email or web address] [facility] Has the [employer], [employer], oil, or water company threatened to shut off services in your home in past 12Mo No [facility] Start: 1992 Sex Assigned At Female F [facility] Start: 02-01-2024 Alcohol intake Ex-drinker (finding) [facility] Goals Date Patient Goal Desired Activity /State Functional Status Date Assessment Result Facility 12-22-2023 Functional status Patient at Baseline [facility] Work Phone: Mental Status Date Assessment Result Facility 12-22-2023 Cognitive function Cognitive Sta tus Patient at Baseline [facility] Work Phone: Clinical Notes 07-23-2023 to 02-16-2024 Telephone Encounter - Tanika Morrison - 02/16/2024 10:09 AM EDTTelephone Encounter - Tanika Morrison - 02/16/2024 10:09 AM EDTPatient Cristian Ledesma MD - 02/01/2024 10:00 AM EDT Note Date & Type Note Facility 02-16-2024 Telephone encounter Note Received 13 page faxed Medical Record from [facility] for review. Scanned into patient's chart. Sent to pool and fwd to provider. [facility] 02-16-2024 Miscellaneous Notes Received 13 page faxed Medical Record from [employer] for review. Scanned into patient's chart. Sent to pool and fwd to provider. documented in this encounter [facility] 02-01-2024 Instructions Cirstian Prieto MD - 02/01/2024 11:16 AM EDT Thank you for visiting the cerebrovascular center today. You've had stroke on the right side of your brain, some old and some more recent, that are probably responsible for the symptoms you've been having on the left side. This is most likely caused by narrowing in the vessels of the brain, most likely secondary to uncontrolled diabetes. I recommend: - stay on aspirin 81mg daily and add plavix 75mg daily for 3 months - increase lipitor to 80mg daily - referral to endocrinology for sooner appointment - CTA head and neck for better visualization of neck and brain vessels - blood tests to be done today - referral to cardiology for assessment of hypokinetic LV segments - follow-up with me end of February - secondary stroke prevention guidelines as mentioned below Please do not hesitate to call us or contact us through [employer] with any questions. Cristian Prieto MD February 01, 2024 11:16 AM General Guidelines to Help Reduce Risk of Recurrent Stroke Blood Pressure Management: Blood Pressure reduction is recommended for both prevention of recurrent stroke and prevention of other vascular events in persons who have had an ischemic stroke or TIA and are beyond the first 24 hours. Several lifestyle modifications have been associated with BP reduction and are a reasonable part of a comprehensive antihypertensive therapy. These modifications include: - salt restriction (less than 2 grams per day) - weight loss - consumption of a diet rich in fruits, vegetables, and low-fat dairy products - regular aerobic physical activity - limited alcohol consumption Goal: Prehypertension (BP less than 130/80 mm Hg): - Perform annual BP screening and lifestyle modifications Hypertension: (BP greater than or equal to 130/80 mm Hg) - Combine medications with above lifestyle modifications to reach your goal blood pressure as defined above. - Monitor your blood pressure at home regularly to ensure you are reaching your goals Diabetes Mellitus: - the goal for glycemic control should be individualized based on the risk for adverse events, patient characteristics and preferences, and, for most patients with diabetes, achieving a goal of HbA1c =7% is recommended to reduce risk for microvascular complications. - treatment of diabetes should include glucose-lowering medications with proven cardiovascular benefit to reduce the risk for future major adverse cardiovascular events (eg, stroke, heart attack) Cholesterol and Lipid Management - Statin (rosuvastatin or atorvastatin) therapy with intensive lipid-lowering effects is recommended to reduce risk of stroke and cardiovascular events among patients with ischemic stroke or TIA who have LDL cholesterol > 100 mg/dL, or evidence of atherosclerosis. - A goal of LDL cholesterol < 70 mg/dL for stroke or TIA patients on lipid lowering therapy is recommended. - Ezetimibe in combination with statin therapy to lower the LDL cholesterol < 70 mg/DL is recommended, if statin therapy alone is insufficient to attain this treatment target. - For patients with ischemic stroke at very high risk, already taking maximally tolerated statin and ezetimibe and still have an LDL cholesterol > 70 mg/dL, it is reasonable to treat with a proprotein convertase subtilisin/kexin type 9 (PCSK9) inhibitor to prevent atherosclerotic cardiovascular or cerebrovascular events. - In patients with ischemic stroke or TIA, with fasting triglycerides 135 to 499 mg/dL and LDL cholesterol of 41 to 100 mg/dL, on moderate- or high-intensity statin therapy, with HbA1c <10%, and with no history of pancreatitis, atrial fibrillation, or severe heart failure, treatment with icosapent ethyl (IPE) 2 g twice a day is reasonable to reduce risk of recurrent stroke Diet: - Reduced sodium and increased potassium intake; DASH-style diet rich in fruits and vegetables (https://www.nhlbi.nih.gov/educati on/many-kbmrvc-oxcm) - Consider Mediterranean diet supplemented with nuts Smoking and Tobacco Use: - Strongly recommend smoking and tobacco use cessation to reduce risk of stroke. - Counseling, nicotine products, and oral smoking cessation medications are effective for helping smokers quit and can be provided if needed. Alcohol Consumption: - Patients with ischemic stroke or TIA who drink greater than or equal to 2 alcoholic drinks a day, should eliminate alcohol use or reduce their consumption of alcohol to less than equal to 1 alcohol drink per day to reduce stroke risk Exercise - In patients with stroke or TIA who are capable of physical activity, engaging in at least moderate-intensity aerobic activity for a minimum of 10 minutes 4 times a week or vigorous-intensity aerobic activity for a minimum of 20 minutes twice a week is indicated to lower the risk of recurrent stroke - In patients with deficits after stroke that impair their ability to exercise, supervision of an exercise program by a health healthcare administration internship such as a physical therapist or cardiac rehabilitation professional, in addition to routine rehabilitation, can be beneficial for secondary stroke prevention - In individuals with stroke or TIA who sit for long periods of uninterrupted time during the day, it may be reasonable to recommend breaking up sedentary time with intervals as short as 3 minutes of standing or light exercise every 30 minutes for their cardiovascular health documented in this encounter [facility] 02-01-2024 History of Present illness Narrative [facility] Initial Visit Consultation is requested by: No referring provider defined for this encounter. PCP: Ekaterina Durand DO [address] [place] [address] CEREBROVASCULAR HISTORY Reason for Visit: - stroke Date of Last Event: 07/03/2023 (estimated date) History of Event: Jolie Stanley is a 33-year-old woman, with type I DM (+ LENA antibodies) and obesity, who presents for evaluation of R hemispheric stroke. History goes back to Jun when she started having intermittent episodes of L-sided numbness and weakness. She was initially told this was from her neck, then told this is clinically isolated syndrome until she got a brain MRI in November showing remote and subacute R hemispheric infarcts, especially in watershed areas. 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 No neck vessel imaging available. She was started on aspirin 81mg and lipitor 40mg and referred to us. She suffers from L-sided weakness and spasticity in the L leg. Is commuting on a wheelchair and uses a cane to ambulate. No family history of early-onset stroke. Non-smoker, no alcohol use, no illicit drug use. Event History as charted by MELLISSA Buchanan: Hunter was seen at [facility] and [facility], was told by [facility] in [place] 11/28/2023 clinically isolated syndrome, until MRI end of November and was told she had a mini-stroke at [facility] in [place]. 11/25/2023: MRI brain with without contrast Interval: Here today with father Manav for evaluation and to discuss diagnosis and prognosis. New stroke S/S or events: denies Medications: compliant Diet: regular Activity: PT/OT exercises Sleep: trouble staying asleep, spasms to L UE/LE Psychological: denies Work: unemployed Antiplatelets/Anticoagulants: Aspirin Statins: Atorvastatin - 40 mg Residual Deficits: Motor weakness - L-sided weakness and numbness Current PT/OT/ST: Oupatient with physical therapy Current Living Situation: Home with other (see comment) - father Current use of a mobility aid for walking/getting around: Wheelchair/Scooter Do you have any planned upcoming surgeries or dental procedures? 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, associated with type 1 diabetes mellitus (HCC) Pernicious anemia Tachycardia chronic PAST SURGICAL HISTORY Procedure Laterality Date BREAST LUMPECTOMY HX Bilateral 2010 REPAIR DETACH RETINA,W VITRECTOMY Left 2022 Agent Viscoelastic 8.5ml Clr Polydimethylsiloxane Retin FAMILY HISTORY Problem Relation Age of Onset Hypertension Father Diabetes Mother Hypertension Mother Heart Failure Mother Colon Cancer Maternal Grandfather Cancer Maternal Grandmother stomach Stroke Other aunt Social History Tobacco Use Smoking status: Never Smokeless tobacco: Never Substance Use Topics Alcohol use: Not Currently Drug use: Never MEDICATIONS Current Outpatient Medications Medication Sig acetaminophen (TYLENOL) 500 mg tablet Take 1,000 mg by mouth every 8 hours as needed for fever (specify temp.) or pain. carvedilol (COREG) 25 mg tablet Take 25 mg by mouth two times a day with meals. diclofenac sodium 1 % kit Apply 1 Application to affected area as needed (3 times daily). ergocalciferol 50,000 unit capsule (VITAMIN D2, DRISDOL) Take 50,000 Units by mouth one time a week. gabapentin (NEURONTIN) 300 mg capsule Take 300 mg by mouth two times a day. insulin glargine (LANTUS) 100 unit/mL soln Inject 40 Units subcutaneously once daily. lidocaine HCL 4 % ptmd Apply 1 Application to affected area once daily. lisinopril (ZESTRIL) 20 mg tablet Take 20 mg by mouth once daily. methocarbamol (ROBAXIN) 500 mg tablet Take 750 mg by mouth three times a day. pyridoxine, vitamin B6, 50 mg cap Take 50 mg by mouth once daily. rOPINIRole (REQUIP) 0.5 mg tablet Take 0.5 mg by mouth three times a day. topiramate (TOPAMAX) 25 mg tablet Take 25 mg by mouth two times a day. aspirin, enteric coated (ASPIRIN, ENTERIC COATED) 81 mg EC tablet Take 81 mg by mouth once daily. atorvastatin (LIPITOR) 40 mg tablet Take 40 mg by mouth once daily. iv contrast (will be provided with radiology test) CTA Head/Neck W No IV access, insert saline lock prior to the sedation, infusion, injection for imaging exam. Discontinue saline lock post exam. If Pt. has a central line or IVAD, may access for administration according to line specific nursing protocol. Once exam is complete flush line and de-access according to line specific nursing protocol in the CT contrast administration guidelines link. No current facility-administered medications for this visit. ALLERGIES ALLERGIES Allergen Reactions Amoxicillin Rash Cefaclor Hives Cephalexin Rash Doxycycline Rash Sulfamethoxazole-Tr* Rash PHYSICAL EXAMINATION BP 147/87 (BP Site: Left Arm, BP Position: Sitting, BP Cuff Size: Regular Adult) Pulse 95 SpO2 96% Neurological: Awake, alert, oriented to person, place, and time. Speech fluent, no dysarthria. Naming, repetition, recall, comprehension, calculation intact. Good attention and insight into illness. Cranial Nerves: PERRL, extraocular movements intact without nystagmus. Visual francis full. Facial sensation and movements normal and symmetric. Palate elevates equal bilaterally. Tongue midline. Trapezius strength 5/5 bilaterally. Motor: L-sided weakness with L pronator drift Sensation: Decreased to light touch on the L arm and leg. Gait: L circumduction LABS Cholesterol: No results found for: CHOL No results found for: LDL No results found for: HDL No results found for: TG Diabetes: No results found for: HBA1C IMAGING Please refer to stroke event information Patient Entered Questionnaires PROMIS/NeuroQoL Score Percentiles Percentiles provide an indication of how a patient's score ranks in relation to the [place] general population. > 31st percentile is within normal limits or better * < 31st percentile is at least SD worse than population, which may be clinically relevant < 16th percentile is at least 1 SD worse than population and warrants attention Depression Screening: PHQ-9 Scores: PHQ-9 Self-Harm (Item 9) Response: 0 - 9 No to Mild depression 0 - Not at all 10 - 14 Moderate depression 1 - Several Days > 15 Severe depression 2 - More than half the days 3 - Nearly every day 01/31/2024 Sleep Apnea Probability Score Probability (%) 2 (Sleep study not recommended) Stroke Mechanism and Scales Ischemic or TIA: Ischemic Stroke TOAST Mechanism (CCF-MODIFIED): Large-Artery Atherosclerosis (Embolus/Thrombosis) Large-Artery Atherosclerosis (Embolus/Thrombosis): Intracranial Disease - Anterior Circulation Modified [place] Score: Score: 3 NIH Stroke Scale: LOC: 0 LOC Questions: 0 LOC Commands: 0 LOC Normal Gaze: 0 Visual Francis: 0 Facial Palsy: 0 Motor Left Arm: 1 Motor Right Arm: 0 Motor Left Le Motor Right Le Limb Ataxia: 1 Sensory: 1 Language: 0 Dysarthria: 0 Extinction/Neglect: 0 Total Daily NIHSS: 4 IMPRESSION Jolie Stanley is a 33-year-old woman, with type I DM (+ LENA antibodies) and obesity, who presents for evaluation of R hemispheric watershed infarcts in the setting of intracranial carotid narrowing. The most likely etiology of this is ICAD given her poorly controlled DM, but it is imperative we rule out other etiologies. PLAN stay on aspirin 81mg daily and add plavix 75mg daily for 3 months increase lipitor to 80mg daily referral to endocrinology for sooner appointment CTA head and neck for better visualization of neck and brain vessels blood tests to be done today: EDY, anti-ISAIAS, ANCA, dsDNA, RF, COURTNEY, lupus anticoagulant panel, CRP, ESR, HIV, COURTNEY, LINCOLN, thyroid testing for TSH, fT4 and antibodies referral to cardiology for assessment of hypokinetic LV segments follow-up with me end of February secondary stroke prevention guidelines as mentioned in AVS I spent a total of 75 minutes on the date of service which included preparing to see the patient, [id number] patient care, obtaining and/or reviewing separately obtained history, performing a medically appropriate examination, and counseling and educating the patient/family/caregiver SIGNATURE Cristian Prieto MD February 01, 2024 1:02 PM CC No referring provider defined for this encounter. Ekaterina Durand DO [address] [place] [address] documented in this encounter [facility] 02-01-2024 Note HNO ID: [id number] Author: CRISTIAN PRIETO MD Service: ? Author Type: Physician Type: Progress Notes Filed: 02/01/2024 13:02 Note Text: [facility] Initial Visit Consultation is requested by: No referring provider defined for this encounter. PCP: Ekaterina Durand DO [address] [place] [address] CEREBROVASCULAR HISTORY Reason for Visit: - stroke Date of Last Event: 07/03/2023 (estimated date) History of Event: Jolie Stanley is a 33-year-old woman, with type I DM (+ LENA antibodies) and obesity, who presents for evaluation of R hemispheric stroke. History goes back to Jun when she started having intermittent episodes of L-sided numbness and weakness. She was initially told this was from her neck, then told this is clinically isolated syndrome until she got a brain MRI in November showing remote and subacute R hemispheric infarcts, especially in watershed areas. 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 No neck vessel imaging available. She was started on aspirin 81mg and lipitor 40mg and referred to us. She suffers from L-sided weakness and spasticity in the L leg. Is commuting on a wheelchair and uses a cane to ambulate. No family history of early-onset stroke. Non-smoker, no alcohol use, no illicit drug use. Event History as charted by MELLISSA Bcuhanan: Hunter was seen at [facility] and [facility], was told by [facility] in [place] 11/28/2023 clinically isolated syndrome, until MRI end of November and was told she had a mini-stroke at [facility] in [place]. 11/25/2023: MRI brain with without contrast Interval: Here today with father Manav for evaluation and to discuss diagnosis and prognosis. New stroke S/S or events: denies Medications: compliant Diet: regular Activity: PT/OT exercises Sleep: trouble staying asleep, spasms to L UE/LE Psychological: denies Work: unemployed Antiplatelets/Anticoagulants: Aspirin Statins: Atorvastatin - 40 mg Residual Deficits: Motor weakness - L-sided weakness and numbness Current PT/OT/ST: Oupatient with physical therapy Current Living Situation: Home with other (see comment) - father Current use of a mobility aid for walking/getting around: Wheelchair/Scooter Do you have any planned upcoming surgeries or dental procedures? 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, associated with type 1 diabetes mellitus (HCC) Pernicious anemia Tachycardia chronic PAST SURGICAL HISTORY Procedure Laterality Date BREAST LUMPECTOMY HX Bilateral 2010 REPAIR DETACH RETINA,W VITRECTOMY Left 2022 Agent Viscoelastic 8.5ml Clr Polydimethylsiloxane Retin FAMILY HISTORY Problem Relation Age of Onset Hypertension Father Diabetes Mother Hypertension Mother Heart Failure Mother Colon Cancer Maternal Grandfather Cancer Maternal Grandmother stomach Stroke Other aunt Social History Tobacco Use Smoking status: Never Smokeless tobacco: Never Substance Use Topics Alcohol use: Not Currently Drug use: Never MEDICATIONS Current Outpatient Medications Medication Sig acetaminophen (TYLENOL) 500 mg tablet Take 1,000 mg by mouth every 8 hours as needed for fever (specify temp.) or pain. carvedilol (COREG) 25 mg tablet Take 25 mg by mouth two times a day with meals. diclofenac sodium 1 % kit Apply 1 Application to affected area as needed (3 times daily). ergocalciferol 50,000 unit capsule (VITAMIN D2, DRISDOL) Take 50,000 Units by mouth one time a week. gabapentin (NEURONTIN) 300 mg capsule Take 300 mg by mouth two times a day. insulin glargine (LANTUS) 100 unit/mL soln Inject 40 Units subcutaneously once daily. lidocaine HCL 4 % ptmd Apply 1 Application to affected area once daily. lisinopril (ZESTRIL) 20 mg tablet Take 20 mg by mouth once daily. methocarbamol (ROBAXIN) 500 mg tablet Take 750 mg by mouth three times a day. pyridoxine, vitamin B6, 50 mg cap Take 50 mg by mouth once daily. rOPINIRole (REQUIP) 0.5 mg tablet Take 0.5 mg by mouth three times a day. topiramate (TOPAMAX) 25 mg tablet Take 25 mg by mouth two times a day. aspirin, enteric coated (ASPIRIN, ENTERIC COATED) 81 mg EC tablet Take 81 mg by mouth once daily. atorvastatin (LIPITOR) 40 mg tablet Take 40 mg by mouth once daily. iv contrast (will be provided with radiology test) CTA Head/Neck W No IV access, insert saline lock prior to the sedation, infusion, injection for imaging exam. Discontinue saline lock post exam. If Pt. has a central line or IVAD, may access for administration according to line specific nursing protocol. Once exam is complete flush line and de-access according to line specific n (more content not included)... [facility] 12-21-2023 Progress note Note Date/Time December 21, 2023 4:05pm [facility] [address] [place] [address] Physiatry(Rehab) Progress Note Signed Patient: Jolie Stanley MR#: [id number] : 1990 Acct:[id number] Age/Sex: 33 / F Adm Date: 4 Loc: Room: 1A4300-8 Type: ADM IN Attending Dr: Brandon Cee MD Copies to: ~ Date of Service: 12/21/2023 Subjective Subjective Narrative: Ms. Stanley is a 33 year old female with PMH TIIDM, HTN who presents to rehab due to multifactorial functional decline in the setting of clinically isolated syndrome as the first sign of likely MS. The patient initially presented to the hospital due to left arm and leg weakness and numbness as well as bifrontal headaches. Per notes, patient also had right eye visual field deficits as well as urinary urgency and incontinence. MRI of the brain demonstrated restricted diffusion within the right parietal convexity and deep white matter of the centrum semiovale within the right frontal and parietal lobes. MRV did not show acute dural venous sinus thrombosis but had features of intracranial HTN and enhancement at R perirolandic region. Neurology suspects clinically isolated syndrome d/t work up demonstrating lesion enhancement, elevated TILTROTOR CREW CHIEF IgG synthesis and lack of clear alternative diagnosis. The patient lives with her father and step mother in a 1 level home with 2 MED and 2 steps inside. Normally independent but has been using a walker. 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 Interval history: Patient seen today while working with therapy. Appears in no major distress today. continues to endorse headaches. This time on the right side behind her eye. Tylenol and gabapentin not helping. Would like to try something else. Otherwise no chest pain, SOB, fever, chills. Tolerating therapy well although only ambulated 18' today CGA-Charlie. Review of Systems Review of Systems All other systems reviewed & are negative unless noted below or in HPI Exam Physical Exam Vital Signs: Temp Pulse Resp BP Pulse Ox O2 Del Method 98.5 F 97 16 142/78 H 95 Room Air 12/20/23 16:00 12/21/23 05:00 12/21/23 05:00 12/21/23 05:00 12/21/23 05:00 12/21/23 07:30 Narrative: General: Awake, A&O x 3, pleasant, cooperative, well nourished. Resting comfortably in bed HENT: NC, AT Eyes: No scleral icterus Neck: Supple Cardio: Extremities well perfused Respiratory: No evidence of respiratory distress GI: Soft, nontender, nondistended Neuro: CN II-XII intact. Strength 5/5 right upper and lower extremities. Strength 4/5 left upper and lower extremities.Moves all extremities spontaneously. Sensation intact bilateral lower extremities. Slight MAS 1 spasticity present in the left finger and wrist flexors Extremities: No edema, erythema, cyanosis Psych: Affect, speech and movements normal. Mood congruent Objective Labs 12/15/23 06:02 12/15/23 06:02 Labs: Laboratory Results - last 24 hr 12/20/23 12/20/23 12/20/23 09:03 16:28 20:55 POC Glucose 192 192 POC Glucose Comment Glu2: cleaned meter EDY Homogeneous Pattern N/A 12/21/23 12/21/23 07:20 11:27 POC Glucose 119 167 POC Glucose Comment Glu2: cleaned meter Glu2: cleaned meter EDY Homogeneous Pattern Medications and Allergies Allergies and Active Meds: Allergies amoxicillin Allergy (Severe, Verified 12/09/23 22:55) Blister cefaclor Allergy (Severe, Verified 05/22/24 22:55) Blister cephalexin Allergy (Severe, Verified 12/09/23 22:55) Blister doxycycline Allergy (Severe, Verified 12/09/23 22:55) Blister sulfamethoxazole [From Bactrim] Allergy (Severe, Verified 12/09/23 22:55) Blister trimethoprim [From Bactrim] Allergy (Severe, Verified 12/09/23 22:55) Blister cephafine Allergy (Severe, Uncoded 12/09/23 22:55) Blister Active Medications Generic Name Dose Route Start Last Admin Trade Name Freq PRN Reason Stop Dose Admin Acetaminophen 1,000 mg 12/18/23 12:00 12/21/23 12:18 Acetaminophen 500 Mg Tablet PO 12/17/24 11:59 1,000 mg Q6H WILLARD Administration Al Hydrox/Mg Hydrox/Simethicone 30 ml 12/09/23 22:52 Mag Hydrox/Al Hydrox/Simeth 30 Ml Udc PO 12/08/24 22:51 Q4H PRN Indigestion Aspirin 81 mg 12/17/23 09:00 12/21/23 10:01 Aspirin 81 Mg Tablet.Dr PO 12/16/24 08:59 81 mg DAILY WILLARD Administration Atorvastatin Calcium 40 mg 12/16/23 21:00 12/20/23 21:24 Atorvastatin 40 Mg Tablet PO 12/15/24 20:59 40 mg QPM WILLARD Administration Bisacodyl 10 mg 12/09/23 22:52 Bisacodyl 10 Mg Supp.Rect NE 12/08/24 22:51 DAILY PRN Constipation Carvedilol 25 mg 12/09/23 22:45 12/21/23 10:01 Carvedilol 25 Mg Tablet PO 12/08/24 22:44 25 mg BID WILLARD Administration Cyanocobalamin 1,000 mcg 12/11/23 09:00 12/18/23 08:02 Cyanocobalamin 1,000 Mcg/Ml Vial IM 12/10/24 08:59 1,000 mcg Q7D WILLARD Administration Diclofenac Sodium 2 gm 12/10/23 11:50 12/17/23 21:46 Diclofenac Sodium 1% Gel 100 Gm Tube TOPICAL 12/09/24 13:59 2 gm TID PRN Administration pain Diphenhydramine HCl 25 mg 12/10/23 19:05 Diphenhydramine 25 Mg Capsule PO 12/09/24 19:04 Q6H PRN Allergic Reaction Docusate Sodium 100 mg 12/09/23 22:52 12/20/23 08:15 Docusate 100 Mg Capsule PO 12/08/24 22:51 100 mg BID PRN Administration Constipation Docusate Sodium 283 mg 12/09/23 22:52 Docusate Enema 283 Mg/5 Ml Enema NE 12/08/24 22:51 DAILY PRN Constipation Enoxaparin Sodium 40 mg 12/10/23 09:00 12/21/23 10:01 Enoxaparin 40 Mg/0.4 Ml Syringe SUBCUT 12/09/24 08:59 40 mg QAM WILLARD Administration Ergocalciferol 1,250 mcg 12/15/23 09:00 12/15/23 12:23 Ergocalciferol 1,250 Mcg (50,000 Units) Capsule PO 12/14/24 08:59 1,250 mcg Tu@0900 WILLARD Administration Gabapentin 300 mg 12/18/23 21:00 12/21/23 10:01 Gabapentin 300 Mg Capsule PO 12/17/24 20:59 300 mg BID WILLARD Administration Hydralazine HCl 25 mg 12/12/23 18:37 Hydralazine 25 Mg Tablet PO 12/11/24 21:59 TID PRN hypertension Hydrochlorothiazide 12.5 mg 12/13/23 08:00 12/13/23 08:00 Hydrochlorothiazide 12.5 Mg Tablet PO 12/12/24 07:59 12.5 mg DAILY.8A WILLARD Administration Insulin Aspart 0 units 12/11/23 16:30 12/21/23 12:17 Insulin Aspart 300 Units/3 Ml Insuln.Pen SUBCUT 12/10/24 16:29 4 units ACHS WILLARD Administration Protocol Insulin Glargine 40 units 12/10/23 09:00 12/21/23 10:03 Insulin Glargine 300 Units/3 Ml Insuln.Pen SUBCUT 12/09/24 08:59 40 units QAM WILLARD Administration Lactulose 30 gm 12/09/23 22:52 12/13/23 15:16 Lactulose 20 Gm/30 Ml Udc PO 12/08/24 22:51 30 gm DAILY PRN Administration Constipation Lidocaine 1 patch 12/10/23 12:45 12/21/23 10:02 Lidocaine 4% Adh..Patch TOPICAL 12/09/24 12:44 1 patch DAILY WILLARD Administration Lisinopril 20 mg 12/14/23 09:00 12/21/23 10:01 Lisinopril 20 Mg Tablet PO 12/13/24 08:59 20 mg QAM WILLARD Administration Melatonin 5 mg 12/10/23 22:00 12/20/23 21:24 Melatonin 5 Mg Tablet PO 12/09/24 21:59 5 mg QHS WILLARD Administration Methocarbamol 750 mg 12/10/23 12:40 12/21/23 01:31 Methocarbamol 500 Mg Tablet PO 12/09/24 13:59 750 mg TID PRN Administration spasms Oxycodone HCl 5 mg 12/13/23 10:42 12/19/23 20:48 Oxycodone Ir 5 Mg Tablet PO 5 mg Q4H PRN Administration Pain Pyridoxine HCl 50 mg 12/10/23 09:00 12/21/23 10:01 Pyridoxine 50 Mg Tablet PO 12/09/24 08:59 50 mg QAM WILLARD Administration Ropinirole HCl 0.5 mg 12/11/23 22:00 12/20/23 21:24 Ropinirole 0.5 Mg Tablet PO 12/10/24 21:59 0.5 mg QHS WILLARD Administration Sennosides 2 tab 12/10/23 12:00 12/20/23 08:15 Sennosides 8.6 Mg Tablet PO 12/09/24 11:59 2 tab DAILY@12 PRN Administration If no BM in 2 days Sodium Chloride 0 ml 12/09/23 22:52 Sodium Chloride 0.9 % 10 Ml Syringe IV-PUSH 12/08/24 22:51 PRN PRN Flush Topiramate 25 mg 12/21/23 21:00 Topiramate 25 Mg Tablet PO 12/20/24 20:59 BID WILLARD Assessment/Plan Assessment/Plan (1) Clinically isolated syndrome: (2) Multiple sclerosis: (3) Diabetes: (4) Obesity: (5) Impaired mobility and activities of daily living: (6) Anemia: (7) Leukocytosis: (8) Stenosis of right internal carotid artery with cerebral infarction: (9) Right sided cerebral hemisphere cerebrovascular accident: (10) Left-sided weakness: Plan This is a 33-year-old female who presents to [facility] IRF due to multifactorial functional decline in the setting of clinically isolated syndrome, possibly MS vs acute CVA. She has continued impaired mobility and impaired independence with ADLs and IADLs requiring PT/OT/LIME TRIMMER 5-7 days/week 3 hours/day to maximize safety and independence with functional ability and self-care. #. Acute CVA vs. Clinically isolated syndrome, possible MS -PT to improve patient's strength, endurance, bed mobility, transfers (sit-stand), standing balance, gait quality on level surfaces and stairs, coordination and functional ADL skills. We will also work to improve patient's safety awareness during transfers and ambulation. -OT for basic ADL retraining (bathing, dressing, toileting, continence, grooming, feeding, transferring), to increase activity tolerance and functional mobility to evaluate for adaptive assistive device. We will work to improve patient's endurance and educate patient on fall prevention and energy conservation techniques-pacing strategies and proper breathing techniques duringfunctional tasks. -Patient education -Pressure ulcer prophylaxis; encourage mobilization, frequent postural changes, pressure-relief techniques -DVT prophylaxis -Encourage deep breathing exercise incentive spirometry. -Monitor bladder. Toileting schedule. Continue current bladder management, with scans as needed and CIC if needed. Start bowel care program every day to obtain continence, prevent ileus. -Maintain fall precautions -Gait and balance retraining -Provision of the necessary gait aids and functional adaptive equipment to enhance the patient's a functional alevism -Encourage deep breathing exercises and incentive spirometry -RD evaluation -Ensure adequate nutrition and hydration -Discharge planning. -Patient evaluated by Neurology team given abnormal MRI findings. Neurology suspecting acute CVA given imaging findings. Steroid DCd. Patient started on ASA, statin. Will need f/u with specialist upon discharge #. 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 HTN -Continue Lisinopril 20 mg daily, Coreg 25 mg BID #. HLD -Started on statin Medical Updates: -Topamax added per neurology. Would also consider adding amitriptyline at night as this has shown good evidence with chronic daily headaches -Overall tolerating therapy. Plan for DC home tomorrow. Hospitalist to assist with management of comorbid medical conditions #. Pain control: Tylenol PRN, lidocaine patch, voltaren gel #. Bowel and bladder: Admits to some urinary incontinence #. Skin: (pressure ulcer/surgical site) No pressure injuries on admission #. Sleep: Optimize sleep/wake cycle DVT prophylaxis: Lovenox 40 mg daily Functional status: Impaired. Limited by pain, weakness Discharge planning: ELOS 1-2 weeks Patient was personally seen by me, Dr. Cee, on the day of encounter, reviewed the history and the relevant portions of the chart, including current orders, allied health and reservoir engineering consultant notes, labs/imaging and performed maki elements of exam and I formulated the plan of care and facilitated the medical decision making. I completed a substantive portion of this encounter, the medical decision makingportion of this note in its entirety, including Allied health note review, nursing note review, reservoir engineering consultant note review, discussion with nursing and case management, and more than 50% of my time was spent on counseling and coordination of care, time spent 30 minutes Documented By: Brandon Cee MD 1600 Signed By: <Electronically signed by Brandon Cee MD> 12/21/23 160 [facility] Work Phone: [phone]) 944-827206-03-2024 Progress note Author Maged Roman [facility] December 21, 2023 2:45pm Note Date/Time December 21, 2023 2:42p m [facility] [address] [place] [address] Neurology Progress Note Signed Patient: Jolie Stanley MR#: [id number] : 1990 Acct:[id number] Age/Sex: 33 / F Adm Date: 4 Loc: Room: [address] [place] [address] Type: ADM IN Attending Dr: Brandon Cee MD Copies to: ~ Date of Service: 12/21/2023 Exam Physical Exam Vital Signs: Temp Pulse Resp BP Pulse Ox O2 Del Method 98.5 F 97 16 142/78 H 95 Room Air 12/20/23 16:00 12/21/23 05:00 12/21/23 05:00 12/21/23 05:00 12/21/23 05:00 12/21/23 07:30 Objective Vital Signs Vital Signs: Vital Signs - 24 hr 12/20/23 16:00 12/20/23 23:30 12/21/23 03:40 Temperature 98.5 F Pulse Rate 94 97 Respiratory Rate 16 16 Blood Pressure 125/81 142/78 H 02 Sat by Pulse Oximetry 98 95 Oxygen Delivery Method Room Air Room Air Room Air 12/21/23 05:00 12/21/23 07:30 Temperature Pulse Rate 97 Respiratory Rate 16 Blood Pressure 142/78 H 02 Sat by Pulse Oximetry 95 Oxygen Delivery Method Room Air Room Air Labs 12/15/23 06:02 12/15/23 06:02 Lab Results: 12/20/23 14:26: ESR 51 H Therapy Recommendations Therapy Recommendations: PT Recommendations PT Recommended Discharge Home with Outpatient Location PT Recommended Services at Physical Therapy Discharge ST Recommendations Level of Supervision Independent Self Feeding Liquid Consistency Thin Liquids Recommendation Solid Consistency Regular Solids Recommendations Meat Consistency Whole Meats Recommendations Medication Administration Give Pills in Applesauce,Give Pills with Water, Whole Pills Dysphagia Swallow Precautions/ Sitting Upright (90 deg),Small Bites/Sips,Pacing Strategies /Slow-Rate Assessment/Plan (1) Right sided cerebral hemisphere cerebrovascular accident: (2) Stenosis of right internal carotid artery with cerebral infarction: Plan CONSULT REASON: MRI abnormalities SUBJECTIVE: She is still having somewhat of a headache and it has seemingly settled retro- orbital he behind the right eye. No longer bifrontal or holocephalic. She saidshe was able to get an appointment with a vascular neurologist at [facility]. And it sounds like she will be discharged tomorrow and she is looking forward to that. No other new symptoms mentioned so nothing else to add to review of systems. EXAMINATION: In no distress. No obvious outward deformities or trauma. Limbs seem well- perfused. No significant edema. Normal work of breathing. Visualized skin is generally intact and without lesions. Affect normal. Patient is alert and generally oriented. Attention normal. Speech is fluent and nondysarthric. Pupils appear equal. Ocular motility is full. Facial sensation normal to pinprick. Hearing seems normal. Facial strength appears normal. Subtle left hemiparesis but she is able to hold the limbs up without any significant drift. No significant tremors. Reflexes normoactive. Light touch is intact throughout. Vibratory sensation and pinprick sensation are reduced in the left upper and left lower extremity. No significant ataxia of any limb. Good palpable radial pulses bilaterally. DATA REVIEW from [place]: -MRI brain shows restricted diffusion within the right parietal convexity and deep white matter of the centrum semiovale within the right frontoparietal lobeswith peripheral enhancement, could be suggestive of venous infarction however nodural venous thrombosis noted -MRV brain shows no acute dural venous sinus thrombosis -MRI cervical spine shows normal cord -MRI thoracic spine shows normal cord -MRA head without contrast shows moderate to severe narrowing of the right cervical, cavernous, petrous, and paraclinoid internal carotid as well as the left cavernous and paraclinoid internal carotid, with an asymmetrically small caliber right MCA when compared to the left -CSF with opening pressure 16 cm CSF, protein 86, no white blood cells, infectious PCR negative, cytology negative. IgG index 0.64. IgG synthesis rate3.6, 0 oligoclonal bands -EDY negative, ISAIAS negative, CRP 0.7 -Labs from here at [facility]: ESR 51 and CRP 3.3, and when last checked she did have leukocytosis and thrombocytosis DATA REVIEW from here at [facility]: -MRI brain without contrast from December 15, 2023 shows gliosis and encephalomalaciain the right frontal and parietal lobes probably from a previous right MCA territory infarct, residual or new diffusion restriction in the right frontal cortex near the midline, and relatively diminutive flow within the intracranial segment of the right ICA ASSESSMENT: 33-year-old woman with a relatively recent right cerebral hemispheric MCA?DIAMOND watershed distribution ischemic stroke secondary to extensive narrowing of the entire course of the right internal carotid artery and the right MCA. Of note, there is significant narrowing of the left internal carotid artery as well. I think moyamoya disease needs to be a consideration. I do not think she has an underlying demyelinating syndrome. She has ongoing headaches. They are fairly continuous and holocephalic and overall sound most consistent with tension type headaches. I would note that headaches are a common feature of moyamoya disease as well. She has history of migraine and the headaches now do seem more migrainous than anything else. I still have very low suspicion for a vasculitis syndrome despite the headache andstroke. Her inflammatory markers were also elevated here, but she says she had a urinary tract infection and she also had leukocytosis and thrombocytosis. She had earlier mentioned to me that she can wake up with headaches. And she feels like her throat closes on her if she lays flat during sleep. She says sheis sleeping with her head partially elevated. I suspect she has obstructive sleep apnea but she needs a sleep study. PLAN: 1. Pending lab work: EDY, COURTNEY, ANCA 2. I discontinued the cyclobenzaprine we started for what were presumed to be tension type headaches 3. I am starting topiramate 25 mg twice daily as a migraine preventative 4. Continue the aspirin 81 mg daily, new here 5. Continue the atorvastatin 40 mg daily, new here 6. Needs established outpatient with a local neurologist 7. She would be well served to be evaluated by a cerebrovascular neurology subspecialist (probably at [facility]). Given her young age and bilateraldistal ICA stenosis and right MCA stenosis, I think moyamoya disease needs considered. Or maybe she just has vasculopathy related to her type 1 diabetes and hypertension. 8. She would be well served to be evaluated by a neuroimmunology neurology subspecialist (probably at [facility]), given all that has been said aboutpotential demyelinating disease and her given diagnosis of a clinically isolatedsyndrome. 9. Also recommend outpatient sleep study 10. No other inpatient recommendations at this time Documented By: Maged Roman DO 12/21/23 1440 Signed By: <Electronically signed by Maged Roman DO> 12/21/[address] [facility] Work Phone: [phone] 995-623706-01-2024 Progress note Author Maged Roman [facility] December 19, 2023 1:24pm Note Date/Time December 19, 2023 1:24p m [facility] [address] [place] [address] Neurology Progress Note Signed Patient: Jolie Stanley MR#: [id number] : 1990 Acct:[id number] Age/Sex: 33 / F Adm Date: 4 Loc: 5T Room: 3B0302-8 Type: ADM IN Attending Dr: Brandon Cee MD Copies to: ~ Date of Service: 12/19/2023 Exam Physical Exam Vital Signs: Temp Pulse Resp BP Pulse Ox O2 Del Method 97.8 F 92 14 136/89 97 Room Air 12/19/23 05:00 12/19/23 05:00 12/19/23 05:00 12/19/23 12:04 12/19/23 05:00 12/19/23 05:00 Objective Vital Signs Vital Signs: Vital Signs - 24 hr 12/18/23 16:14 12/18/23 20:14 12/19/23 05:00 Temperature 98.6 F 97.8 F Pulse Rate 97 92 Respiratory Rate 18 14 Blood Pressure 124/68 127/74 Blood Pressure [Left Arm Sitting] Blood Pressure [Left Arm Standing] Blood Pressure [Left Arm Supine] 02 Sat by Pulse Oximetry 98 97 Oxygen Delivery Method Room Air Room Air Room Air 12/19/23 08:25 12/19/23 12:04 Temperature Pulse Rate Respiratory Rate Blood Pressure 129/83 Blood Pressure [Left Arm Sitting] 127/83 Blood Pressure [Left Arm Standing] 113/69 Blood Pressure [Left Arm Supine] 136/89 02 Sat by Pulse Oximetry Oxygen Delivery Method Labs 12/15/23 06:02 12/15/23 06:02 Therapy Recommendations Therapy Recommendations: PT Recommendations PT Recommended Discharge Home with Outpatient Location PT Recommended Services at Physical Therapy Discharge ST Recommendations Level of Supervision Independent Self Feeding Liquid Consistency Thin Liquids Recommendation Solid Consistency Regular Solids Recommendations Meat Consistency Whole Meats Recommendations Medication Administration Give Pills in Applesauce,Give Pills with Water, Whole Pills Dysphagia Swallow Precautions/ Sitting Upright (90 deg),Small Bites/Sips,Pacing Strategies /Slow-Rate Assessment/Plan (1) Right sided cerebral hemisphere cerebrovascular accident: (2) Stenosis of right internal carotid artery with cerebral infarction: Plan CONSULT REASON: MRI abnormalities SUBJECTIVE: I came up to evaluate her back again because she continues to complain of headaches complaining of lightheadedness. She cannot really describe the lightheadedness sensation to me but denies feeling presyncopal like she is on the verge of losing consciousness. She says she feels short of breath but has been told she cannot be short of breath because her oxygen levels are normal. And she continues to get headaches to feel like holocephalic pressure. No associated vision changes. Not a throbbing nature. They tend to be pretty continuous and bothersome all day. Not necessarily worse first thing in the morning. She also mentions that either at night when she is trying to sleep or if she lays completely flat she feels like her throat closes. [facility] [place] [facility] there was mention made of features that looked concerning for increased intracranial pressure. But she did have a lumbar puncture there and the opening pressure was only 16 cm of CSF. EXAMINATION: In no distress. No obvious outward deformities or trauma. Limbs seem well- perfused. No significant edema. Normal work of breathing. Visualized skin is generally intact and without lesions. Affect normal. Patient is alert and generally oriented. Attention normal. Speech is fluent and nondysarthric. Pupils appear equal. Ocular motility is full. Facial sensation normal to pinprick. Hearing seems normal. Facial strength appears normal. Subtle left hemiparesis but she is able to hold the limbs up without any significant drift. No significant tremors. Reflexes normoactive. Light touch is intact throughout. Vibratory sensation and pinprick sensation are reduced in the left upper and left lower extremity. No significant ataxia of any limb. DATA REVIEW from [place]: -MRI brain shows restricted diffusion within the right parietal convexity and deep white matter of the centrum semiovale within the right frontoparietal lobeswith peripheral enhancement, could be suggestive of venous infarction however nodural venous thrombosis noted -MRV brain shows no acute dural venous sinus thrombosis -MRI cervical spine shows normal cord -MRI thoracic spine shows normal cord -MRA head without contrast shows moderate to severe narrowing of the right cervical, cavernous, petrous, and paraclinoid internal carotid as well as the left cavernous and paraclinoid internal carotid, with an asymmetrically small caliber right MCA when compared to the left -CSF with opening pressure 16 cm CSF, protein 86, no white blood cells, infectious PCR negative, cytology negative. IgG index 0.64. IgG synthesis rate3.6, 0 oligoclonal bands -EDY negative, ISAIAS negative, CRP 0.7 DATA REVIEW from here at [facility]: -MRI brain without contrast from December 15, 2023 shows gliosis and encephalomalaciain the right frontal and parietal lobes probably from a previous right MCA territory infarct, residual or new diffusion restriction in the right frontal cortex near the midline, and relatively diminutive flow within the intracranial segment of the right ICA ASSESSMENT: 33-year-old woman with a relatively recent right cerebral hemispheric MCA?DIAMOND watershed distribution ischemic stroke secondary to extensive narrowing of the entire course of the right internal carotid artery and the right MCA. Of note, there is significant narrowing of the left internal carotid artery as well. I think moyamoya disease needs to be a consideration. I do not think she has an underlying demyelinating syndrome. She has ongoing headaches. They are fairly continuous and holocephalic and overall sound most consistent with tension type headaches. I would note that headaches are a common feature of moyamoya disease as well. She has history of migraine but her headaches do not seem migrainous in character. And there has been suspicion for idiopathic intracranial hypertension but she had a lumbar puncture with an opening pressure of 16 cm of CSF here recently. Low suspicion for the headaches (and the stroke) being part of the vasculitis syndrome. Some of that was looked into at [place]. I can recheck some of that lab work. I cannot quite discern what means by feeling lightheaded but I do not think itis cerebrovascular in origin. She had earlier mentioned to me that she can wake up with headaches. And she feels like her throat closes on her if she lays flat during sleep. She says sheis sleeping with her head partially elevated. I suspect she has obstructive sleep apnea but she needs a sleep study. PLAN: 1. Checking EDY, COURTNEY, ANCA, ESR, CRP 2. She is getting methocarbamol 750 mg 3 times daily as needed. I am going to start her on cyclobenzaprine 5 mg twice daily to see if it helps what I think are probably tension type headaches. 3. Continue the aspirin 81 mg daily 4. Continue the atorvastatin 40 mg daily 5. Needs established outpatient with a local neurologist 6. She would be well served to be evaluated by a cerebrovascular neurology subspecialist (probably at [facility]). Given her young age and bilateraldistal ICA stenosis and right MCA stenosis, I think moyamoya disease needs considered. Or maybe she just has vasculopathy related to her type 1 diabetes and hypertension. 7. She would be well served to be evaluated by a neuroimmunology neurology subspecialist (probably at [facility]), given all that has been said aboutpotential demyelinating disease and her given diagnosis of a clinically isolatedsyndrome. Documented By: Maged Roman DO 12/19/23 1314 Signed By: <Electronically signed by Maged Roman DO> 12/19/[address] [facility] Work Phone: 1(585) 638-531905-31-2024 Progress note Author Brandon Cee [facility] December 18, 2023 11:36am Note Date/Time December 18, 2023 11:36 am [facility] [address] [place] [address] Physiatry(Rehab) Progress Note Signed Patient: Jolie Stanley MR#: [id number] : 1990 Acct:[id number] Age/Sex: 33 / F Adm Date: 4 Loc: 5T Room: [address] [place] [address] Type: ADM IN Attending Dr: Brandon Cee MD Copies to: ~ Date of Service: 12/18/2023 Subjective Subjective Narrative: Ms. Stanley is a 33 year old female with PMH TIIDM, HTN who presents to rehab due to multifactorial functional decline in the setting of clinically isolated syndrome as the first sign of likely MS. The patient initially presented to the hospital due to left arm and leg weakness and numbness as well as bifrontal headaches. Per notes, patient also had right eye visual field deficits as well as urinary urgency and incontinence. MRI of the brain demonstrated restricted diffusion within the right parietal convexity and deep white matter of the centrum semiovale within the right frontal and parietal lobes. MRV did not show acute dural venous sinus thrombosis but had features of intracranial HTN and enhancement at R perirolandic region. Neurology suspects clinically isolated syndrome d/t work up demonstrating lesion enhancement, elevated [employer] IgG synthesis and lack of clear alternative diagnosis. The patient lives with her father and step mother in a 1 level home with 2 MDE and 2 steps inside. Normally independent but has been using a walker. 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 Interval history: Patient seen today while working with therapy. She appears in no distress. She denies any chest pain, SOB, fever, chills. Tolerating therapy well. Patients dadis present today for FI. All questions answered regarding CVA diagnosis. Patientcontinues to endorse headache as well as right hip pain. Review of Systems Review of Systems All other systems reviewed & are negative unless noted below or in HPI Exam Physical Exam Vital Signs: Temp Pulse Resp BP Pulse Ox O2 Del Method 98.6 F 97 16 92/58 L 98 Room Air 12/18/23 05:00 12/18/23 05:00 12/18/23 05:00 12/18/23 05:00 12/18/23 05:00 12/18/23 07:30 Narrative: General: Awake, A&O x 3, pleasant, cooperative, well nourished. Resting comfortably in bed HENT: NC, AT Eyes: No scleral icterus Neck: Supple Cardio: Extremities well perfused Respiratory: No evidence of respiratory distress GI: Soft, nontender, nondistended Neuro: CN II-XII intact. Strength 5/5 right upper and lower extremities. Strength 4/5 left upper and lower extremities.Moves all extremities spontaneously. Sensation intact bilateral lower extremities. Slight MAS 1 spasticity present in the left finger and wrist flexors Extremities: No edema, erythema, cyanosis Psych: Affect, speech and movements normal. Mood congruent Objective Labs 12/15/23 06:02 12/15/23 06:02 Labs: Laboratory Results - last 24 hr 12/17/23 12/17/23 12/18/23 16:37 21:03 07:09 POC Glucose 192 199 226 POC Glucose Comment Glu2: cleaned meter Glu2: cleaned meter Medications and Allergies Allergies and Active Meds: Allergies amoxicillin Allergy (Severe, Verified 12/09/23 22:55) Blister cefaclor Allergy (Severe, Verified 12/09/23 22:55) Blister cephalexin Allergy (Severe, Verified 12/09/23 22:55) Blister doxycycline Allergy (Severe, Verified 12/09/23 22:55) Blister sulfamethoxazole [From Bactrim] Allergy (Severe, Verified 12/09/23 22:55) Blister trimethoprim [From Bactrim] Allergy (Severe, Verified 12/09/23 22:55) Blister cephafine Allergy (Severe, Uncoded 12/09/23 22:55) Blister Active Medications Generic Name Dose Route Start Last Admin Trade Name Freq PRN Reason Stop Dose Admin Acetaminophen 1,000 mg 12/17/23 13:54 Acetaminophen 500 Mg Tablet PO 12/08/24 22:51 Q6H PRN Pain Al Hydrox/Mg Hydrox/Simethicone 30 ml 12/09/23 22:52 Mag Hydrox/Al Hydrox/Simeth 30 Ml Udc PO 12/08/24 22:51 Q4H PRN Indigestion Aspirin 81 mg 12/17/23 09:00 12/18/23 08:00 Aspirin 81 Mg Tablet. PO 12/16/24 08:59 81 mg DAILY WILLARD Administration Atorvastatin Calcium 40 mg 12/16/23 21:00 12/17/23 21:41 Atorvastatin 40 Mg Tablet PO 12/15/24 20:59 40 mg QPM WILLARD Administration Bisacodyl 10 mg 12/09/23 22:52 Bisacodyl 10 Mg Supp.Rect NE 12/08/24 22:51 DAILY PRN Constipation Carvedilol 25 mg 12/09/23 22:45 12/18/23 07:59 Carvedilol 25 Mg Tablet PO 12/08/24 22:44 25 mg BID WILLARD Administration Cyanocobalamin 1,000 mcg 12/11/23 09:00 12/18/23 08:02 Cyanocobalamin 1,000 Mcg/Ml Vial IM 12/10/24 08:59 1,000 mcg Q7D WILLARD Administration Diclofenac Sodium 2 gm 12/10/23 11:50 12/17/23 21:46 Diclofenac Sodium 1% Gel 100 Gm Tube TOPICAL 12/09/24 13:59 2 gm TID PRN Administration pain Diphenhydramine HCl 25 mg 12/10/23 19:05 Diphenhydramine 25 Mg Capsule PO 12/09/24 19:04 Q6H PRN Allergic Reaction Docusate Sodium 100 mg 12/09/23 22:52 12/12/23 14:13 Docusate 100 Mg Capsule PO 12/08/24 22:51 100 mg BID PRN Administration Constipation Docusate Sodium 283 mg 12/09/23 22:52 Docusate Enema 283 Mg/5 Ml Enema NE 12/08/24 22:51 DAILY PRN Constipation Enoxaparin Sodium 40 mg 12/10/23 09:00 12/18/23 08:00 Enoxaparin 40 Mg/0.4 Ml Syringe SUBCUT 12/09/24 08:59 40 mg QAM WILLARD Administration Ergocalciferol 1,250 mcg 12/15/23 09:00 12/15/23 12:23 Ergocalciferol 1,250 Mcg (50,000 Units) Capsule PO 12/14/24 08:59 1,250 mcg Tu@0900 WILLARD Administration Gabapentin 200 mg 12/12/23 22:00 12/17/23 21:41 Gabapentin 100 Mg Capsule PO 12/11/24 21:59 200 mg HS WILLARD Administration Hydralazine HCl 25 mg 12/12/23 18:37 Hydralazine 25 Mg Tablet PO 12/11/24 21:59 TID PRN hypertension Hydrochlorothiazide 12.5 mg 12/13/23 08:00 12/13/23 08:00 Hydrochlorothiazide 12.5 Mg Tablet PO 12/12/24 07:59 12.5 mg DAILY.8A WILLARD Administration Insulin Aspart 0 units 12/11/23 16:30 12/18/23 08:03 Insulin Aspart 300 Units/3 Ml Insuln.Pen SUBCUT 12/10/24 16:29 6 units ACHS WILLARD Administration Protocol Insulin Glargine 40 units 12/10/23 09:00 12/18/23 08:02 Insulin Glargine 300 Units/3 Ml Insuln.Pen SUBCUT 12/09/24 08:59 40 units QAM WILLARD Administration Lactulose 30 gm 12/09/23 22:52 12/13/23 15:16 Lactulose 20 Gm/30 Ml Udc PO 12/08/24 22:51 30 gm DAILY PRN Administration Constipation Lidocaine 1 patch 12/10/23 12:45 12/18/23 08:01 Lidocaine 4% Adh..Patch TOPICAL 12/09/24 12:44 Not Given DAILY WILLARD Lisinopril 20 mg 12/14/23 09:00 12/18/23 07:59 Lisinopril 20 Mg Tablet PO 12/13/24 08:59 20 mg QAM WILLARD Administration Melatonin 5 mg 12/10/23 22:00 12/17/23 21:41 Melatonin 5 Mg Tablet PO 12/09/24 21:59 5 mg QHS WILLARD Administration Methocarbamol 750 mg 12/10/23 12:40 12/16/23 21:11 Methocarbamol 500 Mg Tablet PO 12/09/24 13:59 750 mg TID PRN Administration spasms Oxycodone HCl 5 mg 12/13/23 10:42 12/17/23 21:41 Oxycodone Ir 5 Mg Tablet PO 5 mg Q4H PRN Administration Pain Pyridoxine HCl 50 mg 12/10/23 09:00 12/18/23 07:59 Pyridoxine 50 Mg Tablet PO 12/09/24 08:59 50 mg QAM WILLARD Administration Ropinirole HCl 0.5 mg 12/11/23 22:00 12/17/23 21:41 Ropinirole 0.5 Mg Tablet PO 12/10/24 21:59 0.5 mg QHS WILLARD Administration Sennosides 2 tab 12/10/23 12:00 12/12/23 14:14 Sennosides 8.6 Mg Tablet PO 12/09/24 11:59 2 tab DAILY@12 PRN Administration If no BM in 2 days Sodium Chloride 0 ml 12/09/23 22:52 Sodium Chloride 0.9 % 10 Ml Syringe IV-PUSH 12/08/24 22:51 PRN PRN Flush Assessment/Plan Assessment/Plan (1) Clinically isolated syndrome: (2) Multiple sclerosis: (3) Diabetes: (4) Obesity: (5) Impaired mobility and activities of daily living: (6) Anemia: (7) Leukocytosis: (8) Stenosis of right internal carotid artery with cerebral infarction: (9) Right sided cerebral hemisphere cerebrovascular accident: (10) Left-sided weakness: Plan This is a 33-year-old female who presents to [facility] IRF due to multifactorial functional decline in the setting of clinically isolated syndrome, possibly MS vs acute CVA. She has continued impaired mobility and impaired independence with ADLs and IADLs requiring PT/OT/LIME TRIMMER 5-7 days/week 3 hours/day to maximize safety and independence with functional ability and self-care. #. Acute CVA vs. 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 We will also work to improve patient's safety awareness during transfers and ambulation. -OT for basic ADL retraining (bathing, dressing, toileting, continence, grooming, feeding, transferring), to increase activity tolerance and functional mobility to evaluate for adaptive assistive device. We will work to improve patient's endurance and educate patient on fall prevention and energy conservation techniques-pacing strategies and proper breathing techniques duringfunctional tasks. -Patient education -Pressure ulcer prophylaxis; encourage mobilization, frequent postural changes, pressure-relief techniques -DVT prophylaxis -Encourage deep breathing exercise incentive spirometry. -Monitor bladder. Toileting schedule. Continue current bladder management, with scans as needed and CIC if needed. Start bowel care program every day to obtain continence, prevent ileus. -Maintain fall precautions -Gait and balance retraining -Provision of the necessary gait aids and functional adaptive equipment to enhance the patient's a functional alevism -Encourage deep breathing exercises and incentive spirometry -RD evaluation -Ensure adequate nutrition and hydration -Discharge planning. -Patient evaluated by Neurology team given abnormal MRI findings. Neurology suspecting acute CVA given imaging findings. Steroid DCd. Patient started on ASA, statin. Will need f/u with specialist upon discharge #. 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 HTN -Continue Lisinopril 20 mg daily, Coreg 25 mg BID #. HLD -Started on statin Medical Updates: -Schedule tylenol for headaches. Will also change gabapentin to 300 BID -Continue chronic right hip pain. Continue current medication regimen -Improving with therapy. Ambulatory 165' SBA -Met with patients father. Answered questions regarding CVA diagnosis Hospitalist to assist with management of comorbid medical conditions #. Pain control: Tylenol PRN, lidocaine patch, voltaren gel #. Bowel and bladder: Admits to some urinary incontinence #. Skin: (pressure ulcer/surgical site) No pressure injuries on admission #. Sleep: Optimize sleep/wake cycle DVT prophylaxis: Lovenox 40 mg daily Functional status: Impaired. Limited by pain, weakness Discharge planning: ELOS 1-2 weeks Patient was personally seen by me, Dr. Cee, on the day of encounter, reviewed the history and the relevant portions of the chart, including current orders, allied health and reservoir engineering consultant notes, labs/imaging and performed maki elements of exam and I formulated the plan of care and facilitated the medical decision making. I completed a substantive portion of this encounter, the medical decision makingportion of this note in its entirety, including Allied health note review, nursing note review, reservoir engineering consultant note review, discussion with nursing and case management, and more than 50% of my time was spent on counseling and coordination of care, time spent 35 minutes Documented By: Brandon Cee MD [id number] Signed By: <Electronically signed by Brandon Cee MD> 12/18/23 1136 [facility] Work Phone: [phone]) 396-672605-31-2024 Progress note Author Brandon Cee [facility] December 17, 2023 11:33pm Note Date/Time December 17, 2023 1:54p m [facility] [address] [place] [address] Physiatry(Rehab) Progress Note Signed Patient: Jolie Stanley MR#: [id number] : 1990 Acct:[id number] Age/Sex: 33 / F Adm Date: 4 Loc: 5T Room: 5S5459-7 Type: ADM IN Attending Dr: Brandon Cee MD Copies to: ~ Date of Service: 12/17/2023 Subjective Subjective Narrative: Ms. 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 The patient initially presented to the hospital due to left arm and leg weakness and numbness as well as bifrontal headaches. Per notes, patient also had right eye visual field deficits as well as urinary uregency and incontinecne. MRI of the brain demonstrated restricted diffusion within the right parietal convexity and deep white matter of the centrum semiovale within the right frontal and parietal lobes. MRV did not show acute dural venous sinus thrombosis but had features of intracranial HTN and enhancement at R perirolandic region. Neurology suspects clinically isolated syndrome d/t work up demonstrating lesion enhancement, elevated [employer] IgG synthesis and lack of clear alternative diagnosis. The patient lives with her father and step mother in a 1 level home with 2 MED and 2 steps inside. Normally independent but has been using a walker. 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 Interval history: Patient seen and evaluated this morning. Working with therapy. Admits to a headache which she has had on and off for several days. States that it is all over. Worse with loud sounds. States that tylenol does help somewhat. Also requesting a hand splint given some spasticity that she has developed on the left upper extremity. Reviewed neurology note with patient and the suspicion for CVAs. Review of Systems Review of Systems All other systems reviewed & are negative unless noted below or in HPI Exam Physical Exam Vital Signs: Temp Pulse Resp BP Pulse Ox O2 Del Method 97.6 F 97 15 133/77 100 Room Air 12/17/23 04:03 12/17/23 10:38 12/17/23 10:38 12/17/23 10:38 12/17/23 10:38 12/17/23 10:38 Narrative: General: Awake, A&O x 3, pleasant, cooperative, well nourished. Resting comfortably in bed HENT: NC, AT Eyes: No scleral icterus Neck: Supple Cardio: RRR, no murmurs, rubs or gallops. Extremities well perfused Respiratory: CTAB, no wheezes rhonchi or rales. No evidence of respiratory distress GI: Soft, nontender, nondistended Neuro: CN II-XII intact. Strength 5/5 right upper and lower extremities. Strength 4/5 left upper and lower extremities.Moves all extremities spontaneously. Sensation intact bilateral lower extremities. Slight MAS 1 spasticity present in the left finger and wrist flexors Extremities: No edema, erythema, cyanosis Psych: Affect, speech and movements normal. Mood congruent Objective Labs 12/15/23 06:02 12/15/23 06:02 Labs: Laboratory Results - last 24 hr 12/16/23 12/16/23 12/16/23 15:20 15:41 20:41 POC Glucose 214 211 POC Glucose Comment Glu2: cleaned meter Triglycerides 270 H Cholesterol 275 H LDL Cholesterol, Calc 171 H VLDL Cholesterol 54 HDL Cholesterol 50 Cholesterol/HDL Ratio 5.5 12/17/23 12/17/23 12/17/23 06:19 10:59 10:59 POC Glucose 137 189 POC Glucose Comment Glu2: cleaned meter Cleaned meter Triglycerides Cholesterol LDL Cholesterol, Calc VLDL Cholesterol HDL Cholesterol Cholesterol/HDL Ratio Medications and Allergies Allergies and Active Meds: Allergies amoxicillin Allergy (Severe, Verified 12/09/23 22:55) Blister cefaclor Allergy (Severe, Verified 12/09/23 22:55) Blister cephalexin Allergy (Severe, Verified 12/09/23 22:55) Blister doxycycline Allergy (Severe, Verified 12/09/23 22:55) Blister sulfamethoxazole [From Bactrim] Allergy (Severe, Verified 12/09/23 22:55) Blister trimethoprim [From Bactrim] Allergy (Severe, Verified 12/09/23 22:55) Blister cephafine Allergy (Severe, Uncoded 12/09/23 22:55) Blister Active Medications Generic Name Dose Route Start Last Admin Trade Name Freq PRN Reason Stop Dose Admin Acetaminophen 500 mg 12/09/23 22:52 12/17/23 08:12 Acetaminophen 500 Mg Tablet PO 12/08/24 22:51 500 mg Q4H PRN Administration Pain Al Hydrox/Mg Hydrox/Simethicone 30 ml 12/09/23 22:52 Mag Hydrox/Al Hydrox/Simeth 30 Ml Udc PO 12/08/24 22:51 Q4H PRN Indigestion Aspirin 81 mg 12/17/23 09:00 12/17/23 09:12 Aspirin 81 Mg Tablet.Dr PO 12/16/24 08:59 81 mg DAILY WILLARD Administration Atorvastatin Calcium 40 mg 12/16/23 21:00 12/16/23 21:12 Atorvastatin 40 Mg Tablet PO 12/15/24 20:59 40 mg QPM WILLARD Administration Bisacodyl 10 mg 12/09/23 22:52 Bisacodyl 10 Mg Supp.Rect NE 12/08/24 22:51 DAILY PRN Constipation Carvedilol 25 mg 12/09/23 22:45 12/17/23 09:12 Carvedilol 25 Mg Tablet PO 12/08/24 22:44 25 mg BID WILLARD Administration Cyanocobalamin 1,000 mcg 12/11/23 09:00 12/11/23 08:48 Cyanocobalamin 1,000 Mcg/Ml Vial IM 12/10/24 08:59 1,000 mcg Q7D WILLARD Administration Diclofenac Sodium 2 gm 12/10/23 11:50 12/16/23 21:15 Diclofenac Sodium 1% Gel 100 Gm Tube TOPICAL 12/09/24 13:59 2 gm TID PRN Administration pain Diphenhydramine HCl 25 mg 12/10/23 19:05 Diphenhydramine 25 Mg Capsule PO 12/09/24 19:04 Q6H PRN Allergic Reaction Docusate Sodium 100 mg 12/09/23 22:52 12/12/23 14:13 Docusate 100 Mg Capsule PO 12/08/24 22:51 100 mg BID PRN Administration Constipation Docusate Sodium 283 mg 12/09/23 22:52 Docusate Enema 283 Mg/5 Ml Enema NE 12/08/24 22:51 DAILY PRN Constipation Enoxaparin Sodium 40 mg 12/10/23 09:00 12/17/23 09:13 Enoxaparin 40 Mg/0.4 Ml Syringe SUBCUT 12/09/24 08:59 40 mg QAM WILLARD Administration Ergocalciferol 1,250 mcg 12/15/23 09:00 12/15/23 12:23 Ergocalciferol 1,250 Mcg (50,000 Units) Capsule PO 12/14/24 08:59 1,250 mcg Tu@0900 WILLARD Administration Gabapentin 200 mg 12/12/23 22:00 12/16/23 21:12 Gabapentin 100 Mg Capsule PO 12/11/24 21:59 200 mg HS WILLARD Administration Hydralazine HCl 25 mg 12/12/23 18:37 Hydralazine 25 Mg Tablet PO 12/11/24 21:59 TID PRN hypertension Hydrochlorothiazide 12.5 mg 12/13/23 08:00 12/13/23 08:00 Hydrochlorothiazide 12.5 Mg Tablet PO 12/12/24 07:59 12.5 mg DAILY.8A WILLARD Administration Insulin Aspart 0 units 12/11/23 16:30 12/17/23 12:24 Insulin Aspart 300 Units/3 Ml Insuln.Pen SUBCUT 12/10/24 16:29 4 units ACHS WILLARD Administration Protocol Insulin Glargine 40 units 12/10/23 09:00 12/17/23 09:14 Insulin Glargine 300 Units/3 Ml Insuln.Pen SUBCUT 12/09/24 08:59 40 units QAM WILLARD Administration Lactulose 30 gm 12/09/23 22:52 12/13/23 15:16 Lactulose 20 Gm/30 Ml Udc PO 12/08/24 22:51 30 gm DAILY PRN Administration Constipation Lidocaine 1 patch 12/10/23 12:45 12/17/23 12:23 Lidocaine 4% Adh..Patch TOPICAL 12/09/24 12:44 1 patch DAILY WILLARD Administration Lisinopril 20 mg 12/14/23 09:00 12/17/23 09:12 Lisinopril 20 Mg Tablet PO 12/13/24 08:59 20 mg QAM WILLARD Administration Melatonin 5 mg 12/10/23 22:00 12/16/23 21:12 Melatonin 5 Mg Tablet PO 12/09/24 21:59 5 mg QHS WILLARD Administration Methocarbamol 750 mg 12/10/23 12:40 12/16/23 21:11 Methocarbamol 500 Mg Tablet PO 12/09/24 13:59 750 mg TID PRN Administration spasms Oxycodone HCl 5 mg 12/13/23 10:42 12/16/23 21:13 Oxycodone Ir 5 Mg Tablet PO 5 mg Q4H PRN Administration Pain Pyridoxine HCl 50 mg 12/10/23 09:00 12/17/23 09:12 Pyridoxine 50 Mg Tablet PO 12/09/24 08:59 50 mg QAM WILLARD Administration Ropinirole HCl 0.5 mg 12/11/23 22:00 12/16/23 21:11 Ropinirole 0.5 Mg Tablet PO 12/10/24 21:59 0.5 mg QHS WILLARD Administration Sennosides 2 tab 12/10/23 12:00 12/12/23 14:14 Sennosides 8.6 Mg Tablet PO 12/09/24 11:59 2 tab DAILY@12 PRN Administration If no BM in 2 days Sodium Chloride 0 ml 12/09/23 22:52 Sodium Chloride 0.9 % 10 Ml Syringe IV-PUSH 12/08/24 22:51 PRN PRN Flush Assessment/Plan Assessment/Plan (1) Clinically isolated syndrome: (2) Multiple sclerosis: (3) Diabetes: (4) Obesity: (5) Impaired mobility and activities of daily living: (6) Anemia: (7) Leukocytosis: (8) Stenosis of right internal carotid artery with cerebral infarction: (9) Right sided cerebral hemisphere cerebrovascular accident: (10) Left-sided weakness: Plan This is a 33-year-old female who presents to [facility] IRF due to multifactorial functional decline in the setting of clinically isolated syndrome, possibly MS vs acute CVA. She has continued impaired mobility and impaired independence with ADLs and IADLs requiring PT/OT/LIME TRIMMER 5-7 days/week 3 hours/day to maximize safety and independence with functional ability and self-care. #. Acute CVA vs. 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 We will also work to improve patient's safety awareness during transfers and ambulation. -OT for basic ADL retraining (bathing, dressing, toileting, continence, grooming, feeding, transferring), to increase activity tolerance and functional mobility to evaluate for adaptive assistive device. We will work to improve patient's endurance and educate patient on fall prevention and energy conservation techniques-pacing strategies and proper breathing techniques duringfunctional tasks. -Patient education -Pressure ulcer prophylaxis; encourage mobilization, frequent postural changes, pressure-relief techniques -DVT prophylaxis -Encourage deep breathing exercise incentive spirometry. -Monitor bladder. Toileting schedule. Continue current bladder management, with scans as needed and CIC if needed. Start bowel care program every day to obtain continence, prevent ileus. -Maintain fall precautions -Gait and balance retraining -Provision of the necessary gait aids and functional adaptive equipment to enhance the patient's a functional alevism -Encourage deep breathing exercises and incentive spirometry -RD evaluation -Ensure adequate nutrition and hydration -Discharge planning. -PAtient evaluated by Neurology team given abnormal MRI findings. Neurology suspecting acute CVA given imaging findings. Steroid DCd. Patient started on ASA, statin. Will need f/u with specialist upon discharge #. 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 HTN -Continue Lisinopril 20 mg daily, Coreg 25 mg BID #. HLD -Started on statin Medical Updates: -Patient likely with subacute CVA rather than CIS. Neurology consulted. Appreciate continued recs. Steroid DCd. ASA and statin started -Some slight left finger and wrist flexor spasticity. Recommend continued therapy as well as stretching. Will order hand splint -Increase Tylenol for headaches. Avoid NSAIDs in the setting of CVA. Would consider increasing gabapentin -Overall progressing with therapy. Hospitalist to assist with management of comorbid medical conditions #. Pain control: Tylenol PRN, lidocaine patch, voltaren gel #. Bowel and bladder: Admits to some urinary incontinence #. Skin: (pressure ulcer/surgical site) No pressure injuries on admission #. Sleep: Optimize sleep/wake cycle DVT prophylaxis: Lovenox 40 mg daily Functional status: Impaired. Limited by pain, weakness Discharge planning: ELOS 1-2 weeks Patient was personally seen by me, Dr. Cee, on the day of encounter, reviewed the history and the relevant portions of the chart, including current orders, allied health and reservoir engineering consultant notes, labs/imaging and performed maki elements of exam and I formulated the plan of care and facilitated the medical decision making. I completed a substantive portion of this encounter, the medical decision makingportion of this note in its entirety, including Allied health note review, nursing note review, reservoir engineering consultant note review, discussion with nursing and case management, and more than 50% of my time was spent on counseling and coordination of care, time spent 30 minutes Documented By: Brandon Cee MD [id number] Signed By: <Electronically signed by Brandon Cee MD> 12/17/[address] [facility] Work Phone: [phone]) [phone] Consult note Author Maged Roman [facility] December 17, 2023 12:49pm Note Date/Time December 16, 2023 11:21 am [facility] [address] [place] [address] Neurology Consult Note Signed with Addenda Patient: Jolie Stanley MR#: [id number] : 1990 Acct:[id number] Age/Sex: 33 / F Adm Date: 4 Loc: Room: [address] [place] [address] Type: ADM IN Attending Dr: Brandon Cee MD Copies to: DO Ekaterina Levine DO Christian D Siebenaler, MD~ ADDENDUM1 Total cholesterol 275, LDL 171, triglycerides 270, HDL 50. Statin already started. Addendum Documented By: Maged Roman DO 12/17/23 1249 Addendum Signed By: <Electronically signed by Maged Roman DO> 12/17/23 1249 HPI Consult Date: 12/16/23 Erector Operator: Maged Roman DO COUNT INCLUDES THE [facility] Medical History (Updated 12/16/23 @ 14:32 by Maged Roman DO) Hypertension Diabetes mellitus type 1 Diabetes mellitus, type 2 Depression Anxiety Surgical History No pertinent past surgical history Social History Smoking Status: Never smoker Substance Use Type: None Meds Medications and Allergies Allergies amoxicillin Allergy (Severe, Verified 12/09/23 22:55) Blister cefaclor Allergy (Severe, Verified 12/09/23 22:55) Blister cephalexin Allergy (Severe, Verified 12/09/23 22:55) Blister doxycycline Allergy (Severe, Verified 12/09/23 22:55) Blister sulfamethoxazole [From Bactrim] Allergy (Severe, Verified 12/09/23 22:55) Blister trimethoprim [From Bactrim] Allergy (Severe, Verified 12/09/23 22:55) Blister cephafine Allergy (Severe, Uncoded 12/09/23 22:55) Blister Home Medications carvedilol 25 mg tablet 25 mg PO Q12HR 12/09/23 [History Confirmed 12/09/23] cholecalciferol (vitamin D3) 1,250 mcg (50,000 unit) tablet 50,000 unit PO QWEEK12/09/23 [History Confirmed 12/09/23] cyanocobalamin (vitamin B-12) 1,000 mcg capsule 1,000 mcg PO QAM 12/09/23 [History Confirmed 12/09/23] cyclobenzaprine 10 mg tablet 10 mg PO TID PRN muscle spasm 12/09/23 [History Confirmed 12/09/23] insulin glargine 100 unit/mL subcutaneous solution (Lantus U-100 Insulin) 40 unit subcut QA 12/09/23 [History Confirmed 12/09/23] lisinopril 20 mg tablet 20 mg PO QA 12/09/23 [History Confirmed 12/09/23] metronidazole 500 mg tablet 500 mg PO Q12HR 12/09/23 [History Confirmed 12/09/23] pyridoxine (vitamin B6) 50 mg tablet 50 mg PO QAM 12/09/23 [History Confirmed 12/09/23] Exam Physical Exam Vital Signs: Temp Pulse Resp BP Pulse Ox O2 Del Method 98.4 F 95 18 106/70 99 Room Air 12/16/23 06:00 12/16/23 09:35 12/16/23 06:00 12/16/23 09:35 12/16/23 09:35 12/16/23 09:35 Results - Neuro Laboratory Findings 12/15/23 06:02 12/15/23 06:02 Diagnostic Findings Imaging/Impressions: ITS Impressions Head CT 12/13/23 10:42 IMPRESSION: PROBABLE CHRONIC ISCHEMIC CHANGES. FOLLOW-UP NONEMERGENT MRI COULD BE PERFORMEDFOR FURTHER DATING, WARRANTED. LEFT ORBITAL GLOBE FINDINGS FOR WHICH CLINICAL CORRELATION IS SUGGESTED. NO OTHER ACUTE INTRACRANIAL ABNORMALITY. Impression dictated by: Saskia Haynes M.D.12/13/2023 11:21 AM Dictation Location: [place] [address] Brain MRI 12/15/23 08:11 IMPRESSION: Gliosis and encephalomalacia is noted in the right frontal and parietal lobes consistent with continued interval evolution of previously identified right MCA territory infarct. There is residual or new diffusion restriction in the right frontal cortex near the midline of the nasopharynx. This may represent a more acute to subacute areaof ischemia. There is a relatively diminutive flow void within the intracranial segment of the right internal carotid artery consistent with stenosis seen on the previous study. Impression dictated by: Lázaro Smallwood M.D.12/15/2023 2:00 PM Dictation Location: [place] [address] Therapy Recommendations Therapy Recommendations: PT Recommendations PT Recommended Discharge Home with Outpatient Location PT Recommended Services at Physical Therapy Discharge ST Recommendations Level of Supervision Independent Self Feeding Liquid Consistency Thin Liquids Recommendation Solid Consistency Regular Solids Recommendations Meat Consistency Whole Meats Recommendations Medication Administration Give Pills in Applesauce,Give Pills with Water, Whole Pills Dysphagia Swallow Precautions/ Sitting Upright (90 deg),Small Bites/Sips,Pacing Strategies /Slow-Rate Assessment/Plan (1) Right sided cerebral hemisphere cerebrovascular accident: (2) Stenosis of right internal carotid artery with cerebral infarction: Plan CONSULT REASON: MRI abnormalities HPI: 33-year-old right-handed woman from the [facility]. Has medical history of type 1 diabetes and hypertension. More recently found to have severe B12 deficiency with intrinsic factor antibodies. She also says she has history of aleft retinal disorder or detachment that has left her visual acuity of the left eye to be about finger counting only. Back in June 2023 she started complaining of some intermittently noticeable left upper extremity sensory loss. She was established with an outpatient neurologist. In July 2023 she was noticing similar symptoms in the left lower extremity as well. Earlier in November, her left-sided symptoms became much worse and on November 28, 2023 she presented to [facility] complaining of left hemiparesis, left hemisensory decrement, headache, and visual issues with her right eye, as well as urinary incontinence. She had extensive imaging workup as will be summarized below. There have there was an assumption made that she was having the initial phases of a demyelinating syndrome and she was told she was diagnosed with a clinicallyisolated syndrome. It sounds like she received some high-dose intravenous steroids and then some oral steroid taper and she felt like her symptoms were improving with the steroids, at the detriment of her glycemic control. She had a lumbar puncture. She was eventually sent here for rehabilitation. She has been having some headaches here recently but today is minimally affected by any headache. EXAMINATION: In no distress. No obvious outward deformities or trauma. Limbs seem well- perfused. No significant edema. Normal work of breathing. Visualized skin is generally intact and without lesions. Affect normal. Patient is alert and generally oriented. Attention normal. Speech is fluent and nondysarthric. Pupils appear equal. Ocular motility is full. Facial sensation normal to pinprick. Hearing seems normal. Facial strength appears normal. Subtle left hemiparesis but she is able to hold the limbs up without any significant drift. No significant tremors. Reflexes normoactive. Light touch is intact throughout. Vibratory sensation and pinprick sensation are reduced in the left upper and left lower extremity. No significant ataxia of any limb. DATA REVIEW from [place]: -MRI brain shows restricted diffusion within the right parietal convexity and deep white matter of the centrum semiovale within the right frontoparietal lobeswith peripheral enhancement, could be suggestive of venous infarction however nodural venous thrombosis noted -MRV brain shows no acute dural venous sinus thrombosis -MRI cervical spine shows normal cord -MRI thoracic spine shows normal cord -MRA head without contrast shows moderate to severe narrowing of the right cervical, cavernous, petrous, and paraclinoid internal carotid as well as the left cavernous and paraclinoid internal carotid, with an asymmetrically small caliber right MCA when compared to the left -CSF with opening pressure 16 cm CSF, protein 86, no white blood cells, infectious PCR negative, cytology negative. IgG index 0.64. IgG synthesis rate3.6, 0 oligoclonal bands -EDY negative, ISAIAS negative, CRP 0.7 DATA REVIEW from here at [facility]: -MRI brain without contrast from December 15, 2023 shows gliosis and encephalomalaciain the right frontal and parietal lobes probably from a previous right MCA territory infarct, residual or new diffusion restriction in the right frontal cortex near the midline, and relatively diminutive flow within the intracranial segment of the right ICA ASSESSMENT: Based on current MR images and recent MR imaging reports, it seems to me that she had a right cerebral hemispheric MCA?DIAMOND watershed distribution ischemic infarction secondary to the extensive narrowing of the entire course of the right internal carotid artery, and the MCA on the right is said to be smaller incaliber than that on the left. She may have had previous ischemic insults in the same territory given some of the symptoms she experienced in June and then July. Of note, there is also significant narrowing of the left internalcarotid artery as well. She seems to be without any new significant deficits and if anything is gradually improving from a functional standpoint. Thus I suspect that the scantamount of diffusion restriction seen on the current MRI might just be residual from her previous pictures. I doubt new ischemia at this time. I do not think her pattern of lesioning would be consistent with a demyelinatingdisorder. I have a low suspicion for any clinically isolated syndrome. I thinkthe IgG synthesis rate being perhaps mildly elevated is very nonspecific. Therewere no oligoclonal bands. I suspect the enhancement seen on the initial MRI was because of the subacute nature of the ischemia and not because of active demyelination. PLAN: 1. Started aspirin 81 mg daily 2. Started atorvastatin 40 mg daily 3. Checking a lipid panel 4. No current indication for steroid therapy or immunomodulating therapy 5. Needs established outpatient with a local neurologist 6. She would be well served to be evaluated by a cerebrovascular neurology subspecialist (probably at [facility]). Given her young age and bilateraldistal ICA stenosis and right MCA stenosis, I think moyamoya disease needs considered. Or maybe she just has vasculopathy related to her type 1 diabetes and hypertension. 7. She would be well served to be evaluated by a neuroimmunology neurology subspecialist (probably at [facility]), given all that has been said aboutpotential demyelinating disease and her given diagnosis of a clinically isolatedsyndrome. 8. No other recommendations at this time Documented By: Maged Roman DO 12/16/23 1117 Signed By: <Electronically signed by Maged Roman DO> 12/16/[address] [facility] Work Phone: 1([phone]) 275-685705-30-2024 Progress note Author Maryse Dumont [facility] December 17, 2023 12:44pm Note Date/Time December 17, 2023 11:13 am [facility] [address] [place] [address] Hospitalist Progress Note Signed Patient: Jolie Stanley MR#: [id number] : 1990 Acct:[id number] Age/Sex: 33 / F Adm Date: 4 Loc: 5T Room: 5H3615-8 Type: ADM IN Attending Dr: Brandon Cee MD Copies to: ~ Date of Service: 12/17/2023 Subjective Subjective Narrative: Seen and examined on follow-up. Complaining of bilateral hip pain mostly on theleft, she feels that this is due to her compensating for the left-sided weakness, which she reportis improved. Also complaining of headaches, reports history of migraines and uses ibuprofen at home. No new issues at this time Exam Physical Exam Vital Signs: Temp Pulse Resp BP Pulse Ox O2 Del Method 97.6 F 97 15 133/77 100 Room Air 12/17/23 04:03 12/17/23 10:38 12/17/23 10:38 12/17/23 10:38 12/17/23 10:38 12/17/23 10:38 Objective Lab Results 12/15/23 06:02 12/15/23 06:02 Meds Allergies and Active Meds Allergies amoxicillin Allergy (Severe, Verified 12/09/23 22:55) Blister cefaclor Allergy (Severe, Verified 12/09/23 22:55) Blister cephalexin Allergy (Severe, Verified 12/09/23 22:55) Blister doxycycline Allergy (Severe, Verified 12/09/23 22:55) Blister sulfamethoxazole [From Bactrim] Allergy (Severe, Verified 12/09/23 22:55) Blister trimethoprim [From Bactrim] Allergy (Severe, Verified 12/09/23 22:55) Blister cephafine Allergy (Severe, Uncoded 12/09/23 22:55) Blister Active Meds: Active Medications Generic Name Dose Route Start Last Admin Trade Name Freq PRN Reason Stop Dose Admin Acetaminophen 500 mg 12/09/23 22:52 12/17/23 08:12 Acetaminophen 500 Mg Tablet PO 12/08/24 22:51 500 mg Q4H PRN Administration Pain Al Hydrox/Mg Hydrox/Simethicone 30 ml 12/09/23 22:52 Mag Hydrox/Al Hydrox/Simeth 30 Ml Udc PO 12/08/24 22:51 Q4H PRN Indigestion Aspirin 81 mg 12/17/23 09:00 12/17/23 09:12 Aspirin 81 Mg Tablet.Dr PO 12/16/24 08:59 81 mg DAILY WILLARD Administration Atorvastatin Calcium 40 mg 12/16/23 21:00 12/16/23 21:12 Atorvastatin 40 Mg Tablet PO 12/15/24 20:59 40 mg QPM WILLARD Administration Bisacodyl 10 mg 12/09/23 22:52 Bisacodyl 10 Mg Supp.Rect NE 12/08/24 22:51 DAILY PRN Constipation Carvedilol 25 mg 12/09/23 22:45 12/17/23 09:12 Carvedilol 25 Mg Tablet PO 12/08/24 22:44 25 mg BID WILLARD Administration Cyanocobalamin 1,000 mcg 12/11/23 09:00 12/11/23 08:48 Cyanocobalamin 1,000 Mcg/Ml Vial IM 12/10/24 08:59 1,000 mcg Q7D WILLARD Administration Diclofenac Sodium 2 gm 12/10/23 11:50 12/16/23 21:15 Diclofenac Sodium 1% Gel 100 Gm Tube TOPICAL 12/09/24 13:59 2 gm TID PRN Administration pain Diphenhydramine HCl 25 mg 12/10/23 19:05 Diphenhydramine 25 Mg Capsule PO 12/09/24 19:04 Q6H PRN Allergic Reaction Docusate Sodium 100 mg 12/09/23 22:52 12/12/23 14:13 Docusate 100 Mg Capsule PO 12/08/24 22:51 100 mg BID PRN Administration Constipation Docusate Sodium 283 mg 12/09/23 22:52 Docusate Enema 283 Mg/5 Ml Enema NE 12/08/24 22:51 DAILY PRN Constipation Enoxaparin Sodium 40 mg 12/10/23 09:00 12/17/23 09:13 Enoxaparin 40 Mg/0.4 Ml Syringe SUBCUT 12/09/24 08:59 40 mg QAM WILLARD Administration Ergocalciferol 1,250 mcg 12/15/23 09:00 12/15/23 12:23 Ergocalciferol 1,250 Mcg (50,000 Units) Capsule PO 12/14/24 08:59 1,250 mcg Tu@0900 WILLARD Administration Gabapentin 200 mg 12/12/23 22:00 12/16/23 21:12 Gabapentin 100 Mg Capsule PO 12/11/24 21:59 200 mg HS WILLARD Administration Hydralazine HCl 25 mg 12/12/23 18:37 Hydralazine 25 Mg Tablet PO 12/11/24 21:59 TID PRN hypertension Hydrochlorothiazide 12.5 mg 12/13/23 08:00 12/13/23 08:00 Hydrochlorothiazide 12.5 Mg Tablet PO 12/12/24 07:59 12.5 mg DAILY.8A WILLARD Administration Insulin Aspart 0 units 12/11/23 16:30 12/17/23 08:02 Insulin Aspart 300 Units/3 Ml Insuln.Pen SUBCUT 12/10/24 16:29 Not Given ACHS WILLARD Protocol Insulin Glargine 40 units 12/10/23 09:00 12/17/23 09:14 Insulin Glargine 300 Units/3 Ml Insuln.Pen SUBCUT 12/09/24 08:59 40 units QAM WILLARD Administration Lactulose 30 gm 12/09/23 22:52 12/13/23 15:16 Lactulose 20 Gm/30 Ml Udc PO 12/08/24 22:51 30 gm DAILY PRN Administration Constipation Lidocaine 1 patch 12/10/23 12:45 12/16/23 11:47 Lidocaine 4% Adh..Patch TOPICAL 12/09/24 12:44 1 patch DAILY WILLARD Administration Lisinopril 20 mg 12/14/23 09:00 12/17/23 09:12 Lisinopril 20 Mg Tablet PO 12/13/24 08:59 20 mg QAM WILLARD Administration Melatonin 5 mg 12/10/23 22:00 12/16/23 21:12 Melatonin 5 Mg Tablet PO 12/09/24 21:59 5 mg QHS WILLARD Administration Methocarbamol 750 mg 12/10/23 12:40 12/16/23 21:11 Methocarbamol 500 Mg Tablet PO 12/09/24 13:59 750 mg TID PRN Administration spasms Oxycodone HCl 5 mg 12/13/23 10:42 12/16/23 21:13 Oxycodone Ir 5 Mg Tablet PO 5 mg Q4H PRN Administration Pain Pyridoxine HCl 50 mg 12/10/23 09:00 12/17/23 09:12 Pyridoxine 50 Mg Tablet PO 12/09/24 08:59 50 mg QAM WILLARD Administration Ropinirole HCl 0.5 mg 12/11/23 22:00 12/16/23 21:11 Ropinirole 0.5 Mg Tablet PO 12/10/24 21:59 0.5 mg QHS WILLARD Administration Sennosides 2 tab 12/10/23 12:00 12/12/23 14:14 Sennosides 8.6 Mg Tablet PO 12/09/24 11:59 2 tab DAILY@12 PRN Administration If no BM in 2 days Sodium Chloride 0 ml 12/09/23 22:52 Sodium Chloride 0.9 % 10 Ml Syringe IV-PUSH 12/08/24 22:51 PRN PRN Flush A&P - Hospitalist Assessment/Plan (1) Clinically isolated syndrome: (2) Diabetes: (3) Hypertension: (4) Leukocytosis: (5) B12 deficiency: (6) Vitamin D deficiency: (7) Hyponatremia: (8) Pernicious anemia: (9) Bacterial vaginitis: (10) Left-sided weakness: Plan Clinically isolated syndrome?lesion enhancement, elevated TILTROT[employer]IE[employer] IgG synthesis?lackof clear alternative diagnosis left-sided weakness/Paresthesias -Further POC per PMR team for rehabilitative therapy, pain control bowel regimen, DVT PPx enoxaparin -Please defer any neurologic questions concerns to [facility] team or consults [facility] neurology team -Continue prednisone, leukocytosis noted at OSH, 12/08/23 23.9 -patient states they are clinically suspicious for MS, no definitive documentation in [facility] paperwork Pernicious anemia, B12 and B6 deficiencies -Cyanocobalamin, pyridoxine Thrombocytosis -510 12/07 at OSH-trended down, continue to monitor Hyponatremia?resolved -132 12/07 at OSH- trend Bacterial vaginosis?resolved -Completed metronidazole Vitamin D deficiency -Supplement Chronic conditions 1. Diabetes?glargine, aspart SSIC. A1c 10.1 at outside hospital, blood sugars reviewed, controlled continue to monitor 2. Hypertension?carvedilol, lisinopril. BPs reviewed, controlled, continue to monitor Documented By: Maryse Dumont APRN 12/17/23 1110 Signed By: <Electronically signed by NGOC Dumont> 12/17/23 4204 [facility] Work Phone: [phone]) 545-196405-29-2024 Progress note Author Brandon Cee [facility] December 16, 2023 1:19pm Note Date/Time December 16, 2023 1:19p m [facility] [address] [place] [address] Physiatry(Rehab) Progress Note Signed Patient: Jolie Stanley MR#: [id number] : 1990 Acct:[id number] Age/Sex: 33 / F Adm Date: 4 Loc: Room: 1O9370-2 Type: ADM IN Attending Dr: Brandon Cee MD Copies to: ~ Date of Service: 12/16/2023 Subjective Subjective Narrative: Ms. 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 The patient initially presented to the hospital due to left arm and leg weakness and numbness as well as bifrontal headaches. Per notes, patient also had right eye visual field deficits as well as urinary uregency and incontinecne. MRI of the brain demonstrated restricted diffusion within the right parietal convexity and deep white matter of the centrum semiovale within the right frontal and parietal lobes. MRV did not show acute dural venous sinus thrombosis but had features of intracranial HTN and enhancement at R perirolandic region. Neurology suspects clinically isolated syndrome d/t work up demonstrating lesion enhancement, elevated TILTROTOR [employer]W [employer]IEF IgG synthesis and lack of clear alternative diagnosis. The patient lives with her father and step mother in a 1 level home with 2 MED and 2 steps inside. Normally independent but has been using a walker. 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 Lying in bed in no distress. States that her symptoms really started in the winter and have been progressively worsening. Sheadmits to some associated back pain. States that symptoms are primarily on the left. No significant visiual deficits per patient. Reports that steroids have been helping her symptoms. Denies chest pain, SOB, fever, chills. Interval history: Patient seen and evaluated this morning. Lying in bed and in no distress. She does admit to some right hip pain which is chronic in nature. She denies any new weakness. Also denies chest pain, shortness breath, fever, chills. States that she has not had a BM in about 2 days. MRI was obtained due to some abnormal CT findings and demonstrated possible acute to subacute area of ischemia in the right frontal cortex. Review of Systems Review of Systems All other systems reviewed & are negative unless noted below or in HPI Exam Physical Exam Vital Signs: Temp Pulse Resp BP Pulse Ox O2 Del Method 98.4 F 95 18 106/70 99 Room Air 12/16/23 06:00 12/16/23 09:35 12/16/23 06:00 12/16/23 09:35 12/16/23 09:35 12/16/23 09:35 Narrative: General: Awake, A&O x 3, pleasant, cooperative, well nourished. Resting comfortably in bed HENT: NC, AT Eyes: No scleral icterus Neck: Supple Cardio: RRR, no murmurs, rubs or gallops. Extremities well perfused Respiratory: CTAB, no wheezes rhonchi or rales. No evidence of respiratory distress GI: Soft, nontender, nondistended Neuro: CN II-XII intact. Strength 5/5 right upper and lower extremities. Strength 4/5 left upper and lower extremities.Moves all extremities spontaneously. Sensation intact bilateral lower extremities. Extremities: No edema, erythema, cyanosis Psych: Affect, speech and movements normal. Mood congruent Objective Labs 12/15/23 06:02 12/15/23 06:02 Labs: Laboratory Results - last 24 hr 12/15/23 12/15/23 12/16/23 16:13 20:50 06:32 POC Glucose 182 232 112 12/16/23 11:19 POC Glucose 135 Medications and Allergies Allergies and Active Meds: Allergies amoxicillin Allergy (Severe, Verified 12/09/23 22:55) Blister cefaclor Allergy (Severe, Verified 12/09/23 22:55) Blister cephalexin Allergy (Severe, Verified 12/09/23 22:55) Blister doxycycline Allergy (Severe, Verified 12/09/23 22:55) Blister sulfamethoxazole [From Bactrim] Allergy (Severe, Verified 12/09/23 22:55) Blister trimethoprim [From Bactrim] Allergy (Severe, Verified 12/09/23 22:55) Blister cephafine Allergy (Severe, Uncoded 12/09/23 22:55) Blister Active Medications Generic Name Dose Route Start Last Admin Trade Name Freq PRN Reason Stop Dose Admin Acetaminophen 500 mg 12/09/23 22:52 12/15/23 22:30 Acetaminophen 500 Mg Tablet PO 12/08/24 22:51 500 mg Q4H PRN Administration Pain Al Hydrox/Mg Hydrox/Simethicone 30 ml 12/09/23 22:52 Mag Hydrox/Al Hydrox/Simeth 30 Ml Udc PO 12/08/24 22:51 Q4H PRN Indigestion Bisacodyl 10 mg 12/09/23 22:52 Bisacodyl 10 Mg Supp.Rect NE 12/08/24 22:51 DAILY PRN Constipation Carvedilol 25 mg 12/09/23 22:45 12/16/23 09:30 Carvedilol 25 Mg Tablet PO 12/08/24 22:44 25 mg BID WILLARD Administration Cyanocobalamin 1,000 mcg 12/11/23 09:00 12/11/23 08:48 Cyanocobalamin 1,000 Mcg/Ml Vial IM 12/10/24 08:59 1,000 mcg Q7D WILLARD Administration Diclofenac Sodium 2 gm 12/10/23 11:50 12/15/23 22:40 Diclofenac Sodium 1% Gel 100 Gm Tube TOPICAL 12/09/24 13:59 2 gm TID PRN Administration pain Diphenhydramine HCl 25 mg 12/10/23 19:05 Diphenhydramine 25 Mg Capsule PO 12/09/24 19:04 Q6H PRN Allergic Reaction Docusate Sodium 100 mg 12/09/23 22:52 12/12/23 14:13 Docusate 100 Mg Capsule PO 12/08/24 22:51 100 mg BID PRN Administration Constipation Docusate Sodium 283 mg 12/09/23 22:52 Docusate Enema 283 Mg/5 Ml Enema NE 12/08/24 22:51 DAILY PRN Constipation Enoxaparin Sodium 40 mg 12/10/23 09:00 12/16/23 09:30 Enoxaparin 40 Mg/0.4 Ml Syringe SUBCUT 12/09/24 08:59 40 mg QAM WILLARD Administration Ergocalciferol 1,250 mcg 12/15/23 09:00 12/15/23 12:23 Ergocalciferol 1,250 Mcg (50,000 Units) Capsule PO 12/14/24 08:59 1,250 mcg Tu@0900 WILLARD Administration Gabapentin 200 mg 12/12/23 22:00 12/15/23 21:00 Gabapentin 100 Mg Capsule PO 12/11/24 21:59 200 mg HS WILLARD Administration Hydralazine HCl 25 mg 12/12/23 18:37 Hydralazine 25 Mg Tablet PO 12/11/24 21:59 TID PRN hypertension Hydrochlorothiazide 12.5 mg 12/13/23 08:00 12/13/23 08:00 Hydrochlorothiazide 12.5 Mg Tablet PO 12/12/24 07:59 12.5 mg DAILY.8A WILLARD Administration Insulin Aspart 0 units 12/11/23 16:30 12/16/23 12:05 Insulin Aspart 300 Units/3 Ml Insuln.Pen SUBCUT 12/10/24 16:29 Not Given ACHS WILLARD Protocol Insulin Glargine 40 units 12/10/23 09:00 12/16/23 09:33 Insulin Glargine 300 Units/3 Ml Insuln.Pen SUBCUT 12/09/24 08:59 40 units QAM WILLARD Administration Lactulose 30 gm 12/09/23 22:52 12/13/23 15:16 Lactulose 20 Gm/30 Ml Udc PO 12/08/24 22:51 30 gm DAILY PRN Administration Constipation Lidocaine 1 patch 12/10/23 12:45 12/16/23 11:47 Lidocaine 4% Adh..Patch TOPICAL 12/09/24 12:44 1 patch DAILY WILLARD Administration Lisinopril 20 mg 12/14/23 09:00 12/16/23 09:30 Lisinopril 20 Mg Tablet PO 12/13/24 08:59 20 mg QAM WILLARD Administration Melatonin 5 mg 12/10/23 22:00 12/15/23 22:31 Melatonin 5 Mg Tablet PO 12/09/24 21:59 5 mg QHS WILLARD Administration Methocarbamol 750 mg 12/10/23 12:40 12/15/23 22:29 Methocarbamol 500 Mg Tablet PO 12/09/24 13:59 750 mg TID PRN Administration spasms Oxycodone HCl 5 mg 12/13/23 10:42 12/16/23 06:40 Oxycodone Ir 5 Mg Tablet PO 5 mg Q4H PRN Administration Pain Pyridoxine HCl 50 mg 12/10/23 09:00 12/16/23 09:30 Pyridoxine 50 Mg Tablet PO 12/09/24 08:59 50 mg QAM WILLARD Administration Ropinirole HCl 0.5 mg 12/11/23 22:00 12/15/23 22:29 Ropinirole 0.5 Mg Tablet PO 12/10/24 21:59 0.5 mg QHS WILLARD Administration Sennosides 2 tab 12/10/23 12:00 12/12/23 14:14 Sennosides 8.6 Mg Tablet PO 12/09/24 11:59 2 tab DAILY@12 PRN Administration If no BM in 2 days Sodium Chloride 0 ml 12/09/23 22:52 Sodium Chloride 0.9 % 10 Ml Syringe IV-PUSH 12/08/24 22:51 PRN PRN Flush Assessment/Plan Assessment/Plan (1) Clinically isolated syndrome: (2) Multiple sclerosis: (3) Diabetes: (4) Obesity: (5) Impaired mobility and activities of daily living: (6) Anemia: (7) Leukocytosis: Plan This is a 33-year-old female who presents to [facility] IRF due to multifactorial functional decline in the setting of clinically isolated syndrome, possibly MS. She has continued impaired mobility and impaired independence with ADLs and IADLs requiring PT/OT/LIME TRIMMER 5-7 days/week 3 hours/day to maximize safety and independence with functional ability and self-care. #. 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 We will also work to improve patient's safety awareness during transfers and ambulation. -OT for basic ADL retraining (bathing, dressing, toileting, continence, grooming, feeding, transferring), to increase activity tolerance and functional mobility to evaluate for adaptive assistive device. We will work to improve patient's endurance and educate patient on fall prevention and energy conservation techniques-pacing strategies and proper breathing techniques duringfunctional tasks. -Patient education -Pressure ulcer prophylaxis; encourage mobilization, frequent postural changes, pressure-relief techniques -DVT prophylaxis -Encourage deep breathing exercise incentive spirometry. -Monitor bladder. Toileting schedule. Continue current bladder management, with scans as needed and CIC if needed. Start bowel care program every day to obtain continence, prevent ileus. -Maintain fall precautions -Gait and balance retraining -Provision of the necessary gait aids and functional adaptive equipment to enhance the patient's a functional alevism -Encourage deep breathing exercises and incentive spirometry -RD evaluation -Ensure adequate nutrition and hydration -Discharge planning. -Continue Prednisone taper #. Type II diabetes mellitus -Continue isulin sliding scale, lantus 40 units am, MANAGER PAYROLL diet -Remains hyperglycemic. Likely due to steroid. Monitor #. 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 Given these findings we will consult neurologyfor further recommendations. CVA? -Overall progressing with therapy. Ambulatory 210 feet SBA -Patient requesting to change discharge date. Will request more time. Pending insurance. Hospitalist to assist with management of comorbid medical conditions #. Pain control: Tylenol PRN, lidocaine patch, voltaren gel #. Bowel and bladder: Admits to some urinary incontinence #. Skin: (pressure ulcer/surgical site) No pressure injuries on admission #. Sleep: Optimize sleep/wake cycle DVT prophylaxis: Lovenox 40 mg daily Functional status: Impaired. Limited by pain, weakness Discharge planning: [facility] 1-2 weeks Patient was personally seen by me, Dr. Cee, on the day of encounter, reviewed the history and the relevant portions of the chart, including current orders, allied health and reservoir engineering consultant notes, labs/imaging and performed maki elements of exam and I formulated the plan of care and facilitated the medical decision making. I completed a substantive portion of this encounter, the medical decision makingportion of this note in its entirety, including Allied health note review, nursing note review, reservoir engineering consultant note review, discussion with nursing and case management, and more than 50% of my time was spent on counseling and coordination of care, time spent 30 minutes Documented By: Brandon Cee MD [id number] Signed By: <Electronically signed by Brandon Cee MD> 12/16/23 1319 [facility] Work Phone: 1(210) 403-631705-29-2024 Progress note Author Brandon Cee [facility] December 16, 2023 1:06pm Note Date/Time December 15, 2023 11:16 am [facility] [address] [place] [address] Physiatry(Rehab) Progress Note Signed Patient: Jolie Stanley MR#: [id number] : 1990 Acct:[id number] Age/Sex: 33 / F Adm Date: 4 Loc: Room: [address] [place] [address] Type: ADM IN Attending Dr: Brandon Cee MD Copies to: ~ Date of Service: 12/15/2023 Subjective Subjective Narrative: Ms. 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 The patient initially presented to the hospital due to left arm and leg weakness and numbness as well as bifrontal headaches. Per notes, patient also had right eye visual field deficits as well as urinary uregency and incontinecne. MRI of the brain demonstrated restricted diffusion within the right parietal convexity and deep white matter of the centrum semiovale within the right frontal and parietal lobes. MRV did not show acute dural venous sinus thrombosis but had features of intracranial HTN and enhancement at R perirolandic region. Neurology suspects clinically isolated syndrome d/t work up demonstrating lesion enhancement, elevated TILTROTOR CREW CHIEF IgG synthesis and lack of clear alternative diagnosis. The patient lives with her father and step mother in a 1 level home with 2 MED and 2 steps inside. Normally independent but has been using a walker. 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 Lying in bed in no distress. States that her symptoms really started in the winter and have been progressively worsening. Sheadmits to some associated back pain. States that symptoms are primarily on the left. No significant visiual deficits per patient. Reports that steroids have been helping her symptoms. Denies chest pain, SOB, fever, chills. Interval history: Patient is doing well this morning. No significant complaints other than slightheadache. She is feeling stronger and is able to do more in therapy, although admits that left upper and lower extremities remain somewhat weak. She has somegeneralized edema, more so on the affected side. I encouraged the patient to keep her lower extremities elevated when possible. Will obtain a compression glove for the left hand. Has no cardiopulmonary complaints. No GI/ issues. Progressing towards goals in therapy. Ambulatory 175 feet +75 feet with a walker and contact-guard assist. SBA/CGA with transfers. Review of Systems Review of Systems All other systems reviewed & are negative unless noted below or in HPI Exam Physical Exam Vital Signs: Temp Pulse Resp BP Pulse Ox O2 Del Method 98.2 F 94 18 128/83 100 Room Air 12/15/23 06:06 12/15/23 06:06 12/15/23 06:06 12/15/23 06:06 12/15/23 06:06 12/15/23 07:30 Narrative: General: Awake, alert, oriented x3 HENT: Normal to inspection, normocephalic, atraumatic Eyes: PERRL, normal conjunctiva and sclera Neck: Normal ROM, normal visual inspection. Trachea midline. Cardio: Regular heart rate and rhythm Respiratory: Clear to auscultation bilaterally. Normal respiratory effort. No respiratory distress. GI: Abdomen soft, nontender, nondistended, active bowel sounds x4 quadrants Neuro: CN II-XII intact. Mild weakness in the left upper and lower extremities,otherwise unremarkable. Extremities: No edema, erythema, cyanosis Psych: Mood and affect appropriate. Normal speech. Objective Labs 12/15/23 06:02 12/15/23 06:02 Labs: Laboratory Results - last 24 hr 12/14/23 12/14/23 12/14/23 11:27 16:28 20:07 Corrected WBC Uncorrected WBC Count RBC Hgb Hct MCV MCH MCHC RDW Plt Count MPV Neut % (Auto) Lymph % (Auto) Brantley % (Auto) Eos % (Auto) Baso % (Auto) Nucleat RBC Rel Count Neut # (Auto) Lymph # (Auto) Brantley # (Auto) Eos # (Auto) Baso # (Auto) PHA Creatinine Clear Sodium Potassium Chloride Carbon Dioxide Anion Gap BUN Creatinine Est GFR (CKD-EPI) Glucose POC Glucose 181 340 316 POC Glucose Comment Glu2: cleaned meter Glu2: cleaned meter Calcium 12/15/23 12/15/23 05:36 06:02 Corrected WBC 17.9 H Uncorrected WBC Count 17.9 H RBC 3.24 L Hgb 9.3 L Hct 28.0 L MCV 86.5 MCH 28.6 MCHC 33.1 RDW 15.6 H Plt Count 469 H MPV 7.9 Neut % (Auto) 62.5 Lymph % (Auto) 33.1 Brantley % (Auto) 3.4 Eos % (Auto) 0.6 Baso % (Auto) 0.4 Nucleat RBC Rel Count 0.1 Neut # (Auto) 11.2 H Lymph # (Auto) 5.9 H Brantley # (Auto) 0.6 Eos # (Auto) 0.1 Baso # (Auto) 0.1 PHA Creatinine Clear 119.63 Sodium 137 Potassium 4.2 Chloride 105 Carbon Dioxide 25.5 Anion Gap 10.7 BUN 23 Creatinine 0.83 Est GFR (CKD-EPI) > 60.0 Glucose 110 H POC Glucose 153 POC Glucose Comment Calcium 8.9 Additional Results Results Comments: I reviewed clinical lab tests, radiology reports and obtained and summated medical records and have ordered follow up lab tests and imaging studies as needed for rehabilitation care. Medications and Allergies Allergies and Active Meds: Allergies amoxicillin Allergy (Severe, Verified 12/09/23 22:55) Blister cefaclor Allergy (Severe, Verified 12/09/23 22:55) Blister cephalexin Allergy (Severe, Verified 12/09/23 22:55) Blister doxycycline Allergy (Severe, Verified 12/09/23 22:55) Blister sulfamethoxazole [From Bactrim] Allergy (Severe, Verified 12/09/23 22:55) Blister trimethoprim [From Bactrim] Allergy (Severe, Verified 12/09/23 22:55) Blister cephafine Allergy (Severe, Uncoded 12/09/23 22:55) Blister Active Medications Generic Name Dose Route Start Last Admin Trade Name Freq PRN Reason Stop Dose Admin Acetaminophen 500 mg 12/09/23 22:52 12/14/23 21:10 Acetaminophen 500 Mg Tablet PO 12/08/24 22:51 500 mg Q4H PRN Administration Pain Al Hydrox/Mg Hydrox/Simethicone 30 ml 12/09/23 22:52 Mag Hydrox/Al Hydrox/Simeth 30 Ml Udc PO 12/08/24 22:51 Q4H PRN Indigestion Bisacodyl 10 mg 12/09/23 22:52 Bisacodyl 10 Mg Supp.Rect NE 12/08/24 22:51 DAILY PRN Constipation Carvedilol 25 mg 12/09/23 22:45 12/15/23 08:18 Carvedilol 25 Mg Tablet PO 12/08/24 22:44 25 mg BID WILLARD Administration Cyanocobalamin 1,000 mcg 12/11/23 09:00 12/11/23 08:48 Cyanocobalamin 1,000 Mcg/Ml Vial IM 12/10/24 08:59 1,000 mcg Q7D WILLARD Administration Diclofenac Sodium 2 gm 12/10/23 11:50 12/15/23 06:08 Diclofenac Sodium 1% Gel 100 Gm Tube TOPICAL 12/09/24 13:59 2 gm TID PRN Administration pain Diphenhydramine HCl 25 mg 12/10/23 19:05 Diphenhydramine 25 Mg Capsule PO 12/09/24 19:04 Q6H PRN Allergic Reaction Docusate Sodium 100 mg 12/09/23 22:52 12/12/23 14:13 Docusate 100 Mg Capsule PO 12/08/24 22:51 100 mg BID PRN Administration Constipation Docusate Sodium 283 mg 12/09/23 22:52 Docusate Enema 283 Mg/5 Ml Enema NE 12/08/24 22:51 DAILY PRN Constipation Enoxaparin Sodium 40 mg 12/10/23 09:00 12/15/23 08:19 Enoxaparin 40 Mg/0.4 Ml Syringe SUBCUT 12/09/24 08:59 40 mg QAM WILLARD Administration Ergocalciferol 1,250 mcg 12/15/23 09:00 Ergocalciferol 1,250 Mcg (50,000 Units) Capsule PO 12/14/24 08:59 Tu@0900 WILLARD Gabapentin 200 mg 12/12/23 22:00 12/14/23 21:10 Gabapentin 100 Mg Capsule PO 12/11/24 21:59 200 mg HS WILLARD Administration Hydralazine HCl 25 mg 12/12/23 18:37 Hydralazine 25 Mg Tablet PO 12/11/24 21:59 TID PRN hypertension Hydrochlorothiazide 12.5 mg 12/13/23 08:00 12/13/23 08:00 Hydrochlorothiazide 12.5 Mg Tablet PO 12/12/24 07:59 12.5 mg DAILY.8A WILLARD Administration Insulin Aspart 0 units 12/11/23 16:30 12/15/23 08:18 Insulin Aspart 300 Units/3 Ml Insuln.Pen SUBCUT 12/10/24 16:29 4 units ACHS WILLARD Administration Protocol Insulin Glargine 40 units 12/10/23 09:00 12/15/23 08:19 Insulin Glargine 300 Units/3 Ml Insuln.Pen SUBCUT 12/09/24 08:59 40 units QAM WILLARD Administration Lactulose 30 gm 12/09/23 22:52 12/13/23 15:16 Lactulose 20 Gm/30 Ml Udc PO 12/08/24 22:51 30 gm DAILY PRN Administration Constipation Lidocaine 1 patch 12/10/23 12:45 12/15/23 08:18 Lidocaine 4% Adh..Patch TOPICAL 12/09/24 12:44 1 patch DAILY WILLARD Administration Lisinopril 20 mg 12/14/23 09:00 12/15/23 08:18 Lisinopril 20 Mg Tablet PO 12/13/24 08:59 20 mg QAM WILLARD Administration Melatonin 5 mg 12/10/23 22:00 12/14/23 21:08 Melatonin 5 Mg Tablet PO 12/09/24 21:59 5 mg QHS WILLARD Administration Methocarbamol 750 mg 12/10/23 12:40 12/14/23 21:08 Methocarbamol 500 Mg Tablet PO 12/09/24 13:59 750 mg TID PRN Administration spasms Oxycodone HCl 5 mg 12/13/23 10:42 12/14/23 21:10 Oxycodone Ir 5 Mg Tablet PO 5 mg Q4H PRN Administration Pain Pyridoxine HCl 50 mg 12/10/23 09:00 12/15/23 08:18 Pyridoxine 50 Mg Tablet PO 12/09/24 08:59 50 mg QAM WILLARD Administration Ropinirole HCl 0.5 mg 12/11/23 22:00 12/14/23 21:09 Ropinirole 0.5 Mg Tablet PO 12/10/24 21:59 0.5 mg QHS WILLARD Administration Sennosides 2 tab 12/10/23 12:00 12/12/23 14:14 Sennosides 8.6 Mg Tablet PO 12/09/24 11:59 2 tab DAILY@12 PRN Administration If no BM in 2 days Sodium Chloride 0 ml 12/09/23 22:52 Sodium Chloride 0.9 % 10 Ml Syringe IV-PUSH 05/22/25 22:51 PRN PRN Flush Assessment/Plan Assessment/Plan (1) Clinically isolated syndrome: (2) Multiple sclerosis: (3) Diabetes: (4) Obesity: (5) Impaired mobility and activities of daily living: (6) Anemia: (7) Leukocytosis: Plan This is a 33-year-old female who presents to [facility] IRF due to multifactorial functional decline in the setting of clinically isolated syndrome, possibly MS. She has continued impaired mobility and impaired independence with ADLs and IADLs requiring PT/OT/LIME TRIMMER 5-7 days/week 3 hours/day to maximize safety and independence with functional ability and self-care. #. 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 We will also work to improve patient's safety awareness during transfers and ambulation. -OT for basic ADL retraining (bathing, dressing, toileting, continence, grooming, feeding, transferring), to increase activity tolerance and functional mobility to evaluate for adaptive assistive device. We will work to improve patient's endurance and educate patient on fall prevention and energy conservation techniques-pacing strategies and proper breathing techniques duringfunctional tasks. -Patient education -Pressure ulcer prophylaxis; encourage mobilization, frequent postural changes, pressure-relief techniques -DVT prophylaxis -Encourage deep breathing exercise incentive spirometry. -Monitor bladder. Toileting schedule. Continue current bladder management, with scans as needed and CIC if needed. Start bowel care program every day to obtain continence, prevent ileus. -Maintain fall precautions -Gait and balance retraining -Provision of the necessary gait aids and functional adaptive equipment to enhance the patient's a functional alevism -Encourage deep breathing exercises and incentive spirometry -RD evaluation -Ensure adequate nutrition and hydration -Discharge planning. -Continue Prednisone taper #. Type II diabetes mellitus -Continue isulin sliding scale, lantus 40 units am, MANAGER PAYROLL diet -Remains hyperglycemic. Likely due to steroid. Monitor #. HTN -Continue Lisinopril 20 mg daily, Coreg 25 mg BID Medical Updates: -Doing reasonably well, improving. -Vitals are stable. BP well-controlled. -Blood glucose levels appear to be improving a little now that she is off of steroid, trend. -A.m. blood work reviewed. Leukocytosis improving, 17.9 from 23.1 a few days ago. H&H stable 9.3/28.0. Being he is unremarkable. Hospitalist to assist with management of comorbid medical conditions #. Pain control: Tylenol PRN, lidocaine patch, voltaren gel #. Bowel and bladder: Admits to some urinary incontinence #. Skin: (pressure ulcer/surgical site) No pressure injuries on admission #. Sleep: Optimize sleep/wake cycle DVT prophylaxis: Lovenox 40 mg daily Functional status: Impaired. Limited by pain, weakness Discharge planning: OS 1-2 weeks I spent 23 minutes for services, including [id number] encounter with the patient, discussion of the case, plan of care, and exam; and [id number] activities, such as reviewing pertinent reservoir engineering consultant documentation, recent therapynotes, laboratory and radiology studies, and discussion of case with care team including physician, nursing, supportive employment case manager, and therapists. More than 50 % of time was spent on patient/family counseling or coordination ofcare. <Statement entered by Brandon Cee MD - 12/16/23 13:06> I reviewed the history and the relevant portions of the chart, including currentorders, allied health and reservoir engineering consultant notes, labs/imaging and plan of care as above. Documented By: Sana Lakhani APRN 12/15/23 1 109 Signed By: <Electronically signed by NGOC Lakhani> 12/15/23 1117 <Electronically signed by Brandon Cee MD> 12/16/23 1306 [facility] Work Phone: [phone] 532-626205-28-2024 Progress note Author Brandon Cee [facility] December 15, 2023 9:17am Note Date/Time December 11, 2023 12:24 pm [facility] [address] [place] [address] Physiatry(Rehab) Progress Note Signed Patient: Jolie Stanley MR#: [id number] : 1990 Acct:[id number] Age/Sex: 33 / F Adm Date: 4 Loc: Room: [address] [place] [address] Type: ADM IN Attending Dr: Brandon Cee MD Copies to: ~ <Sana Lakhani APRN - Last Filed: 12/11/23 12:31> Date of Service: 12/11/2023 Subjective <Sana Lakhani APRN - Last Filed: 12/11/23 12:31> Subjective Narrative: Ms. 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 The patient initially presented to the hospital due to left arm and leg weakness and numbness as well as bifrontal headaches. Per notes, patient also had right eye visual field deficits as well as urinary uregency and incontinecne. MRI of the brain demonstrated restricted diffusion within the right parietal convexity and deep white matter of the centrum semiovale within the right frontal and parietal lobes. MRV did not show acute dural venous sinus thrombosis but had features of intracranial HTN and enhancement at R perirolandic region. Neurology suspects clinically isolated syndrome d/t work up demonstrating lesion enhancement, elevated TILTROTOR [employer]W CHIEF IgG synthesis and lack of clear alternative diagnosis. The patient lives with her father and step mother in a 1 level home with 2 MED and 2 steps inside. Normally independent but has been using a walker. Works as [employer]. Patient seen today at bedside. Lying in bed in no distress. States that her symptoms really started in the winter and have been progressively worsening. Sheadmits to some associated back pain. States that symptoms are primarily on the left. No significant visiual deficits per patient. Reports that steroids have been helping her symptoms. Denies chest pain, SOB, fever, chills. Interval history: Patient was seen and evaluated in her room while resting in bed. She did not sleep well due to restless legs which she gets occasionally. She is agreeable to Requip at bedtime. Otherwise offers no complaints or concerns. Denies pain. Vitals are stable, although blood pressure is significantly elevated. Will adjust the regimen. She seems to be tolerating therapy well. Ambulatory functional distances with awheeled walker and contact-guard assist. CGA with transfers. Review of Systems <Sana Lakhani APRN - Last Filed: 12/11/23 12:31> Review of Systems All other systems reviewed & are negative unless noted below or in HPI Exam <Sana Lakhani APRN - Last Filed: 12/11/23 12:31> Physical Exam Vital Signs: Temp Pulse Resp BP Pulse Ox O2 Del Method 98.4 F 96 18 161/93 H 100 Room Air 12/10/23 09:54 12/10/23 09:54 12/11/23 04:56 12/11/23 05:42 12/11/23 04:56 12/11/23 10:39 Narrative: General: Awake, alert, oriented x3 HENT: Normal to inspection, normocephalic, atraumatic Eyes: PERRL, normal conjunctiva and sclera Neck: Normal ROM, normal visual inspection. Trachea midline. Cardio: Regular heart rate and rhythm Respiratory: Clear to auscultation bilaterally. Normal respiratory effort. No respiratory distress. GI: Abdomen soft, nontender, nondistended, active bowel sounds x4 quadrants Neuro: CN II-XII intact. Mild weakness in the left upper and lower extremities,otherwise unremarkable. Extremities: No edema, erythema, cyanosis Psych: Mood and affect appropriate. Normal speech. Objective <Sana Lakhani APRN - Last Filed: 12/11/23 12:31> Labs 12/15/23 06:02 12/15/23 06:02 Labs: Laboratory Results - last 24 hr 12/10/23 12/10/23 12/10/23 05:17 16:03 19:54 POC Glucose 301 381 Magnesium 2.0 Iron 80 TIBC 287 Iron Saturation 27.9 Transferrin 205 12/11/23 12/11/23 12/11/23 05:41 06:27 12:06 POC Glucose 232 208 246 Magnesium Iron TIBC Iron Saturation Transferrin Additional Results Results Comments: I reviewed clinical lab tests, radiology reports and obtained and summated medical records and have ordered follow up lab tests and imaging studies as needed for rehabilitation care. Medications and Allergies Allergies and Active Meds: Allergies amoxicillin Allergy (Severe, Verified 12/09/23 22:55) Blister cefaclor Allergy (Severe, Verified 12/09/23 22:55) Blister cephalexin Allergy (Severe, Verified 12/09/23 22:55) Blister doxycycline Allergy (Severe, Verified 12/09/23 22:55) Blister sulfamethoxazole [From Bactrim] Allergy (Severe, Verified 12/09/23 22:55) Blister trimethoprim [From Bactrim] Allergy (Severe, Verified 12/09/23 22:55) Blister cephafine Allergy (Severe, Uncoded 12/09/23 22:55) Blister Active Medications Generic Name Dose Route Start Last Admin Trade Name Freq PRN Reason Stop Dose Admin Acetaminophen 500 mg 12/09/23 22:52 12/11/23 08:48 Acetaminophen 500 Mg Tablet PO 12/08/24 22:51 500 mg Q4H PRN Administration Pain Al Hydrox/Mg Hydrox/Simethicone 30 ml 12/09/23 22:52 Mag Hydrox/Al Hydrox/Simeth 30 Ml Udc PO 12/08/24 22:51 Q4H PRN Indigestion Bisacodyl 10 mg 12/09/23 22:52 Bisacodyl 10 Mg Supp.Rect NE 12/08/24 22:51 DAILY PRN Constipation Carvedilol 25 mg 12/09/23 22:45 12/11/23 04:52 Carvedilol 25 Mg Tablet PO 12/08/24 22:44 25 mg BID WILLARD Administration Cyanocobalamin 1,000 mcg 12/11/23 09:00 12/11/23 08:48 Cyanocobalamin 1,000 Mcg/Ml Vial IM 12/10/24 08:59 1,000 mcg Q7D WILLARD Administration Diclofenac Sodium 2 gm 12/10/23 11:50 12/11/23 10:35 Diclofenac Sodium 1% Gel 100 Gm Tube TOPICAL 12/09/24 13:59 2 gm TID PRN Administration pain Diphenhydramine HCl 25 mg 12/10/23 19:05 Diphenhydramine 25 Mg Capsule PO 12/09/24 19:04 Q6H PRN Allergic Reaction Docusate Sodium 100 mg 12/09/23 22:52 Docusate 100 Mg Capsule PO 12/08/24 22:51 BID PRN Constipation Docusate Sodium 283 mg 12/09/23 22:52 Docusate Enema 283 Mg/5 Ml Enema NE 12/08/24 22:51 DAILY PRN Constipation Enoxaparin Sodium 40 mg 12/10/23 09:00 12/11/23 08:11 Enoxaparin 40 Mg/0.4 Ml Syringe SUBCUT 12/09/24 08:59 40 mg QAM WILLADR Administration Insulin Aspart 0 units 12/10/23 08:00 12/11/23 12:17 Insulin Aspart 300 Units/3 Ml Insuln.Pen SUBCUT 12/09/24 07:59 6 units TID.WITH.MEALS WILLARD Administration Protocol Insulin Glargine 40 units 12/10/23 09:00 12/11/23 08:10 Insulin Glargine 300 Units/3 Ml Insuln.Pen SUBCUT 12/09/24 08:59 40 units QAM WILLARD Administration Lactulose 30 gm 12/09/23 22:52 Lactulose 20 Gm/30 Ml Udc PO 12/08/24 22:51 DAILY PRN Constipation Lidocaine 1 patch 12/10/23 12:45 12/11/23 08:09 Lidocaine 4% Adh..Patch TOPICAL 12/09/24 12:44 1 patch DAILY WILLARD Administration Lisinopril 20 mg 12/10/23 09:00 12/11/23 08:10 Lisinopril 20 Mg Tablet PO 12/09/24 08:59 20 mg QAM WILLARD Administration Melatonin 5 mg 12/10/23 22:00 12/10/23 22:03 Melatonin 5 Mg Tablet PO 12/09/24 21:59 5 mg QHS WILLARD Administration Methocarbamol 750 mg 12/10/23 12:40 12/11/23 04:31 Methocarbamol 500 Mg Tablet PO 12/09/24 13:59 750 mg TID PRN Administration spasms Metronidazole 500 mg 12/09/23 21:00 12/11/23 08:09 Metronidazole 500 Mg Tablet PO 500 mg Q12HR WILLARD Administration Prednisone 20 mg 12/10/23 09:00 12/11/23 08:09 Prednisone 10 Mg Tablet PO 12/15/23 08:59 20 mg DAILY WILLARD Administration Taper Pyridoxine HCl 50 mg 12/10/23 09:00 12/11/23 08:10 Pyridoxine 50 Mg Tablet PO 12/09/24 08:59 50 mg QAM WILLARD Administration Ropinirole HCl 0.5 mg 12/11/23 22:00 Ropinirole 0.5 Mg Tablet PO 12/10/24 21:59 QHS WILLARD Sennosides 2 tab 12/10/23 12:00 12/10/23 17:35 Sennosides 8.6 Mg Tablet PO 12/09/24 11:59 2 tab DAILY@12 PRN Administration If no BM in 2 days Sodium Chloride 0 ml 12/09/23 22:52 Sodium Chloride 0.9 % 10 Ml Syringe IV-PUSH 12/08/24 22:51 PRN PRN Flush Vitamin D 1,250 mcg 12/15/23 09:00 Cholecalciferol 125 Mcg (5,000 Units) Tablet PO 12/14/24 08:59 Tu@0900 [facility] Assessment/Plan <Sana NGOC Lakhani - Last Filed: 12/11/23 12:31> Assessment/Plan (1) Clinically isolated syndrome: (2) Multiple sclerosis: (3) Diabetes: (4) Obesity: (5) Impaired mobility and activities of daily living: (6) Anemia: (7) Leukocytosis: Plan This is a 33-year-old female who presents to [facility] IRF due to multifactorial functional decline in the setting of clinically isolated syndrome, possibly MS. She has continued impaired mobility and impaired independence with ADLs and IADLs requiring PT/OT/LIME TRIMMER 5-7 days/week 3 hours/day to maximize safety and independence with functional ability and self-care. #. 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 We will also work to improve patient's safety awareness during transfers and ambulation. -OT for basic ADL retraining (bathing, dressing, toileting, continence, grooming, feeding, transferring), to increase activity tolerance and functional mobility to evaluate for adaptive assistive device. We will work to improve patient's endurance and educate patient on fall prevention and energy conservation techniques-pacing strategies and proper breathing techniques duringfunctional tasks. -Patient education -Pressure ulcer prophylaxis; encourage mobilization, frequent postural changes, pressure-relief techniques -DVT prophylaxis -Encourage deep breathing exercise incentive spirometry. -Monitor bladder. Toileting schedule. Continue current bladder management, with scans as needed and CIC if needed. Start bowel care program every day to obtain continence, prevent ileus. -Maintain fall precautions -Gait and balance retraining -Provision of the necessary gait aids and functional adaptive equipment to enhance the patient's a functional alevism -Encourage deep breathing exercises and incentive spirometry -RD evaluation -Ensure adequate nutrition and hydration -Discharge planning. -Continue Prednisone taper #. Type II diabetes mellitus -Continue isulin sliding scale, lantus 40 units am, MANAGER PAYROLL diet -Remains hyperglycemic. Likely due to steroid. Monitor #. HTN -Continue Lisinopril 20 mg daily, Coreg 25 mg BID Medical Updates: -Add as needed hydralazine for hypertension. -Blood glucose trends reviewed. She has hyperglycemia secondary to steroid. Will monitor for now. May need to adjust the sliding scale if remains persistently elevated. -Add Requip at hs -Recheck labs on Thursday. Hospitalist to assist with management of comorbid medical conditions #. Pain control: Tylenol PRN, lidocaine patch, voltaren gel #. Bowel and bladder: Admits to some urinary incontinence #. Skin: (pressure ulcer/surgical site) No pressure injuries on admission #. Sleep: Optimize sleep/wake cycle DVT prophylaxis: Lovenox 40 mg daily Functional status: Impaired. Limited by pain, weakness Discharge planning: ELOS 1-2 weeks I spent 21 minutes for services, including [id number] encounter with the patient, discussion of the case, plan of care, and exam; and [id number] activities, such as reviewing pertinent reservoir engineering consultant documentation, recent therapynotes, laboratory and radiology studies, and discussion of case with care team including physician, nursing, supportive employment case manager, and therapists. More than 50 % of time was spent on patient/family counseling or coordination ofcare. <Brandon Cee MD - Last Filed: 12/15/23 09:17> Assessment/Plan (1) Clinically isolated syndrome: (2) Multiple sclerosis: (3) Diabetes: (4) Obesity: (5) Impaired mobility and activities of daily living: (6) Anemia: (7) Leukocytosis: Plan This is a 33-year-old female who presents to [facility] IRF due to multifactorial functional decline in the setting of clinically isolated syndrome, possibly MS. She has continued impaired mobility and impaired independence with ADLs and IADLs requiring PT/OT/LIME TRIMMER 5-7 days/week 3 hours/day to maximize safety and independence with functional ability and self-care. #. 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 We will also work to improve patient's safety awareness during transfers and ambulation. -OT for basic ADL retraining (bathing, dressing, toileting, continence, grooming, feeding, transferring), to increase activity tolerance and functional mobility to evaluate for adaptive assistive device. We will work to improve patient's endurance and educate patient on fall prevention and energy conservation techniques-pacing strategies and proper breathing techniques duringfunctional tasks. -Patient education -Pressure ulcer prophylaxis; encourage mobilization, frequent postural changes, pressure-relief techniques -DVT prophylaxis -Encourage deep breathing exercise incentive spirometry. -Monitor bladder. Toileting schedule. Continue current bladder management, with scans as needed and CIC if needed. Start bowel care program every day to obtain continence, prevent ileus. -Maintain fall precautions -Gait and balance retraining -Provision of the necessary gait aids and functional adaptive equipment to enhance the patient's a functional alevism -Encourage deep breathing exercises and incentive spirometry -RD evaluation -Ensure adequate nutrition and hydration -Discharge planning. -Continue Prednisone taper #. Type II diabetes mellitus -Continue isulin sliding scale, lantus 40 units am, MANAGER PAYROLL diet -Remains hyperglycemic. Likely due to steroid. Monitor #. HTN -Continue Lisinopril 20 mg daily, Coreg 25 mg BID Medical Updates: -Add as needed hydralazine for hypertension. -Blood glucose trends reviewed. She has hyperglycemia secondary to steroid. Will monitor for now. May need to adjust the sliding scale if remains persistently elevated. -Add Requip at hs -Recheck labs on Thursday. Hospitalist to assist with management of comorbid medical conditions #. Pain control: Tylenol PRN, lidocaine patch, voltaren gel #. Bowel and bladder: Admits to some urinary incontinence #. Skin: (pressure ulcer/surgical site) No pressure injuries on admission #. Sleep: Optimize sleep/wake cycle DVT prophylaxis: Lovenox 40 mg daily Functional status: Impaired. Limited by pain, weakness Discharge planning: ELOS 1-2 weeks I spent 21 minutes for services, including [id number] encounter with the patient, discussion of the case, plan of care, and exam; and [id number] activities, such as reviewing pertinent reservoir engineering consultant documentation, recent therapynotes, laboratory and radiology studies, and discussion of case with care team including physician, nursing, supportive employment case manager, and therapists. More than 50 % of time was spent on patient/family counseling or coordination ofcare. Patient was personally seen by me, Dr. Cee, on the day of encounter, reviewed the history and the relevant portions of the chart, including current orders, allied health and reservoir engineering consultant notes, labs/imaging and performed maki elements of exam and I formulated the plan of care and facilitated the medical decision making. I completed a substantive portion of this encounter, the medical decision makingportion of this note in its entirety, including Allied health note review, nursing note review, reservoir engineering consultant note review, discussion with nursing and case management, and more than 50% of my time was spent on counseling and coordination of care, time spent 20 minutes Documented By: Sana Lakhani APRN 12/11/23 1 221 Signed By: <Electronically signed by NGOC Lakhani> 12/11/23 1231 <Electronically signed by Brandon Cee MD> 12/15/23 0917 [facility] Work Phone: 1(860) 941-337905-28-2024 Progress note Author Brandon Cee [facility] December 15, 2023 8:11am Note Date/Time December 13, 2023 12:13 pm [facility] [address] [place] [address] Physiatry(Rehab) Progress Note Signed Patient: Jolie Stanley MR#: [id number] : 1990 Acct:[id number] Age/Sex: 33 / F Adm Date: 4 Loc: Room: 2K9042-7 Type: ADM IN Attending Dr: Brandon Cee MD Copies to: ~ <Sana Lakhani APRN - Last Filed: 12/13/23 12:13> Date of Service: 12/13/2023 Subjective <Sana Lakhani APRN - Last Filed: 12/13/23 12:13> Subjective Narrative: Ms. 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 The patient initially presented to the hospital due to left arm and leg weakness and numbness as well as bifrontal headaches. Per notes, patient also had right eye visual field deficits as well as urinary uregency and incontinecne. MRI of the brain demonstrated restricted diffusion within the right parietal convexity and deep white matter of the centrum semiovale within the right frontal and parietal lobes. MRV did not show acute dural venous sinus thrombosis but had features of intracranial HTN and enhancement at R perirolandic region. Neurology suspects clinically isolated syndrome d/t work up demonstrating lesion enhancement, elevated TILTROTOR CREW CHIEF IgG synthesis and lack of clear alternative diagnosis. The patient lives with her father and step mother in a 1 level home with 2 MED and 2 steps inside. Normally independent but has been using a walker. 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 Lying in bed in no distress. States that her symptoms really started in the winter and have been progressively worsening. Sheadmits to some associated back pain. States that symptoms are primarily on the left. No significant visiual deficits per patient. Reports that steroids have been helping her symptoms. Denies chest pain, SOB, fever, chills. Interval history: Patient had developed migrainous headache this morning. She does have a history of those however states it feels more severe than usual. Vision is somewhat blurry. She has no unilateral deficits. Denies numbness/tingling. She did also have an episode of orthostatic hypotension in therapy and complained of dizziness. As per chart review, her BP regimen was recently adjusted by hospitalist team. I will hold some of her blood pressure meds. Stat CT head ordered to rule out acute intracranial pathology. Patient's vital signs did improve in supine position she is feeling a little bitbetter. I will also adjust her pain regimen. Review of Systems <Sana Lakhani APRN - Last Filed: 12/13/23 12:13> Review of Systems All other systems reviewed & are negative unless noted below or in HPI Exam <Sana Lakhani APRN - Last Filed: 12/13/23 12:13> Physical Exam Vital Signs: Temp Pulse Resp BP Pulse Ox O2 Del Method 98 F 98 16 101/71 100 Room Air 12/13/23 04:00 12/13/23 04:00 12/13/23 04:00 12/13/23 10:42 12/13/23 04:00 12/13/23 08:00 Narrative: General: Awake, alert, oriented x3 HENT: Normal to inspection, normocephalic, atraumatic Eyes: PERRL, normal conjunctiva and sclera Neck: Normal ROM, normal visual inspection. Trachea midline. Cardio: Regular heart rate and rhythm Respiratory: Clear to auscultation bilaterally. Normal respiratory effort. No respiratory distress. GI: Abdomen soft, nontender, nondistended, active bowel sounds x4 quadrants Neuro: CN II-XII intact. Mild weakness in the left upper and lower extremities,otherwise unremarkable. Extremities: No edema, erythema, cyanosis Psych: Mood and affect appropriate. Normal speech. Objective <Sana Lakhani, SALES SOLUTIONS ASSOCIATE - Last Filed: 12/13/23 12:13> Labs 12/15/23 06:02 12/15/23 06:02 Labs: Laboratory Results - last 24 hr 12/12/23 12/12/23 12/13/23 16:29 20:13 04:19 Corrected WBC 23.1 H Uncorrected WBC Count 23.1 H RBC 3.29 L Hgb 9.3 L Hct 27.9 L MCV 84.9 MCH 28.1 MCHC 33.1 RDW 15.5 H Plt Count 486 H MPV 7.8 Neut % (Auto) N/A Lymph % (Auto) N/A Brantley % (Auto) N/A Eos % (Auto) N/A Baso % (Auto) N/A Nucleat RBC Rel Count N/A Neut # (Auto) N/A Lymph # (Auto) N/A Brantley # (Auto) N/A Eos # (Auto) N/A Baso # (Auto) N/A Band Neutrophils % 1 Lymphocytes % 40 Monocytes % 2 Segmented Neutrophils 57 Platelet Estimate Increased Plt Morphology Comment Normal RBC Morphology N/A Polychromasia Slight Poikilocytosis Slight Anisocytosis Slight Ovalocytes Slight PHA Creatinine Clear 109.11 Sodium 135 L Potassium 3.9 Chloride 103 Carbon Dioxide 27.1 Anion Gap 8.8 BUN 20 Creatinine 0.91 Est GFR (CKD-EPI) > 60.0 Glucose 130 H POC Glucose 325 299 POC Glucose Comment Glu2: cleaned meter Calcium 8.8 12/13/23 12/13/23 07:03 11:27 Corrected WBC Uncorrected WBC Count RBC Hgb Hct MCV MCH MCHC RDW Plt Count MPV Neut % (Auto) Lymph % (Auto) Brantley % (Auto) Eos % (Auto) Baso % (Auto) Nucleat RBC Rel Count Neut # (Auto) Lymph # (Auto) Brantley # (Auto) Eos # (Auto) Baso # (Auto) Band Neutrophils % Lymphocytes % Monocytes % Segmented Neutrophils Platelet Estimate Plt Morphology Comment RBC Morphology Polychromasia Poikilocytosis Anisocytosis Ovalocytes PHA Creatinine Clear Sodium Potassium Chloride Carbon Dioxide Anion Gap BUN Creatinine Est GFR (CKD-EPI) Glucose POC Glucose 192 267 POC Glucose Comment Calcium Medications and Allergies Allergies and Active Meds: Allergies amoxicillin Allergy (Severe, Verified 12/09/23 22:55) Blister cefaclor Allergy (Severe, Verified 12/09/23 22:55) Blister cephalexin Allergy (Severe, Verified 12/09/23 22:55) Blister doxycycline Allergy (Severe, Verified 12/09/23 22:55) Blister sulfamethoxazole [From Bactrim] Allergy (Severe, Verified 12/09/23 22:55) Blister trimethoprim [From Bactrim] Allergy (Severe, Verified 12/09/23 22:55) Blister cephafine Allergy (Severe, Uncoded 12/09/23 22:55) Blister Active Medications Generic Name Dose Route Start Last Admin Trade Name Freq PRN Reason Stop Dose Admin Acetaminophen 500 mg 12/09/23 22:52 12/13/23 07:59 Acetaminophen 500 Mg Tablet PO 12/08/24 22:51 500 mg Q4H PRN Administration Pain Al Hydrox/Mg Hydrox/Simethicone 30 ml 12/09/23 22:52 Mag Hydrox/Al Hydrox/Simeth 30 Ml Udc PO 12/08/24 22:51 Q4H PRN Indigestion Bisacodyl 10 mg 12/09/23 22:52 Bisacodyl 10 Mg Supp.Rect NE 12/08/24 22:51 DAILY PRN Constipation Carvedilol 25 mg 12/09/23 22:45 12/13/23 08:00 Carvedilol 25 Mg Tablet PO 12/08/24 22:44 25 mg BID WILLARD Administration Cyanocobalamin 1,000 mcg 12/11/23 09:00 12/11/23 08:48 Cyanocobalamin 1,000 Mcg/Ml Vial IM 12/10/24 08:59 1,000 mcg Q7D WILLARD Administration Diclofenac Sodium 2 gm 12/10/23 11:50 12/12/23 10:36 Diclofenac Sodium 1% Gel 100 Gm Tube TOPICAL 12/09/24 13:59 2 gm TID PRN Administration pain Diphenhydramine HCl 25 mg 12/10/23 19:05 Diphenhydramine 25 Mg Capsule PO 12/09/24 19:04 Q6H PRN Allergic Reaction Docusate Sodium 100 mg 12/09/23 22:52 12/12/23 14:13 Docusate 100 Mg Capsule PO 12/08/24 22:51 100 mg BID PRN Administration Constipation Docusate Sodium 283 mg 12/09/23 22:52 Docusate Enema 283 Mg/5 Ml Enema NE 12/08/24 22:51 DAILY PRN Constipation Enoxaparin Sodium 40 mg 12/10/23 09:00 12/13/23 08:00 Enoxaparin 40 Mg/0.4 Ml Syringe SUBCUT 12/09/24 08:59 40 mg QAM WILLARD Administration Gabapentin 200 mg 12/12/23 22:00 12/12/23 21:09 Gabapentin 100 Mg Capsule PO 12/11/24 21:59 200 mg HS WILLARD Administration Hydralazine HCl 25 mg 12/12/23 18:37 Hydralazine 25 Mg Tablet PO 12/11/24 21:59 TID PRN hypertension Hydrochlorothiazide 12.5 mg 12/13/23 08:00 12/13/23 08:00 Hydrochlorothiazide 12.5 Mg Tablet PO 12/12/24 07:59 12.5 mg DAILY.8A WILLARD Administration Insulin Aspart 0 units 12/11/23 16:30 12/13/23 11:39 Insulin Aspart 300 Units/3 Ml Insuln.Pen SUBCUT 12/10/24 16:29 8 units ACHS WILLARD Administration Protocol Insulin Glargine 40 units 12/10/23 09:00 12/13/23 08:02 Insulin Glargine 300 Units/3 Ml Insuln.Pen SUBCUT 12/09/24 08:59 40 units QAM WILLARD Administration Lactulose 30 gm 12/09/23 22:52 Lactulose 20 Gm/30 Ml Udc PO 12/08/24 22:51 DAILY PRN Constipation Lidocaine 1 patch 12/10/23 12:45 12/13/23 08:01 Lidocaine 4% Adh..Patch TOPICAL 12/09/24 12:44 1 patch DAILY WILLARD Administration Lisinopril 40 mg 12/12/23 09:00 12/13/23 08:00 Lisinopril 40 Mg Tablet PO 12/11/24 08:59 40 mg QAM WILLARD Administration Melatonin 5 mg 12/10/23 22:00 12/12/23 20:13 Melatonin 5 Mg Tablet PO 12/09/24 21:59 5 mg QHS WILLARD Administration Methocarbamol 750 mg 12/10/23 12:40 12/13/23 08:00 Methocarbamol 500 Mg Tablet PO 12/09/24 13:59 750 mg TID PRN Administration spasms Metronidazole 500 mg 12/09/23 21:00 12/13/23 08:00 Metronidazole 500 Mg Tablet PO 500 mg Q12HR WILLARD Administration Oxycodone HCl 5 mg 12/13/23 10:42 Oxycodone Ir 5 Mg Tablet PO Q4H PRN Pain Prednisone 10 mg 12/10/23 09:00 12/13/23 08:00 Prednisone 10 Mg Tablet PO 12/15/23 08:59 10 mg DAILY WILLARD Administration Taper Pyridoxine HCl 50 mg 12/10/23 09:00 12/13/23 08:00 Pyridoxine 50 Mg Tablet PO 12/09/24 08:59 50 mg QAM WILLARD Administration Ropinirole HCl 0.5 mg 12/11/23 22:00 12/12/23 20:14 Ropinirole 0.5 Mg Tablet PO 12/10/24 21:59 0.5 mg QHS WILLARD Administration Sennosides 2 tab 12/10/23 12:00 12/12/23 14:14 Sennosides 8.6 Mg Tablet PO 12/09/24 11:59 2 tab DAILY@12 PRN Administration If no BM in 2 days Sodium Chloride 0 ml 12/09/23 22:52 Sodium Chloride 0.9 % 10 Ml Syringe IV-PUSH 12/08/24 22:51 PRN PRN Flush Vitamin D 1,250 mcg 12/15/23 09:00 Cholecalciferol 125 Mcg (5,000 Units) Tablet PO 12/14/24 08:59 Tu@0900 [facility] Assessment/Plan <Sana Lakhani APRN - Last Filed: 12/13/23 12:13> Assessment/Plan (1) Clinically isolated syndrome: (2) Multiple sclerosis: (3) Diabetes: (4) Obesity: (5) Impaired mobility and activities of daily living: (6) Anemia: (7) Leukocytosis: Plan This is a 33-year-old female who presents to [facility] due to multifactorial functional decline in the setting of clinically isolated syndrome, possibly MS. She has continued impaired mobility and impaired independence with ADLs and IADLs requiring PT/OT/LIME TRIMMER 5-7 days/week 3 hours/day to maximize safety and independence with functional ability and self-care. #. 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 We will also work to improve patient's safety awareness during transfers and ambulation. -OT for basic ADL retraining (bathing, dressing, toileting, continence, grooming, feeding, transferring), to increase activity tolerance and functional mobility to evaluate for adaptive assistive device. We will work to improve patient's endurance and educate patient on fall prevention and energy conservation techniques-pacing strategies and proper breathing techniques duringfunctional tasks. -Patient education -Pressure ulcer prophylaxis; encourage mobilization, frequent postural changes, pressure-relief techniques -DVT prophylaxis -Encourage deep breathing exercise incentive spirometry. -Monitor bladder. Toileting schedule. Continue current bladder management, with scans as needed and CIC if needed. Start bowel care program every day to obtain continence, prevent ileus. -Maintain fall precautions -Gait and balance retraining -Provision of the necessary gait aids and functional adaptive equipment to enhance the patient's a functional alevism -Encourage deep breathing exercises and incentive spirometry -RD evaluation -Ensure adequate nutrition and hydration -Discharge planning. -Continue Prednisone taper #. Type II diabetes mellitus -Continue isulin sliding scale, lantus 40 units am, MANAGER PAYROLL diet -Remains hyperglycemic. Likely due to steroid. Monitor #. HTN -Continue Lisinopril 20 mg daily, Coreg 25 mg BID Medical Updates: -Profound hypotension, symptomatic. Hold HCTZ. Change lisinopril back to 20 mgdaily. -CT obtained due to complaints of severe headache, dizziness and blurry vision. Menstruates probable chronic ischemic changes. May obtain nonemergent MRI to further differentiate. Will monitor patient's neurological symptoms. May consult neurology if warranted. -Add oxycodone 5 mg every 4 hours as needed for pain. Hospitalist to assist with management of comorbid medical conditions #. Pain control: Tylenol PRN, lidocaine patch, voltaren gel #. Bowel and bladder: Admits to some urinary incontinence #. Skin: (pressure ulcer/surgical site) No pressure injuries on admission #. Sleep: Optimize sleep/wake cycle DVT prophylaxis: Lovenox 40 mg daily Functional status: Impaired. Limited by pain, weakness Discharge planning: ELOS 1-2 weeks I spen 27 minutes for services, including [id number] encounter with the patient, discussion of the case, plan of care, and exam; and utnszfy-ox-gptx activities, such as reviewing pertinent reservoir engineering consultant documentation, recent therapynotes, laboratory and radiology studies, and discussion of case with care team including physician, nursing, supportive employment case manager, and therapists. More than 50 % of time was spent on patient/family counseling or coordination ofcare. <Brandon Cee MD - Last Filed: 12/15/23 08:11> Assessment/Plan (1) Clinically isolated syndrome: (2) Multiple sclerosis: (3) Diabetes: (4) Obesity: (5) Impaired mobility and activities of daily living: (6) Anemia: (7) Leukocytosis: Plan This is a 33-year-old female who presents to [facility] due to multifactorial functional decline in the setting of clinically isolated syndrome, possibly MS. She has continued impaired mobility and impaired independence with ADLs and IADLs requiring PT/OT/LIME TRIMMER 5-7 days/week 3 hours/day to maximize safety and independence with functional ability and self-care. #. 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 We will also work to improve patient's safety awareness during transfers and ambulation. -OT for basic ADL retraining (bathing, dressing, toileting, continence, grooming, feeding, transferring), to increase activity tolerance and functional mobility to evaluate for adaptive assistive device. We will work to improve patient's endurance and educate patient on fall prevention and energy conservation techniques-pacing strategies and proper breathing techniques duringfunctional tasks. -Patient education -Pressure ulcer prophylaxis; encourage mobilization, frequent postural changes, pressure-relief techniques -DVT prophylaxis -Encourage deep breathing exercise incentive spirometry. -Monitor bladder. Toileting schedule. Continue current bladder management, with scans as needed and CIC if needed. Start bowel care program every day to obtain continence, prevent ileus. -Maintain fall precautions -Gait and balance retraining -Provision of the necessary gait aids and functional adaptive equipment to enhance the patient's a functional alevism -Encourage deep breathing exercises and incentive spirometry -RD evaluation -Ensure adequate nutrition and hydration -Discharge planning. -Continue Prednisone taper #. Type II diabetes mellitus -Continue isulin sliding scale, lantus 40 units am, MANAGER PAYROLL diet -Remains hyperglycemic. Likely due to steroid. Monitor #. HTN -Continue Lisinopril 20 mg daily, Coreg 25 mg BID Medical Updates: -Profound hypotension, symptomatic. Hold HCTZ. Change lisinopril back to 20 mgdaily. -CT obtained due to complaints of severe headache, dizziness and blurry vision. Menstruates probable chronic ischemic changes. May obtain nonemergent MRI to further differentiate. Will monitor patient's neurological symptoms. May consult neurology if warranted. -Add oxycodone 5 mg every 4 hours as needed for pain. Hospitalist to assist with management of comorbid medical conditions #. Pain control: Tylenol PRN, lidocaine patch, voltaren gel #. Bowel and bladder: Admits to some urinary incontinence #. Skin: (pressure ulcer/surgical site) No pressure injuries on admission #. Sleep: Optimize sleep/wake cycle DVT prophylaxis: Lovenox 40 mg daily Functional status: Impaired. Limited by pain, weakness Discharge planning: ELOS 1-2 weeks I spen 27 minutes for services, including [id number] encounter with the patient, discussion of the case, plan of care, and exam; and nktzopo-vb-[id number] activities, such as reviewing pertinent reservoir engineering consultant documentation, recent therapynotes, laboratory and radiology studies, and discussion of case with care team including physician, nursing, supportive employment case manager, and therapists. More than 50 % of time was spent on patient/family counseling or coordination ofcare. Patient was personally seen by me, Dr. Cee, on the day of encounter, reviewed the history and the relevant portions of the chart, including current orders, allied health and reservoir engineering consultant notes, labs/imaging and performed maki elements of exam and I formulated the plan of care and facilitated the medical decision making. I completed a substantive portion of this encounter, the medical decision makingportion of this note in its entirety, including Allied health note review, nursing note review, reservoir engineering consultant note review, discussion with nursing and case management, and more than 50% of my time was spent on counseling and coordination of care, time spent 20 minutes Documented By: Sana Lakhani APRN 12/13/23 1 206 Signed By: <Electronically signed by NGOC Lakhani> 12/13/23 1213 <Electronically signed by Brandon Cee MD> 12/15/[address] [facility] Work Phone: 1(824) 491-154805-24-2024 Consult note Author Neetu Navarro [facility] December 11, 2023 11:28am Note Date/Time December 10, 2023 6:29p m [facility] [address] [place] [address] Hospitalist Consult Note Signed Patient: Jolie Stanley MR#: [id number] : 1990 Acct:[id number] Age/Sex: 33 / F Adm Date: 4 Loc: Room: [address] [place] [address] Type: ADM IN Attending Dr: Brandon Cee MD Copies to: DO Brandon Martin MD Lynn A Stackhouse-Roby, NGOC Navarro MD~ HPI DATE OF CONSULTATION: 12/10/23 REQUESTING PROVIDER: Brandon Cee Consult Narrative Reason for Consult: Hypertension, diabetes HPI: 33-year-old female past medical history significant for type 1 diabetes, hypertension. Patient presented to [facility] November 27 with left arm and left leg weakness/numbness and headache with right eye visual deficits and urinary incontinence. MRI brain showed restriction diffusion within the right parietal convexity and deep white matter of centrum semiovale within the right frontal and parietal lobes. MRV was negative for any acute dural venous sinus thrombosis however had features of intracranial hypertension and enhancement of the right perirolandic region. She was seen by neurology services at outside hospital with suspicion for clinically isolated syndrome, workup demonstrating lesion enhancement, elevated TILTROTOR [employer]W CHIEF IgG synthesis, and lack of clear alternative diagnosis. Did undergo extensive workup including imaging and lumbar puncture. Patient seen and examined. She is upright in the chair in no acute distress. She offers no complaints at this time. Currently the patient indicated at dinnertime it felt as if her throat was numb though she continued to eat and hadno difficulty or coughing while swallowing, she denies any difficulty breathing associated with this episode. She was advised to notify nursing staff if this progresses or worsens. She has persistent left-sided weakness and numbness without tingling on the left side, though she does report this is improved aftersteroid initiation. Denies chest pain or palpitations. No cough, dyspnea, or pain with inspiration. No abdominal pain or indigestion, constipation or diarrhea, nausea or vomiting. No dysuria or retention. No headache or dizziness. No fevers or chills. Patient seen and examined. Denies chest pain or palpitations. No cough, dyspnea, or pain with inspiration. Endorses constipation. No abdominal pain or indigestion, diarrhea, nausea or vomiting. Nodysuria or retention. Denies any symptoms at this time with findings of vaginosis. No headache or dizziness. No fevers or chills. COUNT INCLUDES THE [facility] Medical History (Updated 12/10/23 @ 19:03 by Angelika Garcia APRN) Hypertension Diabetes mellitus type 1 Diabetes mellitus, type 2 Depression Anxiety Surgical History No pertinent past surgical history Social History Smoking Status: Never smoker Substance Use Type: None Meds Medications and Allergies Allergies amoxicillin Allergy (Severe, Verified 12/09/23 22:55) Blister cefaclor Allergy (Severe, Verified 12/09/23 22:55) Blister cephalexin Allergy (Severe, Verified 12/09/23 22:55) Blister doxycycline Allergy (Severe, Verified 12/09/23 22:55) Blister sulfamethoxazole [From Bactrim] Allergy (Severe, Verified 12/09/23 22:55) Blister trimethoprim [From Bactrim] Allergy (Severe, Verified 12/09/23 22:55) Blister cephafine Allergy (Severe, Uncoded 12/09/23 22:55) Blister Home Medications carvedilol 25 mg tablet 25 mg PO Q12HR 12/09/23 [History Confirmed 12/09/23] cholecalciferol (vitamin D3) 1,250 mcg (50,000 unit) tablet 50,000 unit PO QWEEK12/09/23 [History Confirmed 12/09/23] cyanocobalamin (vitamin B-12) 1,000 mcg capsule 1,000 mcg PO QAM 12/09/23 [History Confirmed 12/09/23] cyclobenzaprine 10 mg tablet 10 mg PO TID PRN muscle spasm 12/09/23 [History Confirmed 12/09/23] insulin glargine 100 unit/mL subcutaneous solution (Lantus U-100 Insulin) 40 unit subcut QA 12/09/23 [History Confirmed 12/09/23] lisinopril 20 mg tablet 20 mg PO QAM 12/09/23 [History Confirmed 12/09/23] metronidazole 500 mg tablet 500 mg PO Q12HR 12/09/23 [History Confirmed 12/09/23] pyridoxine (vitamin B6) 50 mg tablet 50 mg PO QAM 12/09/23 [History Confirmed 12/09/23] Active Medications: Active Medications Generic Name Dose Route Start Last Admin Trade Name Freq PRN Reason Stop Dose Admin Acetaminophen 500 mg 12/09/23 22:52 12/10/23 09:07 Acetaminophen 500 Mg Tablet PO 12/08/24 22:51 500 mg Q4H PRN Administration Pain Al Hydrox/Mg Hydrox/Simethicone 30 ml 12/09/23 22:52 Mag Hydrox/Al Hydrox/Simeth 30 Ml Udc PO 12/08/24 22:51 Q4H PRN Indigestion Bisacodyl 10 mg 12/09/23 22:52 Bisacodyl 10 Mg Supp.Rect NE 12/08/24 22:51 DAILY PRN Constipation Carvedilol 25 mg 12/09/23 22:45 12/10/23 09:10 Carvedilol 25 Mg Tablet PO 12/08/24 22:44 25 mg BID WILLARD Administration Cyanocobalamin 1,000 mcg 12/11/23 09:00 Cyanocobalamin 1,000 Mcg/Ml Vial IM 12/10/24 08:59 Q7D WILLARD Diclofenac Sodium 2 gm 12/10/23 11:50 Diclofenac Sodium 1% Gel 100 Gm Tube TOPICAL 12/09/24 13:59 TID PRN pain Docusate Sodium 100 mg 12/09/23 22:52 Docusate 100 Mg Capsule PO 12/08/24 22:51 BID PRN Constipation Docusate Sodium 283 mg 12/09/23 22:52 Docusate Enema 283 Mg/5 Ml Enema NE 12/08/24 22:51 DAILY PRN Constipation Enoxaparin Sodium 40 mg 12/10/23 09:00 12/10/23 09:11 Enoxaparin 40 Mg/0.4 Ml Syringe SUBCUT 12/09/24 08:59 40 mg QAM WILLARD Administration Insulin Aspart 0 units 12/10/23 08:00 12/10/23 17:34 Insulin Aspart 300 Units/3 Ml Insuln.Pen SUBCUT 12/09/24 07:59 10 units TID.WITH.MEALS WILLARD Administration Protocol Insulin Glargine 40 units 12/10/23 09:00 12/10/23 09:13 Insulin Glargine 300 Units/3 Ml Insuln.Pen SUBCUT 12/09/24 08:59 40 units QAM WILLARD Administration Lactulose 30 gm 12/09/23 22:52 Lactulose 20 Gm/30 Ml Udc PO 12/08/24 22:51 DAILY PRN Constipation Lidocaine 1 patch 12/10/23 12:45 12/10/23 13:45 Lidocaine 4% Adh..Patch TOPICAL 12/09/24 12:44 1 patch DAILY WILLARD Administration Lisinopril 20 mg 12/10/23 09:00 12/10/23 09:10 Lisinopril 20 Mg Tablet PO 12/09/24 08:59 20 mg QAM [facility] Administration Melatonin 5 mg 12/10/23 22:00 Melatonin 5 Mg Tablet PO 12/09/24 21:59 QHS WILLARD Methocarbamol 750 mg 12/10/23 12:40 Methocarbamol 500 Mg Tablet PO 12/09/24 13:59 TID PRN spasms Metronidazole 500 mg 12/09/23 21:00 12/10/23 09:08 Metronidazole 500 Mg Tablet PO 500 mg Q12HR WILLARD Administration Prednisone 40 mg 12/10/23 09:00 12/10/23 09:10 Prednisone 10 Mg Tablet PO 12/15/23 08:59 40 mg DAILY WILLARD Administration Taper Pyridoxine HCl 50 mg 12/10/23 09:00 12/10/23 09:10 Pyridoxine 50 Mg Tablet PO 12/09/24 08:59 50 mg QAM WILLARD Administration Sennosides 2 tab 12/10/23 12:00 12/10/23 17:35 Sennosides 8.6 Mg Tablet PO 12/09/24 11:59 2 tab DAILY@12 PRN Administration If no BM in 2 days Sodium Chloride 0 ml 12/09/23 22:52 Sodium Chloride 0.9 % 10 Ml Syringe IV-PUSH 12/08/24 22:51 PRN PRN Flush Vitamin D 1,250 mcg 12/15/23 09:00 Cholecalciferol 125 Mcg (5,000 Units) Tablet PO 12/14/24 08:59 Tu@0900 WILLARD Exam Physical Exam Vital Signs: Temp Pulse Resp BP Pulse Ox O2 Del Method 98.4 F 96 17 114/79 99 Room Air 12/10/23 09:54 12/10/23 09:54 12/10/23 09:54 12/10/23 09:54 12/10/23 09:54 12/10/23 15:30 Narrative: CONST- alert, in chair, no acute distress, pleasant and smiling HEAD- normocephalic and atraumatic EENT- sclera nonicteric and conjunctiva nonerythemic, moist oral mucosa, pharynxclear without edema NECK- supple, no cervical lymphadenopathy CARDIAC- RRR no abnormal heart tones PULM- diminished without wheeze or rhonchi, RA, no accessory muscle use or coughnoted ABD- S/NT, NABS, obese EXTREM- no pitting edema BLE, calves nontender SKIN- W/D, good turgor, darkened area under left breast and on right thigh intact MS- MAEx4 spontaneously with left-sided weakness NEURO- A&Ox3, speech clear and tongue midline, equal facial symmetry PSYCH-mood and behavior appropriate Results - Hospitalist Consult Lab Results Labs: Laboratory Results - last 72 hr 12/10/23 16:03: POC Glucose 301 12/10/23 11:37: POC Glucose 141, POC Glucose Comment Glu2: cleaned meter 12/10/23 06:38: POC Glucose 201 12/10/23 05:17: Corrected WBC 26.3 H, Uncorrected WBC Count 26.3 H, RBC 3.56 L, Hgb 9.9 L, Hct 30.2 L, MCV 84.7, MCH 27.7, MCHC 32.7, RDW 15.3, Plt Count 537 H,MPV 7.4, Neut % (Auto) 66.3, Lymph % (Auto) 27.3, Brantley % (Auto) 5.8, Eos % (Auto) 0.1, Baso % (Auto) 0.5, Nucleat RBC Rel Count 0.1, Neut # (Auto) 17.4 H, Lymph # (Auto) 7.2 H, Brantley # (Auto) 1.5 H, Eos # (Auto) 0.0, Baso # (Auto) 0.1, Platelet Estimate Increased, Plt Morphology Comment Normal, RBC Morphology N/A, Anisocytosis Slight, Microcytosis Slight, Ovalocytes Slight, PHA Creatinine Clear 126.70, Sodium 132 L, Potassium 3.5, Chloride 100, Carbon Dioxide 20.9 L, Anion Gap 14.6, BUN 19, Creatinine 0.78, Est GFR (CKD-EPI) > 60.0, Glucose 218 H, Calcium 8.9, Magnesium 2.0, Iron 80, TIBC 287, Iron Saturation 27.9, Transferrin 205, Total Bilirubin 0.3, AST 20, ALT 44, Alkaline Phosphatase 60, Total Protein 6.1 L, Albumin 3.2 L, Globulin 2.9, Albumin/Globulin Ratio 1.1, Prealbumin 26.0 12/09/23 23:28: POC Glucose 277 Assessment & Plan Assessment/Plan (1) Clinically isolated syndrome: (2) Diabetes: (3) Hypertension: (4) Leukocytosis: (5) B12 deficiency: (6) Vitamin D deficiency: (7) Hyponatremia: (8) Pernicious anemia: (9) Bacterial vaginitis: (10) Left-sided weakness: Plan Clinically isolated syndrome?lesion enhancement, elevated TILTROT[employer]W [employer]IEF IgG synthesis?lackof clear alternative diagnosis left-sided weakness/Paresthesias -Further POC per PMR team for rehabilitative therapy, pain control bowel regimen, DVT PPx enoxaparin -Please defer any neurologic questions concerns to [facility] team or consults [facility] neurology team -Continue prednisone, leukocytosis noted at OSH, 12/08/23 23.9 -patient states they are clinically suspicious for MS, no definitive documentation in [facility] paperwork Pernicious anemia, B12 and B6 deficiencies -Cyanocobalamin, pyridoxine Thrombocytosis -510 5/ at OSH- trend Hyponatremia -132 / at OSH- trend Bacterial vaginosis -Metronidazole Vitamin D deficiency -Supplement Chronic conditions 1. Diabetes?glargine, aspart SSIC. A1c 10.1 at outside hospital. Trend glucoses and adjust as indicated. 2. Hypertension?carvedilol, lisinopril. BPs reviewed elevated on admission here at [facility] but controlled this morning. Thank you for consulting us to see this pt. I will be off service starting Thursday evening. Case will be handled by one of my partners if needed. Pt is fairly stable at this time. We will follow pt on an as needed basis. Please call or alert hospitalist if pt develops any signs or symptoms that may require medical evaluation and or intervention. Please arrange for pt after discharge follow up appts with PCP and other specialists. I may or may not have addressed all of patient symptoms, abnormal labs and imaging during this hospitalization. Please ask patient to ask PCP and out patient providers to obtain [facility] record entirely to follow up on illnesses, symptoms, abnormal findings that I have and have not addressed duringthis encounter and hospitalization in out patient setting. Documented By: Angelika Garcia APRN 11/18 Signed By: <Electronically signed by NGOC Garcia> 12/10/231924 <Electronically signed by Neetu Navarro MD> 12/11/[address] [facility] Work Phone: [phone] History and physical note Author Brandon Cee [facility] December 10, 2023 4:23pm Note Date/Time December 10, 2023 10:09 am [facility] [address] [place] [address] Physiatry (Rehab) H&P Signed Patient: Jolie Stanley MR#: [id number] : 1990 Acct:[id number] Age/Sex: 33 / F Adm Date: 4 Loc: Room: 1W4636-5 Type: ADM IN Attending Dr: Brandon Cee MD Copies to: DO Brandon Martin MD~ Date of Service: 12/10/2023 HPI The patient was seen and examined on: 12/10/23 Chief complaint: Weakness History of Present Illness: Ms. 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 The patient initially presented to the hospital due to left arm and leg weakness and numbness as well as bifrontal headaches. Per notes, patient also had right eye visual field deficits as well as urinary uregency and incontinecne. MRI of the brain demonstrated restricted diffusion within the right parietal convexity and deep white matter of the centrum semiovale within the right frontal and parietal lobes. MRV did not show acute dural venous sinus thrombosis but had features of intracranial HTN and enhancement at R perirolandic region. Neurology suspects clinically isolated syndrome d/t work up demonstrating lesion enhancement, elevated TILTROT[employer]W [employer]IEF IgG synthesis and lack of clear alternative diagnosis. The patient lives with her father and step mother in a 1 level home with 2 MED and 2 steps inside. Normally independent but has been using a walker. 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 Lying in bed in no distress. States that her symptoms really started in the winter and have been progressively worsening. Sheadmits to some associated back pain. States that symptoms are primarily on the left. No significant visiual deficits per patient. Reports that steroids have been helping her symptoms. Denies chest pain, SOB, fever, chills. COUNT INCLUDES THE [facility] Medical History Diabetes mellitus type 1 Diabetes mellitus, type 2 Depression Anxiety Surgical History No pertinent past surgical history Social History Smoking Status: Never smoker Substance Use Type: None Review of Systems Review of Systems All other systems reviewed & are negative unless noted below or in HPI Meds Medications and Allergies Allergies amoxicillin Allergy (Severe, Verified 12/09/23 22:55) Blister cefaclor Allergy (Severe, Verified 12/09/23 22:55) Blister cephalexin Allergy (Severe, Verified 12/09/23 22:55) Blister doxycycline Allergy (Severe, Verified 12/09/23 22:55) Blister sulfamethoxazole [From Bactrim] Allergy (Severe, Verified 12/09/23 22:55) Blister trimethoprim [From Bactrim] Allergy (Severe, Verified 12/09/23 22:55) Blister cephafine Allergy (Severe, Uncoded 12/09/23 22:55) Blister Home and Active Meds: Home Medications carvedilol 25 mg tablet 25 mg PO Q12HR 12/09/23 [History Confirmed 12/09/23] cholecalciferol (vitamin D3) 1,250 mcg (50,000 unit) tablet 50,000 unit PO QWEEK12/09/23 [History Confirmed 12/09/23] cyanocobalamin (vitamin B-12) 1,000 mcg capsule 1,000 mcg PO QAM 12/09/23 [History Confirmed 12/09/23] cyclobenzaprine 10 mg tablet 10 mg PO TID PRN muscle spasm 12/09/23 [History Confirmed 12/09/23] insulin glargine 100 unit/mL subcutaneous solution (Lantus U-100 Insulin) 40 unit subcut QA 12/09/23 [History Confirmed 12/09/23] lisinopril 20 mg tablet 20 mg PO QAM 12/09/23 [History Confirmed 12/09/23] metronidazole 500 mg tablet 500 mg PO Q12HR 12/09/23 [History Confirmed 12/09/23] pyridoxine (vitamin B6) 50 mg tablet 50 mg PO QAM 12/09/23 [History Confirmed 12/09/23] Active Medications Acetaminophen (Acetaminophen 500 Mg Tablet) 500 mg PO Q4H PRN PRN Reason: Pain Stop: 12/08/24 22:51 Last Admin: 12/10/23 09:07 Dose: 500 mg Al Hydrox/Mg Hydrox/Simethicone (Mag Hydrox/Al Hydrox/Simeth 30 Ml Udc) 30 ml PO Q4H PRN PRN Reason: Indigestion Stop: 12/08/24 22:51 Bisacodyl (Bisacodyl 10 Mg Supp.Rect) 10 mg NE DAILY PRN PRN Reason: Constipation Stop: 12/08/24 22:51 Carvedilol (Carvedilol 25 Mg Tablet) 25 mg PO BID [facility] Stop: 12/08/24 22:44 Last Admin: 12/10/23 09:10 Dose: 25 mg Cyanocobalamin (Cyanocobalamin 1,000 Mcg Tablet) 1,000 mcg PO QAM [facility] Stop: 12/09/24 08:59 Cyclobenzaprine HCl (Cyclobenzaprine 10 Mg Tablet) 10 mg PO TID PRN PRN Reason: muscle spasm Stop: 12/08/24 17:24 Last Admin: 12/09/23 23:43 Dose: 10 mg Docusate Sodium (Docusate 100 Mg Capsule) 100 mg PO BID PRN PRN Reason: Constipation Stop: 12/08/24 22:51 Docusate Sodium (Docusate Enema 283 Mg/5 Ml Enema) 283 mg NE DAILY PRN PRN Reason: Constipation Stop: 12/08/24 22:51 Enoxaparin Sodium (Enoxaparin 40 Mg/0.4 Ml Syringe) 40 mg SUBCUT [facility] Stop: 12/09/24 08:59 Last Admin: 12/10/23 09:11 Dose: 40 mg Insulin Aspart (Insulin Aspart 300 Units/3 Ml Insuln.Pen) 0 units SUBCUT TID.WITH.MEALS [facility]; Protocol Stop: 12/09/24 07:59 Last Admin: 12/10/23 09:11 Dose: 6 units Insulin Glargine (Insulin Glargine 300 Units/3 Ml Insuln.Pen) 40 units SUBCUT [facility] Stop: 12/09/24 08:59 Last Admin: 12/10/23 09:13 Dose: 40 units Lactulose (Lactulose 20 Gm/30 Ml Udc) 30 gm PO DAILY PRN PRN Reason: Constipation Stop: 12/08/24 22:51 Lisinopril (Lisinopril 20 Mg Tablet) 20 mg PO [facility] Stop: 12/09/24 08:59 Last Admin: 12/10/23 09:10 Dose: 20 mg Metronidazole (Metronidazole 500 Mg Tablet) 500 mg PO Q12HR [facility] Last Admin: 12/10/23 09:08 Dose: 500 mg Prednisone (Prednisone 10 Mg Tablet) 40 mg PO DAILY [facility]; Taper Stop: 12/15/23 08:59 Last Admin: 12/10/23 09:10 Dose: 40 mg Pyridoxine HCl (Pyridoxine 50 Mg Tablet) 50 mg PO [facility] Stop: 12/09/24 08:59 Last Admin: 12/10/23 09:10 Dose: 50 mg Sennosides (Sennosides 8.6 Mg Tablet) 2 tab PO DAILY@12 PRN PRN Reason: If no BM in 2 days Stop: 12/09/24 11:59 Sodium Chloride (Sodium Chloride 0.9 % 10 Ml Syringe) 0 ml IV-PUSH PRN PRN PRN Reason: Flush Stop: 12/08/24 22:51 Vitamin D (Cholecalciferol 125 Mcg (5,000 Units) Tablet) 1,250 mcg PO Tu@0900 WILLARD Stop: 12/14/24 08:59 Exam Physical Exam Vital Signs: Temp Pulse Resp BP Pulse Ox O2 Del Method 98.4 F 96 17 114/79 99 Room Air 12/10/23 09:54 12/10/23 09:54 12/10/23 09:54 12/10/23 09:54 12/10/23 09:54 12/10/23 09:54 Narrative: General: Awake, A&O x 3, pleasant, cooperative, well nourished. Resting comfortably in bed HENT: NC, AT Eyes: No scleral icterus Neck: Supple Cardio: RRR, no murmurs, rubs or gallops. Extremities well perfused Respiratory: CTAB, no wheezes rhonchi or rales. No evidence of respiratory distress GI: Soft, nontender, nondistended Neuro: CN II-XII intact. Strength 5/5 right upper and lower extremities. Strength 4/5 left upper and lower extremities.Moves all extremities spontaneously. Sensation intact bilateral lower extremities. Extremities: No edema, erythema, cyanosis Psych: Affect, speech and movements normal. Mood congruent Results - Phys. Rehab Labs Labs: Laboratory Results - last 24 hr 12/09/23 12/10/23 12/10/23 23:28 05:17 06:38 Corrected WBC 26.3 H Uncorrected WBC Count 26.3 H RBC 3.56 L Hgb 9.9 L Hct 30.2 L MCV 84.7 MCH 27.7 MCHC 32.7 RDW 15.3 Plt Count 537 H MPV 7.4 Neut % (Auto) 66.3 Lymph % (Auto) 27.3 Brantley % (Auto) 5.8 Eos % (Auto) 0.1 Baso % (Auto) 0.5 Nucleat RBC Rel Count 0.1 Neut # (Auto) 17.4 H Lymph # (Auto) 7.2 H Brantley # (Auto) 1.5 H Eos # (Auto) 0.0 Baso # (Auto) 0.1 Platelet Estimate Increased Plt Morphology Comment Normal RBC Morphology N/A Anisocytosis Slight Microcytosis Slight Ovalocytes Slight PHA Creatinine Clear 126.70 Sodium 132 L Potassium 3.5 Chloride 100 Carbon Dioxide 20.9 L Anion Gap 14.6 BUN 19 Creatinine 0.78 Est GFR (CKD-EPI) > 60.0 Glucose 218 H POC Glucose 277 201 Calcium 8.9 Total Bilirubin 0.3 AST 20 ALT 44 Alkaline Phosphatase 60 Total Protein 6.1 L Albumin 3.2 L Globulin 2.9 Albumin/Globulin Ratio 1.1 Prealbumin 26.0 Individualized Plan of Care Individualized Plan of Care Plan of Care: Individualized Overall Plan of Care: Admit Date/Time: 12/09/23 Expected LOS: 12 Days Expected Discharge Destination: Home Rehabilitation IGC: 3.8-Clinically isolated syndrome (demylinating disease) Primary Diagnosis: as above Patient?s/Family?s anticipated outcomes/personal goals: To have patient become more independent and to return home. Medical/ Functional Prognosis: Good Anticipated Functional Outcomes/Goals and Interventions: -Therapy Functional Outcome/Goal: Mobility/Locomotion: Patient likely to be independent with ambulation with assistive device. Anticipated interventions: Physician management, PT, OT, Dietitian, Rehab Nursing - Therapy Functional Outcome/Goal: Self Care: Patient likely to be functionally independent for activities of daily living using assistive / adaptive equipment as needed. Anticipated interventions: Physician management, PT, OT, Dietitian, Rehab Nursing - Therapy Functional Outcome/Goal: Bladder/Bowel Management: Patient likely to be independent with bladder care and independent with bowel care. Anticipated interventions: Physician management, PT, OT, Dietitian, Rehab Nursing -Therapy Functional Outcome/Goal: Communication/Cognition: Patient will be able to communicate fully and be safe cognitively. Anticipated interventions: Physician management, PT, OT, Dietitian, Rehab Nursing -Therapy Functional Outcome/Goal: Patient will be independent for bed mobility and transfers Anticipated interventions: Physician management, PT, OT, Dietitian, Rehab Nursing -Therapy Functional Outcome/Goal: Patient will improve endurance to be able to tolerate all daily self care activities and avocational activities. Anticipated interventions: Physician management, PT, OT, Nutrition, Rehab Nursing -Therapy Functional Outcome/Goal: Patient will understand and assimilate / integrate education regarding management of their medical conditions to maintainhealth and wellbeing. Anticipated interventions: Physician management, PT, OT, Dietitian, Rehab Nursing Required Therapy PT: 1.5 hour per day at least 5 days per week with additional therapy on as needed basis. Comments: PT to improve pt's strength, endurance, bed mobility, transfers (sit-stand), standing balance, gait quality on level surfaces and stairs, coordination and functional ADL skills. Will also work to improve pt's safety awareness during transfers and ambulation. OT: 1.5 hour per day at least 5 days per week with additional therapy on as needed basis. Comments: OT for basic ADL re-training (bathing, dressing, toileting, continence, grooming, feeding, transferring), to increase activity tolerance andfunctional mobility and to evaluate for adaptive and assistive devices. Will work to improve pt's endurance and educate pt on fall prevention and energy conservation techniques-pacing strategies and proper breathing techniques duringfunctional tasks. Other: Nutrition, Rehab nursing, Wound, P&O RATIONALE FOR IRF ADMISSION: Patient has both medical and functional complexities that require 24 hour daily monitoring and intervention from General Pediatrician as well as other consulting physicians including internal medicine as well as 24 hour daily mock up maker nursing - for medical safe / optimal management. Patient requires interdisciplinary therapy team rehabilitation care including OT, PT, SW, Rehab Nursing, requires and can tolerate at least 3 hoursof daily OT and PT therapy at least 5 days weekly. The following medical conditions significantly impact the rehabilitation process and are being addressed daily and can not be managed at home or in a lesser intense medical setting: Refer to above problem oriented plan of care Assessment/Plan (1) Clinically isolated syndrome: (2) Multiple sclerosis: (3) Diabetes: (4) Obesity: (5) Impaired mobility and activities of daily living: (6) Anemia: (7) Leukocytosis: Plan This is a 33-year-old female who presents to [facility] IRF due to multifactorial functional decline in the setting of clinically isolated syndrome, possibly MS. She has continued impaired mobility and impaired independence with ADLs and IADLs requiring PT/OT/LIME TRIMMER 5-7 days/week 3 hours/day to maximize safety and independence with functional ability and self-care. #. 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 We will also work to improve patient's safety awareness during transfers and ambulation. -OT for basic ADL retraining (bathing, dressing, toileting, continence, grooming, feeding, transferring), to increase activity tolerance and functional mobility to evaluate for adaptive assistive device. We will work to improve patient's endurance and educate patient on fall prevention and energy conservation techniques-pacing strategies and proper breathing techniques duringfunctional tasks. -Patient education -Pressure ulcer prophylaxis; encourage mobilization, frequent postural changes, pressure-relief techniques -DVT prophylaxis -Encourage deep breathing exercise incentive spirometry. -Monitor bladder. Toileting schedule. Continue current bladder management, with scans as needed and CIC if needed. Start bowel care program every day to obtain continence, prevent ileus. -Maintain fall precautions -Gait and balance retraining -Provision of the necessary gait aids and functional adaptive equipment to enhance the patient's a functional alevism -Encourage deep breathing exercises and incentive spirometry -RD evaluation -Ensure adequate nutrition and hydration -Discharge planning. -Continue Prednisone taper #. Type II diabetes mellitus -Continue isulin sliding scale, lantus 40 units am, MANAGER [employer]RO[employer] diet -Remains hyperglycemic. Likely due to steroid. Monitor #. HTN -Continue Lisinopril 20 mg daily, Coreg 25 mg BID Medical Updates: -Admission labs reviewed. Noted leukocytosis, likely 2/2 steroid. Trend -Slight hyponatremia. Trend -Back pain today. Pain management as below -Patient reports that she does not absorb B12 well per her physician. Will schedule B12 injection q7days while in the hospital Hospitalist to assist with management of comorbid medical conditions #. Pain control: Tylenol PRN, lidocaine patch, voltaren gel #. Bowel and bladder: Admits to some urinary incontinence #. Skin: (pressure ulcer/surgical site) No pressure injuries on admission #. Sleep: Optimize sleep/wake cycle DVT prophylaxis: Lovenox 40 mg daily Functional status: Impaired. Limited by pain, weakness Discharge planning: ELOS 1-2 weeks Patient was personally seen by me, Dr. Cee, on the day of encounter, within 24 hours of rehab admission, reviewed the history and the relevant portions of the chart, including current orders, allied health and reservoir engineering consultant notes, labs/imaging and performed maki elements of exam and I formulated the planof care and facilitated the medical decision making. I completed a substantive portion of this encounter, the medical decision makingportion of this note in its entirety, including Allied health note review, nursing note review, reservoir engineering consultant note review, discussion with nursing and case management, and more than 50% of my time was spent on counseling and coordination of care, time spent 75 minutes Documented By: Brandon Cee MD [id number] Signed By: <Electronically signed by Brandon Cee MD> 12/10/23 5986 [facility] Work Phone: [phone] NoteIR SPINAL PUNCTURE LUMBAR DIAGNOSTIC Pre-procedure diagnosis: See history below Post-procedure diagnosis: Same as above Assistants/resident: See the technologist's notes above Consent/pre-procedure evaluation: See below. Union protocol timeout verification performed. Estimated blood loss: Less than 10 mL Procedure/complications: See below Radiation dosage measurements: See below and see technologist's notes above Conscious sedation: If conscious sedation was administered, preprocedure evaluation for conscious sedation was performed and documented. History: Needs CSF. .Abnormal MRI. Left arm weakness. Infection. Procedure: after explanation of the procedure, indications, benefits, risks, and alternatives to fluoroscopically-guided lumbar puncture to the patient, the patient gave consent. The risks of the procedure included bleeding, infection, allergic reaction, nerve damage, pain, and headache requiring epidural blood patch. The back was prepped and draped using sterile barrier technique. 1% xylocaine was given for local anesthesia. 1 digital images, 9 mGy air kerma radiation, and 0.1 minutes of fluoroscopy time were utilized. After placement of a 20-gauge needle into the lumbar subarachnoid space, 16 ml of clear, colorless CSF were collected and sent for the indicated studies. Digital spot radiograph was obtained. 16 cm water was the opening pressure. There was no immediate complication from the procedure Impression: fluoroscopically-guided lumbar puncture without immediate complication. Finalized by Scotty Carpenter MD on 12/01/2023 10:[address] [facility] 10-23-2023 History of Present illness Narrative* Tavia Graf APRN-ADOPTION SPECIALIST - 10/23/2023 1:30 PM EDT Images from the original note were not included. [facility] [address] [address] Subjective Patient ID: Jolie Stanley is a 33 y.o. female. Encounter Date: 10/23/2023 CHIEF COMPLAINT Chief Complaint Patient presents with Consult New patient, lumbar/cervical, xrays in chart HISTORY OF PRESENT ILLNESS Jolie Stanley is a new patient to [facility] who was referred in regards to neck and low backpain. Cervical Spine- Jolie reports pain in her neck which radiates through her entire left arm. She has numbness in herleft hand which is worst in the pinky. Her left arm feels heavy. She notes a change in dexterity inher left hand. She states her gait is unsteady and her balance is impaired. She had a CT of the cervical spine performed in June 2023 that identified several small disc bulges without impingementof the central canal or neural foramina. Lumbar Spine Jolie has constant, chronic low back pain. Rodriguez has pain from the mid-back, at the bra band, down through her lower back. She gets pain in her right hip when she walks. She has been having constant pain in her left leg that makes it difficult to walk. The entire leg is affected by the numbness. She has been having difficulty climbing stairs due to leg numbness and weakness. Location: cervical spine Radiation: LUE Numbness/Paraesthesias:Left hand Description: aching and throbbing Exacerbating factors: Standing (>few minutes) Alleviating Factors: Heat Functional impairment: difficulty dressing Severity: rates the pain 3/10 at its best and 9/10 at its worst. Duration/Initial inciting event: Symptoms have been present for 4 months. Weakness:LUE Location: lumbar spine Radiation: right hip pain Numbness/Paraesthesias:whole leg Description: aching and stabbing Exacerbating factors: Standing (>few minutes) Alleviating Factors: heat Functional impairment: difficulty with activities that require standing Severity: rates the pain 3/10 at its best and 10/10 at its worst. Duration/Initial inciting event: Symptoms have been present for unknown years. Weakness:LLE Cauda equina/Myelopathy symptoms: patient denies new bowel/bladder dysfunction, saddle anesthesia, balance problems, meat and seafood clerk strength weakness, difficulty with buttoning/writing, and loss of coordination. Current and prior evaluation and treatments: -Medication trials for this problem: ibuprofen, gabapentin - Alternative methods to treatment: -Physical therapy/Home exercise program: August 2023, PT Austyn Huber -day care director: None -Pain management: None -Pertinent spine surgeries/previous consults: None Pertinent spine history includes: None Radiologic studies reviewed with patient to their understanding. The patient symptoms were not brought on by any discrete episode of injury or trauma to the spine. Was not associated with a new illness or viral syndrome. The symptoms are not associated with any concerning constitutional symptoms such as fever, rash, unexplained change in weight or appetite. There are no new night sweats. Patient denies history of drug abuse/IV drug use. The following portions of the patient's history were reviewed and updated as appropriate: allergies, current medications, past family history, past medical history, past social history, past surgicalhistory and problem list. PERTINENT IMAGING/DIAGNOSTIC TESTING MR lumbar spine without contrast Result Date: 10/16/2023 Narrative: History: Low back pain, cauda equina syndrome suspected Exam/Technique: Multiplanar multisequence images of the lumbar spine obtained without IV dye. Comparison: Lumber spine x-ray 10/16/[address] abdomen pelvis 10/29/2022 Findings: Vertebral body heights and gross alignment are well pres erved. Conus medullaris is of adequate configuration with the tip at L1 level. Intervertebral [id number] through L5-S1 are well-preserved with adequate signal intensity and height. There is no significant disc bulge or spinal canal stenosis. Neuroforamina are widely patent. Paravertebral soft tissue is unremarkable. IMPRESSION: Unremarkable exam Finalized by Summer Orantes MD on 10/16/2023 9:25 AM X-ray spine lumbar 2 or 3 views Result Date: 10/16/2023 Narrative: HISTORY: Pain. TECHNIQUE: Frontal lateral and spot views of the lumbar spine were obtained. . COMPARISON: None. FINDINGS: The vertebral body heights and disc spaces are well-maintained. There is no evidence for an acute osseous abnormality. No significant degenerative change identified. . IMPRESSION: Normal lumbar spine. Finalized by Wes Olmedo MD on 10/16/2023 2:39 AM X-ray spine cervical 3 views or less Result Date: 10/16/2023 Narrative: HISTORY: Pain. TECHNIQUE: Frontal lateral and odontoid views of the cervical spine were obtained. . COMPARISON: None. FINDINGS: The vertebral body heights and disc spaces are well-maintained. The prevertebral soft tissues are within normal limits. The odontoid is intact. There is no evidence for an acute osseous abnormality. . IMPRESSION: Normal cervical spine. Finalized by Wes Olmedo MD on 10/16/2023 2:39 AM ALLERGIES Allergies Allergen Reactions Cefaclor Hives Doxycycline Bactrim [Sulfamethoxazole-Trimethoprim] Rash Keflex [Cephalexin] Rash MEDICATIONS Current Outpatient Medications: gabapentin (NEURONTIN) 100 mg capsule, Take 1 capsule (100 mg total) by mouth 3 (three) times a day., Disp: 30 capsule, Rfl: 0 ibuprofen (MOTRIN) 800 mg tablet, Take 1 tablet (800 mg total) by mouth every 8 (eight) hours as needed., Disp: , Rfl: insulin glargine (LANTUS) 100 unit/mL injection, Inject 0.41 mL (41 Units total) under the skin nightly Indications: type 1 diabetes mellitus., Disp: , Rfl: lisinopriL (PRINIVIL,ZESTRIL) 5 mg tablet, Take 1 tablet (5 mg total) by mouth in the morning., Disp: , Rfl: metFORMIN (GLUCOPHAGE) 500 mg tablet, Take 2 tablets (1,000 mg total) by mouth in the morning and 2tablets (1,000 mg total) before bedtime., Disp: , Rfl: cyclobenzaprine (FLEXERIL) 10 mg tablet, Take 1 tablet (10 mg total) by mouth 3 (three) times a dayas needed for muscle spasms., Disp: 90 tablet, Rfl: 1(All medications reviewed and updated) PAST MEDICAL HISTORY Past Medical History: Diagnosis Date Anxiety Chronic pain disorder Depression Diabetes mellitus ([facility]) DM type 2 (diabetes mellitus, type 2) ([facility]) Neck pain Obesity Tachycardia SOCIAL HISTORY Social History Occupational History Not on file Tobacco Use Smoking status: Never Smokeless tobacco: Never Vaping Use Vaping Use: Never used Substance and Sexual Activity Alcohol use: No Drug use: No Sexual activity: Defer REVIEW OF SYSTEMS Review of Systems Constitutional: Negative for chills and fever. Musculoskeletal: Negative for back pain and neck pain. Neurological: Positive for numbness (left arm and left leg, left ear, left side of face). Psychiatric/Behavioral: Negative for confusion, hallucinations and self-injury. PHYSICAL EXAMINATION Objective Vitals: BP 140/86 Pulse 116 Ht 165.1 cm (5' 5 ) Wt 102.1 kg (225 lb) LMP 10/18/2023 (Exact Date) BMI 37.44 kg/m Physical Exam Vitals reviewed. Constitutional: Appearance: Normal appearance. She is well-developed. HENT: Head: Normocephalic. Cardiovascular: Rate and Rhythm: Tachycardia present. Pulmonary: Effort: Pulmonary effort is normal. Musculoskeletal: Cervical back: Normal range of motion. No tenderness or bony tenderness. Thoracic back: No tenderness or bony tenderness. Lumbar back: No tenderness or bony tenderness. Negative right straight leg raise test and negative left straight leg raise test. Comments: Upper extremity muscle strength: -Deltoids (C5): 5/5 right, 3/5 left -Biceps (C5, C6): 5/5 right, 4/5 left -Triceps (C6, C7, C8): 5/5 right, 3/5 left -Flexor carpi radialis (C6, C7): 5/5 right, 4/5 left -Flexor carpi ulnaris (C7, C8): 5/5 right, 4/5 left -First Dorsal Interosseous (C8, T1): 5/5 right, 5/5 left -Abductor Digiti Minimi (C8, T1): 5/5 right, 5/5 left -Hand grasps: 5/5 right, 3/5 left Lower extremity muscle strength: -Hip Flexors (T12, L1, L2, L3): right 5/5, left 3/5 -Hip adductors (L2, L3, L4): right 5/5, left 3/5 -Hip abductors (L2, L3, L4): right 5/5, left 3/5 -Quadriceps (L2, L3, L4): right 5/5, left 5/5 -Hamstrings (L5, S1, S2): right 5/5, left 5/5 -Tibialis anterior (L4, L5, S1): right 5/5, left 4/5 -Tibialis posterior (L4, L5, S1, S2): right 5/5, left 4/5 -Flexor Hallucis Longus (L5, S1, S2, S3): right 5/5, left 5/5 -Extensor Hallucis Longus (L4, L5, S1): right 5/5, left 5/5 Skin: General: Skin is warm and dry. Neurological: Mental Status: She is alert and oriented to person, place, and time. Sensory: Sensation is intact. Motor: Weakness present. Coordination: Coordination is intact. Gait: Tandem walk abnormal. Deep Tendon Reflexes: Reflex Scores: Tricep reflexes are 2+ on the right side and 2+ on the left side. Bicep reflexes are 2+ on the right side and 2+ on the left side. Brachioradialis reflexes are 2+ on the right side and 2+ on the left side. Patellar reflexes are 2+ on the right side and 2+ on the left side. Achilles reflexes are 2+ on the right side and 2+ on the left side. Comments: Lhermitte's negative Spurling;s negative No atrophy, clonus, or fasciculations Psychiatric: Mood and Affect: Mood and affect normal. Speech: Speech normal. Behavior: Behavior is cooperative. BEHAVIORAL SCREENING, RED/YELLOW FLAGS Elective Fusion Surgery: No Medical Marijuana/CBD use: No Daily MME: 0 RED FLAGS Red Flags Fever: No Night Sweats: No Unintended Weight Loss: No History of Cancer: No Immunocompromised?: Diabetes Substance Abuse- Active: No Substance Abuse- Prior History: No Cauda Equina Symptoms: None YELLOW FLAGS Yellow Flag Symptomatic Depression: No Active major thought disorder: No Excessive Narcotic Use/ MEW >30 per day: No Current average daily MEQ: 0 OARRS/MAPS Report Red Flags: Nothing Listed Work Dissatisfaction: Yes Aggressive/Abusive/Inappropriate Behavior: No ASSESSMENT/ PLAN Jolie Stanley is a new patient to Spine Care who was referred in regards to neck and low backpain. Cervical Spine- Jolie reports pain in her neck which radiates through her entire left arm. She has numbness in herleft hand which is worst in the pinky. Her left arm feels heavy. She notes a change in dexterity inher left hand. She states her gait is unsteady and her balance is impaired. She has also been suffering from chronic headaches. She had a CT of the cervical spine performed in June 2023 that identified several small disc bulges without impingement of the central canal or neural foramina. CT of the brain completed at the same time was unremarkable for acute process. Lumbar Spine Jolie has constant, chronic low back pain. Rodriguez has pain from the mid-back, at the bra band, down through her lower back. She gets pain in her right hip when she walks. She has been having constant pain in her left leg that makes it difficult to walk. The entire leg is affected by the numbness. She has been having difficulty climbing stairs due to leg numbness and weakness. Exam demonstrates weakness through the right arm and leg. Discussed that lumbar MRI and cervical CTfindings do not adequately explain her symptoms. I am concerned her complaints are related to a cerebrovascular or demyelinating process. Will order MRI of the brain and cervical spine with and without contrast to further evaluate. Referral placed to neurology regarding her symptoms. Cyclobenzaprine sent to pharmacy for complaints of muscle spasms. We will call Jolie with MRI results and furtherrecommendations. Assessment 1. Weakness of left side of body 2. Nonintractable headache, unspecified chronicity pattern, unspecified headache type 3. Paresthesia of left arm and leg 4. Muscle spasm Plan 1. [facility] [place]; Future - MR cervical spine with and without contrast; Future - MR brain with and without contrast; Future 2. Nonintractable headache, unspecified chronicity pattern, unspecified headache type - [facility] [place], [place]; Future - MR cervical spine with and without contrast; Future - MR brain with and without contrast; Future 3. Paresthesia of left arm and leg - [facility] [place], [place]; Future - MR cervical spine with and without contrast; Future - MR brain with and without contrast; Future 4. Muscle spasm - cyclobenzaprine (FLEXERIL) 10 mg tablet; Take 1 tablet (10 mg total) by mouth 3 (three) times a day as needed for muscle spasms. Dispense: 90 tablet; Refill: 1 The patient was instructed to call if worsening or not improving. I educated the patient on s/s andprovided information in the AVS regarding cauda equina and myelopathy if pertinent. I advised the patient to go to the ER if these symptoms occur. The OARRS/MAPPS database was reviewed today and found to be appropriate. No indication of medication diversion, or non compliance. Appropriate home exercise program education provided in AVS New medication information provided in AVS if pertinent Smoking cessation provided in patient's AVS if pertinent. If patient noted to have elevated BMI which can contribute to disc degeneration. A healthy weight is recommended for spine health. The following intervention(s) were applied: encouragement to exercise.The BMI is above average; BMI management plan is completed. All questions were answered during the encounter and the patient was in agreement with plan of care. Greater than 50% of this office visit was spent face to face with the patient addressing counseling/education, instructions for management, treatment options and importance of compliance with treatment, performing medically appropriate examination and or coordination of care. Total time also includes time preparing to see patient (e.g. personal review of chart, separately obtained history, tests, independent review of imaging results) and documenting clinical information in the electronic health record. Thank you for the referral. Total time spent was 44 minutes: Preparing to see the patient (e.g., review of tests) Obtaining and/or reviewing separately obtained history Performing a medically appropriate examination and/or evaluation Counseling and educating the patient/family/caregiver Ordering medications, tests, or procedures Referring and communicating with other health child care associate (not separately reported) Documenting clinical information in the electronic or other health record Independently interpreting results (not separately reported) and communicating results to the patient/family/caregiver Care coordination (not separately reported) Tavia Graf CNP [facility] This note was created with the assistance of a speech recognition program. While intending to generate a timely document that accurately reflects the content of the visit, no guarantee can be provided that every grammatical or spelling mistake has been or will be identified or corrected. Thank you for your understanding. COLBY Clarke 10/25/231914 documented in this encounterClermont County HospitalSitefly [facility] [id number] Instructions* Patient Instructions* COLBY Clarke - 10/23/2023 1:30 PM EDT MRI of the brain and cervical spine Cyclobenzaprine 10 mg three times a day as needed for muscle spasms, may cause drowiness Referral to Neurology [facility] Miscellaneous Notes* Telephone Encounter - Betsy Lorenzo - 10/14/2023 8:53 AM EDT Received faxed referral for patient to be seen for Cervical. Returned patient voice message, left message for patient to call office regarding scheduling an appointment. documented in this encounterCommunity [facility]-2024 Telephone encounter Note* Telephone Encounter - Betsy Lorenzo - 10/14/2023 8:53 AM EDT Received faxed referral for patient to be seen for Cervical. Returned patient voice message, left message for patient to call office regarding scheduling an appointment. [facility]02-13-[facility]24 Miscellaneous Notes* Telephone Encounter - Maryse Chin - 09/01/2023 2:23 PM EST 1ST attempt requesting medical notes to support the diagnosis. Date faxed to provider office:09.01.23 Fax #:[phone] Please advise * Telephone Encounter - Tami Gordon - 09/01/2023 2:23 PM EST All documents were received and is in media tab. Per reduction plant supervisor the patient needs to see neurosurgery based on her diagnosis. DX: M50.30 Bulging of cervical intervertebral disc Ivory Polisher called patient back and left message and provided neurosurgery phone number. If patient calls back please transfer to neurosurgery. documented in this encounterCommunity [facility]02-[facility]-2024 Telephone encounter Note* Telephone Encounter - Maryse A Elsy - 09/01/2023 2:23 PM EST 1ST attempt requesting medical notes to support the diagnosis. Date faxed to provider office:09.01.23 Fax #:[phone] Please advise [facility] Telephone encounter Note* Telephone Encounter - Tami Gordon - 09/01/2023 2:23 PM EST All documents were received and is in media tab. Per reduction plant supervisor the patient needs to see neurosurgery based on her diagnosis. DX: M50.30 Bulging of cervical intervertebral disc Ivory Polisher called patient back and left message and provided neurosurgery phone number. If patient calls back please transfer to neurosurgery. [facility] Miscellaneous Notes* Telephone Encounter - Manju Sifuentes RN - 07/28/2023 3:31 PM EST Pt called left message stating she wants [...] with patient on the day of her initialevaluation, she was given the option of what she wanted treated first, she opted for neck and shoulders. Pt was upset and states so my leg is going to be paralyzed for 6-7 weeks until I'm done with PT? She was really concerned about it. I asked pt who she is. States the physical therapist said patient needed to be seen for her back.Advised pt to reach out to her PCP for low back treatment as this is new and acute, so she can be assessed by PCP first. Pt hung up the phone. documented in this encounterCommunity [facility] Center01-[facility]-2024 Telephone encounter Note* Telephone Encounter - Manju Sifuentes RN - 07/28/2023 3:31 PM EST Pt called left message stating she wants [...] with patient on the day of her initialevaluation, she was given the option of what she wanted treated first, she opted for neck and shoulders. Pt was upset and states so my leg is going to be paralyzed for 6-7 weeks until I'm done with PT? She was really concerned about it. I asked pt who she is. States the physical therapist said patient needed to be seen for her back.Advised pt to reach out to her PCP for low back treatment as this is new and acute, so she can be assessed by PCP first. Pt hung up the phone. [facility] History of Present illness Narrative* KRISTY Johnson - 07/23/2023 2:00 PM EST [facility] [address] [place] [address] Patient: Jolie Stanley Sex: female : 1990 Age: 33 y.o. PCP: [facility] Austyn 07/23/2023 Jolie Stanley is here for a(n) [...] severity of 6/10. The pain is moderate. Exacerbatedby: activity. The pain is Worse during the day. Stiffness is present: NA. Associated symptoms include numbness and weakness (LUE, and LLE). Pertinent negatives include no chest pain, fever, headachesor photophobia. Associated symptoms comments: LUE (entire) with numbness and pain. Treatments tried: No PT/HEP, rest, meds: tylenol, and motrin with little relief. ER 06/22/23 toradol, robaxin with moderated relief. The treatment provided mild relief. The effect of pain on patient's ADLS: Mild Impairment. Past Medical History: Diagnosis Date Anxiety Chronic pain disorder Depression Diabetes mellitus ([facility]) DM type 2 (diabetes mellitus, type 2) ([facility]) Neck pain Obesity Tachycardia Past Surgical History: [...] Wt 101.6 kg (224 lb) SpO2 100% BMI37.28 kg/m Physical Exam: GENERAL - Healthy patient [...] during discussion, demonstrated appropriate cognitive reasoning and understandingof the medical condition by asking appropriate questions [...] for the condition being treated. This may i nclude modalities of comfort including moist heat, ultrasound, [...] Side effects, and possible interactions of these medicationswere reviewed and the medication agreement has been discussed, agreed upon, and signed. The patientunderstands compliance concerns and the requirement of pill [...] KRISTY Johnson 07/28/23 0904 documented in this encounterL[facility] SystemEvaluation note* Diagnosis Cervical spondylosis without myelopathy- Primary Cervical disc displacement Displacement of cervical intervertebral disc without myelopathy [facility] Diagnosis Neck pain- Primary Cervicalgia Lumbar pain Lumbago documented in this encounter [facility]* Diagnosis Weakness of left side of body- Primary Other musculoskeletal symptoms referable to limbs Nonintractable headache, unspecified chronicity pattern, unspecified headache type Paresthesia of left arm and leg Muscle spasm Spasm of muscle documented in this encounter [facility]* Diagnosis Onset Date Resolution Status Anemia acute B12 deficiency acute Bacterial vaginitis acute Clinically isolated syndrome acute Diabetes acute Hypertension acute Hyponatremia acute Impaired mobility and activities of daily living acute Left-sided weakness acute Leukocytosis acute Multiple sclerosis acute Obesity acute Pernicious anemia acute Right sided cerebral hemisphere cerebrovascular accide nt acute 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 Vitamin D deficiency acute [facility] Work Phone: Evaluation note* Diagnosis Occlusion and stenosis of unspecified carotid artery- Primary Type 1 diabetes mellitus with other specified complication (HCC) Hypokinesia of left ventricle Intracranial atherosclerosis Cerebral atherosclerosis Arterial ischemic stroke, MCA (middle cerebral artery), right, acute (HCC) Unspecified cerebral artery occlusion with cerebral infarction Left-sided muscle weakness Muscle weakness (generalized) Spasticity as late effect of cerebrovascular accident (CVA) Left sided numbness Disturbance of skin sensation Hypercholesterolemia Pure hypercholesterolemia [facility] Diagnosis Ischemic heart disease- Primary Chronic ischemic heart disease, unspecified 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InstructionsNot on filedocumented in this encounterProSelect [facility] [place] SystemInstructionsNot on filedocumented in this encounterProSelect [facility] [place] SystemInstructionsNot on filedocumented in this encounterProSelect [facility] [place] SystemInstructionsNot on filedocumented in this encounterCommunity [facility] Reason for referral (narrative)* Outpatient Procedure (Routine) - New Request Specialty Diagnoses / Procedures Referred By Nate wong [facility]erred [facility] Diagnoses Ischemic heart disease Procedures ECG COMPLETE ECG ROUTINE ECG W/LEAST 12 LDS W/I&R Dawit Bernard MD [address] [place] [address] [facility] [place] [address] Referral ID Status Reason Start Date Expiration Date Visits Requested Visits Authorized [id number] New Request Auto-Generat ed Referral 02/09/2024 02/08/2025 [address] [facility] Summary Purpose Family History No Family History Records FoundNo Family History Records FoundNo Family History Records FoundNo Family History Records FoundNo Family History Records FoundNo Family History Records FoundNo Family History Records Found Advance Directives No Advanced Directives Records FoundLatest Code Status on File Code Status Date Activated Date Inactivated Comments Full Code 10/16/2023 2:26 AM 10/16/2023 3:13 PM Advance Directive Response Recorded Date/ Time Advance Directives No December 08 10:53am Reason for Referral Specialty Diagnoses / Procedures Referred By Nate wong Referred To Contact Rehabilitation Diagnoses Cervical spondylosis without myelopathy Cervical disc displacement Kelly Stack, PA [address] [place] [address] Referral ID Status Reason Start Date Expiration Date Visits Requested Visits Authorized [id number] Pending Review Specialty Services Required 07/23/2023 07/22/2024 1 1 Specialty Diagnoses / Procedures Referred By Nate wong Referred To Contact Radiology Diagnoses Weakness of left side of body Nonintractable headache, unspecified chronicity pattern, unspecified headache type Paresthesia of left arm and leg Procedures MR brain with and without contrast Tavia Graf, SALES SOLUTIONS ASSOCIATE-ADOPTION SPECIALIST [address] [place] [address] Referral ID Status Reason Start Date Expiration Date V isits Requested Visits Authorized [id number] Pending Review 10/23/2023 10/22/2024 1 1 Specialty Diagnoses / Procedures Referred By Contac t Referred To Contact Radiology Diagnoses Weakness of left side of body Nonintractable headache, unspecified chronicity pattern, unspecified headache type Paresthesia of left arm and leg Procedures MR cervical spine with and without contrast Tavia Graf, SALES SOLUTIONS ASSOCIATE-ADOPTION SPECIALIST [address] [place] [address] Referral ID Status Reason Start Date Expiration Date V isits Requested Visits Authorized [id number] Pending Review 10/23/2023 10/22/2024 1 1 Specialty Diagnoses / Procedures Referred By Contac t Referred To Contact Neurology Diagnoses Weakness of left side of body Nonintractable headache, unspecified chronicity pattern, unspecified headache type Paresthesia of left arm and leg Tavia Graf, SALES SOLUTIONS ASSOCIATE-ADOPTION SPECIALIST [address] [place] [address] [facility] Neurology [address] [place] [address] Referral ID Status Reason Start Date Expiration Date Visits Requested Visits Authorized [id number] Pending Review Specialty Services Required 10/23/2023 10/22/2024 1 1 Specialty Diagnoses / Procedures Referred By Contac t Referred To Contact Cardiology Diagnoses Hypokinesia of left ventricle Procedures CONSULT TO CARDIOLOGY OFFICE/OUTPATIENT [facility] 60 MINUTES Cristian Prieto MD [address] [place] [address] Referral ID Status Reason Start Date Expiration Date Visits Requested Visits Authorized [id number] Authorized PCP Requested Referral 02/01/2024 01/31/2025 1 1 Specialty Diagnoses / Procedures Referred By Contac t Referred To Contact Endocrinology Diagnoses Type 1 diabetes mellitus with other specified complication (HCC) Procedures CONSULT TO ENDOCRINOLOGY OFFICE/OUTPATIENT [facility] MDM 60 MINUTES Cristian Prieto MD [address] [facility] [place] [id number] Referral ID Status Reason Start Date Expiration Date Visits Requested Visits Authorized [id number] Authorized PCP Requested Referral 02/01/2024 01/31/2025 1 1 Specialty Diagnoses / Procedures Referred By Contac t Referred To Contact CT IMAGING Diagnoses Occlusion and stenosis of unspecified carotid artery Procedures CTA NECK W IVCON CT ANGIOGRAPHY NECK W/CONTRAST/NONCONTRAST Cristian Prieto MD [address] [facility] [address] [place] [id number] Ct Imaging [id number] Referral ID Status Reason Start Date Expiration Date Visits Requested Visits Authorized [id number] Pending Review Auto-Generat ed Referral 02/01/2024 03/02/2025 1 1 Specialty Diagnoses / Procedures Referred By Contac t Referred To Contact CT IMAGING Diagnoses Occlusion and stenosis of unspecified carotid artery Procedures CTA HEAD W IVCON CT ANGIOGRAPHY HEAD W/CONTRAST/NONCONTRAST Cristian Prieto MD [address] [facility] [place] [id number] Ct Imaging [place] [address] Referral ID Status Reason Start Date Expiration Date Visits Requested Visits Authorized [id number] Pending Review Auto-Generat ed Referral 02/01/2024 03/02/2025 1 1 Specialty Diagnoses / Procedures Referred By Contac t Referred To Contact Diagnoses Intractable chronic migraine without aura and with status migrainosus Procedures CONSULT TO HEADACHE CLINIC OFFICE/OUTPATIENT [facility] 60 MINUTES Cristian Prieto MD [address] [place] [address] Referral ID Status Reason Start Date Expiration Date Visits Requested Visits Authorized [id number] Authorized PCP Requested Referral 02/11/2024 02/10/2025 1 1 Chief Complaint and Reason for Visit Chief Complaint 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 Reason for Visit Anemia B12 deficiency Bacterial vaginitis Clinically isolated syndrome Diabetes Hypertension Hyponatremia Impaired mobility and activities of daily living Left-sided weakness Leukocytosis Multiple sclerosis Obesity Pernicious anemia 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 Vitamin D deficiency Chief Complaint 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 Reason for Visit Anemia Diabetes Hypertension Obesity Stenosis of right internal carotid artery with cerebral infarction Bacterial vaginitis Clinically isolated syndrome Hyponatremia Left-sided weakness Leukocytosis Multiple sclerosis Additional Source Comments INFORMATION SOURCE (unrecogn ized section and content) DATE CREATED AUTHOR 03/11/2023 [facility] DATE CREATED AUTHOR AUTHOR'S ORGANIZ ATION 10/16/2023 [facility] DATE CREATED AUTHOR AUTHOR'S ORGANIZ ATION 12/12/2023 [facility] DATE CREATED AUTHOR AUTHOR'S ORGANIZ ATION 12/25/2023 [facility] DATE CREATED AUTHOR AUTHOR'S ORGANIZ ATION 01/20/2024 [facility] DATE CREATED AUTHOR AUTHOR'S ORGANIZ ATION 02/18/2024 [facility] DATE CREATED AUTHOR AUTHOR'S ORGANIZ ATION 02/19/2024 [facility] Reason for Visit (unrecogniz ed section and content) Reason Comments Neck Pain Reason Onset Date Comments NEUROLOGY REFERRAL 09/01/2023 Reason Comments Consult New patient, lumbar/ cervical, xrays in chart Reason Comments Received Outside Medical Records Care Teams (unrecognized sec tion and content) Supervisor Cook Room Relationship Specialty Start Date End Date Services, [facility] [address] [place] PCP - General Family Medicine 03/30/19 Supervisor Cook Room Relationship Specialty Start Date End Date Services, [facility] [address] [place] PCP - General Family Medicine 03/30/19 Supervisor Cook Room Relationship Specialty Start Date End Date Services, [facility] [address] [place] PCP - General Family Medicine 03/30/19 Supervisor Cook Room Relationship Specialty Start Date End Date Services, [facility] [address] [place] PCP - General Family Medicine 03/30/19 Supervisor Cook Room Relationship Specialty Start Date End Date Services, [facility] [address] [place] PCP - General Family Medicine 03/30/19 Supervisor Cook Room Relationship Specialty Start Date End Date [facility] [address] [place] PCP - General Family Medicine 03/30/19 Team Status: Active Member Role Status Dates Ekaterina Durand DO Primary Care Provider Active Team Status: Inactive Member Role Status Dates Ekaterina Durand DO Primary Care Provider Active Start: December 09, 2023 End: December 22, 2023 Brandon Cee MD Admit Provid er, Attending Provider Active Start: December 09, 2023 End: December 22, 2023 Yuko Haji , MELLISSA Other Provider Active Star t: December 09, 2023 End: December 22, 2023 Khloe Sawyer , MELLISSA Other Provider Active Start : December 09, 2023 End: December 22, 2023 Pippa Silva RN Other Provider Active Star t: December 09, 2023 End: December 22, 2023 Rachel Boucher , MELLISSA Other Provider Active Start: M ay 2023 End: December 22, 2023 Ashley Nieves , MELLISSA Other Provider Active Start: Kt newby 2023 End: December 22, 2023 Neetu Navarro MD Other Provider Active Start: December 09, 2023 End: December 22, 2023 Pierre Moses DO Other Provider Active Start : December 09, 2023 End: December 22, 2023 Levar Ortiz MD Other Provider Active Start : December 09, 2023 End: December 22, 2023 Mynor Rodriguez DO Other Provider Active Start: December 09, 2023 End: December 22, 2023 Jasson Can MD Other Provider Active Start: December 09, 2023 End: December 22, 2023 Lima Ponce MD Other Provider Active Start : December 09, 2023 End: December 22, 2023 Edin Hughes MD Other Provider Active Start: M ay 2023 End: December 22, 2023 Angelika Garcia APRN Other Provider Active Start: December 09, 2023 End: December 22, 2023 Carmina Burdick MD Other Provider Active Start: December 09, 2023 End: December 22, 2023 Esteban Montgomery MD Other Provider Active Start: Malia ay 2023 End: December 22, 2023 Alexandra Varner MD Other Provider Active Start: December 09, 2023 End: December 22, 2023 Rachid De La Rosa MD Other Provider Active Start: December 09, 2023 End: December 22, 2023 Elian Emerson DO Other Provider Active Start: December 09, 2023 End: December 22, 2023 Sarah Romeo MD Other Provider Active Start: Ma y 2023 End: December 22, 2023 Chico Browne MD Other Provider Active Start: December 09, 2023 End: December 22, 2023 Shea Montanez NP-C Other Provider Active St art: December 09, 2023 End: December 22, 2023 Les Lombardi APRN Other Provider Active Star t: December 09, 2023 End: December 22, 2023 Pan Sparrow MD Other Provider Active Start: December 09, 2023 End: December 22, 2023 Sung Delgado MD Other Provider Active Start: Ma y 2023 End: December 22, 2023 Ryne Conner MD Other Provider Active Start: December 09, 2023 End: December 22, 2023 Deidre Huston MD Other Provider Active Star t: December 09, 2023 End: December 22, 2023 Johnathan Brown MD Other Provider Active Start: Malia ay 2023 End: December 22, 2023 Maryanne Zuniga DO Other Provider Active Start: Ma y 2023 End: December 22, 2023 Magno Beaver DO Other Provider Active Start : December 09, 2023 End: December 22, 2023 Maryse Dumont APRN Other Provider Active Start: December 09, 2023 End: December 22, 2023 Dylan Velez DO Other Provider Active Start: December 09, 2023 End: December 22, 2023 Roland Hernandez MD Other Provider Active Sta rt: December 09, 2023 End: December 22, 2023 Tere Galloway APRN Other Provider Active Start : December 09, 2023 End: December 22, 2023 Adrienne Dillard APRN Other Provider Active St art: December 09, 2023 End: December 22, 2023 Lester Benoit MD Other Provider Active Start: M ay 2023 End: December 22, 2023 Ubaldo Esquivel MD Other Provider Active S tart: December 09, 2023 End: December 22, 2023 Dominguez Santana , DO Other Provider Active Star t: December 09, 2023 End: December 22, 2023 Carla Ansari , DO Other Provider Active Start: December 09, 2023 End: December 22, 2023 Chaparro Conner MD Other Provider Active Start: December 09, 2023 End: December 22, 2023 Caro Phipps RN Other Provider Active Start: M ay 2023 End: December 22, 2023 Deirdre Swartz Other Provider Active Start: December 09, 2023 End: December 22, 2023 Layne Ramsey DO Other Provider Active Start: December 09, 2023 End: December 22, 2023 Kwan Roblero MD Other Provider Active Start : December 09, 2023 End: December 22, 2023 Ashley Watson DO Other Provider Active Start: December 09, 2023 End: December 22, 2023 Manda Barton ANP-BC Other Provider Active Start: December 09, 2023 End: December 22, 2023 Maged Roman DO Other Provider Active Start: December 09, 2023 End: December 22, 2023 Radha Shepherd APRN Other Provider Active St art: December 09, 2023 End: December 22, 2023 Shruthi Colby NP-C Other Provider Active Sta rt: December 09, 2023 End: December 22, 2023 Syeda Ornelas APRN-CORPORATE TAX PREPARER-C Other Provider Active Start: December 09, 2023 End: December 22, 2023 Team Status: Active Member Role Status Dates Ekaterina Durand DO Primary Care Provider Active Start: December 10, 2023 Brandon Cee MD Admit Provid er, Attending Provider, Other Provider Active Start: December 10, 2023 Yuko Haji RN Other Provider Active Star t: December 10, 2023 Khloe Sawyer RN Other Provider Active Start : December 10, 2023 Pippa Silva RN Other Provider Active Star t: December 10, 2023 Rachel Boucher , MELLISSA Other Provider Active Start: M ay 2023 Ashley Nieves RN Other Provider Active Start: Ma y 2023 Neetu Navarro MD Other Provider Active Start: December 10, 2023 Pierre Moses , Other Provider Active Start : December 10, 2023 Levar Ortiz MD Other Provider Active Start : December 10, 2023 Mynor Rodriguez , Other Provider Active Start: December 10, 2023 Jasson Can MD Other Provider Active Start: December 10, 2023 Lima Ponce MD Other Provider Active Start : December 10, 2023 Edin Hughes MD Other Provider Active Start: M ay 2023 Angelika aGrcia APRN Other Provider Active Start: December 10, 2023 Carmina Burdick MD Other Provider Active Start: December 10, 2023 Esteban Montgomery MD Other Provider Active Start: M ay 2023 Alexandra Varner MD Other Provider Active Start: December 10, 2023 Rachid De La Rosa MD Other Provider Active Start: December 10, 2023 Elian Emerson DO Other Provider Active Start: December 10, 2023 Sarah Romeo MD Other Provider Active Start: Ma y 2023 Chico Browne MD Other Provider Active Start: December 10, 2023 Shea Montanez NP-C Other Provider Active St art: December 10, 2023 eLs Lombardi APRN Other Provider Active Star t: December 10, 2023 Pan Sparrow MD Other Provider Active Start: December 10, 2023 Sung Delgado MD Other Provider Active Start: Ma y 2023 Ryne Conner MD Other Provider Active Start: December 10, 2023 Deidre Huston MD Other Provider Active Star t: December 10, 2023 Johnathan Brown MD Other Provider Active Start: M ay 2023 Maryanne Zuniga , DO Other Provider Active Start: Ma y 2023 Magno Beaver , DO Other Provider Active Start : December 10, 2023 Maryse Dumont APRN Other Provider Active Start: December 10, 2023 Dylan Velez , DO Other Provider Active Start: December 10, 2023 Roland Hernandez MD Other Provider Active Sta rt: December 10, 2023 Tere Galloway APRN Other Provider Active Start : December 10, 2023 Adrienne Dillard , SALES SOLUTIONS ASSOCIATE Other Provider Active St art: December 10, 2023 Lester Benoit MD Other Provider Active Start: M ay 2023 Ubaldo Esquivel MD Other Provider Active S tart: December 10, 2023 Dominguez Santana , DO Other Provider Active Star t: December 10, 2023 Carla Ansari , DO Other Provider Active Start: December 10, 2023 Chaparro Conner MD Other Provider Active Start: December 10, 2023 Caro Phipps , MELLISSA Other Provider Active Start: M ay 2023 Team Status: Active Member Role Status Dates Ekaterina Durand , DO Primary Care Provider Active Start: December 17, 2023 Brandon Cee MD Admit Provid er, Attending Provider, Other Provider Active Start: December 17, 2023 Yuko Haji , MELLISSA Other Provider Active Star t: December 17, 2023 Khloe Sawyer , MELLISSA Other Provider Active Start : December 17, 2023 Pippa Silva , MELLISSA Other Provider Active Star t: December 17, 2023 Rachel Boucher , MELLISSA Other Provider Active Start: M ay 2023 Ashley Nieves , MELLISSA Other Provider Active Start: Ma y 2023 Neetu Navarro MD Other Provider Active Start: December 17, 2023 Pierre Moses , DO Other Provider Active Start : December 17, 2023 Levar Ortiz MD Other Provider Active Start : December 17, 2023 Mynor Rodriguez , DO Other Provider Active Start: December 17, 2023 Jasson Can MD Other Provider Active Start: December 17, 2023 Lima Ponce MD Other Provider Active Start : December 17, 2023 Edin Hughes MD Other Provider Active Start: M ay 2023 Angelika Garcia APRN Other Provider Active Start: December 17, 2023 Carmina Burdick MD Other Provider Active Start: December 17, 2023 Esteban Montgomery MD Other Provider Active Start: M ay 2023 Alexandra Varner MD Other Provider Active Start: December 17, 2023 Rachid De La Rosa MD Other Provider Active Start: December 17, 2023 Elian Emerson DO Other Provider Active Start: December 17, 2023 Sarah Romeo MD Other Provider Active Start: Ma y 2023 Chico Browne MD Other Provider Active Start: December 17, 2023 Shea Montanez [employer] NETWORK ARCHITECT-C Other Provider Active St art: December 17, 2023 Les Lombardi APRN Other Provider Active Star t: December 17, 2023 Pan Sparrow MD Other Provider Active Start: December 17, 2023 Sung Delgado MD Other Provider Active Start: Ma y 2023 Ryne Conner MD Other Provider Active Start: December 17, 2023 Deidre Huston MD Other Provider Active Star t: December 17, 2023 Johnathan Brown MD Other Provider Active Start: ay 2023 Maryanne Zuniga DO Other Provider Active Start: y 2023 Magno Beaver DO Other Provider Active Start : December 17, 2023 Maryse Dumont APRN Other Provider Active Start: December 17, 2023 Dylan Velez DO Other Provider Active Start: December 17, 2023 Roland Hernandez MD Other Provider Active Sta rt: December 17, 2023 Tere Galloway APRN Other Provider Active Start : December 17, 2023 Adrienne Dillard APRN Other Provider Active St art: December 17, 2023 Lester Benoit MD Other Provider Active Start: M ay 2023 Ubaldo Esquivel MD Other Provider Active S tart: December 17, 2023 Dominguez Santana , DO Other Provider Active Star t: December 17, 2023 Carla Ansari , DO Other Provider Active Start: December 17, 2023 Chaparro Conner MD Other Provider Active Start: December 17, 2023 Caro Phipps RN Other Provider Active Start: M 2023 Deirdre Swartz Other Provider Active Start: December 17, 2023 Layne Ramsey , DO Other Provider Active Start: December 17, 2023 Kwan Roblero MD Other Provider Active Start : December 17, 2023 Ashley Watson , DO Other Provider Active Start: December 17, 2023 Manda Barton , ANP-BC Other Provider Active Start: December 17, 2023 Maged Roman , DO Other Provider Active Start: December 17, 2023 Radha Shepherd APRN Other Provider Active St art: December 17, 2023 Shruthi Colby , [employer]IS[employer] NETWORK ARCHITECT-C Other Provider Active Sta rt: December 17, 2023 Syeda Ornelas APRN-CORPORATE TAX PREPARER-C Other Provider Active Start: December 17, 2023 Supervisor Cook Room Relationship Specialty Start Date End Date Ekaterina Durand DO NPI: [id number] PCP - General Family Medicine 06/02/19 Ekaterina Durand DO Referring Family Medicine 06/02/19 Supervisor Cook Room Relationship Specialty Start Date End Date Ekaterina Durand DO PCP - General Family Medicine 06/02/19 Ekaterina Durand DO NPI: [id number] Referring Family Medicine 06/02/19 Team Status: Active Member Role Status Dates Ekaterina Durand DO Primary Care Provider Active Start: December 10, 2023 End: December 22, 2023 Brandon Cee MD Admit Provid er, Attending Provider, Other Provider Active Start: December 10, 2023 End: December 22, 2023 Yuko Haji , MELLISSA Other Provider Active Star t: December 10, 2023 End: December 22, 2023 Khloe Sawyer , MELLISSA Other Provider Active Start : December 10, 2023 End: December 22, 2023 Pippa Silva , MELLISSA Other Provider Active Star t: December 10, 2023 End: December 22, 2023 Rachel Boucher RN Other Provider Active Start: M ay 2023 End: December 22, 2023 Ashley Nieves RN Other Provider Active Start: Kt newby 2023 End: December 22, 2023 Neetu Navarro MD Other Provider Active Start: December 10, 2023 End: December 22, 2023 Pierre Moses DO Other Provider Active Start : December 10, 2023 End: December 22, 2023 Levar Ortiz MD Other Provider Active Start : December 10, 2023 End: December 22, 2023 Mynor Rodriguez DO Other Provider Active Start: December 10, 2023 End: December 22, 2023 Jasson Can MD Other Provider Active Start: December 10, 2023 End: December 22, 2023 Lima Ponce MD Other Provider Active Start : December 10, 2023 End: December 22, 2023 Edin Hughes MD Other Provider Active Start: M ay 2023 End: December 22, 2023 Angelika Garcia APRN Other Provider Active Start: December 10, 2023 End: December 22, 2023 Carmina Burdick MD Other Provider Active Start: December 10, 2023 End: December 22, 2023 Esteban Montgomery MD Other Provider Active Start: M ay 2023 End: December 22, 2023 Alexandra Varner MD Other Provider Active Start: December 10, 2023 End: December 22, 2023 Rachid De La Rosa MD Other Provider Active Start: December 10, 2023 End: December 22, 2023 Elian Emerson DO Other Provider Active Start: December 10, 2023 End: December 22, 2023 Sarah Romeo MD Other Provider Active Start: Kt newby 2023 End: December 22, 2023 Chico Browne MD Other Provider Active Start: December 10, 2023 End: December 22, 2023 Shea Montanez , CIS[employer] NETWORK ARCHITECT-C Other Provider Active St art: December 10, 2023 End: December 22, 2023 Les Lombardi APRN Other Provider Active Star t: December 10, 2023 End: December 22, 2023 Pan Sparrow MD Other Provider Active Start: December 10, 2023 End: December 22, 2023 Sung Delgado MD Other Provider Active Start: Kt y 2023 End: December 22, 2023 Ryne Conner MD Other Provider Active Start: December 10, 2023 End: December 22, 2023 Deidre Huston MD Other Provider Active Star t: December 10, 2023 End: December 22, 2023 Johnathan Brown MD Other Provider Active Start: M ay 2023 End: December 22, 2023 Maryanne Zuniga DO Other Provider Active Start: 2023 End: December 22, 2023 Magno Beaver DO Other Provider Active Start : December 10, 2023 End: December 22, 2023 Maryse Dumont APRN Other Provider Active Start: December 10, 2023 End: December 22, 2023 Dylan Velez DO Other Provider Active Start: December 10, 2023 End: December 22, 2023 Roland Hernandez MD Other Provider Active Sta rt: December 10, 2023 End: December 22, 2023 Tere Galloway APRN Other Provider Active Start : December 10, 2023 End: December 22, 2023 Adrienne Dillard APRN Other Provider Active St art: December 10, 2023 End: December 22, 2023 Lester Benoit MD Other Provider Active Start: M ay 2023 End: December 22, 2023 Ubaldo Esquivel MD Other Provider Active S tart: December 10, 2023 End: December 22, 2023 Dominguez Santana , DO Other Provider Active Star t: December 10, 2023 End: December 22, 2023 Carla Ansari , Other Provider Active Start: December 10, 2023 End: December 22, 2023 Chaparro Conner MD Other Provider Active Start: December 10, 2023 End: December 22, 2023 Caro Phipps , MELLISSA Other Provider Active Start: M ay 2023 End: December 22, 2023 Team Status: Active Member Role Status Dates Ekaterina Durand DO Primary Care Provider Active Start: December 17, 2023 End: December 22, 2023 Brandon Cee MD Admit Provid er, Attending Provider, Other Provider Active Start: December 17, 2023 End: December 22, 2023 Yuko Haji , MELLISSA Other Provider Active Star t: December 17, 2023 End: December 22, 2023 Khloe Sawyer , MELLISSA Other Provider Active Start : December 17, 2023 End: December 22, 2023 Pippa Silva RN Other Provider Active Star t: December 17, 2023 End: December 22, 2023 Rachel Boucher RN Other Provider Active Start: M ay 2023 End: December 22, 2023 Ashley Nieves RN Other Provider Active Start: De y 2023 End: December 22, 2023 Neetu Navarro MD Other Provider Active Start: December 17, 2023 End: December 22, 2023 Pierre Moses DO Other Provider Active Start : December 17, 2023 End: December 22, 2023 Levar Ortiz MD Other Provider Active Start : December 17, 2023 End: December 22, 2023 Mynor Rodriguez DO Other Provider Active Start: December 17, 2023 End: December 22, 2023 Jasson Can MD Other Provider Active Start: December 17, 2023 End: December 22, 2023 Lima Ponce MD Other Provider Active Start : December 17, 2023 End: December 22, 2023 Edin Hughes MD Other Provider Active Start: M ay 2023 End: December 22, 2023 Angelika Garcia APRN Other Provider Active Start: December 17, 2023 End: December 22, 2023 Carmina Burdick MD Other Provider Active Start: December 17, 2023 End: December 22, 2023 Esteban Montgomery MD Other Provider Active Start: M ay 2023 End: December 22, 2023 Alexandra Varner MD Other Provider Active Start: December 17, 2023 End: December 22, 2023 Rachid De La Rosa MD Other Provider Active Start: December 17, 2023 End: December 22, 2023 Elian Emerson DO Other Provider Active Start: December 17, 2023 End: December 22, 2023 Sarah Romeo MD Other Provider Active Start: Ma y 2023 End: December 22, 2023 Chico Browne MD Other Provider Active Start: December 17, 2023 End: December 22, 2023 KAYLIE FelizC Other Provider Active St art: December 17, 2023 End: December 22, 2023 Les Lombardi APRN Other Provider Active Star t: December 17, 2023 End: December 22, 2023 Pan Sparrow MD Other Provider Active Start: December 17, 2023 End: December 22, 2023 Sung Delgado MD Other Provider Active Start: Kt y 2023 End: December 22, 2023 Ryne Conner MD Other Provider Active Start: December 17, 2023 End: December 22, 2023 Deidre Huston MD Other Provider Active Star t: December 17, 2023 End: December 22, 2023 Johnathan Brown MD Other Provider Active Start: Malia pretty 2023 End: December 22, 2023 Maryanne Zuniga DO Other Provider Active Start: y 2023 End: December 22, 2023 Magno Beaver DO Other Provider Active Start : December 17, 2023 End: December 22, 2023 Maryse Dumont APRN Other Provider Active Start: December 17, 2023 End: December 22, 2023 Dylan Velez DO Other Provider Active Start: December 17, 2023 End: December 22, 2023 Roland Hernandez MD Other Provider Active Sta rt: December 17, 2023 End: December 22, 2023 Tere Galloway APRN Other Provider Active Start : December 17, 2023 End: December 22, 2023 Adrienne Dillard APRN Other Provider Active St art: December 17, 2023 End: December 22, 2023 Lester Benoit MD Other Provider Active Start: M ay 2023 End: December 22, 2023 Ubaldo Esquivel MD Other Provider Active S tart: December 17, 2023 End: December 22, 2023 Dominguez Santana , DO Other Provider Active Star t: December 17, 2023 End: December 22, 2023 Carla Ansari , DO Other Provider Active Start: December 17, 2023 End: December 22, 2023 Chaparro Conner MD Other Provider Active Start: December 17, 2023 End: December 22, 2023 Caro Phipps RN Other Provider Active Start: M ay 2023 End: December 22, 2023 Deirdre Swartz Other Provider Active Start: December 17, 2023 End: December 22, 2023 Layne Ramsey , Other Provider Active Start: December 17, 2023 End: December 22, 2023 Kwan Roblero MD Other Provider Active Start : December 17, 2023 End: December 22, 2023 Ashley Watson DO Other Provider Active Start: December 17, 2023 End: December 22, 2023 Manda Barton , ANP-BC Other Provider Active Start: December 17, 2023 End: December 22, 2023 Maged Roman DO Other Provider Active Start: December 17, 2023 End: December 22, 2023 Radha Shepherd APRN Other Provider Active St art: December 17, 2023 End: December 22, 2023 Shruthi Colby NP-C Other Provider Active Sta rt: December 17, 2023 End: December 22, 2023 Syeda Ornelas APRN-[employer]PORATE [employer]AX PREPARER-C Other Provider Active Start: December 17, 2023 End: December 22, 2023 Team Status: Inactive Member Role Status Dates Ekaterina Durand DO Primary Care Provider Active Start: February 10, 2024 End: February 10, 2024 Brandon Cee MD Attending Provider Active Start: February 10, 2024 End: February 10, 2024 Supervisor Cook Room Relationship Specialty Start Date End Date Ekaterina Durand DO PCP - General Family Medicine 06/02/19 Nina DurandtyDO Referring Family Medicine 06/02/19 Source Comments (unrecognize d section and content) In the event this informatio n is protected by the Federal Confidentiality of Alcohol and Drug Abuse Patient Records regulations: The Federal rules restrict any use of the information to criminally investigate or prosecute any alcohol or drug abuse patient.[facility] the event this information is protected by the Federal Confidentiality of Alcohol and Drug Abuse Patient Records regulations: The Federal rules restrict any use of the information to criminally investigate or prosecute any alcohol or drug abuse patient.[facility] the event this information is protected by the Federal Confidentiality of Alcohol and Drug Abuse Patient Records regulations: The Federal rules restrict any use of the information to criminally investigate or prosecute any alcohol or drug abuse patient.[facility] the event this information is protected by the Federal Confidentiality of Alcohol and Drug Abuse Patient Records regulations: The Federal rules restrict any use of the information to criminally investigate or prosecute any alcohol or drug abuse patient.[facility] FOR RECORDS PERTAINING TO PATIENTS WHO ARE [...] BE BASED ON THE PRIMARY CLINICAL RECORDS. [facility]. provides no warranty or guarantee of the accuracy or completeness of information in this document.
--- NOTE | 2024-02-20 19:36 | CT_ITS ---
The [address] [address] Patient Name: RUBÉN STANLEY MRN: [id number] date: 1990 Sex: F Assigned Patient Location: ER Current Patient Location: ER Accession/Order Number: [id number] Exam Date: 02/20/2024 19:45 Report Date: 02/20/2024 20:28 At the request of: JONO BARROSO Procedure: CT stroke head/brain wo con EXAM: CT stroke head/brain wo con HISTORY: Blurred vision right eye . Lightheadedness. COMPARISON: 06/22/2023. TECHNIQUE: Unenhanced transaxial tomographic sections obtained from the vertex through the posterior fossa. FINDINGS: Diminished attenuation within the right parietal lobe consistent with sequela of prior small right MCA distribution infarct with associated mild encephalomalacia. No midline shift, mass effect, or intracranial hemorrhage. The mastoid air cells and visualized paranasal sinuses are clear. Left ocular prosthesis. CT/CT stroke head/brain wo con IMPRESSION: 1. No acute intracranial process is identified. 2. There has been interval development of small right parietal infarct since the prior study dated 06/22/2023. Electronically authenticated by: IMTIAZ CHARLTON Date: 02/20/2024 20:28
--- NOTE | 2024-02-20 19:37 | ECG_ITS ---
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
--- NOTE | 2024-02-20 19:37 | ED_ITS ---
HPI - Neuro Symptoms/Deficit General Chief Complaint: Neuro Symptoms/Deficit Stated Complaint: syncope Time Seen by Provider: 02/20/24 19:29 Source: patient Mode of arrival: Wheelchair History of Present Illness HPI Narrative: past history of CVA with residual left sided weakness. CVA november of this year. [facility]. Still has left sided weakness. past history of IDDM, HTN and hyperlipidemia. currently on plavix and ASA. 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 Around 5:30pm describes floaters vision right eye but also when she blinks there appears to be a clear film coating over her site of vision and vision is blurry no chest pain or palpitations. History of migraines. No headache now past injections right eye related to diabetes and does not have lateral peripheral vision right eye. Related Data Home Medications ?Medication ?Instructions ?Recorded ?Confirmed atorvastatin 40 mg tablet 80 mg PO DAILY 09/05/23 02/20/24 gabapentin 100 mg capsule 300 mg PO BID 09/05/23 02/20/24 lisinopril 5 mg tablet 20 mg PO DAILY 09/05/23 02/20/24 aspirin 81 mg tablet,delayed 81 mg PO DAILY 02/20/24 02/20/24 release carvedilol 25 mg tablet 25 mg PO Q12H 02/20/24 02/20/24 cholecalciferol (vitamin D3) 1,250 1,250 mcg PO DAILY 02/20/24 02/20/24 mcg (50,000 unit) capsule clopidogrel 75 mg tablet 75 mg PO DAILY 02/20/24 02/20/24 cyanocobalamin (vitamin B-12) 1,000 mcg PO DAILY 02/20/24 02/20/24 1,000 mcg sublingual tablet divalproex 250 mg tablet,delayed 250 mg PO BID 02/20/24 02/20/24 release insulin aspart U-100 100 unit/mL 1 sliding scale dose subcut TIDWM 02/20/24 02/20/24 (3 mL) subcutaneous pen insulin glargine 100 unit/mL (3 40 unit subcut DAILY 02/20/24 02/20/24 mL) subcutaneous pen (Lantus Solostar U-100 Insulin) ropinirole 0.5 mg tablet 0.5 mg PO DAILY 02/20/24 02/20/24 Previous Rx's ?Medication ?Instructions ?Recorded cyclobenzaprine 10 mg tablet 10 mg PO TID PRN muscle spasm #20 09/05/23 tabs Allergies Allergy/AdvReac Type Severity Reaction Status Date / Time amoxicillin Allergy Severe Hives Verified 09/05/23 12:16 cephalexin Allergy Severe Hives Verified 09/05/23 12:16 doxycycline Allergy Severe Hives Verified 09/05/23 12:16 sulfamethoxazole AdvReac Severe Blister Verified 09/05/23 12:12 [From Bactrim] trimethoprim [From Bactrim] AdvReac Severe Blister Verified 09/05/23 12:12 Review of Systems ROS Status of ROS 10 or more systems reviewed and unremark able except as noted in history and below [facility] Social History Smoking status: Never smoker Exam Constitutional Vital Signs, click to edit/add: Last Vital Signs Temp 98.3 F 02/20/24 18:30 Pulse 96 H 02/20/24 22:20 Resp 14 02/20/24 22:20 BP 160/94 H 02/20/24 22:20 Pulse Ox 100 02/20/24 22:20 O2 Del Method Room Air 02/20/24 22:20 Common normals: no apparent distress, average body habitus, oriented x3, no limitations, healthy appearing, alert and well nourished [facility] Common normals: normocephalic and head/scalp atraumatic Eye Other: right pupil reactive. left pupil not reactive and loss of red reflex ophthalmoscope exam of right eye grossly normal Respiratory Common normals: normal respiratory effort, no retractions, no use of accessory muscles and clear to auscultation bilaterally Cardio Common normals: regular rate, regular rhythm, S1 normal heart sound and S2 normal heart sound GI Common normals: Normal to inspection, nondistended, normoactive bowel sounds present, soft to palpation and non-tender Extremity Common normals: normal to inspection and full ROM Neuro Common normals: oriented x3 Other: weakness left upper and lower ext. 4/5. can hold both up against gravity Psych Appearance: grossly normal Course Vital Signs Vital signs: Vital Signs Temperature 98.3 F 02/20/24 18:30 Pulse Rate 103 H 02/20/24 18:30 Respiratory Rate 16 02/20/24 18:30 Blood Pressure 158/100 H 02/20/24 18:30 Pulse Oximetry 99 02/20/24 18:30 Oxygen Delivery Method Room Air 02/20/24 18:30 Temperature 98.3 F 02/20/24 18:30 Pulse Rate 96 H 02/20/24 22:20 Respiratory Rate 14 02/20/24 22:20 Blood Pressure 160/94 H 02/20/24 22:20 Pulse Oximetry 100 02/20/24 22:20 Oxygen Delivery Method Room Air 02/20/24 22:20 MDM - Neuro Symptoms/Deficit MDM Narrative Medical decision making narrative: patient presents with acute vision change right eye. Past history of diabetic retinopathy right eye. Describes injections in the eye about a year ago. Does not have right lateral peripheral vision . Past retinal detachment left eye and associated blindness. Presents with onset of decreased vision right eye about 3 hours ago. [facility] 20/125 right eye with her glasses on. No headache or eye pain. CT brain with old right parietal CVA. Discussed with [facility] Stroke physician Dr Tracey at 8:40pm. Recommends CTA brain. Test ordered. Patient re examined and no change in her presentation [facility] stroke called back and He reviewed patient's CTA results and recommends transfer to [facility]. No additional intervention including no thrombolytics. Patient to continue ASA and plavix received phone call from radiologist regarding CTA brain with findings of thrombus with preocclusive stenosis and cross filling of left to right MCA and DIAMOND. Discussed with [facility] Stroke physician this updated information. He did not feel any additional intervention was necessary but did plan to review the scans again. Patient's exam unchanged Dr Tracey called back and would like hepartin gtt started. ordered placed Lab Data Labs: Lab Results 02/20/24 Range/Units 18:45 WBC 9.4 (4.0-11.0) 10^3/uL RBC 3.75 L (4.20-5.40) 10^6/uL Hgb 10.2 L (12.0-16.0) g/dL Hct 31.2 L (36.0-48.0) % MCV 83.2 (81.0-99.0) fL MCH 27.2 (26.7-34.0) pg MCHC 32.7 (29.9-35.2) g/dL RDW 13.2 (11.0-15.0) % Plt Count 445 (150-450) 10^3/uL MPV 10.3 (9.5-13.5) fL Neut % (Auto) 50.1 (43.0-75.0) % Lymph % (Auto) 41.6 (20.5-60.0) % [place] % (Auto) 4.9 (1.7-12.0) % Eos % (Auto) 2.9 (0.9-7.0) % Baso % (Auto) 0.3 (0.2-2.0) % Neut # (Auto) 4.7 (1.4-6.5) 10^3/uL Lymph # (Auto) 3.9 H (1.2-3.8) 10^3/uL [place] # (Auto) 0.5 (0.3-0.8) 10^3/uL Eos # (Auto) 0.3 (0.0-0.7) 10^3/uL Baso # (Auto) 0.0 (0.0-0.1) 10^3/uL Abs Immat Gran (auto) 0.02 (0.00-0.03) 10^3/uL Imm/Tot Granulo (auto) 0.2 (0.0-0.5) % PT 11.4 (9.0-11.6) sec INR 1.08 Sodium 137 (136-145) mmol/L Potassium 4.0 (3.5-5.1) mmol/L Chloride 102 (98-107) mmol/L Carbon Dioxide 25.5 (21.0-32.0) mmol/L Anion Gap 13.5 BUN 18.0 (7.0-18.0) mg/dL Creatinine 1.08 H (0.55-1.02) mg/dL Est GFR ( Amer) >60 (>=60) Est GFR (Non-Af Amer) 59 L (>=60) BUN/Creatinine Ratio 16.7 Glucose 185 H (74-106) mg/dL Calcium 8.8 (8.5-10.1) mg/dL Troponin I High Sens 16.7 (4.0-51.3) pg/mL Imaging Data CT scan - abdomen: Radiologist's impression: ITS Impressions Brain CT 02/20/24 19:36 IMPRESSION: 1. No acute intracranial process is identified. 2. There has been interval development of small right parietal infarct since the prior study dated 06/22/2023. Electronically authenticated by: IMTIAZ CHARLTON Date: 02/20/2024 20:28 Head CTA 02/20/24 20:45 IMPRESSION: 1. Thrombus with preocclusive stenosis the intrapetrous portion of the right ICA with occlusion of the precavernous, intracavernous, supraclinoid portion and severe stenosis of the distal terminus which may reflect retrograde filling. 2. Cross filling of the right MCA and DIAMOND from left to right. Mild stenosis of the origin of the right M1 and A1 segments. The distal branches of the MCA and DIAMOND appear symmetric bilaterally. Please also see the report of the CT angiogram of the neck. This was dictated separately. A telephone call regarding the findings in examination was made to and acknowledged by Dr. Smith in the emergency department at 10:38 PM on 02/20/2024. Electronically authenticated by: SHAILA COX Date: 02/20/2024 22:41 Critical Care Time Critical Care Time Total Critical Care Time: 60 Discharge Plan Discharge Chief Complaint: Neuro Symptoms/Deficit Clinical Impression: Acute visual loss Patient Disposition: [facility] Acute [facility] Discharge Location: [facility] Amezquita
[2024-02-20 19:41] LABS: Basophils Percent Auto 0.3 % (0.2-2.0); Eosinophils Absolute Auto 0.3 10^3/uL (0.0-0.7); Eosinophils Percent Auto 2.9 % (0.9-7.0); Hematocrit 31.2 % (36.0-48.0); Hemoglobin 10.2 g/dL (12.0-16.0); Immature Granulocytes Abs Auto 0.02 10^3/uL (0.00-0.03); Immature Granulocytes Pct Auto 0.2 % (0.0-0.5); Lymphocytes Absolute Auto 3.9 10^3/uL (1.2-3.8); Lymphocytes Percent Auto 41.6 % (20.5-60.0); Mean Corpuscular HGB Conc 32.7 g/dL (29.9-35.2); Mean Corpuscular Hemoglobin 27.2 pg (26.7-34.0); Mean Corpuscular Volume 83.2 fL (81.0-99.0); Mean Platelet Volume 10.3 fL (9.5-13.5); Monocytes Absolute Auto 0.5 10^3/uL (0.3-0.8); Monocytes Percent Auto 4.9 % (1.7-12.0); Neutrophils Absolute Auto 4.7 10^3/uL (1.4-6.5); Neutrophils Percent Auto 50.1 % (43.0-75.0); Platelet Count 445 10^3/uL (150-450); Red Blood Count 3.75 10^6/uL (4.20-5.40); Red Cell Distribution Width 13.2 % (11.0-15.0); White Blood Count 9.4 10^3/uL (4.0-11.0)
[2024-02-20 19:56] LABS: INR 1.08; Prothrombin Time 11.4 sec (9.0-11.6)
[2024-02-20 19:58] LABS: Anion Gap 13.5; BUN Creatinine Ratio 16.7; Calcium 8.8 mg/dL (8.5-10.1); Carbon Dioxide 25.5 mmol/L (21.0-32.0); Chloride 102 mmol/L (98-107); Estimated GFR (African America >60 (>=60); Estimated GFR (Non-African Ame 59 (>=60); Glucose 185 mg/dL (74-106); Sodium 137 mmol/L (136-145); Troponin I High Sensitivity 16.7 pg/mL (4.0-51.3)
--- NOTE | 2024-02-20 20:45 | CT_ITS ---
The [address] [address] Patient Name: RUBÉN STANLEY MRN: [id number] date: 1990 Sex: F Assigned Patient Location: ER Current Patient Location: ED.MAIN Accession/Order Number: [id number] Exam Date: 02/20/2024 20:58 Report Date: 02/20/2024 22:31 At the request of: JONO BARROSO Procedure: CT angio neck EXAM: CT angio neck HISTORY: decreased vision right eye COMPARISON: None. TECHNIQUE: Standard CT angiogram of the neck performed with contrast. Mip reconstructions were used to evaluate the arteries of the neck. FINDINGS: Body habitus limits sensitivity. No evidence of significant stenosis in either carotid artery. Both vertebral arteries appear to be well opacified. The left vertebral artery is dominant. No evidence of vessel occlusion. Heterogeneous enlarged thyroid gland. Correlation with thyroid function tests advised. IMPRESSION: Unremarkable CTA neck. Electronically authenticated by: CLAIRE LITTLE Date: 02/20/2024 22:31
--- NOTE | 2024-02-20 20:45 | CT_ITS ---
The [address] [address] Patient Name: RUBÉN STANLEY MRN: [id number] date: 1990 Sex: F Assigned Patient Location: ER Current Patient Location: Accession/Order Number: [id number] Exam Date: 02/20/2024 20:58 Report Date: 02/20/2024 22:41 At the request of: JONO SMITH Procedure: CT angio head EXAM: CT angio head HISTORY: decreased vision right eye CT angio head INDICATION:33 years old; decreased vision right eye TECHNIQUE: CT angiogram of the head was performed. Coronal, sagittal and 3-D reformats were created and reviewed. Ionizing radiation dose reduced via iterative reconstruction/FBP blend and body size kV/mA adjustment. CONTRAST: 100 mL of Omnipaque 350 ml was utilized without complication. COMPARISON: None available at time of dictation. FINDINGS: BRAIN: Please see the report of the noncontrast head CT dated 02/20/2024 at 7:49 PM. ANTERIOR CIRCULATION: There is thrombus filling of the intrapetrous portion of the intracranial right ICA with occlusion of the, intracavernous, and supraclinoid portions. There is severe of the stenosis of the intracranial terminus. This may reflect retrograde filling. There is mild stenosis of the origin of the A1 segment of the DIAMOND on the right as well as the proximal M1 segment on the right. A2 segments are patent. MCA patent on the left. Distal MCA distribution on the right is patent. POSTERIOR CIRCULATION: The V4 segments are patent. There is a left dominant system. PICA patent. AICA patent. Basilar artery and basilar tip are patent. SCA patent. DISTRIBUTING CLERK patent. No enlarged left posterior communicating artery is present. Distal DISTRIBUTING CLERK distributions are patent. No large vessel occlusion. DEVELOPMENTAL ANOMALIES: None. OTHER: No pathologic intracranial enhancing lesions are seen. The study is not optimized for complete evaluation the intracranial veins. No gross evidence of large vessel occlusion is seen. The transverse sinus on the right and sigmoid sinus on the right are hypoplastic. CT/CT angio head IMPRESSION: 1. Thrombus with preocclusive stenosis the intrapetrous portion of the right ICA with occlusion of the precavernous, intracavernous, supraclinoid portion and severe stenosis of the distal terminus which may reflect retrograde filling. 2. Cross filling of the right MCA and DIAMOND from left to right. Mild stenosis of the origin of the right M1 and A1 segments. The distal branches of the MCA and DIAMOND appear symmetric bilaterally. Please also see the report of the CT angiogram of the neck. This was dictated separately. A telephone call regarding the findings in examination was made to and acknowledged by Dr. Smith in the emergency department at 10:38 PM on 02/20/2024. Electronically authenticated by: SHAILA COX Date: 02/20/2024 22:41
[2024-02-21] MEDS: HEPARIN SODIUM,PORCINE/D5W 25,000 UNIT/500 ML IV.SOLN 26 UNIT IV (00:04)
[2024-02-21 00:10] VITALS: BP 158/92; PULSE 97; O2SAT 99
== END 2024-02-21 00:14 | disposition short-term general hospital (02) ==
PROVIDERS: Emergency Provider Internal Medicine
DX: H54.3 Unqualified visual loss, both eyes (principal); I69.352 Hemiplegia and hemiparesis following cerebral infarction affecting left dominant side; E11.9 Type 2 diabetes mellitus without complications; I10 Essential (primary) hypertension; E78.5 Hyperlipidemia, unspecified; Z79.4 Long term (current) use of insulin; Z79.82 Long term (current) use of aspirin; Z79.02 Long term (current) use of antithrombotics/antiplatelets
CPT/HCPCS: 36415; 70450; 70496; 70498; 80048; 84484; 85025; 85610; 93005; 96374; 99285; J1644; Q9967